=== PATIENT | male | born 1945 | race Caucasian/White ===

== ENCOUNTER 2017-02-02 08:00 | Outpatient (CLI) | payer MEDICARE, OTHER ==
[2017-02-02 16:09] LABS: BASOPHILS % (AUTO) 0.7 %; EOSINOPHILS % (AUTO) 3.9 %; HCT - HEMATOCRIT 45.2 % (42.0-52.0); HGB - HEMOGLOBIN 15.5 g/dL (14.0-18.0); LYMPHOCYTES % (AUTO) 25.7 %; MEAN CORPUSCULAR HEMOGLOBIN 31.9 pg (27.0-31.0); MEAN CORPUSCULAR HGB CONC 34.2 g/dL (32.0-36.0); MEAN CORPUSCULAR VOLUME 93.3 fL (80.0-94.0); MEAN PLATELET VOLUME 8.5 fL (7.4-11.4); MONOCYTES % (AUTO) 9.2 %; NEUTROPHILS % (AUTO) 60.5 %; RED BLOOD COUNT 4.85 10^6/uL (4.70-6.10); RED CELL DISTRIBUTION WIDTH 13.7 % (12.0-15.0)
[2017-02-02 16:37] LABS: BAND NEUTROPHILS % (MANUAL) 0 %
[2017-02-02 16:41] LABS: EOSINOPHILS % (MANUAL) 3 %; LYMPHOCYTES % (MANUAL) 27 %; NEUTROPHILS % (MANUAL) 58 %; TOTAL CELLS COUNTED 100
[2017-02-02 16:42] LABS: NP AUTO DIFFERENTIAL? YES; NP MAN DIFFERENTIAL? NO; PLATELET ESTIMATE, MANUAL NORMAL (130-450,000) (NORMAL); PLATELET MORPHOLOGY NORMAL APPEARANCE (NORMAL)
[2017-02-02 17:04] LABS: ALBUMIN/GLOBULIN RATIO 1.5 (1.0-2.2); BILIRUBIN,TOTAL 0.5 mg/dL (0.2-1.0); BUN - BLOOD UREA NITROGEN 36 mg/dL (6-20); CALCIUM 9.2 mg/dL (8.5-10.3); CARBON DIOXIDE - CO2 20 mmol/L (21-32); CHLORIDE 105 mmol/L (101-111); CHOLESTEROL 126 mg/dL; CREATININE 1.3 mg/dL (0.6-1.2); GFR - MDRD 54 (>89); GLUCOSE 106 mg/dL (70-100); HDL CHOLESTEROL 38 mg/dL; LDL/HDL RATIO 1.7 (<3.6); POTASSIUM 4.5 mmol/L (3.5-5.0); SODIUM 135 mmol/L (135-145); TOTAL PROTEIN 7.3 g/dL (6.7-8.2); TRIGLYCERIDES 116 mg/dL; VLDL CHOLESTEROL 23 mg/dL
[2017-02-02 17:05] LABS: CHOL/HDL RATIO 3.3 (<5.0)
== END 2017-02-02 08:01 | disposition home or self-care (01) ==
LOC: LAB.WCP 08:00
PROVIDERS: ATTEND Family Medicine
DX: I12.9 Hypertensive chronic kidney disease with stage 1 through stage 4 chronic kidney disease, or unspecified chronic kidney disease (principal); N18.2 Chronic kidney disease, stage 2 (mild); E78.5 Hyperlipidemia, unspecified; R73.9 Hyperglycemia, unspecified; I10 Essential (primary) hypertension
CPT/HCPCS: 36415; 80053; 80061; 85025

== ENCOUNTER 2018-02-25 08:05 | Outpatient (CLI) | payer MEDICARE, OTHER ==
[2018-02-25 08:59] LABS: BASOPHILS # (AUTO) 0.1 10^3/uL (0.0-0.1); BASOPHILS % (AUTO) 0.8 %; EOSINOPHILS # (AUTO) 0.3 10^3/uL (0.0-0.7); EOSINOPHILS % (AUTO) 4.5 %; HGB - HEMOGLOBIN 16.3 g/dL (14.0-18.0); LYMPHOCYTES # (AUTO) 1.7 10^3/uL (1.5-3.5); LYMPHOCYTES % (AUTO) 23.3 %; MEAN CORPUSCULAR HEMOGLOBIN 32.2 pg (27.0-31.0); MEAN CORPUSCULAR HGB CONC 34.7 g/dL (32.0-36.0); MEAN CORPUSCULAR VOLUME 92.7 fL (80.0-94.0); MEAN PLATELET VOLUME 7.4 fL (7.4-11.4); MONOCYTES # (AUTO) 0.7 10^3/uL (0.0-1.0); MONOCYTES % (AUTO) 9.9 %; NEUTROPHILS # (AUTO) 4.6 10^3/uL (1.5-6.6); NEUTROPHILS % (AUTO) 61.5 %; PLT - PLATELET COUNT 222 10^3/uL (130-450); RED BLOOD COUNT 5.06 10^6/uL (4.70-6.10); RED CELL DISTRIBUTION WIDTH 13.5 % (12.0-15.0); WHITE BLOOD COUNT 7.5 x10^3/uL (4.8-10.8)
[2018-02-25 09:23] LABS: ALBUMIN 4.5 g/dL (3.2-5.5); ALBUMIN/GLOBULIN RATIO 1.4 (1.0-2.2); BILIRUBIN,TOTAL 0.9 mg/dL (0.2-1.0); CALCIUM 9.4 mg/dL (8.5-10.3); CREATININE 1.2 mg/dL (0.6-1.2); TOTAL PROTEIN 7.8 g/dL (6.7-8.2)
== END 2018-02-25 08:06 | disposition home or self-care (01) ==
LOC: RT 08:05
PROVIDERS: ATTEND Internal Medicine Gastroenterology
DX: G47.30 Sleep apnea, unspecified (principal); I10 Essential (primary) hypertension; E78.5 Hyperlipidemia, unspecified
CPT/HCPCS: 36415; 80053; 85025; 93005

== ENCOUNTER 2018-05-09 10:31 | Day surgery (SDC) | payer MEDICARE, OTHER ==
[2018-05-09] MEDS ORDERED: LACTATED RINGERS 1,000 ML IV ONE ×2 (10:53→12:13)
--- NOTE | 2018-05-09 10:56 | ANESTHESIA ---
Pre-Anesthesia VS, & Labs - Diagnosis History of colon polyps - Procedure Colonscopy Vital Signs: Temp Pulse Resp BP Pulse Ox 36.5 C 57 L 18 134/78 H 99 05/09/18 10:43 05/09/18 10:43 05/09/18 10:43 05/09/18 10:43 05/09/18 10:43 Height 6 ft 4 in Weight (kg) 104 kg - NPO >8 hours - Lab Results Lab results reviewed: No Home Medications and Allergies Home Medications: Ambulatory Orders Cholecalciferol (Vitamin D3) [Vitamin D] 2,000 unit PO DAILY 04/24/18 Metoprolol Tartrate [Lopressor] 25 mg PO DAILY 04/24/18 Psyllium Husk (with Sugar) [Metamucil Powder] 2 tbs PO DAILY 04/24/18 Zolpidem Tartrate [Ambien] 10 mg PO QPM PRN 04/24/18 Aspirin [Aspir 81] 81 mg PO DAILY 04/10/13 Fenofibrate Nanocrystallized [Triglide] 160 mg PO DAILY 04/10/13 Losartan Potassium [Cozaar] 100 mg PO DAILY 04/10/13 Cholecalciferol (Vitamin D3) [Vitamin D] 2,000 unit PO DAILY 04/24/18 Metoprolol Tartrate [Lopressor] 25 mg PO DAILY 04/24/18 Psyllium Husk (with Sugar) [Metamucil Powder] 2 tbs PO DAILY 04/24/18 Zolpidem Tartrate [Ambien] 10 mg PO QPM PRN 04/24/18 Allergies/Adverse Reactions: Allergies Allergy/AdvReac Type Severity Reaction Status Date / Time pseudoephedrine HCl * Allergy Severe Hives Verified 04/10/13 13:22 [From Sudafed] triprolidine HCl * Allergy Severe Hives Verified 04/10/13 13:22 [From Actifed] Anes History & Medical History - Anesthetic History Anesthesia Complications: reports: No previous complications Family history of Anesthesia Complications: Denies Family history of Malignant Hyperthermia: Denies - Medical History Cardiovascular: reports: Hypertension, High cholesterol Pulmonary: reports: Sleep apnea, CPAP use Gastrointestinal: reports: Colon polyps Urinary: reports: None, 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) Neuro: reports: None Musculoskeletal: reports: None Endocrine/Autoimmune: reports: None Blood Disorders: reports: None Skin: reports: None Smoking Status: Never smoker - Surgical History General: Colonoscopy Eyes Ears Nose Throat (EENT): Tonsil/Adenoidectomy Orthopedic: Knee replacement, Rotator cuff repair, Carpal Tunnel surgery Exam General: Alert Dental: Partials Upper, Partials Lower Mouth Opening: Greater than 4 Fingerbreadths Neck Mobility: Normal Mallampati classification: I Thyromental Distance: greater than 6 cm Respiratory: Lungs clear Cardiovascular: Regular rate Mental/Cognitive Status: Alert/Oriented X3 Cognitive Status: Within normal limits Plan Anesthesia Type: Total IV Consent for Procedure(s) Verified and Reviewed: Yes Code Status: Attempt Resuscitation ASA classification: 2-Mild systemic disease Is this case an emergency?: No
[2018-05-09] MEDS ORDERED: PHENYLEPHRINE 50 MG/5 ML VIAL IV ONE (12:00)
[2018-05-09] MEDS ORDERED: PROPOFOL 200 MG/20 ML VIAL IVP ONE (12:00)
[2018-05-09] MEDS ORDERED: LIDOCAINE-MPF 2% 5 ML VIAL IM ONE (12:00)
[2018-05-09] MEDS ORDERED: MIDAZOLAM 2 MG/2 ML VIAL IVP ONE (12:00)
[2018-05-09 12:53] VITALS: BP 103/60
== END 2018-05-09 10:32 | disposition home or self-care (01) ==
LOC: SDS 10:31
PROVIDERS: ATTEND Internal Medicine Gastroenterology
PROC: 0DBK8ZZ Excision of Ascending Colon, Via Natural or Artificial Opening Endoscopic (ICD-10-PCS; 2018-05-09)
PROC: 0DBL8ZZ Excision of Transverse Colon, Via Natural or Artificial Opening Endoscopic (ICD-10-PCS; 2018-05-09)
PROC: 0DBM8ZZ Excision of Descending Colon, Via Natural or Artificial Opening Endoscopic (ICD-10-PCS; principal; 2018-05-09 11:30)
DX: D12.2 Benign neoplasm of ascending colon (principal); D12.4 Benign neoplasm of descending colon; D12.3 Benign neoplasm of transverse colon; K57.30 Diverticulosis of large intestine without perforation or abscess without bleeding; I12.9 Hypertensive chronic kidney disease with stage 1 through stage 4 chronic kidney disease, or unspecified chronic kidney disease; N18.9 Chronic kidney disease, unspecified; G47.30 Sleep apnea, unspecified; G62.9 Polyneuropathy, unspecified; E78.00 Pure hypercholesterolemia, unspecified; Z79.82 Long term (current) use of aspirin; H91.90 Unspecified hearing loss, unspecified ear
CPT/HCPCS: 45380; 45385; J7120

== ENCOUNTER 2020-01-13 13:52 | Outpatient (CLI) | payer MEDICARE, OTHER ==
--- NOTE | 2020-01-13 14:23 | SLEEP CARE CONSULTATION ---
Information from patient questionnaire entered by Bandar Schuster. I have reviewed and concur with the information entered by Bandar Schuster. This document represents the service I personally performed and the decisions made by me, Sarath Bay MD, [facility]. History of Present Illness Service Date and Time: 01/13/2020 1352 Reason for Visit: New patient, sleep apnea on CPAP therapy Chief Complaint: reports: Other ( requested this because need to have current CPAP system replaced) Usual bedtime: Late 1996 Snores at night: Yes (Only if CPAP mask breaks seal or comes twisted) Observed to quit breathing while asleep: Yes (Originally) Reasons for waking at night: reports: Gasping for air (originally) Prior sleep studies: Yes Year and Where: 04/01/1997 [facility], 10/13/08 [facility] Additional HPI information: I had the pleasure of seeing Mr. Menard along with his today regarding obstructive sleep apnea-hypopnea. As you know, he is a 74 year old gentleman who was originally diagnosed with the sleep-disordered breathing at [facility] in 1997. The RDI was 23 and altagracia oxygen saturation of 90%. He was prescribed a CPAP device set at 8 cmH2O. He is on his third machine. He uses it every night and all night. The compliance data show usage in 29 out of the past 30 nights, averaging 9.2 hours a night. The residual AHI is 0.1 and average air leak is 0 L/minute. He wears a nasal mask. He gets his supplies from [facility]. He finds the treatment beneficial. He does not snore through the CPAP according to his . 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 Patient is and lives in [facility]. Have you smoked in the past 12 months: No Alcohol use: No Caffeine use: Yes Caffeine amount and frequency: 1 glass of tea once in a while Family History Family history of sleep disordered breathing: No Allergies and Home Medications Drug allergies reviewed: Yes Home medication list reviewed: Yes Review of Systems Weight gain over past 5 years: 25 since pandemic started Cardiovascular: reports: high blood pressure, leg or foot swelling Respiratory: denies: shortness of breath, wheeze, sputum production, chronic cough, other Gastrointestinal: denies: heartburn, difficulty swallowing, nausea, vomitting, diarrhea, abdominal pain, other Urinary: denies: incontinence, frequency, urgency, impotence, other Neurological: denies: headaches, seizure, head trauma, disorientation, speech dysfunction, gait or balance problems, fainting or unconsciousness, other Psychiatric: denies: Attention Deficit Hyperactivity, anxiety, depression, mood disorder, claustrophobia, other Ear/Nose/Throat: reports: sinus problems, nose bleeds (originally), tonsillectomy, wisdom teeth removed Musculoskeletal: reports: joint pain, joint swelling Immunologic: denies: sneezing, rash, itching, allergies to food or environment, other Physical Exam Height: 6 ft 4 in Weight: 240 lb Body Mass Index: 29.2 BMI Classification: Overweight Impression and Plan IMPRESSION: 1. Obstructive Sleep Apnea-Hypopnea Syndrome, moderate, as previously diagnosed. The patient has had excellent treatment compliance. The current pressure setting appears effective and comfortable. The patient experiences improvement on the treatment. No adjustment is necessary today. Plan: 1. Continue with the CPAP therapy at 8 cmH2O. 2. Return for follow up in a year or earlier if there is any problem. Visit Type: In Office Other Participants: Spouse/Significant Other Time Spent with Patient (minutes): 15 Provider Statement: I spent 100% of the Face to Face Visit with the patient with greater than 50% spent counseling the patient and coordination of care.
== END 2020-01-13 13:53 | disposition home or self-care (01) ==
LOC: SC 13:52
PROVIDERS: ATTEND Internal Medicine Pulmonary Disease
DX: G47.33 Obstructive sleep apnea (adult) (pediatric) (principal); E66.3 Overweight; Z68.29 Body mass index [BMI] 29.0-29.9, adult
CPT/HCPCS: 99203; G0463; 99212

== ENCOUNTER 2020-03-09 17:25 | Outpatient (CLI) | payer MEDICARE, OTHER ==
--- NOTE | 2020-03-10 08:13 | XRAY Report ---
PROCEDURE: Hips 3-4V BILAT INDICATIONS: PAIN IN RIGHT HIP JOINT TECHNIQUE: 3 views of the hip were acquired. COMPARISON: None FINDINGS: Bones: No fractures or dislocations. No suspicious bony lesions. The visualized pelvic ring appear s intact. Soft tissues: No suspicious soft tissue calcifications or masses. IMPRESSION: There is a mild degree of symmetric hip joint osteoarthritis. No trauma found, no subluxation identif ied. The partially visualized lower lumbosacral spine shows a moderate degree of degenerative disc di sease slightly greater on the right than the left. Reviewed by: Flo Kaye MD on 03/10/2020 8:12 AM PST Approved by: Flo Kaye MD on 03/10/2020 8:12 AM PST Station ID: [id number]
--- NOTE | 2020-03-10 09:47 | XRAY Report ---
PROCEDURE: Lumbar Spine Complete INDICATIONS: PIRIFORMIS SYNDROME, RIGHT TECHNIQUE: 5 views of the lumbar spine were acquired. COMPARISON: None. FINDINGS: Bones: 5 [id number] vertebrae are present. There is rightward curvature at thoracolumbar junct ion centered at T12-L1 level and slight compensatory leftward curvature centered at L4-5 level. No ac [place] compression fracture or spondylolisthesis. Degenerative endplate changes and bilateral facet arth rosis throughout lumbar spine is seen more prominent at L4-5 and L5-S1 levels. Oblique views shows no gross pars interarticularis defects. Bilateral bony foraminal stenosis at L4-5 and L5-S1 levels are likely present. No suspicious bony lesions. Soft tissues: Overlying bowel gas pattern is normal. No suspicious soft tissue calcifications. IMPRESSION: Scoliosis of thoracolumbar spine as above. No acute compression fracture or spondylolist hesis. Degenerative disc disease throughout lumbar spine more prominent at L4-5 and L5-S1 levels with suggestion of bilateral bony foraminal stenosis. No gross pars defect. Reviewed by: Collin Smith MD on 03/10/2020 9:46 AM PST Approved by: Collin Smith MD on 03/10/2020 9:46 AM PST Station ID: [id number]
== END 2020-03-09 17:26 | disposition home or self-care (01) ==
LOC: DI 17:25
PROVIDERS: ATTEND Internal Medicine
DX: M16.0 Bilateral primary osteoarthritis of hip (principal); M51.37 Other intervertebral disc degeneration, lumbosacral region; M51.36 Other intervertebral disc degeneration, lumbar region

== ENCOUNTER 2020-08-26 08:00 | Outpatient (CLI) | payer MEDICARE, OTHER ==
[2020-08-26 11:51] LABS: BASOPHILS % (AUTO) 0.3 %; EOSINOPHILS # (AUTO) 0.3 10^3/uL (0.0-0.7); EOSINOPHILS % (AUTO) 3.3 %; HCT - HEMATOCRIT 38.4 % (42.0-52.0); HGB - HEMOGLOBIN 12.9 g/dL (14.0-18.0); LYMPHOCYTES # (AUTO) 2.3 10^3/uL (1.5-3.5); LYMPHOCYTES % (AUTO) 23.1 %; MEAN CORPUSCULAR HEMOGLOBIN 35.7 pg (27.0-31.0); MEAN CORPUSCULAR HGB CONC 33.6 g/dL (32.0-36.0); MEAN CORPUSCULAR VOLUME 106.4 fL (80.0-94.0); NEUTROPHILS # (AUTO) 6.1 10^3/uL (1.5-6.6); NEUTROPHILS % (AUTO) 60.7 %; PLT - PLATELET COUNT 238 10^3/uL (130-450); RED BLOOD COUNT 3.61 10^6/uL (4.70-6.10); RED CELL DISTRIBUTION WIDTH 13.9 % (12.0-15.0)
[2020-08-26 12:24] LABS: ESTIMATED AVERAGE GLUCOSE 128 mg/dL (70-100); HEMOGLOBIN A1c% 6.1 % (4.27-6.07)
[2020-08-26 12:40] LABS: THYROID STIMULATING HORMONE 3.36 uIU/mL (0.34-5.60)
[2020-08-26 12:50] LABS: ALBUMIN 4.6 g/dL (3.2-5.5); ALBUMIN/GLOBULIN RATIO 1.5 (1.0-2.2); ALKALINE PHOSPHATASE 43 IU/L (42-121); ALT ALANINE AMINOTRANSFERASE 24 IU/L (10-60); AST ASPARTATE AMINOTRANSFERASE 25 IU/L (10-42); BILIRUBIN,TOTAL 0.9 mg/dL (0.2-1.0); BUN - BLOOD UREA NITROGEN 50 mg/dL (6-20); CALCIUM 9.8 mg/dL (8.5-10.3); CARBON DIOXIDE - CO2 25 mmol/L (21-32); CHLORIDE 103 mmol/L (101-111); CHOL/HDL RATIO 3.8 (<5.0); CHOLESTEROL 136 mg/dL; CREATININE 1.6 mg/dL (0.6-1.2); GFR - MDRD 42 (>89); GLUCOSE 111 mg/dL (70-100); HDL CHOLESTEROL 36 mg/dL; LDL CHOLESTEROL,CALCULATED 75 mg/dL; LDL/HDL RATIO 2.1 (<3.6); POTASSIUM 4.8 mmol/L (3.5-5.0); SODIUM 136 mmol/L (135-145); TOTAL PROTEIN 7.6 g/dL (6.7-8.2); TRIGLYCERIDES 127 mg/dL; VLDL CHOLESTEROL 25 mg/dL
== END 2020-08-26 23:59 | disposition home or self-care (01) ==
LOC: LAB.WCP 08:00
PROVIDERS: ATTEND Internal Medicine
DX: N28.9 Disorder of kidney and ureter, unspecified (principal); G47.00 Insomnia, unspecified; E78.5 Hyperlipidemia, unspecified; N40.0 Benign prostatic hyperplasia without lower urinary tract symptoms; R73.03 Prediabetes; G62.9 Polyneuropathy, unspecified
CPT/HCPCS: 36415; 80053; 80061; 83036; 83721; 84153; 84443; 85025

== ENCOUNTER 2021-02-28 09:30 | Outpatient (CLI) | payer MEDICARE, OTHER ==
[2021-02-28 12:48] LABS: CREATININE,URINE 117.6 mg/dL; MICROALBUM/CREATININE RATIO,UR 142.9 ug/mg (<30.0); MICROALBUMIN,URINE 16.8 mg/dL (0-300.0)
[2021-02-28 12:50] LABS: ALT ALANINE AMINOTRANSFERASE 34 IU/L (10-60); BUN - BLOOD UREA NITROGEN 32 mg/dL (6-20); CALCIUM 9.6 mg/dL (8.5-10.3); CARBON DIOXIDE - CO2 26 mmol/L (21-32); CHLORIDE 101 mmol/L (101-111); CHOL/HDL RATIO 2.6 (<5.0); CHOLESTEROL 84 mg/dL; CREATININE 1.1 mg/dL (0.6-1.2); GFR - MDRD 65 (>89); GLUCOSE 111 mg/dL (70-100); HDL CHOLESTEROL 32 mg/dL; LDL CHOLESTEROL,CALCULATED 29 mg/dL; LDL/HDL RATIO 0.9 (<3.6); POTASSIUM 4.4 mmol/L (3.5-5.0); SODIUM 136 mmol/L (135-145); TRIGLYCERIDES 115 mg/dL; VLDL CHOLESTEROL 23 mg/dL
[2021-02-28 12:54] LABS: ESTIMATED AVERAGE GLUCOSE 114 mg/dL (70-100); HEMOGLOBIN A1c% 5.6 % (4.27-6.07)
== END 2021-02-28 23:59 | disposition home or self-care (01) ==
LOC: LAB.WCP 09:30
PROVIDERS: ATTEND Internal Medicine
DX: E78.5 Hyperlipidemia, unspecified (principal); R73.03 Prediabetes
CPT/HCPCS: 36415; 80048; 80061; 82043; 82570; 83036; 83721; 84460

== ENCOUNTER 2021-04-04 12:52 | Outpatient (CLI) | payer MEDICARE, OTHER ==
[2021-04-04 14:52] VITALS: BP 136/68
--- NOTE | 2021-04-04 14:52 | SLEEP CARE CONSULTATION ---
Information from patient questionnaire entered by Kay Phan MA. I have reviewed and concur with the information entered by Kay Phan MA. This document represents the service I personally performed and the decisions made by me, Sarath Bay MD, [facility]. History of Present Illness Service Date and Time: 04/04/2021 1252 Reason for follow up: annual (LAST SEEN 02/28) Prior sleep studies: Yes Year and Where: 04/01/1997 [facility], 10/13/08 [facility] HPI additional information: HPI: Mr. Menard along with his today regarding obstructive sleep apnea- hypopnea. He is a 74 year old gentleman who was originally diagnosed with the sleep-disordered breathing at [facility] in 1997. The RDI was 23 and altagracia oxygen saturation of 90%. He was prescribed a CPAP device set at 8 cmH2O. He is on his third machine. He uses it every night and all night. The compliance data show usage in 361 out of the past 365 nights, averaging 8.3 hours a night. The residual AHI is 0.2 and average air leak is 0 L/minute. He wears the ResMed P10 nasal pillows. He gets his supplies from [facility]. He finds the treatment beneficial. He does not snore through the CPAP according to his . Sleep Study - Results Prior sleep studies: Yes Year and Where: 04/01/1997 [facility], 10/13/08 [facility] CPAP Compliance Data - Data Reviewed with Patient Average duration of nightly device use: 8 HOURS 9 MINUTES Compliance rate %: 99 Current pressure setting (cmH2O): 8 Average residual AHI: 0.2 Central apnea: 0 Obstructive apnea: 0 Average large leak: 14.6 Subjective Missed days of use due to: reports: other (POWER OUTAGES) Current pressure setting perceived as: comfortable Current [place] Sleepiness Scale score: 11 (2021) Allergies and Home Medications Known drug allergies: Yes (SUDIFED, ) Drug allergies reviewed: Yes Home medication list reviewed: No Review of Systems Review of systems same as previous: Yes Physical Exam Vital signs obtained and entered by: Ammy PHAN CMA AAROSEMARY Blood Pressure: 136/68 (LEFT, PULSE 59) Heart Rate: 61 O2 Saturation: 97 (WITH PAPER MASK-) Height: 6 ft 4 in Weight: 227 lb Body Mass Index: 27.6 BMI Classification: Overweight Impression and Plan IMPRESSION: 1. Obstructive Sleep Apnea-Hypopnea Syndrome, moderate, as previously diagnosed. The patient continues to have excellent treatment compliance. The current pressure setting appears effective and comfortable. The patient experiences improvement on the treatment. No adjustment is necessary today. Plan: 1. Continue with the CPAP therapy at 8 cmH2O. 2. Consider ResMed N30i mask or P30 nasal pillows. 3. Get a heated hose if he has difficulty with condensation in the hose. Follow up with Sleep Care in: 1 year Visit Type: In Office Time Spent with Patient (minutes): 15 Provider Statement: I spent 100% of the Face to Face Visit with the patient with greater than 50% spent counseling the patient and coordination of care.
== END 2021-04-04 12:53 | disposition home or self-care (01) ==
LOC: SC 12:52
PROVIDERS: ATTEND Internal Medicine Pulmonary Disease
DX: G47.33 Obstructive sleep apnea (adult) (pediatric) (principal)
CPT/HCPCS: 99212; G0463

== ENCOUNTER 2021-08-25 11:58 | Outpatient (CLI) | payer MEDICARE, OTHER ==
[2021-08-25 17:55] LABS: BASOPHILS % (AUTO) 0.3 %; EOSINOPHILS # (AUTO) 0.2 10^3/uL (0.0-0.7); EOSINOPHILS % (AUTO) 1.8 %; HCT - HEMATOCRIT 35.2 % (42.0-52.0); LYMPHOCYTES # (AUTO) 2.6 10^3/uL (1.5-3.5); MEAN CORPUSCULAR HEMOGLOBIN 38.7 pg (27.0-31.0); MEAN CORPUSCULAR HGB CONC 34.1 g/dL (32.0-36.0); MEAN CORPUSCULAR VOLUME 113.5 fL (80.0-94.0); MEAN PLATELET VOLUME 10.8 fL (7.4-11.4); MONOCYTES # (AUTO) 1.1 10^3/uL (0.0-1.0); MONOCYTES % (AUTO) 8.2 %; NEUTROPHILS # (AUTO) 8.9 10^3/uL (1.5-6.6); NEUTROPHILS % (AUTO) 65.9 %; PLT - PLATELET COUNT 331 10^3/uL (130-450); RED CELL DISTRIBUTION WIDTH 15.3 % (12.0-15.0); WHITE BLOOD COUNT 13.4 x10^3/uL (4.8-10.8)
[2021-08-25 18:26] LABS: % IRON SATURATION 27 % (20-50); IRON 80 ug/dL (45-182); THYROID STIMULATING HORMONE 1.6 uIU/mL (0.34-5.60); TOTAL IRON BINDING CAPACITY 298 ug/dL (250-450); TRANSFERRIN 213 mg/dL (180-329)
[2021-08-25 18:31] LABS: FERRITIN 396.9 ng/mL (23.9-336.2)
[2021-08-25 20:33] LABS: RBC MORPHOLOGY (MULTIPLE) 1+ MACROCYTOSIS (NORMAL); SLIDE REVIEW? Indicated
[2021-08-25 20:34] LABS: PLATELET ESTIMATE, MANUAL NORMAL (130-450,000) (NORMAL); PLATELET MORPHOLOGY 1+ LARGE PLATELETS (NORMAL)
[2021-08-26 14:08] LABS: KAPPA FREE LT CHAINS SERUM 25.7 mg/L (3.3-19.4); KAPPA/LAMBDA RATIO SERUM 0.88 (0.26-1.65); LAMBDA FREE LT CHAINS SERUM 29.1 mg/L (5.7-26.3)
[2021-08-27 16:08] LABS: METHYLMALONIC ACID SERUM 132 nmol/L (0-378)
[2021-08-29 15:08] LABS: A/G RATIO 1.5 (0.7-1.7); ALBUMIN 4.3 g/dL (2.9-4.4); ALPHA-1-GLOBULIN 0.2 g/dL (0.0-0.4); ALPHA-2-GLOBULIN 0.7 g/dL (0.4-1.0); BETA GLOBULIN 0.9 g/dL (0.7-1.3); GAMMA GLOBULIN 1.1 g/dL (0.4-1.8); GLOBULIN TOTAL 2.9 g/dL (2.2-3.9); IMMUNOGLOBULIN A 276 mg/dL (61-437); IMMUNOGLOBULIN G 1131 mg/dL (603-1613); IMMUNOGLOBULIN M 71 mg/dL (15-143); M-SPIKE Not Observed g/dL (Not Observed); PROTEIN TOTAL 7.2 g/dL (6.0-8.5)
== END 2021-08-25 11:59 | disposition home or self-care (01) ==
LOC: LAB.N 11:58
PROVIDERS: ATTEND Internal Medicine
DX: D64.9 Anemia, unspecified (principal); D75.89 Other specified diseases of blood and blood-forming organs
CPT/HCPCS: 36415; 82728; 82784; 83540; 83883; 83921; 84155; 84165; 84443; 84466; 85025; 86334

== ENCOUNTER 2021-12-30 12:31 | Outpatient (CLI) | payer MEDICARE, OTHER ==
[2021-12-30 12:47] LABS: BASOPHILS % (AUTO) 0.2 %; EOSINOPHILS # (AUTO) 0.3 10^3/uL (0.0-0.7); EOSINOPHILS % (AUTO) 1.9 %; HCT - HEMATOCRIT 30.7 % (42.0-52.0); HGB - HEMOGLOBIN 10.6 g/dL (14.0-18.0); LYMPHOCYTES # (AUTO) 1.9 10^3/uL (1.5-3.5); LYMPHOCYTES % (AUTO) 14.4 %; MEAN CORPUSCULAR HEMOGLOBIN 37.6 pg (27.0-31.0); MEAN CORPUSCULAR HGB CONC 34.5 g/dL (32.0-36.0); MEAN CORPUSCULAR VOLUME 108.9 fL (80.0-94.0); MEAN PLATELET VOLUME 9.6 fL (7.4-11.4); MONOCYTES # (AUTO) 0.9 10^3/uL (0.0-1.0); MONOCYTES % (AUTO) 6.8 %; NEUTROPHILS % (AUTO) 75.9 %; PLT - PLATELET COUNT 289 10^3/uL (130-450); RED BLOOD COUNT 2.82 10^6/uL (4.70-6.10); RED CELL DISTRIBUTION WIDTH 14.5 % (12.0-15.0); WHITE BLOOD COUNT 13.1 x10^3/uL (4.8-10.8)
[2021-12-30 13:18] LABS: THYROID STIMULATING HORMONE 1.64 uIU/mL (0.34-5.60)
[2021-12-30 13:25] LABS: ALBUMIN 4.4 g/dL (3.2-5.5); ALBUMIN/GLOBULIN RATIO 1.4 (1.0-2.2); BILIRUBIN,TOTAL 0.8 mg/dL (0.2-1.0); CREATININE 1.1 mg/dL (0.6-1.2); CRP - C-REACTIVE PROTEIN 1.7 mg/dL (0-1.0); POTASSIUM 4.3 mmol/L (3.5-5.0); TOTAL PROTEIN 7.5 g/dL (6.7-8.2); URIC ACID 7.5 mg/dL (2.6-7.2)
[2021-12-30 13:55] LABS: RHEUMATOID FACTOR NEGATIVE (Negative)
[2021-12-31 17:08] LABS: ANTI-DNA (DS) AB QN 2 IU/mL (0-9); CENTROMERE B ANTIBODIES <0.2 AI (0.0-0.9); CHROMATIN ANTIBODIES <0.2 AI (0.0-0.9); JO-1 AB <0.2 AI (0.0-0.9); RIBOSOMAL P ANTIBODIES <0.2 AI (0.0-0.9); RNP ANTIBODIES <0.2 AI (0.0-0.9); SCLERODERMA-70 ANTIBODIES <0.2 AI (0.0-0.9); SJOGREN'S ANTI-SS-A <0.2 AI (0.0-0.9); SJOGREN'S ANTI-SS-B <0.2 AI (0.0-0.9); SMITH ANTIBODIES <0.2 AI (0.0-0.9); SMITH/RNP ANTIBODIES <0.2 AI (0.0-0.9)
[2022-01-02 21:07] LABS: CYCLIC CITRULLINATED PEP IGG/A 14 units (0-19)
== END 2021-12-30 12:32 | disposition home or self-care (01) ==
LOC: LAB 12:31
PROVIDERS: ATTEND Internal Medicine
DX: M25.50 Pain in unspecified joint (principal); I10 Essential (primary) hypertension; D75.89 Other specified diseases of blood and blood-forming organs; Z13.29 Encounter for screening for other suspected endocrine disorder
CPT/HCPCS: 36415; 80053; 84443; 84550; 85025; 85651; 86140; 86200; 86225; 86235; 86430

== ENCOUNTER 2022-02-13 11:06 | Outpatient (CLI) | payer MEDICARE, OTHER ==
[2022-02-13 11:20] LABS: BASOPHILS % (AUTO) 0.3 %; EOSINOPHILS # (AUTO) 0.3 10^3/uL (0.0-0.7); EOSINOPHILS % (AUTO) 2.9 %; HCT - HEMATOCRIT 34.3 % (42.0-52.0); HGB - HEMOGLOBIN 11.7 g/dL (14.0-18.0); LYMPHOCYTES # (AUTO) 2.4 10^3/uL (1.5-3.5); LYMPHOCYTES % (AUTO) 27.5 %; MEAN CORPUSCULAR HEMOGLOBIN 36.8 pg (27.0-31.0); MEAN CORPUSCULAR HGB CONC 34.1 g/dL (32.0-36.0); MEAN CORPUSCULAR VOLUME 107.9 fL (80.0-94.0); MEAN PLATELET VOLUME 9.2 fL (7.4-11.4); MONOCYTES # (AUTO) 0.7 10^3/uL (0.0-1.0); MONOCYTES % (AUTO) 8.2 %; NEUTROPHILS # (AUTO) 5.1 10^3/uL (1.5-6.6); NEUTROPHILS % (AUTO) 59.2 %; PLT - PLATELET COUNT 244 10^3/uL (130-450); RED BLOOD COUNT 3.18 10^6/uL (4.70-6.10); RED CELL DISTRIBUTION WIDTH 15.6 % (12.0-15.0); WHITE BLOOD COUNT 8.6 x10^3/uL (4.8-10.8)
[2022-02-13 11:38] LABS: BUN - BLOOD UREA NITROGEN 28 mg/dL (6-20); CALCIUM 9.3 mg/dL (8.5-10.3); CARBON DIOXIDE - CO2 25 mmol/L (21-32); CHLORIDE 100 mmol/L (101-111); GFR - MDRD 73 (>89); GLUCOSE 109 mg/dL (70-100); POTASSIUM 4.4 mmol/L (3.5-5.0); SODIUM 135 mmol/L (135-145)
[2022-02-13 11:57] LABS: PROLACTIN 10.23 ng/mL
[2022-02-13 12:21] LABS: LUTEINIZING HORMONE 25.39 mIU/mL
[2022-02-13 12:25] LABS: CRP - C-REACTIVE PROTEIN < 1.0 mg/dL (0-1.0)
[2022-02-13 13:30] LABS: ESTIMATED AVERAGE GLUCOSE 114 mg/dL (70-100); HEMOGLOBIN A1c% 5.6 % (4.27-6.07)
== END 2022-02-13 11:07 | disposition home or self-care (01) ==
LOC: LAB 11:06
PROVIDERS: ATTEND Internal Medicine
DX: I10 Essential (primary) hypertension (principal); D75.89 Other specified diseases of blood and blood-forming organs; E29.1 Testicular hypofunction; R73.03 Prediabetes; M35.3 Polymyalgia rheumatica
CPT/HCPCS: 36415; 80048; 82607; 83002; 83036; 84146; 84403; 85025; 85651; 86140

== ENCOUNTER 2022-02-16 12:44 | Outpatient (CLI) | payer MEDICARE, OTHER | END 2022-02-16 12:45 | disposition home or self-care (01) | LOC: LAB 12:44 | PROVIDERS: ATTEND Internal Medicine Rheumatology | DX: M35.3 Polymyalgia rheumatica (principal) | CPT/HCPCS: 36415; 85651; 86140 ==

== ENCOUNTER 2022-05-08 12:20 | Outpatient (CLI) | payer MEDICARE, OTHER ==
[2022-05-08 13:22] LABS: BASOPHILS % (AUTO) 0.4 %; EOSINOPHILS # (AUTO) 0.3 10^3/uL (0.0-0.7); EOSINOPHILS % (AUTO) 2.4 %; HCT - HEMATOCRIT 37.8 % (42.0-52.0); HGB - HEMOGLOBIN 12.8 g/dL (14.0-18.0); LYMPHOCYTES # (AUTO) 2.1 10^3/uL (1.5-3.5); LYMPHOCYTES % (AUTO) 19.2 %; MEAN CORPUSCULAR HEMOGLOBIN 36.6 pg (27.0-31.0); MEAN CORPUSCULAR HGB CONC 33.9 g/dL (32.0-36.0); MEAN PLATELET VOLUME 9.3 fL (7.4-11.4); MONOCYTES # (AUTO) 0.9 10^3/uL (0.0-1.0); MONOCYTES % (AUTO) 8.4 %; NEUTROPHILS # (AUTO) 7.4 10^3/uL (1.5-6.6); NEUTROPHILS % (AUTO) 67.9 %; PLT - PLATELET COUNT 245 10^3/uL (130-450); WHITE BLOOD COUNT 10.8 x10^3/uL (4.8-10.8)
[2022-05-08 13:56] LABS: ALBUMIN 4.1 g/dL (3.2-5.5); ALBUMIN/GLOBULIN RATIO 1.4 (1.0-2.2); ALKALINE PHOSPHATASE 50 IU/L (42-121); ALT ALANINE AMINOTRANSFERASE 26 IU/L (10-60); AST ASPARTATE AMINOTRANSFERASE 25 IU/L (10-42); BILIRUBIN,TOTAL 0.8 mg/dL (0.2-1.0); BUN - BLOOD UREA NITROGEN 25 mg/dL (6-20); CALCIUM 9.2 mg/dL (8.5-10.3); CARBON DIOXIDE - CO2 28 mmol/L (21-32); CHLORIDE 98 mmol/L (101-111); CHOLESTEROL 160 mg/dL; CREATININE 1.1 mg/dL (0.6-1.2); GFR - MDRD 65 (>89); GLUCOSE 110 mg/dL (70-100); HDL CHOLESTEROL 32 mg/dL; LDL CHOLESTEROL,CALCULATED 78 mg/dL; LDL/HDL RATIO 2.4 (<3.6); POTASSIUM 4.2 mmol/L (3.5-5.0); SODIUM 133 mmol/L (135-145); TRIGLYCERIDES 250 mg/dL; VLDL CHOLESTEROL 50 mg/dL
[2022-05-08 13:57] LABS: CRP - C-REACTIVE PROTEIN < 1.0 mg/dL (0-1.0)
== END 2022-05-08 12:21 | disposition home or self-care (01) ==
LOC: LAB 12:20
PROVIDERS: ATTEND Internal Medicine
DX: I10 Essential (primary) hypertension (principal); E78.5 Hyperlipidemia, unspecified; M35.3 Polymyalgia rheumatica
CPT/HCPCS: 36415; 80053; 80061; 83721; 85025; 85651; 86140

== ENCOUNTER 2022-05-15 12:49 | Outpatient (CLI) | payer MEDICARE, OTHER ==
--- NOTE | 2022-05-15 13:16 | SLEEP CARE CONSULTATION ---
Information from patient questionnaire entered by Jazlyn Parr LPN. I have reviewed and concur with the information entered by Jazlyn Parr LPN. This document represents the service I personally performed and the decisions made by me, Sarath Bay MD, [facility]. History of Present Illness Service Date and Time: 05/15/2022 1249 Reason for follow up: annual (ANNUAL LAST OFFICE VISIT 03/2021) Prior sleep studies: Yes Year and Where: 04/01/1997 [facility], 10/13/08 [facility] HPI additional information: Mr. Menrad along with his today regarding obstructive sleep apnea- hypopnea. He is a 74-year-old gentleman who was originally diagnosed with the sleep-disordered breathing at [facility] in 1997. The RDI was 23 and altagracia oxygen saturation of 90%. He was prescribed a CPAP device set at 8 cmH2O. He is on his third machine. He continues to use it every night and all night. The compliance data show usage in 180 out of the past 180 nights, averaging 9.3 hours a night. The > 4 hour compliance rate for the past 30 days is 99%. The residual AHI is 0.2 and average air leak is 0.7 L/minute. He wears the ResMed P10 nasal pillows. He gets his supplies from [facility]. He finds the treatment beneficial. He does not snore through the CPAP according to his . His [place] Sleepiness Scale score is 3. [facility] is his durable medical supplier. The ResMed AirSense 10 is 4th CPAP machine. Sleep Study - Results Prior sleep studies: Yes Year and Where: 04/01/1997 [facility], 10/13/08 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 Average residual AHI: 0.2 Subjective Current [place] Sleepiness Scale score: 3 (05/15/22) Allergies and Home Medications Known drug allergies: Yes (SUDIFED, ACTIFED) Drug allergies reviewed: Yes Home medication list reviewed: Yes Allergy and home medication list: Allergies pseudoephedrine HCl * [From Sudafed] Allergy (Severe, Verified 10/22/21 22:29) Hives triprolidine HCl * [From Actifed] Allergy (Severe, Verified 10/22/21 22:29) Hives Review of Systems Review of systems same as previous: Yes Physical Exam Vital signs obtained and entered by: JAZLYN Simpson LPN Blood Pressure: 144/76 Cuff size: wrist Heart Rate: 55 O2 Saturation: 96 Height: 6 ft 1 in Weight: 507 lb 15.12 oz Body Mass Index: 67.0 BMI Classification: Morbidly Obese Impression and Plan IMPRESSION: 1. Obstructive Sleep Apnea-Hypopnea Syndrome, moderate, as previously diagnosed. The patient continues to have excellent treatment compliance. The current pressure setting appears effective and comfortable. The patient experiences improvement on the treatment. No adjustment is necessary today. He does not want the pressure any lower. Plan: 1. Continue with the CPAP therapy at 8 cmH2O. 2. Try to lose weight. 3. Return for follow up in a year or earlier if there is any problem. Follow up with Sleep Care in: 1 year Visit Type: In Office Time Spent with Patient (minutes): 12 Provider Statement: I spent 100% of the Face to Face Visit with the patient with greater than 50% spent counseling the patient and coordination of care.
[2022-05-15 13:17] VITALS: BP 144/76
== END 2022-05-15 12:50 | disposition home or self-care (01) ==
LOC: SC 12:49
PROVIDERS: ATTEND Internal Medicine Pulmonary Disease
DX: G47.33 Obstructive sleep apnea (adult) (pediatric) (principal); E66.01 Morbid (severe) obesity due to excess calories; Z68.44 Body mass index [BMI] 60.0-69.9, adult
CPT/HCPCS: 99212; G0463

== ENCOUNTER 2022-08-08 13:37 | Outpatient (CLI) | payer MEDICARE, OTHER ==
[2022-08-08 14:07] LABS: ALBUMIN 4.5 g/dL (3.2-5.5); ALBUMIN/GLOBULIN RATIO 1.7 (1.0-2.2); ALKALINE PHOSPHATASE 54 IU/L (42-121); ALT ALANINE AMINOTRANSFERASE 26 IU/L (10-60); AST ASPARTATE AMINOTRANSFERASE 26 IU/L (10-42); BILIRUBIN,TOTAL 1.1 mg/dL (0.2-1.0); BUN - BLOOD UREA NITROGEN 36 mg/dL (6-20); CALCIUM 9.3 mg/dL (8.5-10.3); CARBON DIOXIDE - CO2 24 mmol/L (21-32); CHLORIDE 105 mmol/L (101-111); CREATININE 1.3 mg/dL (0.6-1.2); GFR - MDRD 54 (>89); GLUCOSE 125 mg/dL (70-100); POTASSIUM 4.5 mmol/L (3.5-5.0); SODIUM 137 mmol/L (135-145); TOTAL PROTEIN 7.2 g/dL (6.7-8.2)
[2022-08-08 14:18] LABS: CRP - C-REACTIVE PROTEIN < 1.0 mg/dL (0-1.0)
== END 2022-08-08 13:38 | disposition home or self-care (01) ==
LOC: LAB 13:37
PROVIDERS: ATTEND Internal Medicine Rheumatology
DX: M35.3 Polymyalgia rheumatica (principal)
CPT/HCPCS: 36415; 80053; 85651; 86140

== ENCOUNTER 2022-09-04 12:22 | Outpatient (CLI) | payer MEDICARE, OTHER ==
[2022-09-04 12:35] LABS: BASOPHILS % (AUTO) 0.3 %; EOSINOPHILS # (AUTO) 0.3 10^3/uL (0.0-0.7); EOSINOPHILS % (AUTO) 2.1 %; HCT - HEMATOCRIT 32.6 % (42.0-52.0); HGB - HEMOGLOBIN 11.4 g/dL (14.0-18.0); LYMPHOCYTES % (AUTO) 24.8 %; MEAN CORPUSCULAR HEMOGLOBIN 38.1 pg (27.0-31.0); MEAN PLATELET VOLUME 9.5 fL (7.4-11.4); MONOCYTES # (AUTO) 1.3 10^3/uL (0.0-1.0); MONOCYTES % (AUTO) 10.6 %; NEUTROPHILS # (AUTO) 6.9 10^3/uL (1.5-6.6); NEUTROPHILS % (AUTO) 56.6 %; PLT - PLATELET COUNT 304 10^3/uL (130-450); RED BLOOD COUNT 2.99 10^6/uL (4.70-6.10); RED CELL DISTRIBUTION WIDTH 15.9 % (12.0-15.0); WHITE BLOOD COUNT 12.2 x10^3/uL (4.8-10.8)
[2022-09-04 12:36] LABS: SLIDE REVIEW? Indicated
[2022-09-04 12:57] LABS: ALBUMIN 4.2 g/dL (3.2-5.5); ALBUMIN/GLOBULIN RATIO 1.5 (1.0-2.2); ALKALINE PHOSPHATASE 50 IU/L (42-121); ALT ALANINE AMINOTRANSFERASE 25 IU/L (10-60); AST ASPARTATE AMINOTRANSFERASE 25 IU/L (10-42); BILIRUBIN,TOTAL 1.1 mg/dL (0.2-1.0); BUN - BLOOD UREA NITROGEN 29 mg/dL (6-20); CALCIUM 9.1 mg/dL (8.5-10.3); CARBON DIOXIDE - CO2 25 mmol/L (21-32); CHLORIDE 107 mmol/L (101-111); CREATININE 1.2 mg/dL (0.6-1.2); GFR - MDRD 59 (>89); GLUCOSE 109 mg/dL (70-100); POTASSIUM 4.3 mmol/L (3.5-5.0); SODIUM 136 mmol/L (135-145)
[2022-09-04 13:02] LABS: PLATELET ESTIMATE, MANUAL NORMAL (130-450,000) (NORMAL); PLATELET MORPHOLOGY NORMAL APPEARANCE (NORMAL); RBC MORPHOLOGY (MULTIPLE) NORMAL APPEARANCE (NORMAL); WBC MORPHOLOGY (MULTIPLE) NORMAL APPEARANCE (NORMAL)
[2022-09-04 13:11] LABS: CRP - C-REACTIVE PROTEIN < 1.0 mg/dL (0-1.0)
[2022-09-04 13:20] LABS: ESTIMATED AVERAGE GLUCOSE 117 mg/dL (70-100); HEMOGLOBIN A1c% 5.7 % (4.27-6.07)
[2022-09-04 14:00] LABS: THYROID STIMULATING HORMONE 1.91 uIU/mL (0.34-5.60)
== END 2022-09-04 12:23 | disposition home or self-care (01) ==
LOC: LAB 12:22
PROVIDERS: ATTEND Internal Medicine
DX: I10 Essential (primary) hypertension (principal); R73.03 Prediabetes; Z13.29 Encounter for screening for other suspected endocrine disorder; M35.3 Polymyalgia rheumatica
CPT/HCPCS: 36415; 80053; 83036; 84443; 85025; 85651; 86140

== ENCOUNTER 2022-09-19 09:49 | Outpatient (CLI) | payer MEDICARE, OTHER ==
--- NOTE | 2022-09-19 15:30 | DEXA Report ---
PROCEDURE: Dexa Spine and/or Hip INDICATIONS: OSTEOPOROSIS TECHNIQUE: Dual energy x-ray absorptiometry (DXA) was performed on a [employer] System. Regions measur ed are the AP Spine, femoral neck, and if needed forearm. COMPARISON: None. FINDINGS: Lumbar Spine: Bone Mineral Density 1.495 g/cm/cm,T score 2.1. Left Femoral Neck: Bone Mineral Density 1.004 g/cm/cm, T score -0.5. Left Hip: Bone Mineral Density 1.1-5 g/cm/cm,T score 0.2. (T score greater or equal to -1.0: NORMAL) (T score from -1.1 to -2.4: OSTEOPENIA) (T score less than or equal to -2.5 to: OSTEOPOROSIS) Impression: By WHO criteria, this patient has normal bone density. Patients with diagnosis of osteoporosis or osteopenia should have regular bone mineral density assess ment. For those eligible for Medicare, routine testing is allowed once every 2 years. Testing frequ ency can be increased for patients who have rapidly progressing disease or for those who are receivin g medical therapy to restore bone mass. Reviewed by: Brown Noel MD on 09/19/2022 3:29 PM PDT Approved by: Brown Noel MD on 09/19/2022 3:29 PM PDT Station ID: [id number]
== END 2022-09-19 09:50 | disposition home or self-care (01) ==
LOC: DI 09:49
PROVIDERS: ATTEND Internal Medicine Rheumatology
DX: M81.0 Age-related osteoporosis without current pathological fracture (principal)

== ENCOUNTER 2022-10-26 13:57 | Outpatient (CLI) | payer MEDICARE, OTHER ==
[2022-10-26 14:13] LABS: BASOPHILS # (AUTO) 0.1 10^3/uL (0.0-0.1); BASOPHILS % (AUTO) 0.3 %; EOSINOPHILS # (AUTO) 0.2 10^3/uL (0.0-0.7); EOSINOPHILS % (AUTO) 1.3 %; HCT - HEMATOCRIT 33.3 % (42.0-52.0); HGB - HEMOGLOBIN 11.2 g/dL (14.0-18.0); LYMPHOCYTES # (AUTO) 2.4 10^3/uL (1.5-3.5); LYMPHOCYTES % (AUTO) 14.9 %; MEAN CORPUSCULAR HEMOGLOBIN 38.2 pg (27.0-31.0); MEAN CORPUSCULAR HGB CONC 33.6 g/dL (32.0-36.0); MEAN CORPUSCULAR VOLUME 113.7 fL (80.0-94.0); MEAN PLATELET VOLUME 9.7 fL (7.4-11.4); MONOCYTES # (AUTO) 1.5 10^3/uL (0.0-1.0); MONOCYTES % (AUTO) 9.1 %; NEUTROPHILS # (AUTO) 10.8 10^3/uL (1.5-6.6); NEUTROPHILS % (AUTO) 67.3 %; PLT - PLATELET COUNT 372 10^3/uL (130-450); RED BLOOD COUNT 2.93 10^6/uL (4.70-6.10); RED CELL DISTRIBUTION WIDTH 16.8 % (12.0-15.0)
[2022-10-26 14:25] LABS: ALBUMIN 4.5 g/dL (3.2-5.5); ALBUMIN/GLOBULIN RATIO 1.7 (1.0-2.2); BILIRUBIN,TOTAL 0.9 mg/dL (0.2-1.0); CALCIUM 9.6 mg/dL (8.5-10.3); CREATININE 1.4 mg/dL (0.6-1.3); CRP - C-REACTIVE PROTEIN 0.5 mg/dL (<0.5); TOTAL PROTEIN 7.2 g/dL (6.4-8.9)
[2022-10-26 14:28] LABS: PLATELET ESTIMATE, MANUAL NORMAL (130-450,000) (NORMAL); PLATELET MORPHOLOGY NORMAL APPEARANCE (NORMAL); RBC MORPHOLOGY (MULTIPLE) 2+ MACROCYTOSIS (NORMAL); SLIDE REVIEW? Indicated
== END 2022-10-26 13:58 | disposition home or self-care (01) ==
LOC: LAB 13:57
PROVIDERS: ATTEND Internal Medicine Rheumatology
DX: M35.3 Polymyalgia rheumatica (principal)
CPT/HCPCS: 36415; 80053; 82550; 85025; 85651; 86140

== ENCOUNTER 2023-01-17 08:20 | Outpatient (CLI) | payer MEDICARE, OTHER ==
[2023-01-18 20:08] LABS: KAPPA FREE LT CHAINS SERUM 27.3 mg/L (3.3-19.4); KAPPA/LAMBDA RATIO SERUM 1.01 (0.26-1.65)
[2023-01-19 14:09] LABS: IMMUNOGLOBULIN A (IGA) 225 mg/dL (61-437); IMMUNOGLOBULIN G (IGG) 956 mg/dL (603-1613); IMMUNOGLOBULIN M (IGM) 68 mg/dL (15-143)
== END 2023-01-17 08:21 | disposition home or self-care (01) ==
LOC: LAB.N 08:20
PROVIDERS: ATTEND Family Medicine
DX: G62.9 Polyneuropathy, unspecified (principal); N40.0 Benign prostatic hyperplasia without lower urinary tract symptoms
CPT/HCPCS: 36415; 82784; 83521; 84153; 86334

== ENCOUNTER 2023-01-23 10:39 | Day surgery (SDC) | payer MEDICARE, OTHER ==
[2023-01-23] MEDS ORDERED: LACTATED RINGERS 1,000 ML IV ONE ×2 (10:50→13:16)
[2023-01-23] MEDS ORDERED: PROPOFOL 500 MG/50 ML 500 MG/50 ML VIAL ONE (10:55)
--- NOTE | 2023-01-23 11:52 | ANESTHESIA ---
Pre-Anesthesia VS, & Labs - Diagnosis screening - Procedure colonoscopy Vital Signs: Temp Pulse Resp BP Pulse Ox O2 Flow Rate 36 C L 51 L 16 130/61 98 01/23/23 10:57 01/23/23 10:57 01/23/23 10:57 01/23/23 10:57 01/23/23 10:57 Height: 6 ft 1 in Weight (kg): 96 kg Body Mass Index: 27.9 BMI Classification: Overweight - NPO >8 hours Last Fluid Intake: am prep - Lab Results Lab results reviewed: Yes Home Medications and Allergies Home Medications: Ambulatory Orders Acetaminophen [Tylenol Arthritis] 1,300 mg PO TID PRN 01/15/23 Aspirin [Aspir 81] 81 mg PO DAILY 04/10/13 Losartan Potassium [Cozaar] 100 mg PO DAILY 04/10/13 Metoprolol Tartrate [Lopressor] 25 mg PO DAILY 04/24/18 Psyllium Husk (with Sugar) [Metamucil Powder] 2 tbs PO DAILY 04/24/18 Calcium Carb/Mag Ox/Zinc Sulf [Kmi-Pco-Vffg 334-134-5 mg Tab] 1 tab PO DAILY 05/15/22 Prednisone [Manuel] 4 mg PO DAILY 05/15/22 Rosuvastatin Calcium [Crestor] 1 tab PO DAILY 05/15/22 Acetaminophen [Tylenol Arthritis] 1,300 mg PO TID PRN 01/15/23 Allergies/Adverse Reactions: Allergies Allergy/AdvReac Type Severity Reaction Status Date / Time pseudoephedrine HCl * Allergy Severe Hives Verified 01/22/23 14:32 [From Sudafed] triprolidine HCl * Allergy Severe Hives Verified 01/22/23 14:32 [From Actifed] Anes History & Medical History - Anesthetic History Anesthesia Complications: reports: No previous complications Family history of Anesthesia Complications: Denies Family history of Malignant Hyperthermia: Denies - Medical History Cardiovascular: reports: Hypertension, High cholesterol Pulmonary: reports: Sleep apnea, CPAP use Gastrointestinal: reports: Colon polyps Urinary: reports: Benign prostate hypertrophy, Renal insuffiency Neuro: reports: None Musculoskeletal: reports: Osteoarthritis Endocrine/Autoimmune: reports: None Blood Disorders: reports: None Skin: reports: None Smoking Status: Never smoker - Surgical History General: reports: Colonoscopy Eyes Ears Nose Throat (EENT): reports: Cataracts Orthopedic: reports: Knee replacement, Rotator cuff repair, Carpal Tunnel surgery Exam General: Alert, Oriented x3, Cooperative Dental: Partials Upper, Partials Lower Mouth Openin Fingerbreadth Neck Mobility: Normal Mallampati classification: II Thyromental Distance: 4-6 cm Respiratory: Lungs clear, Normal breath sounds, No respiratory distress Cardiovascular: Regular rate Neurological: Normal speech Plan Anesthesia Type: Total IV Consent for Procedure(s) Verified and Reviewed: Yes Code Status: Attempt Resuscitation ASA classification: 2-Mild systemic disease Is this case an emergency?: No
[2023-01-23] MEDS ORDERED: MIDAZOLAM 2 MG/2 ML VIAL ONE (12:33)
[2023-01-23] MEDS ORDERED: LIDOCAINE-MPF 2% 5 ML VIAL ONE (12:43)
[2023-01-23] MEDS ORDERED: SODIUM CHLORIDE FLUSH 0.9% 10 ML SYRINGE ONE (12:49)
[2023-01-23] MEDS ORDERED: ePHEDrine 50 MG/ML VIAL IVP ONE (12:49)
[2023-01-23] MEDS ORDERED: PHENYLEPHRINE HCL 0.5 MG/5 ML AMPULE ONE (12:51)
[2023-01-23] MEDS ORDERED: PROPOFOL 200 MG/20 ML VIAL IVP ONE (13:08)
[2023-01-23 13:40] VITALS: O2SAT 100
--- NOTE | 2023-01-23 13:48 | ANESTHESIA POST OP EVALUATION ---
Anesthesia Post Eval - Post Anesthesia Eval Vitals: Last Vital Signs Temp 36.4 C L 01/23/23 13:18 Pulse 79 01/23/23 13:28 Resp 16 01/23/23 13:28 BP 103/59 L 01/23/23 13:28 Pulse Ox 100 01/23/23 13:28 O2 Flow Rate CV Function Including HR & BP: Stable Pain Control: Satisfactory Nausea & Vomiting: Negative Mental Status: Baseline Respiratory Status: Airway Patent Hydration Status: Satisfactory Anesthesia Complications: None
[2023-01-23 13:59] VITALS: BP 128/65
== END 2023-01-23 10:40 | disposition home or self-care (01) ==
LOC: SDS 10:39
PROVIDERS: ATTEND Surgery
PROC: 0DBL8ZZ Excision of Transverse Colon, Via Natural or Artificial Opening Endoscopic (ICD-10-PCS; 2023-01-23)
PROC: 0DBN8ZZ Excision of Sigmoid Colon, Via Natural or Artificial Opening Endoscopic (ICD-10-PCS; 2023-01-23)
PROC: 0DBK8ZZ Excision of Ascending Colon, Via Natural or Artificial Opening Endoscopic (ICD-10-PCS; principal; 2023-01-23 12:45)
DX: Z12.11 Encounter for screening for malignant neoplasm of colon (principal); D12.3 Benign neoplasm of transverse colon; D12.2 Benign neoplasm of ascending colon; D12.5 Benign neoplasm of sigmoid colon; I10 Essential (primary) hypertension; K57.30 Diverticulosis of large intestine without perforation or abscess without bleeding; G47.30 Sleep apnea, unspecified
CPT/HCPCS: 45380; 45385; J2372; J7120

== ENCOUNTER 2023-03-30 10:11 | Outpatient (CLI) | payer MEDICARE, OTHER ==
[2023-03-30 11:04] LABS: THYROID STIMULATING HORMONE 2.1 uIU/mL (0.34-5.60)
[2023-03-30 12:46] LABS: ESTIMATED AVERAGE GLUCOSE 97 mg/dL (70-100)
== END 2023-03-30 10:12 | disposition home or self-care (01) ==
LOC: LAB 10:11
PROVIDERS: ATTEND Internal Medicine
DX: R73.03 Prediabetes (principal); F32.A Depression, unspecified
CPT/HCPCS: 36415; 83036; 84443

== ENCOUNTER 2023-05-04 14:27 | Observation (INO) | payer MEDICARE, OTHER ==
--- NOTE | 2023-05-04 15:45 | ED Physician Documentation ---
History of Present Illness - Stated complaint Stated Complaint: VANCE,CHILLS - Chief complaint Chief Complaint: General - History obtained from History obtained from: Patient - History of Present Illness Timing: Today Pain level max: 0 Pain level now: 0 - Additonal information Additional information: Patient is a 77-year-old male who has a history of chronic kidney disease, chronic anemia, hypogonadism, polymyalgia rheumatica, CML. The patient was started on Inqovi on April 13, 2023 and was following up in the [facility] clinic today. He complained of a headache, dizziness and fatigue. On laboratory testing hemoglobin was 6. He was sent here for further evaluation including reticulocyte count LDH, direct Rojelio test. Consideration of EGD/colonoscopy. Patient denies any blood in the stool. Patient has blood running from the [facility] clinic when he was sent to the emergency department. He is not on blood th inners. Review of Systems Constitutional: denies: Fever, Chills Ears: denies: Ear pain Nose: denies: Rhinorrhea / runny nose, Congestion GI: denies: Vomiting, Diarrhea Skin: denies: Rash Musculoskeletal: denies: Neck pain, Back pain Neurologic: denies: Headache PD PAST MEDICAL HISTORY - Past Medical History Cardiovascular: Hypertension, High cholesterol Respiratory: Sleep apnea, CPAP use Neuro: None Endocrine/Autoimmune: None GI: Colon polyps : Benign prostate hypertrophy, Renal insuffiency HEENT: None Psych: None Musculoskeletal: Osteoarthritis Derm: None - Past Surgical History Past Surgical History: Yes General: Colonoscopy Ortho: Knee replacement, Rotator cuff repair, Carpal Tunnel surgery HEENT: Cataracts - Present Medications Home Medications: Ambulatory Orders Medication Instructions Recorded Confirmed Aspirin [Aspir 81] 81 mg PO DAILY 04/10/13 05/04/23 Losartan Potassium [Cozaar] 100 mg PO DAILY 04/10/13 05/04/23 Metoprolol Tartrate [Lopressor] 25 mg PO DAILY 04/24/18 05/04/23 Psyllium Husk (with Sugar) 2 tbs PO DAILY 04/24/18 05/04/23 [Metamucil Powder] Prednisone [Manuel] 1 mg PO DAILY 05/15/22 05/04/23 Rosuvastatin Calcium [Crestor] 5 mg PO DAILY 05/15/22 05/04/23 Sertraline [Zoloft] 25 mg PO DAILY 03/30/23 05/04/23 traZODone [Desyrel] 50 mg PO HS 03/30/23 05/04/23 Decitabine/Cedazuridine [Inqovi 35 1 tab PO UD 05/04/23 05/04/23 mg-100 mg Tablet] [place]-3S/Dha/Epa/Fish Oil [Fish 1 each PO DAILY 05/04/23 05/04/23 Oil 1,200 mg Softgel] Oxymetazoline HCl [Afrin] 15 ml NS DAILY PM 05/04/23 05/04/23 - Allergies Allergies/Adverse Reactions: Allergies Allergy/AdvReac Type Severity Reaction Status Date / Time pseudoephedrine HCl * Allergy Severe Hives Verified 05/04/23 14:42 [From Sudafed] triprolidine HCl * Allergy Severe Hives Verified 05/04/23 14:42 [From Actifed] - Social History Does the pt smoke?: No Smoking Status: Never smoker ETOH Use: None - Immunizations Immunizations are current?: Yes PD ED PE NORMAL - Vitals Vital signs reviewed: Yes - General General: Alert and oriented X 3, No acute distress - HEENT HEENT: PERRL, Moist mucous membranes - Neck Neck: Supple, no meningeal sign - Cardiac Cardiac: RRR, Strong equal pulses - Respiratory Respiratory: No respiratory distress, Clear bilaterally - Abdomen Abdomen: Soft, Non tender, Non distended - Rectal Rectal: Other (light brown stool. normal rectal exam) - Derm Derm: Warm and dry - Extremities Extremities: No edema - Neuro Neuro: Alert and oriented X 3 - Psych Psych: Normal mood, Normal affect Results - Vitals Vitals: Vital Signs - 24 hr 05/04/23 05/04/23 14:34 16:11 Temperature 36.9 C 36.7 C Heart Rate 65 63 Respiratory 18 16 Rate Blood Pressure 128/55 L 117/53 L O2 Saturation 100 100 Oxygen O2 Source Room air - Labs Labs: Microbiology 05/04/23 13:55 Occult Blood - Final Stool PD Medical Decision Making - ED course Complexity details: reviewed results, re-evaluated patient, considered differential, d/w patient, d/w pci security consultant ED course: Stool Hemoccult is negative. He has a blood transfusion already started from the [facility] clinic. No evidence of acute GI bleed. Likely if the hemoglobin drop is from his chemotherapy. Patient is well-appearing, nontoxic. States feels better after receiving the blood transfusion. We will place the patient observation for further care. Discussed the case with Dr. Ashford, hospitalist who accepts This document was made in part using voice recognition software. While efforts are made to proofread this document, sound alike and grammatical errors may occur. Departure - Departure Disposition: ED Place in Observation Clinical Impression: Symptomatic anemia, CML (chronic myelocytic leukemia) Condition: Stable Discharge Date/Time: 05/04/23 16:57
[2023-05-04] MEDS ORDERED: ONDANSETRON 4 MG/2 ML VIAL IVP PRN (16:14)
[2023-05-04] MEDS ORDERED: ACETAMINOPHEN 325 MG TABLET PO PRN (16:14)
[2023-05-04] MEDS ORDERED: SODIUM CHLORIDE FLUSH 0.9% 10 ML SYRINGE IVP PRN (16:14)
--- NOTE | 2023-05-04 16:27 | HISTORY & PHYSICAL EXAMINATION ---
Chief Complaint - Chief Complaint Chief Complaint: Dizziness, MACIAS, headache, thumping in his ears History of Present Illness - Admitted From Admitted From:: ED - History Obtained From Records Reviewed: Yes History obtained from: ED provider and the patient - History of Present Illness HPI Comment/Other: This is a 77-year-old male with a history of polymyalgia rheumatica, CKD, HTN and chronic myelogenous leukemia. He was Dx with CML in 03/03 (3 mos ago) and is followed by Dr Keyes in [facility] and was started on Inqovi on April 13, 2023. His hemoglobin was 10. He presented to [facility] today, at 3 weeks on Inkova, complaining of 3 days of MACIAS, a thumping sound in his ears, a headache and dizziness with standing. He denied syncope or falling. There was no chest pain or feeling of rapid palpitations. He was still compliant with taking his blood pressure meds of metoprolol and lisinopril. He did not check his blood pressure at home. In [facility] today, his labs showed a hemoglobin of 6. Patient was sent from [facility] to the ER. He was already receiving a unit of blood as he presented to the ER. Dr. Keyes of [facility] recommended that he be worked up for GI blood loss and for hemolysis. A Rojelio test, an LDH and retic count were sent off from the ER. Rectal exam done by the ED provider showed padilla stool and it was sent off for guaiac test and is still pending. The patient had a colonoscopy done in January 2023 (just 4 months ago) that was normal except polyps were found. The patient denies having had any black stools. He also denies having a rash like petechiae. The ED provider spoke to me about this patient. He will be placed in Observation status to receive blood transfusions, assure that his hemoglobin stabilizes, and that his symptoms resolve. I spoke to him about his wishes for CODE BLUE status and he wants to be a Full Code. History - Past Medical History Cardiovascular: reports: Hypertension, High cholesterol Respiratory: reports: Sleep apnea, CPAP use Neuro: reports: None Endocrine/Autoimmune: reports: Other (Polymyalgia rheumatica on daily Prednisone) GI: reports: Colon polyps : reports: Benign prostate hypertrophy, Renal insuffiency HEENT: reports: None Psych: reports: None Musculoskeletal: reports: Osteoarthritis Derm: reports: None MRSA Hx?: No - Past Surgical History General: reports: Colonoscopy Ortho: reports: Knee replacement, Rotator cuff repair, Carpal Tunnel surgery HEENT: reports: Cataracts - Family & Social History Family History: Mother: Cancer, Father: Cancer Family History Comment/Other: He had 3 children with his first , 1 has kidney cancer and needed a kidney removed. He has 1 child with his current second . He raised one of his grandchildren since the age of 4. Living arrangement: At home Living Situation: With spouse/s.o. Social History Notes: Patient never smoked and drinks no alcohol. 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 - Substance History Use: Uses substance without health or social issues: NONE Meds/Allgy - Home Medications Home Medications: Ambulatory Orders Medication Instructions Recorded Confirmed Aspirin [Aspir 81] 81 mg PO DAILY 04/10/13 05/04/23 Losartan Potassium [Cozaar] 100 mg PO DAILY 04/10/13 05/04/23 Metoprolol Tartrate [Lopressor] 25 mg PO DAILY 04/24/18 05/04/23 Psyllium Husk (with Sugar) 2 tbs PO DAILY 04/24/18 05/04/23 [Metamucil Powder] Prednisone [Manuel] 1 mg PO DAILY 05/15/22 05/04/23 Rosuvastatin Calcium [Crestor] 5 mg PO DAILY 05/15/22 05/04/23 Sertraline [Zoloft] 25 mg PO DAILY 03/30/23 05/04/23 traZODone [Desyrel] 50 mg PO HS 03/30/23 05/04/23 Decitabine/Cedazuridine [Inqovi 35 1 tab PO UD 05/04/23 05/04/23 mg-100 mg Tablet] [place]-3S/Dha/Epa/Fish Oil [Fish 1 each PO DAILY 05/04/23 05/04/23 Oil 1,200 mg Softgel] Oxymetazoline HCl [Afrin] 15 ml NS DAILY PM 05/04/23 05/04/23 - Allergies Allergies/Adverse Reactions: Allergies Allergy/AdvReac Type Severity Reaction Status Date / Time pseudoephedrine HCl * Allergy Severe Hives Verified 05/04/23 14:42 [From Sudafed] triprolidine HCl * Allergy Severe Hives Verified 05/04/23 14:42 [From Actifed] Review of Systems - Constitutional Constitutional: reports: Weakness - Cardiovascular Cariovascular: reports: Lightheadedness - Neurological Neurological: reports: Headache, Dizziness - All Other Systems All Other Systems: reports: Reviewed and negative Exam - Vital Signs Vital Signs: Vital Signs x48h Temp Pulse Resp BP Pulse Ox 05/04/23 14:34 36.9 C 65 18 128/55 L 100 - Physical Exam General Appearance: positive: No acute distress, Alert, Other (Pale) Eyes Bilateral: positive: Normal inspection, EOMI, Other (Has exophthalmos) ENT: positive: ENT inspection nml, No signs of dehydration Neck: positive: Nml inspection, No JVD, Other (No carotid bruits) Respiratory: positive: No respiratory distress, Breath sounds nml Cardiovascular: positive: Regular rate & rhythm, No murmur Abdomen: positive: Non-tender, Nml bowel sounds, No distention Skin: positive: Warm, Dry, Pallor Extremities: positive: Non-tender, Other (Trace pretibial edema) Neurologic/Psychiatric: positive: Oriented x3, CN's nml (2-12), Motor nml Conclusion/Plan - Problem List (1) Symptomatic anemia Conclusion/Plan: Likely this severe anemia caused his dizziness, dyspnea on exertion, and hearing his heart thumping in his ears. Plan: Finish transfusing this unit of blood Will follow his hemoglobin every 6 hours and transfuse again if Hgb below 7. He will not be discharged till his hemoglobin plateaus for ~12 hrs, and is greater than 7 Check orthostatic vital signs. I will put hold parameters for his 2 HTN meds Await stool guaiac test. If positive, I will request general surgery consult for an EGD, as recommended by Dr. Gaytan. Await Rojelio test, reticulocyte count and LDH, if these are abnormal then I will contact Dr. Gaytan for further recommendations Check B12, folate levels and iron stores and start replacement if these are low Inqovi will be on hold until hemoglobin is over 8, as per Dr. Gaytan documentation in today's [facility] note. (2) CML (chronic myelocytic leukemia) Conclusion/Plan: As per history. This patient probably has marrow suppression from being on Inqovi, as per Dr Gaytan Plan: Inqovi will be on hold until hemoglobin is over 8, as per Dr. Lucila hale ocumentation in today's [facility] note. (3) PMR (polymyalgia rheumatica) Conclusion/Plan: As per history. 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 Prednisone started at 10 mg daily and a taper was begun, it needed increases when he had recurrent symptoms (of joint pain and pain across his shoulders), and the dose has dropped down very slowly to this 1 mg daily dose over the past 14-months Plan: Continue his usual meds (4) Hx of essential hypertension Conclusion/Plan: The patient takes atenolol and losartan for HTN Plan: Will check daily orthostatic vital signs and put hold parameters on his 2 BP meds (5) MARICARMEN on CPAP Conclusion/Plan: Plan: I will order his CPAP device to be used while he is here - Lab Results Fish Bones: 05/04/23 17:34 05/04/23 17:34
[2023-05-04] MEDS ORDERED: [UNRECOGNIZED DRUG - OTHER] NS SCH (16:30)
[2023-05-04 17:45] LABS: ABSOLUTE RETICS # AUTO 0.035 10^6/uL (0.020-0.110); EOSINOPHILS % (AUTO) 0.8 %; HCT - HEMATOCRIT 20.8 % (42.0-52.0); LYMPHOCYTES # (AUTO) 0.9 10^3/uL (1.5-3.5); MEAN CORPUSCULAR HEMOGLOBIN 36.5 pg (27.0-31.0); MEAN CORPUSCULAR HGB CONC 33.2 g/dL (32.0-36.0); MEAN CORPUSCULAR VOLUME 110.1 fL (80.0-94.0); MEAN PLATELET VOLUME 10.1 fL (7.4-11.4); MONOCYTES # (AUTO) 0.2 10^3/uL (0.0-1.0); MONOCYTES % (AUTO) 5.4 %; NEUTROPHILS # (AUTO) 2.4 10^3/uL (1.5-6.6); NEUTROPHILS % (AUTO) 68.7 %; NRBC ABSOLUTE COUNT (AUTO) 0.02 x10^3/uL; NUCLEATED RED BLOOD CELLS AUTO 0.6 /100WBC; PLT - PLATELET COUNT 168 10^3/uL (130-450); RED BLOOD COUNT 1.89 10^6/uL (4.70-6.10); RED CELL DISTRIBUTION WIDTH 23.3 % (12.0-15.0); RETICULOCYTE COUNT % (AUTO) 1.84 % (0.5-2.3); WHITE BLOOD COUNT 3.5 x10^3/uL (4.8-10.8)
[2023-05-04 17:48] LABS: HGB - HEMOGLOBIN 6.9 g/dL (14.0-18.0)
[2023-05-04 17:58] LABS: ALBUMIN 4.1 g/dL (3.2-5.5); ALBUMIN/GLOBULIN RATIO 1.6 (1.0-2.2); BILIRUBIN,TOTAL 1.4 mg/dL (0.2-1.0); CALCIUM 9.2 mg/dL (8.5-10.3); CREATININE 1.2 mg/dL (0.6-1.3); POTASSIUM 4.8 mmol/L (3.5-4.5); TOTAL PROTEIN 6.6 g/dL (6.4-8.9)
[2023-05-04 18:33] LABS: PLATELET ESTIMATE, MANUAL NORMAL (130-450,000) (NORMAL); PLATELET MORPHOLOGY NORMAL APPEARANCE (NORMAL); SLIDE REVIEW? Indicated
[2023-05-04] MEDS ORDERED: SODIUM CHLORIDE 0.9% 1,000 ML ONE (21:48)
[2023-05-04] MEDS: SODIUM CHLORIDE FLUSH 0.9% 10 ML SYRINGE IVP SCH (22:13)
[2023-05-04] MEDS: OXYMETAZOLINE HCL 100 SPRAYS BOTTLE NAS SCH (22:26)
[2023-05-05] MEDS: traZODone 50 MG TABLET PO SCH (00:46)
[2023-05-05 08:11] VITALS: BP 128/56; O2SAT 94
[2023-05-05 08:11] LABS: MAGNESIUM 1.9 mg/dL (1.7-2.3)
[2023-05-05 08:13] LABS: CALCIUM 9.4 mg/dL (8.5-10.3); CREATININE 1.3 mg/dL (0.6-1.3)
[2023-05-05 08:28] LABS: THYROID STIMULATING HORMONE 1.94 uIU/mL (0.34-5.60)
[2023-05-05] MEDS ORDERED: PREDNISONE 5 MG PO SCH (09:00)
[2023-05-05] MEDS ORDERED: PSYLLIUM HUSK 575 GM PO SCH (09:00)
[2023-05-05] MEDS ORDERED: [UNRECOGNIZED DRUG - OTHER] PO SCH (09:00)
[2023-05-05] MEDS: METOPROLOL TARTRATE 25 MG TABLET PO SCH (09:06)
[2023-05-05] MEDS: SERTRALINE 25 MG TABLET PO SCH (09:06)
[2023-05-05] MEDS: PSYLLIUM PACKET PO SCH (09:06)
--- NOTE | 2023-05-05 12:56 | Discharge Plan ---
Discharge Plan Problem Reviewed?: Yes Disposition: Home, Self Care Condition: Stable Prescriptions: Ferrous Sulfate [Feosol] 325 mg PO DAILY #30 tablet Diet: Regular Activity Restrictions: Activity as Tolerated Shower Restrictions: No Driving Restrictions: No Health Concerns: You were hospitalized to get blood transfusions. The anemia was not from having hemolysis ("bursting of red blood cells"), or from blood in the stool. Your hemoglobin is now stable after receiving 2 units of blood. You are very deficient in iron and got a transfusion of IV iron as well. You are being discharged home today. I am ordering a new prescription for you to take a daily iron tablet. The prescription was electronically sent to your [facility] pharmacy. Iron tablets can constipate you, so stay well-hydrated and eat a high-fiber diet. Please resume all your other usual medications and management. It would be a good idea for you to measure your blood pressure daily. If the top number is below 130, do not take your blood pressure medicines that day, this will prevent dizziness. Plan of Treatment: As above. Care Goals: Improvement in symptoms and stabilization of the goals. Assessment: The patient understands and is agreeable with the plan. Additional Instructions or Follow Up instructions: If you have new or worsening symptoms, call your PCP or your Oncologist for advice, or come to the ER. [place] Care[place] [facility] [place] Medical No Smoking: If you smoke, Please STOP! Call for help. Follow-up with: Delano Ma MD [Provider Admit Priv/Credential] -
--- NOTE | 2023-05-05 13:01 | DISCHARGE SUMMARY ---
Discharge Summary Admit Date: 05/04/23 Discharge Date: 05/05/23 Discharging Provider: Dr Holly Ashford Primary Care Provider: Dr Deacon Juárez Code Status: Attempt Resuscitation Condition at Discharge: Stable Discharge Disposition: 01 Home, Self Care - HPI History of Present Illness: This is a 77-year-old male with a history of polymyalgia rheumatica, CKD, HTN and chronic myelogenous leukemia. He was Dx with CML in 03/03 (3 mos ago) and is followed by Dr Keyes in [facility] clinic and was started on Inqovi on April 13, 2023. His hemoglobin was 10. He presented to [facility] clinic today, at 3 weeks on Inkova, complaining of 3 days of MACIAS, a thumping sound in his ears, a headache and dizziness with standing. He denied syncope or falling. There was no chest pain or feeling of rapid palpitations. He was still compliant with taking his blood pressure meds of metoprolol and lisinopril. He did not check his blood pressure at home. In [facility] clinic today, his labs showed a hemoglobin of 6. Patient was sent from [facility] to the ER. He was already receiving a unit of blood as he presented to the ER. Dr. Keyes of [facility] clinic recommended that he be worked up for GI blood loss and for hemolysis. A Rojelio test, an LDH and retic count were sent off from the ER. Rectal exam done by the ED provider showed padilla stool and it was sent off for guaiac test and is still pending. The patient had a colonoscopy done in 2022 (just 4 months ago) that was normal except polyps were found. The patient denies having had any black stools. He also denies having a rash like petechiae. The ED provider spoke to me about this patient. He will be placed in Observation status to receive blood transfusions, assure that his hemoglobin stabilizes, and that his symptoms resolve. I spoke to him about his wishes for CODE BLUE status and he wants to be a Full Code. - HOSPITAL COURSE Hospital Course: (1) Symptomatic anemia His severe anemia caused dizziness, dyspnea on exertion, and hearing his heart thumping in his ears. The patient received 2 units PRBCs while here and his symptoms resolved. There was no orthostasis. The hemoglobin plateaued at 7.9. Evaluation for hemolysis was negative (normal Rojelio test, LDH and reticulocyte count) and negative for GI blood loss anemia (guaiac of stool was negative) (2) Iron deficiency anemia Patient blood work showed very low TIB and iron stores. He received a dose of IV iron dextran before discharge and was put on oral iron tablets to take daily after discharge (3) CML (chronic myelocytic leukemia) This patient probably has marrow suppression from being on Inqovi, as per Dr Keyes. Inqovi will be on hold until hemoglobin is over 8, as per Dr. Lia mosher documentation in the [facility] note. (4) PMR (polymyalgia rheumatica) As per history. 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 His exam showed exophthalmos which prompted ordering TSH and free T4 and these came back normal. (5) Hx of essential hypertension The patient takes atenolol and losartan for HTN. He had a blood pressure while here of 114 without either med. At discharge, he was told to measure his blood pressure daily and if it is under 130 to not take either BP med. (6) MARICARMEN on CPAP Compliance with CPAP device stressed - ALLERGIES Allergies/Adverse Reactions: Allergies Allergy/AdvReac Type Severity Reaction Status Date / Time pseudoephedrine HCl * Allergy Severe Hives Verified 05/04/23 14:42 [From Sudafed] triprolidine HCl * Allergy Severe Hives Verified 05/04/23 14:42 [From Actifed] - MEDICATIONS Home Medications: Ambulatory Orders Medication Instructions Recorded Confirmed Aspirin [Aspir 81] 81 mg PO DAILY 04/10/13 05/04/23 Losartan Potassium [Cozaar] 100 mg PO DAILY 04/10/13 05/04/23 Metoprolol Tartrate [Lopressor] 25 mg PO DAILY 04/24/18 05/04/23 Psyllium Husk (with Sugar) 2 tbs PO DAILY 04/24/18 05/04/23 [Metamucil Powder] Prednisone [Manuel] 1 mg PO DAILY 05/15/22 05/04/23 Rosuvastatin Calcium [Crestor] 5 mg PO DAILY 05/15/22 05/04/23 Sertraline [Zoloft] 25 mg PO DAILY 03/30/23 05/04/23 traZODone [Desyrel] 50 mg PO HS 03/30/23 05/04/23 Decitabine/Cedazuridine [Inqovi 35 1 tab PO UD 05/04/23 05/04/23 mg-100 mg Tablet] [place]-3S/Dha/Epa/Fish Oil [Fish 1 each PO DAILY 05/04/23 05/04/23 Oil 1,200 mg Softgel] Oxymetazoline HCl [Afrin] 15 ml NS DAILY PM 05/04/23 05/04/23 Ferrous Sulfate [Feosol] 325 mg PO DAILY #30 tablet 05/05/23 - PHYSICAL EXAM AT DISCHARGE General Appearance: positive: No acute distress, Alert Eyes Bilateral: positive: EOMI, Other (Exophthalmos noted) ENT: positive: ENT inspection nml, No signs of dehydration Neck: positive: Nml inspection, No JVD Respiratory: positive: No respiratory distress, Breath sounds nml Cardiovascular: positive: Regular rate & rhythm, No murmur Abdomen: positive: Non-tender, No organomegaly, Nml bowel sounds, No distention Skin: positive: Warm, Dry, Pallor Extremities: positive: Non-tender, No pedal edema Neurologic/Psychiatric: positive: Oriented x3, CN's nml (2-12), Motor nml - LABS Result Diagrams: 05/05/23 11:53 05/05/23 07:41 - FOLLOW UP Follow Up: See PCP and see Dr. Keyes for already scheduled follow-up. - TIME SPENT Time Spent in Discharge (Minutes): 30
[2023-05-05] MEDS: IRON DEXTRAN 1,000 MG in SODIUM CHLORIDE 0.9% 250 ML IV ONE (13:09)
== END 2023-05-05 15:30 | disposition home or self-care (01) ==
LOC: ED 14:27 → MS2 16:14
PROVIDERS: ADMIT Internal Medicine; ATTEND Internal Medicine
DX: D50.9 Iron deficiency anemia, unspecified (principal); C92.10 Chronic myeloid leukemia, BCR/ABL-positive, not having achieved remission; M35.3 Polymyalgia rheumatica; I10 Essential (primary) hypertension; G47.33 Obstructive sleep apnea (adult) (pediatric); I12.9 Hypertensive chronic kidney disease with stage 1 through stage 4 chronic kidney disease, or unspecified chronic kidney disease; N18.9 Chronic kidney disease, unspecified; E78.00 Pure hypercholesterolemia, unspecified
CPT/HCPCS: 36415; 80048; 80053; 82272; 82607; 82746; 83540; 83615; 83690; 83735; 84439; 84443; 84466; 85018; 85025; 85045; 86850; 86880; 86900; 86901; 86920; 96374; 99284; 99285; A9270; G0378; J1750; J7510; P9040; 36430

== ENCOUNTER 2023-05-28 12:53 | Inpatient (IN) | payer MEDICARE, OTHER ==
--- NOTE | 2023-05-28 13:22 | ED Physician Documentation ---
PD HPI CHEST PAIN - Stated complaint Stated Complaint: REFERRED FOR BLOOD DRAW - Chief complaint Chief Complaint: Resp - Additional information Additional information: 77-year-old male with recent diagnosis of leukemia presents emergency dep artment for increased work of breathing. Patient says That he started feeling increased shortness of breath and increased work of breathing yesterday he attempted to call his oncology office but they were unable to provide much support and help for the patient. He last received chemo home beginning of May that was his second round of chemo. He has required a blood transfusion in the past. He also endorses that he has history of DVT in his left lower extremity. He denies any chest pain but feels like he is having a hard time taking a deep breath and having hard time catching his breath. He is quite pale and appears ill. PD PAST MEDICAL HISTORY - Past Medical History Cardiovascular: Hypertension, High cholesterol Respiratory: Sleep apnea, CPAP use Neuro: None Endocrine/Autoimmune: Other GI: Colon polyps : Benign prostate hypertrophy, Renal insuffiency HEENT: None Psych: None Musculoskeletal: Osteoarthritis Derm: None - Past Surgical History Past Surgical History: Yes General: Colonoscopy Ortho: Knee replacement, Rotator cuff repair, Carpal Tunnel surgery HEENT: Cataracts - Present Medications Home Medications: Ambulatory Orders Medication Instructions Recorded Confirmed Aspirin [Aspir 81] 81 mg PO DAILY 04/10/13 05/28/23 Losartan Potassium [Cozaar] 100 mg PO DAILY 04/10/13 05/28/23 Metoprolol Tartrate [Lopressor] 25 mg PO DAILY 04/24/18 05/28/23 Psyllium Husk (with Sugar) 2 tbs PO DAILY 04/24/18 05/28/23 [Metamucil Powder] Rosuvastatin Calcium [Crestor] 5 mg PO DAILY 05/15/22 05/28/23 Sertraline [Zoloft] 25 mg PO DAILY 03/30/23 05/28/23 traZODone [Desyrel] 50 mg PO HS 03/30/23 05/28/23 [place]-3S/Dha/Epa/Fish Oil [Fish 1 each PO DAILY 05/04/23 05/28/23 Oil 1,200 mg Softgel] Oxymetazoline HCl [Afrin] 15 ml NS DAILY PM 05/04/23 05/28/23 Ferrous Sulfate [Feosol] 325 mg PO DAILY #30 tablet 05/05/23 05/28/23 Decitabine/Cedazuridine [Inqovi 35 1 tab PO DAILY 05/28/23 05/28/23 mg-100 mg Tablet] Prednisone [Manuel] 1 tab PO DAILY 05/28/23 05/28/23 - Allergies Allergies/Adverse Reactions: Allergies Allergy/AdvReac Type Severity Reaction Status Date / Time pseudoephedrine HCl * Allergy Severe Hives Verified 05/28/23 13:12 [From Sudafed] triprolidine HCl * Allergy Severe Hives Verified 05/28/23 13:12 [From Actifed] - Social History Does the pt smoke?: No Smoking Status: Never smoker - Immunizations Immunizations are current?: Yes PD ED PE NORMAL - Vitals Vital signs reviewed: Yes - General General: Alert and oriented X 3, Well developed/nourished, Other (ill appearing) - HEENT HEENT: Atraumatic, PERRL - Neck Neck: Supple, no meningeal sign, No JVD - Cardiac Cardiac: RRR, No murmur, Strong equal pulses - Respiratory Respiratory: No respiratory distress, Clear bilaterally, Other (Tachypneic) - Abdomen Abdomen: Normal bowel sounds, Soft, Non tender, No organomegaly - Back Back: No CVA TTP - Derm Derm: Other (pale) - Extremities Extremities: No deformity, No edema, No calf tenderness / cord - Neuro Neuro: Alert and oriented X 3, 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, No motor deficit, No sensory deficit, Normal speech Eye Opening: Spontaneous Motor: Obeys Commands Verbal: Oriented GCS Score: 15 - Psych Psych: Normal mood Results - Vitals Vitals: Vital Signs - 24 hr 05/28/23 05/28/23 05/28/23 13:10 13:13 15:13 Temperature 36.3 C L Heart Rate 65 68 Heart Rate [ Monitoring electrodes] Respiratory 30 H 16 14 Rate Blood Pressure 126/43 L 120/67 160/93 H Blood Pressure [Left Brachial artery] O2 Saturation 95 98 97 05/28/23 05/28/23 05/28/23 17:00 17:15 17:30 Temperature 37.1 C 37.1 C Heart Rate 69 Heart Rate [ 66 71 Monitoring electrodes] Respiratory 24 28 H 28 H Rate Blood Pressure 125/74 Blood Pressure 125/54 L 123/57 L [Left Brachial artery] O2 Saturation 100 100 100 Oxygen O2 Source Room air - EKG (time done) 1436 EKG releavant findings:: EKG personally interpreted by author of this note. Relevant findings are: Rate: Rate (enter#) (62) Rhythm: NSR [place]: LAD Intervals: Normal RI, Other (low voltage) QRS: Normal Ischemia: Normal ST segments - Labs Labs: Laboratory Tests 05/28/23 05/28/23 05/28/23 13:31 13:31 14:21 WBC 0.8 L* RBC 1.83 L Hgb 6.6 L* Hct 19.6 L* MCV 107.1 H MCH 36.1 H MCHC 33.7 RDW 22.6 H Plt Count 130 MPV 10.6 Neut # (Auto) Not Reportable Lymph # (Auto) Not Reportable [place] # (Auto) Not Reportable Eos # (Auto) Not Reportable Baso # (Auto) Not Reportable Absolute Nucleated RBC Not Reportable Total Counted 50 Band Neuts % (Manual) 0 Reactive Lymphs % (Man) 4 Abnorm Lymph % (Manual) 0 Nucleated RBC % Not Reportable Neutrophils # (Manual) 0.1 L* Lymphocytes # (Manual) 0.5 L Monocytes # (Manual) 0.1 Eosinophils # (Manual) 0.1 Basophils # (Manual) 0.0 Differential Comment MANUAL DIFFERENTIAL RBC Morph Micro Appear 4+ ANISOCYTOSIS Sodium 133 L Potassium 4.6 H Chloride 104 Carbon Dioxide 23 Anion Gap 6.0 BUN 37 H Creatinine 1.5 H Estimated GFR (MDRD) 45 L Glucose 117 H Calcium 8.9 Magnesium 1.8 Total Bilirubin 1.1 H AST 11 ALT 11 Alkaline Phosphatase 60 Total Protein 6.8 Albumin 4.0 Globulin 2.8 Albumin/Globulin Ratio 1.4 Lipase 20 Blood Type O NEGATIVE Antibody Screen NEGATIVE Crossmatch IS Only See Detail - Rads (name of study) Angio chest CT Relevant Findings:: Final report received, EMP independent interpretation of test, Other PD Medical Decision Making - ED course ED course: 77-year-old male presents emergency department with increased shortness of breath. Patient scored moderate for Wells score so I decided to pursue a CTA angio chest to rule out possibility of pulmonary embolism and chest CT did reveal a small nonocclusive left lower lobe pulmonary emboli. Labs were also collected and he was found to be quite anemic, hemoglobin 6.6, he was consented and is agreeable to receive blood. 1 unit of red blood cells have been initiated in the emergency department. He is quite leukopenic, white count is 0.8. Neutrophils 0.1, platelets 130. He also appears to have a slight SAMSON, BUN 37, creatinine 1.5, GFR 45. Patient was a high risk for Pesi score because of his medical complexity I reach out to hospitalist and discussed the patient findings with Dr. Marquez who is kindly agreed to admit patient for anticoagulation therapy and ongoing blood transfusion. Patient is updated of the results he is agreeable to stay. Departure - Departure Disposition: 66 [facility] DC/Xfer Clinical Impression: Pulmonary emboli, Anemia, Leukopenia Forms: PCP List
[2023-05-28 13:37] LABS: EOSINOPHILS % (AUTO) 4.8 %; LYMPHOCYTES % (AUTO) 70.2 %; MEAN CORPUSCULAR HEMOGLOBIN 36.1 pg (27.0-31.0); MEAN CORPUSCULAR HGB CONC 33.7 g/dL (32.0-36.0); MEAN CORPUSCULAR VOLUME 107.1 fL (80.0-94.0); MEAN PLATELET VOLUME 10.6 fL (7.4-11.4); MONOCYTES % (AUTO) 1.2 %; NEUTROPHILS % (AUTO) 23.8 %; PLT - PLATELET COUNT 130 10^3/uL (130-450); RED BLOOD COUNT 1.83 10^6/uL (4.70-6.10); RED CELL DISTRIBUTION WIDTH 22.6 % (12.0-15.0)
[2023-05-28 13:41] LABS: HGB - HEMOGLOBIN 6.6 g/dL (14.0-18.0); WHITE BLOOD COUNT 0.8 x10^3/uL (4.8-10.8)
[2023-05-28 13:42] LABS: HCT - HEMATOCRIT 19.6 % (42.0-52.0)
[2023-05-28 13:43] LABS: ABNORMAL LYMPHS % (MANUAL) 0 %; BAND NEUTROPHILS % (MANUAL) 0 %; MAGNESIUM 1.8 mg/dL (1.7-2.3)
[2023-05-28 13:49] LABS: ALBUMIN/GLOBULIN RATIO 1.4 (1.0-2.2); BILIRUBIN,TOTAL 1.1 mg/dL (0.2-1.0); CALCIUM 8.9 mg/dL (8.5-10.3); CREATININE 1.5 mg/dL (0.6-1.3); POTASSIUM 4.6 mmol/L (3.5-4.5); TOTAL PROTEIN 6.8 g/dL (6.4-8.9)
[2023-05-28 14:17] LABS: BASOPHILS % (MANUAL) 4 %; DIFFERENTIAL COMMENT MANUAL DIFFERENTIAL; EOSINOPHILS # (MANUAL) 0.1 10^3/uL (0-0.7); LYMPHOCYTES # (MANUAL) 0.5 10^3/uL (1.5-3.5); LYMPHOCYTES % (MANUAL) 64 %; MONOCYTES # (MANUAL) 0.1 10^3/uL (0.0-1.0); NEUTROPHILS # (MANUAL) 0.1 10^3/uL (1.5-6.6); REACTIVE LYMPHS % (MANUAL) 4 %
[2023-05-28] MEDS ORDERED: iohexoL-300 100 ML VIAL ONE (14:19)
--- NOTE | 2023-05-28 16:35 | CT Report ---
PROCEDURE: Angio Chest INDICATIONS: SOA,hx of DVT, has leukemia, undergoing treatment CONTRAST: Omni 300 80ml TECHNIQUE: After the administration of intravenous contrast, 2 mm axial images were acquired from the pulmonary apices to the posterior costophrenic angles during the arterial phase. In addition, 1 mm lung kernel and 5 mm soft tissue kernel reconstructions were performed. 3-dimensional coronal oblique maximum int ensity projection (MIP) reformats, 8 mm axial MIP, and 5 mm coronal and sagittal MPR reformats were t hen performed through the thorax. For radiation dose reduction, the following was used: automated exp osure control, adjustment of mA and/or kV according to patient size. COMPARISON: None. FINDINGS: Image quality: Somewhat suboptimal filling of the pulmonary arterial structures. Pulmonary arterial tree: Normal caliber vessels. Small nonocclusive clot in the posterior basal segme nt and lateral basal segment pulmonary arteries on the left. No central clots. No right-sided pulmona ry emboli identified. Lungs and pleura: No consolidation. No pleural effusions. No pneumothorax. No suspicious pulmonary n odules which require follow up. Mediastinum: Heart size is normal. No pericardial effusion. No large vessel abnormality. No mediastin al adenopathy by size criteria. Chest wall and lower neck: Thyroid is unremarkable. No axillary or supraclavicular adenopathy by size . Bones: No aggressive osseous abnormality. Upper Abdomen: Unremarkable. IMPRESSION: Small nonocclusive left lower lobe pulmonary emboli. No acute pulmonary infiltrates. Reviewed by: Juan Jose Cruz MD on 05/28/2023 4:33 PM PDT Approved by: Juan Jose Cruz MD on 05/28/2023 4:33 PM PDT Station ID: [id number]
[2023-05-28] MEDS ORDERED: ONDANSETRON ODT 4 MG TABLET TL PRN (17:25)
[2023-05-28] MEDS ORDERED: ONDANSETRON 4 MG/2 ML VIAL IVP PRN (17:25)
--- NOTE | 2023-05-28 17:52 | HISTORY & PHYSICAL EXAMINATION ---
Chief Complaint - Chief Complaint Chief Complaint: Shortness of breath with exertion History of Present Illness - Admitted From Admitted From:: Home via the ER - History Obtained From Records Reviewed: [facility] History obtained from: The patient and the ER provider Exam Limitations: None - History of Present Illness HPI Comment/Other: This is a 77-year-old white male who has a history of polymyalgia rheumatica, chronic myelogenous leukemia, chronic kidney disease and hypertension. He was last admitted May 04 of this year for a dizziness, and headache. He was seen in the medical ambulatory clinic with his oncologist on that day and found to have a hemoglobin of 6. With that visit the oncologist recommended that he be worked up for GI blood loss and for hemolysis. He had a colonoscopy in January 2023 that was normal except for polyps. As such there was no EGD or repeat colonoscopy done. Evaluation for hemolysis was negative. He received 2 units of packed cells and symptoms resolved. For his chronic myelocytic anemia he is on Inqovi. He takes 1 mg a day of prednisone for polymyalgia rheumatica and is on a 14-month taper. He has been seen for oncology follow-up May 10. The oncologist is now making the assumption that his anemia is treatment related. He will continue with the Inqovi and also give transfusion as needed. He was also seen by the sleep center on May 23 for his obstructive sleep apnea follow-up. He was diagnosed in March 1997, had a follow-up sleep study in October 2008. He presented to the emergency room with complaints of dyspnea with exertion. It started yesterday. He called the oncology office but there was not much help provided so he decided to come to the emergency room. His temperature was 36.3. Blood pressure 126/43. Heart rate 65. After walking into the ER his respiration was 30 but it went down to 16. 95% on room air. He is getting intermittently tachypneic in the ER but has been maintained on room air with good O2 sats of 100%.. He has a history of DVT in his left lower leg. For that reason CT pulmonary angiogram was done. Patient was found to have a hemoglobin of 6.6. White cell count was 0.8. Hematocrit 19.6. Platelets 130. A chest thorax CT angiogram has a small nonocclusive clot in the posterior basal segment and lateral basal segment pulmonary arteries on the left. The rest of his lungs are clear. Heart size was normal. At home he is on an aspirin a day. The case was discussed with the ER provider. They have asked if I could please bring this patient in for transfusion and treatment of the PE. I explained that this is a simple transfusion related matter followed by the Sam. I anticipate that this is just an observation stay. History - Past Medical History Cardiovascular: reports: Hypertension, High cholesterol, Deep vein thrombosis (not in PMH but has hx of phlebitis of legs) Respiratory: reports: Sleep apnea, CPAP use Neuro: reports: Peripheral neuropathy Endocrine/Autoimmune: reports: Other (hypogonadism) GI: reports: Colon polyps (tubular adenoma), Other (diverticulosis) : reports: Benign prostate hypertrophy, Renal insuffiency, Other HEENT: reports: Chronic vision loss, Chronic hearing loss Psych: reports: Other (claustrophobia) Musculoskeletal: reports: Osteoarthritis, Chronic back pain (Lumbar stenosis), Other (Polymyalgia rheumatica) Derm: reports: None MRSA Hx?: No Other Past Medical History: Presented to oncology June 2022 for workup of anemia. 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 Treatable only with allo- SCT. And ineligible. Initiated on oral med Inqovi April 2021. Has had symptomatic anemia since then. - Past Surgical History General: reports: Colonoscopy, Other (ex lap) Ortho: reports: Knee replacement, Rotator cuff repair, Carpal Tunnel surgery HEENT: reports: Cataracts, Rhinoplasty, Tonsil/Adenoidectomy, Other (UVPP) - Family & Social History Family History: Mother: Cancer, Father: Cancer Family History Comment/Other: Mom with history of lung cancer at age 76. Dad with history of prostate cancer at age 86. He had 3 children with his first , 1 has kidney cancer and needed a kidney removed. He has 1 child with his current second . He raised one of his grandchildren since the age of 4. Living arrangement: At home Living Situation: With spouse/s.o. Social History Notes: Patient never smoked and drinks no alcohol. 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 - Substance History Use: Uses substance without health or social issues: NONE - POLST Patient has POLST: No POLST Status: Full Code Meds/Allgy - Home Medications Home Medications: Ambulatory Orders Medication Instructions Recorded Confirmed Aspirin [Aspir 81] 81 mg PO DAILY 04/10/13 05/28/23 Losartan Potassium [Cozaar] 100 mg PO DAILY 04/10/13 05/28/23 Metoprolol Tartrate [Lopressor] 25 mg PO DAILY 04/24/18 05/28/23 Psyllium Husk (with Sugar) 2 tbs PO DAILY 04/24/18 05/28/23 [Metamucil Powder] Rosuvastatin Calcium [Crestor] 5 mg PO DAILY 05/15/22 05/28/23 Sertraline [Zoloft] 25 mg PO DAILY 03/30/23 05/28/23 traZODone [Desyrel] 50 mg PO HS 03/30/23 05/28/23 [place]-3S/Dha/Epa/Fish Oil [Fish 1 each PO DAILY 05/04/23 05/28/23 Oil 1,200 mg Softgel] Oxymetazoline HCl [Afrin] 15 ml NS DAILY PM 05/04/23 05/28/23 Ferrous Sulfate [Feosol] 325 mg PO DAILY #30 tablet 05/05/23 05/28/23 Decitabine/Cedazuridine [Inqovi 35 1 tab PO DAILY 05/28/23 05/28/23 mg-100 mg Tablet] Prednisone [Manuel] 1 tab PO DAILY 05/28/23 05/28/23 - Allergies Allergies/Adverse Reactions: Allergies Allergy/AdvReac Type Severity Reaction Status Date / Time pseudoephedrine HCl * Allergy Severe Hives Verified 05/28/23 13:12 [From Sudafed] triprolidine HCl * Allergy Severe Hives Verified 05/28/23 13:12 [From Actifed] Review of Systems - Constitutional Constitutional: reports: Fatigue, Weakness, Poor appetite - Eyes Eyes: reports: Vision loss. denies: Pain - Ears, Nose & Throat Ears, Nose & Throat: reports: Hearing loss. denies: Ear pain, Hearing aids, Tinnitus, Sore throat, Hoarseness - Cardiovascular Cariovascular: reports: Exertional dyspnea, Decr. exercise tolerance. denies: Irregular heart rate, Palpitations, Chest pain, Edema - Respiratory Respiratory: reports: Orthopnea, SOB at rest, SOB with exertion. denies: Cough, Sputum production, Wheezing - Gastrointestinal Gastrointestinal: denies: Abdominal pain, Abdominal distention, Constipation, Diarrhea, Vomiting - Genitourinary Genitourinary: reports: Frequency, Urgency, Nocturia. denies: Dysuria - Musculoskeletal Musculoskeletal: reports: Back pain, Muscle aches, Stiffness Prior Level of Functionality: Pendant with activities of daily living. Exam - Vital Signs Reviewed Vital Signs: Yes Vital Signs: Vital Signs x48h Temp Pulse Pulse Resp BP BP Pulse Ox 05/28/23 17:45 37 C 63 26 H 121/50 L 100 05/28/23 17:30 71 28 H 123/57 L 100 05/28/23 17:15 37.1 C 66 28 H 125/54 L 100 05/28/23 17:00 37.1 C 69 24 125/74 100 05/28/23 15:13 14 160/93 H 97 05/28/23 13:13 68 16 120/67 98 05/28/23 13:10 36.3 C L 65 30 H 126/43 L 95 - Physical Exam General Appearance: positive: No acute distress (elderly jovial white male), Alert, Other (son and in room. Many questions and I answered them. Anxious.) Eyes Bilateral: positive: PERRL, EOMI ENT: positive: Pharynx nml Neck: positive: No JVD. negative: Stiff neck Respiratory: positive: No respiratory distress. negative: Wheezes, Rales, Rhonchi Cardiovascular: positive: Regular rate & rhythm, Systolic murmur Abdomen: positive: Non-tender, No organomegaly, Nml bowel sounds, No distention Skin: positive: Warm, Dry Extremities: positive: Full ROM, Pedal edema, Other (L foot arch is full and tender. Firm soft tissue changes.) Neurologic/Psychiatric: positive: Oriented x3, CN's nml (2-12), Motor nml. negative: Sensation nml (neuropathy of feet) Conclusion/Plan - Problem List (1) Dyspnea on exertion Conclusion/Plan: Patient does not have infiltrate on chest x-ray. No previous history of heart disease, no previous history of emphysema and on examination there is no evidence of CHF. He has anemia that is quite severe. Suspect this, As well as the small pulmonary embolus, is the cause of his dyspnea. However O2 sats are satisfactory. Plan: Observation status Transfusion of 1 to 2 units of packed cells eliquis (2) Anemia due to antineoplastic chemotherapy Conclusion/Plan: He is to stop his Inqovi when hemoglobin is less than 8. As such that will not be resumed while he is here. He will be transfused greater than 8. 1 unit is already transfusing from the ER and I will check his hemoglobin as that is finishing. If he is still below 8, will transfuse 1 more unit. (3) Pulmonary emboli Conclusion/Plan: Formulary here is Eliquis 5 mg p.o. twice daily. When he is discharged tomorrow I will change it to what ever his insurance company pays for Qualifiers: Pulmonary embolism type: unspecified Chronicity: acute Acute cor pulmonale presence: without acute cor pulmonale Qualified Code(s): I26.99 - Other pulmonary embolism without acute cor pulmonale (4) Hx of essential hypertension Conclusion/Plan: In the ER his blood pressure has been in the 120s over 50s. Home medications are Cozaar, metoprolol. At this time I will just resume the metoprolol and hold off on the Cozaar until his systolic is at least 130. I am using Lopressor first to avoid rebound tachycardia (5) MARICARMEN on CPAP Conclusion/Plan: Patient may use his own CPAP mask at night (6) Left foot pain Conclusion/Plan: no hx of fall or twisting. has hx of phelbiis but not warm or red or hot. just hard. check us - Lab Results Lab results reviewed: Yes Fish Bones: 05/29/23 05:13 05/29/23 05:13 - Diagnostic Imaging Results Diagnostic Imaging Results: positive: Final report reviewed - EKG Results EKG Interpreted Independently: No Core Measures - Anticipated LOS I expect patient to be DC'd or transferred within 96 hours.: Yes - DVT/VTE - Prophylaxis VTE/DVT Prophylaxis med ordered at admit?: Yes
[2023-05-28] MEDS: iohexoL-300 100 ML VIAL IVP ONE (18:33)
[2023-05-28] MEDS: oxyCODONE 5 MG TABLET PO PRN (18:44)
[2023-05-28 19:24] LABS: B. PARAPERTUSSIS- RESP PCR PAN NOT DETECTED; B. PERTUSSIS- RESP PCR PANEL NOT DETECTED; C. PNEUMONIAE- RESP PCR PANEL NOT DETECTED; CORONAVIRUS 229E-RESP PCR NOT DETECTED; CORONAVIRUS HKU1-RESP PCR NOT DETECTED; CORONAVIRUS NL63-RESP PCR NOT DETECTED; CORONAVIRUS OC43-RESP PCR NOT DETECTED; HUMAN METAPNEUMOVIRUS NOT DETECTED; INFLUENZA A- RESP PCR PANEL NOT DETECTED; INFLUENZA B - RESP PCR PANEL NOT DETECTED; M. PNEUMONIAE- RESP PCR PANEL NOT DETECTED; PARAINFLUENZA VIRUS 1 NOT DETECTED; PARAINFLUENZA VIRUS 2 NOT DETECTED; PARAINFLUENZA VIRUS 3 NOT DETECTED; PARAINFLUENZA VIRUS 4 NOT DETECTED; RHINOVIRUS/ENTEROVIRUS NOT DETECTED; RSV- RESP PCR PANEL NOT DETECTED; SARS-CoV-2 -RESP PCR PANEL NOT DETECTED
[2023-05-28] MEDS: OXYMETAZOLINE HCL 100 SPRAYS BOTTLE NAS SCH (22:11)
[2023-05-28] MEDS: traZODone 50 MG TABLET PO SCH (22:11)
[2023-05-28] MEDS: APIXABAN 5 MG TABLET PO SCH (22:11)
[2023-05-28 22:13] LABS: EOSINOPHILS # (AUTO) 0.1 10^3/uL (0.0-0.7); EOSINOPHILS % (AUTO) 5.7 %; HCT - HEMATOCRIT 21.5 % (42.0-52.0); HGB - HEMOGLOBIN 7.1 g/dL (14.0-18.0); LYMPHOCYTES # (AUTO) 0.6 10^3/uL (1.5-3.5); LYMPHOCYTES % (AUTO) 72.7 %; MEAN CORPUSCULAR HEMOGLOBIN 34.3 pg (27.0-31.0); MEAN CORPUSCULAR VOLUME 103.9 fL (80.0-94.0); MEAN PLATELET VOLUME 9.6 fL (7.4-11.4); MONOCYTES % (AUTO) 1.1 %; NEUTROPHILS % (AUTO) 19.4 %; PLT - PLATELET COUNT 110 10^3/uL (130-450); RED BLOOD COUNT 2.07 10^6/uL (4.70-6.10); RED CELL DISTRIBUTION WIDTH 23.4 % (12.0-15.0)
[2023-05-28 22:36] LABS: NEUTROPHILS # (AUTO) 0.2 10^3/uL (1.5-6.6); WHITE BLOOD COUNT 0.9 x10^3/uL (4.8-10.8)
[2023-05-28 22:49] LABS: DIFFERENTIAL COMMENT MANUAL=AUTO DIFF; PLATELET ESTIMATE, MANUAL DECREASED (<130,000) (NORMAL); PLATELET MORPHOLOGY 1+ LARGE PLATELETS (NORMAL); WBC MORPHOLOGY (MULTIPLE) 1+ SMUDGE CELLS (NORMAL)
[2023-05-29] MEDS: SODIUM CHLORIDE FLUSH 0.9% 10 ML SYRINGE IVP SCH (01:03)
[2023-05-29] MEDS ORDERED: SODIUM CHLORIDE 0.9% 500 ML IV ONE (01:24)
[2023-05-29] MEDS: MORPHINE 10 MG/ML VIAL IVP PRN (01:28)
[2023-05-29] MEDS: ACETAMINOPHEN 325 MG TABLET PO PRN (01:28)
[2023-05-29 05:31] LABS: EOSINOPHILS % (AUTO) 4.3 %; HCT - HEMATOCRIT 21.8 % (42.0-52.0); HGB - HEMOGLOBIN 7.5 g/dL (14.0-18.0); LYMPHOCYTES % (AUTO) 72.5 %; MEAN CORPUSCULAR HEMOGLOBIN 34.1 pg (27.0-31.0); MEAN CORPUSCULAR HGB CONC 34.4 g/dL (32.0-36.0); MEAN CORPUSCULAR VOLUME 99.1 fL (80.0-94.0); MEAN PLATELET VOLUME 10.7 fL (7.4-11.4); MONOCYTES % (AUTO) 1.4 %; NEUTROPHILS % (AUTO) 21.8 %; PLT - PLATELET COUNT 101 10^3/uL (130-450); RED CELL DISTRIBUTION WIDTH 23.3 % (12.0-15.0)
[2023-05-29 05:46] LABS: CALCIUM 8.3 mg/dL (8.5-10.3); CREATININE 1.3 mg/dL (0.6-1.3); POTASSIUM 4.4 mmol/L (3.5-4.5); WHITE BLOOD COUNT 0.7 x10^3/uL (4.8-10.8)
[2023-05-29 05:47] LABS: ABNORMAL LYMPHS % (MANUAL) 0 %; BAND NEUTROPHILS % (MANUAL) 0 %
[2023-05-29 06:22] LABS: LYMPHOCYTES # (MANUAL) 0.6 10^3/uL (1.5-3.5); LYMPHOCYTES % (MANUAL) 86 %; NEUTROPHILS # (MANUAL) 0.1 10^3/uL (1.5-6.6)
[2023-05-29 06:24] LABS: DIFFERENTIAL COMMENT MANUAL DIFFERENTIAL; PLATELET ESTIMATE, MANUAL DECREASED (<130,000) (NORMAL)
[2023-05-29] MEDS: predniSONE 5 MG TABLET PO SCH (08:17)
[2023-05-29] MEDS: OMEGA-3 ACID ETHYL ESTERS 1 GM CAPSULE PO SCH (08:17)
[2023-05-29] MEDS: SERTRALINE 25 MG TABLET PO SCH (08:18)
[2023-05-29] MEDS: FERROUS SULFATE 325 MG TABLET PO SCH (08:18)
[2023-05-29] MEDS: Decitabine/Cedazuridine [Inqovi 35 Mg-100 Mg Tablet] PO SCH (08:20)
[2023-05-29] MEDS: PSYLLIUM PACKET PO SCH (08:32)
--- NOTE | 2023-05-29 08:53 | Discharge Plan ---
Discharge Plan Problem Reviewed?: Yes Disposition: Home, Self Care Condition: Good Prescriptions: Apixaban [Eliquis] 5 mg PO BID #60 tab Diet: Regular Activity Restrictions: Activity as Tolerated Shower Restrictions: No Driving Restrictions: Yes (no driving when ankle is hard) Assistance Devices: [facility] Concerns: You have CML and are currently undergoing treatment with Inqovi. Unfortunately it is giving you some anemia. You were admitted to the hospital in April with anemia transfuse. You now come back being very fatigued, short of breath and again anemic needing transfusion. Hemoglobin was 6.6. Normal is 14. You required 3 units of blood to get your hemoglobin over 8.0. Plan of Treatment: Please see your oncologist in follow-up. You shared with me that you are getting a new oncologist. Make sure you see them in the next 1 to 2 weeks. I did not change any of your medication. If there are any new issues that come up, you might want to try calling your primary care provider for any issues or questions. Care Goals: You are hoping that your CML response to the Inqovi. You have been quoted a statistic a 5-year survival. Your goal is to achieve 5-year survival. Not longer. Assessment: Patient is alert, oriented to person, place, time, and situation. During the stay the patient was a full code. I have discussed resuscitative attempts. I have discussed the survivability statistics with resuscitation attempt in a patient who is terminally ill. While they have not agreed to change his CODE STATUS, they are going to go home and discuss it amongst themselves to see what is best for the future No Smoking: If you smoke, Please STOP! Call for help.
--- NOTE | 2023-05-29 09:32 | XRAY Report ---
PROCEDURE: Foot 1-2V LT INDICATIONS: arch of foot full, tender, firm TECHNIQUE: 3 views of the foot were acquired. COMPARISON: None. FINDINGS: Bones: No fractures or dislocations. No suspicious bony lesions. Soft tissues: No tibiotalar joint effusion. Achilles tendon appears normal. IMPRESSION: No visualized acute fracture or dislocation. However, occult injury cannot be excluded. Recommend cali rt interval imaging follow-up in 7-10 days as clinically indicated for additional evaluation. Reviewed by: Dinah Stokes MD on 05/29/2023 9:31 AM PDT Approved by: Dinah Stokes MD on 05/29/2023 9:31 AM PDT Station ID: [id number]
--- NOTE | 2023-05-29 09:42 | PHARMACY PROGRESS NOTE ---
- Best Possible Medication History Admit Date and Time: 05/28/23 5178 Processed by: Nursing Medications reviewed in ED?: Yes Medication History completed: Yes As the person ultimately responsible for medication therapy, providers are able to order a medication from an existing home medication list in [facility] via the "Reconcile Routine" prior to Confirmation of that medication by desktop support manager. Such practice is discouraged except when the physician, in their clinical judgment, deems that a medical need exists for a medication without regard to previous use.
[2023-05-29] MEDS: METOPROLOL TARTRATE 25 MG TABLET PO SCH (09:58)
[2023-05-29 15:17] LABS: BILIRUBIN,URINE NEGATIVE (NEGATIVE); GLUCOSE, URINE (UA) NEGATIVE (NEGATIVE); KETONES,URINE (UA) NEGATIVE (NEGATIVE); LEUKOCYTE ESTERASE, URINE NEGATIVE (NEGATIVE); NITRITE,URINE NEGATIVE (NEGATIVE); OCCULT BLOOD,URINE TRACE-INTA (NEGATIVE); PH,URINE 5.5 PH (5.0-7.5); PROTEIN,URINE 30 mg/dL (NEGATIVE); UROBILINOGEN,URINE 0.2 (NORMAL) E.U./dL (NORMAL)
[2023-05-29 15:26] LABS: CLARITY,URINE HAZY (CLEAR)
[2023-05-29 15:35] LABS: AMORPHOUS SEDIMENT,UR Rare /LPF; BACTERIA,URINE Rare /HPF (None Seen); RBC,URINE 0-5 /HPF (0-5); SQUAMOUS EPITHELIAL CELL,UR RARE Squamous (<= Few); WBC,URINE 0-3 /HPF (0-3)
[2023-05-29] MEDS: CEFEPIME 2 GM in SODIUM CHLORIDE 0.9% MINIBAG 100 ML IV SCH (15:55)
--- NOTE | 2023-05-29 15:57 | PROVIDER PROGRESS NOTE ---
Subjective - Prog Note Date Prog Note Date: 05/29/23 Prog Note Time: 15:55 - Subjective Subjective: This morning he was complaining of increasing left foot pain. Had tolerated 2 units of blood. But he was 7.7 so I held in the afternoon to transfuse 1/3 unit of blood. The blood counts in the [facility] so it was good to be transfused till about noon or 1 and that he was getting go home. However, he began having rigors, attempted 38.3. He is miserable. He has been having increasing cough and congestion since last night. The left foot is hot, red, tender. Preliminary x-ray is negative.Denies urgency, frequency. No abdominal pain. No diarrhea. I ordered a urinalysis and it is not the source of infection. A CT angiogram done yesterday showed clear lungs for pneumonia and just a small PE. Current Medications - Current Medications Current Medications: Active Medications Acetaminophen (Acetaminophen 325 Mg Tablet) 650 mg PO Q4HR PRN PRN Reason: Pain 1 to 4, or Fever Last Admin: 05/29/23 14:22 Dose: 650 mg Apixaban (Apixaban 5 Mg Tablet) 5 mg PO BID [facility] Last Admin: 05/29/23 08:18 Dose: 5 mg Ferrous Sulfate (Ferrous Sulfate 325 Mg Tablet) 325 mg PO DAILY [facility] Last Admin: 05/29/23 08:18 Dose: 325 mg Vancomycin HCl 1.5 gm/ Sodium (Chloride) 500 mls @ 250 mls/hr IV Q24H [facility] Cefepime HCl 2 gm/ Sodium (Chloride) 100 mls @ 200 mls/hr IV Q12H [facility] Metoprolol Tartrate (Metoprolol Tartrate 25 Mg Tablet) 25 mg PO DAILY [facility] Last Admin: 05/29/23 09:58 Dose: Not Given Morphine Sulfate (Morphine 10 Mg/Ml Vial) 4 mg IVP Q6H PRN PRN Reason: PAIN >8 Last Admin: 05/29/23 01:28 Dose: 4 mg Ondansetron HCl (Ondansetron Odt 4 Mg Tablet) 4 mg TL Q6HR PRN PRN Reason: Nausea / Vomiting Ondansetron HCl (Ondansetron 4 Mg/2 Ml Vial) 4 mg IVP Q6HR PRN PRN Reason: Nausea / Vomiting Oxycodone HCl (Oxycodone 5 Mg Tablet) 5 mg PO Q4HR PRN PRN Reason: Pain 5 to 7 Last Admin: 05/29/23 06:21 Dose: 5 mg Oxymetazoline HCl (Oxymetazoline Hcl 100 Sprays Bottle) 1 sprays PAUL QPM [facility] Last Admin: 05/28/23 22:11 Dose: 1 spr Decitabine/Cedazuridine [Inqovi 35 Mg-100 Mg Tablet ] 1 each PO DAILY [facility] Last Admin: 05/29/23 08:20 Dose: Not Given Prednisone (Prednisone 5 Mg Tablet) 1.25 mg PO DAILYWM [facility] Last Admin: 05/29/23 08:33 Dose: Not Given Psyllium Hydrophilic Mucilloid (Psyllium Packet) 1 packet PO DAILY [facility] Last Admin: 05/29/23 08:32 Dose: Not Given Sertraline HCl (Sertraline 25 Mg Tablet) 25 mg PO DAILY [facility] Last Admin: 05/29/23 08:18 Dose: 25 mg Sodium Chloride (Sodium Chloride Flush 0.9% 10 Ml Syringe) 10 ml IVP PRN PRN PRN Reason: NEEDED PER PROVIDER ORDERS Sodium Chloride (Sodium Chloride Flush 0.9% 10 Ml Syringe) 10 ml IVP 0100,0900,1700 [facility] Last Admin: 05/29/23 08:18 Dose: 10 ml Trazodone HCl (Trazodone 50 Mg Tablet) 50 mg PO [facility] Last Admin: 05/28/23 22:11 Dose: 50 mg Aspirin [Aspir 81] 81 mg PO DAILY 04/10/13 Losartan Potassium [Cozaar] 100 mg PO DAILY 04/10/13 Metoprolol Tartrate [Lopressor] 25 mg PO DAILY 04/24/18 Psyllium Husk (with Sugar) [Metamucil Powder] 2 tbs PO DAILY 04/24/18 Rosuvastatin Calcium [Crestor] 5 mg PO DAILY 05/15/22 Sertraline [Zoloft] 25 mg PO DAILY 03/30/23 traZODone [Desyrel] 50 mg PO HS 03/30/23 [place]-3S/Dha/Epa/Fish Oil [Fish Oil 1,200 mg Softgel] 1 each PO DAILY 05/04/23 Oxymetazoline HCl [Afrin] 15 ml NS DAILY PM 05/04/23 Decitabine/Cedazuridine [Inqovi 35 mg-100 mg Tablet] 1 tab PO DAILY 05/28/23 Prednisone [Manuel] 1 tab PO DAILY 05/28/23 Objective - Vital Signs/Intake & Output Reviewed Vital Signs: Yes Vital Signs: Vital Signs x48h Temp Pulse Resp BP BP Pulse Ox 05/29/23 15:33 38.3 C H 72 20 112/44 L 96 05/29/23 14:26 38.1 C H 05/29/23 13:57 37.9 C 05/29/23 13:00 37.3 C 88 20 142/60 H 96 05/29/23 09:58 108/44 L Intake & Output: Intake & Output 05/26/23 05/27/23 05/28/23 05/29/23 23:59 23:59 23:59 23:59 Intake Total 1200 1690 Balance 1200 1690 - Objective General Appearance: positive: Alert, Other (This morning he was sitting up in bed, eating breakfast, pink cheeks. This afternoon he is pale, with rigors, coughing.) Eyes Bilateral: positive: PERRL, EOMI ENT: positive: No signs of dehydration Neck: positive: No JVD. negative: Stiff neck Respiratory: positive: No respiratory distress, Rhonchi. negative: Wheezes, Rales Cardiovascular: positive: Regular rate & rhythm, Tachycardia Abdomen: positive: Non-tender, No organomegaly, Nml bowel sounds, No distention Skin: positive: Warm, Dry, Pallor Extremities: positive: Full ROM, No pedal edema, Other (Left foot is diffusely edematous, red at the arch of the foot in the instep. Hot to touch. Tender where the redness is. I do not feel discrete fluctuance. There is no skin breakdown.) - Lab Results Fish Bones: 05/29/23 05:13 05/29/23 05:13 Other Labs: Lab Results x24hrs 05/29/23 05/29/23 05/29/23 Range/Units 15:08 14:13 05:13 WBC (4.8-10.8) x10^3/uL RBC (4.70-6.10) 10^6/uL Hgb (14.0-18.0) g/dL Hct (42.0-52.0) % MCV (80.0-94.0) fL MCH (27.0-31.0) pg MCHC (32.0-36.0) g/dL RDW (12.0-15.0) % Plt Count (130-450) 10^3/uL MPV (7.4-11.4) fL Neut # (Auto) (1.5-6.6) 10^3/uL Lymph # (Auto) (1.5-3.5) 10^3/uL [place] # (Auto) (0.0-1.0) 10^3/uL Eos # (Auto) (0.0-0.7) 10^3/uL Baso # (Auto) (0.0-0.1) 10^3/uL Absolute Nucleated RBC x10^3/uL Total Counted Band Neuts % (Manual) Abnorm Lymph % (Manual) Nucleated RBC % /100WBC Neutrophils # (Manual) Lymphocytes # (Manual) Monocytes # (Manual) Eosinophils # (Manual) Basophils # (Manual) Differential Comment WBC Morphology (NORMAL) Platelet Estimate (NORMAL) Platelet Morphology (NORMAL) RBC Morph Micro Appear (NORMAL) Sodium 130 L (135-145) mmol/L Potassium 4.4 (3.5-4.5) mmol/L Chloride 103 (101-111) mmol/L Carbon Dioxide 20 L (21-32) mmol/L Anion Gap 7.0 (6-13) BUN 33 H (6-20) mg/dL Creatinine 1.3 (0.6-1.3) mg/dL Estimated GFR (MDRD) 54 L (>89) Glucose 147 H (74-104) mg/dL Lactic Acid 2.2 (0.5-2.2) mmol/L Calcium 8.3 L (8.5-10.3) mg/dL Urine Color DARK YELLOW Urine Clarity HAZY (CLEAR) Urine pH 5.5 (5.0-7.5) PH Ur Specific [place] >=1.030 H (1.002-1.030) Urine Protein 30 H (NEGATIVE) mg/dL Urine Glucose (UA) NEGATIVE (NEGATIVE) mg/dL Urine Ketones NEGATIVE (NEGATIVE) mg/dL Urine Occult Blood TRACE-INTA (NEGATIVE) Urine Nitrite NEGATIVE (NEGATIVE) Urine Bilirubin NEGATIVE (NEGATIVE) Urine Urobilinogen 0.2 (NORMAL) (NORMAL) E.U./dL Ur Leukocyte Esterase NEGATIVE (NEGATIVE) Urine RBC 0-5 (0-5) /HPF Urine WBC 0-3 (0-3) /HPF Ur Squamous Epith Cells RARE Squamous (<= Few) Amorphous Sediment Rare /LPF Urine Bacteria Rare (None Seen) /HPF Ur Microscopic Review INDICATED Urine Culture Comments NOT INDICATED Nasal Adenovirus (PCR) Nasal B. parapertussis DNA (PCR) Nasal Coronavir 229E PCR Nasal Coronavir HKU1 PCR Nasal Coronavir NL63 PCR Nasal Coronavir OC43 PCR Nasal Enterovir/Rhinovir PCR Nasal Influenza B PCR Nasal Influenza A PCR Nasal Parainfluen 1 PCR Nasal Parainfluen 2 PCR Nasal Parainfluen 3 PCR Nasal Parainfluen 4 PCR Nasal RSV (PCR) Nasal B.pertussis DNA PCR Nasal C.pneumoniae (PCR) Paul Human Metapneumo PCR Nasal M.pneumoniae (PCR) Nasal SARS-CoV-2 (PCR) Blood Type Antibody Screen Crossmatch IS Only 05/29/23 05/28/23 05/28/23 Range/Units 05:13 22:06 17:33 WBC 0.7 L* 0.9 L* (4.8-10.8) x10^3/uL RBC 2.20 L 2.07 L (4.70-6.10) 10^6/uL Hgb 7.5 L 7.1 L (14.0-18.0) g/dL Hct 21.8 L 21.5 L (42.0-52.0) % MCV 99.1 H 103.9 H (80.0-94.0) fL MCH 34.1 H 34.3 H (27.0-31.0) pg MCHC 34.4 33.0 (32.0-36.0) g/dL RDW 23.3 H 23.4 H (12.0-15.0) % Plt Count 101 L 110 L (130-450) 10^3/uL MPV 10.7 9.6 (7.4-11.4) fL Neut # (Auto) Not Reportable 0.2 L* (1.5-6.6) 10^3/uL Lymph # (Auto) Not Reportable 0.6 L (1.5-3.5) 10^3/uL [place] # (Auto) Not Reportable 0.0 (0.0-1.0) 10^3/uL Eos # (Auto) Not Reportable 0.1 (0.0-0.7) 10^3/uL Baso # (Auto) Not Reportable 0.0 (0.0-0.1) 10^3/uL Absolute Nucleated RBC Not Reportable 0.00 x10^3/uL Total Counted 50 Band Neuts % (Manual) 0 Not Reportable Abnorm Lymph % (Manual) 0 Not Reportable Nucleated RBC % Not Reportable 0.0 /100WBC Neutrophils # (Manual) 0.1 L* Not Reportable Lymphocytes # (Manual) 0.6 L Not Reportable Monocytes # (Manual) 0.0 Not Reportable Eosinophils # (Manual) 0.0 Not Reportable Basophils # (Manual) 0.0 Not Reportable Differential Comment MANUAL DIFFERENTIAL MANUAL=AUTO DIFF WBC Morphology 1+ SMUDGE CELLS (NORMAL) Platelet Estimate DECREASED (<130,000) DECREASED (<130,000) (NORMAL) Platelet Morphology 1+ LARGE PLATELETS (NORMAL) RBC Morph Micro Appear 1+ OVALOCYTES 2+ MICROCYTOSIS (NORMAL) Sodium (135-145) mmol/L Potassium (3.5-4.5) mmol/L Chloride (101-111) mmol/L Carbon Dioxide (21-32) mmol/L Anion Gap (6-13) BUN (6-20) mg/dL Creatinine (0.6-1.3) mg/dL Estimated GFR (MDRD) (>89) Glucose (74-104) mg/dL Lactic Acid (0.5-2.2) mmol/L Calcium (8.5-10.3) mg/dL Urine Color Urine Clarity (CLEAR) Urine pH (5.0-7.5) PH Ur Specific [place] (1.002-1.030) Urine Protein (NEGATIVE) mg/dL Urine Glucose (UA) (NEGATIVE) mg/dL Urine Ketones (NEGATIVE) mg/dL Urine Occult Blood (NEGATIVE) Urine Nitrite (NEGATIVE) Urine Bilirubin (NEGATIVE) Urine Urobilinogen (NORMAL) E.U./dL Ur Leukocyte Esterase (NEGATIVE) Urine RBC (0-5) /HPF Urine WBC (0-3) /HPF Ur Squamous Epith Cells (<= Few) Amorphous Sediment /LPF Urine Bacteria (None Seen) /HPF Ur Microscopic Review Urine Culture Comments Nasal Adenovirus (PCR) NOT DETECTED Nasal B. parapertussis DNA (PCR) NOT DETECTED Nasal Coronavir 229E PCR NOT DETECTED Nasal Coronavir HKU1 PCR NOT DETECTED Nasal Coronavir NL63 PCR NOT DETECTED Nasal Coronavir OC43 PCR NOT DETECTED Nasal Enterovir/Rhinovir PCR NOT DETECTED Nasal Influenza B PCR NOT DETECTED Nasal Influenza A PCR NOT DETECTED Nasal Parainfluen 1 PCR NOT DETECTED Nasal Parainfluen 2 PCR NOT DETECTED Nasal Parainfluen 3 PCR NOT DETECTED Nasal Parainfluen 4 PCR NOT DETECTED Nasal RSV (PCR) NOT DETECTED Nasal B.pertussis DNA PCR NOT DETECTED Nasal C.pneumoniae (PCR) NOT DETECTED Paul Human Metapneumo PCR NOT DETECTED Nasal M.pneumoniae (PCR) NOT DETECTED Nasal SARS-CoV-2 (PCR) NOT DETECTED Blood Type Antibody Screen Crossmatch IS Only 05/28/23 Range/Units 14:21 WBC (4.8-10.8) x10^3/uL RBC (4.70-6.10) 10^6/uL Hgb (14.0-18.0) g/dL Hct (42.0-52.0) % MCV (80.0-94.0) fL MCH (27.0-31.0) pg MCHC (32.0-36.0) g/dL RDW (12.0-15.0) % Plt Count (130-450) 10^3/uL MPV (7.4-11.4) fL Neut # (Auto) (1.5-6.6) 10^3/uL Lymph # (Auto) (1.5-3.5) 10^3/uL [place] # (Auto) (0.0-1.0) 10^3/uL Eos # (Auto) (0.0-0.7) 10^3/uL Baso # (Auto) (0.0-0.1) 10^3/uL Absolute Nucleated RBC x10^3/uL Total Counted Band Neuts % (Manual) Abnorm Lymph % (Manual) Nucleated RBC % /100WBC Neutrophils # (Manual) Lymphocytes # (Manual) Monocytes # (Manual) Eosinophils # (Manual) Basophils # (Manual) Differential Comment WBC Morphology (NORMAL) Platelet Estimate (NORMAL) Platelet Morphology (NORMAL) RBC Morph Micro Appear (NORMAL) Sodium (135-145) mmol/L Potassium (3.5-4.5) mmol/L Chloride (101-111) mmol/L Carbon Dioxide (21-32) mmol/L Anion Gap (6-13) BUN (6-20) mg/dL Creatinine (0.6-1.3) mg/dL Estimated GFR (MDRD) (>89) Glucose (74-104) mg/dL Lactic Acid (0.5-2.2) mmol/L Calcium (8.5-10.3) mg/dL Urine Color Urine Clarity (CLEAR) Urine pH (5.0-7.5) PH Ur Specific [place] (1.002-1.030) Urine Protein (NEGATIVE) mg/dL Urine Glucose (UA) (NEGATIVE) mg/dL Urine Ketones (NEGATIVE) mg/dL Urine Occult Blood (NEGATIVE) Urine Nitrite (NEGATIVE) Urine Bilirubin (NEGATIVE) Urine Urobilinogen (NORMAL) E.U./dL Ur Leukocyte Esterase (NEGATIVE) Urine RBC (0-5) /HPF Urine WBC (0-3) /HPF Ur Squamous Epith Cells (<= Few) Amorphous Sediment /LPF Urine Bacteria (None Seen) /HPF Ur Microscopic Review Urine Culture Comments Nasal Adenovirus (PCR) Nasal B. parapertussis DNA (PCR) Nasal Coronavir 229E PCR Nasal Coronavir HKU1 PCR Nasal Coronavir NL63 PCR Nasal Coronavir OC43 PCR Nasal Enterovir/Rhinovir PCR Nasal Influenza B PCR Nasal Influenza A PCR Nasal Parainfluen 1 PCR Nasal Parainfluen 2 PCR Nasal Parainfluen 3 PCR Nasal Parainfluen 4 PCR Nasal RSV (PCR) Nasal B.pertussis DNA PCR Nasal C.pneumoniae (PCR) Paul Human Metapneumo PCR Nasal M.pneumoniae (PCR) Nasal SARS-CoV-2 (PCR) Blood Type O NEGATIVE Antibody Screen NEGATIVE Crossmatch IS Only See Detail ABX Reporting Has patient been on IV antibiotics over the past 48 hours?: No Assessment/Plan - Problem List (1) Neutropenic fever Impression: He sounds like he could have an early lung infection. But CT of the chest was negative yesterday. The foot is also a possible source of infection and that it is red, hot, tender to touch. But no open wound. No history of trauma and no fracture. He is also neutropenic. Plan: Cancel discharge Change from observation status to inpatient status Blood cultures, lactic acid, repeat cxr Reviewed the results of the ultrasound of the left foot once are available. Radiology says are really backed up and it may be till 6:00 tonight. Start empiric cefepime and vancomycin (2) Left foot pain Impression: No history of trauma. No foot fracture. No history of gout. Await ultrasound results (3) Dyspnea on exertion Impression: Patient does not have infiltrate on chest x-ray. No previous history of heart disease, no previous history of emphysema and on examination there is no evidence of CHF. He has anemia that is quite severe. Suspect this, As well as the small pulmonary embolus, is the cause of his dyspnea. However O2 sats are satisfactory. Plan: Third unit of blood for today. 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 As such that will not be resumed while he is here. He will be transfused greater than 8. (5) Pulmonary emboli Conclusion/Plan: Formulary here is Eliquis 5 mg p.o. twice daily. I had already prepared a d ischarge plan before he had a fever spike. His insurance formulary excepted Eliquis as a prescription Qualifiers: Pulmonary embolism type: unspecified Chronicity: acute Acute cor pulmonale presence: without acute cor pulmonale Qualified Code(s): I26.99 - Other pulmonary embolism without acute cor pulmonale (6) Hx of essential hypertension Conclusion/Plan: In the ER his blood pressure has been in the 120s over 50s. Home medications are Cozaar, metoprolol. At this time I will just resume the metoprolol and hold off on the Cozaar until his systolic is at least 130. I am using Lopressor first to avoid rebound tachycardia. Before the temperature spike he was 142/60. He is now 112/44. As such I am just can keep him on metoprolol for now (7) MARICARMEN on CPAP Conclusion/Plan: Patient may use his own CPAP mask at night
[2023-05-29] MEDS ORDERED: CEFEPIME 2 GM in SODIUM CHLORIDE 0.9% MINIBAG 100 ML IV SCH (16:00)
--- NOTE | 2023-05-29 16:14 | XRAY Report ---
PROCEDURE: Chest 1V INDICATIONS: new cough, rigors in neutropenic chemo pt TECHNIQUE: One view of the chest was acquired. COMPARISON: CTA chest with and without contrast dated 05/28/2023. FINDINGS: Surgical changes and devices: None. Lungs and pleura: No pleural effusions or pneumothorax. Lungs are clear. Mediastinum: Mediastinal contours appear normal. Heart size is normal. Bones and chest wall: No suspicious bony lesions. Overlying soft tissues appear unremarkable. IMPRESSION: No acute cardiopulmonary process. Reviewed by: Juan Jose Cruz MD on 05/29/2023 4:13 PM PDT Approved by: Juan Jose Cruz MD on 05/29/2023 4:13 PM PDT Station ID: [id number]
--- NOTE | 2023-05-29 16:35 | PHARMACY PROGRESS NOTE ---
- Therapy Status Vancomycin regimen day #: 1 Therapy status: Awaiting steady state Basis for treatment: Empirical Treatment indication: PNA Trough goal: 400-600 Concurrent antibiotics: CEFEPIME - SAMSON Risk Risk level for Acute Kidney Injury: High Acute Kidney Injury risk factors: Other nephrotoxic agents, Goal trough >15 - Monitoring and Recommendation Clinical response to treatment: I&O Previous 24 hours 05/27/23 05/28/23 05/29/23 23:59 23:59 23:59 Intake Total 1200 1690 Balance 1200 1690 Lab Results 05/29/23 05/28/23 05:13 13:31 BUN 33 H 37 H Creatinine 1.3 1.5 H Estimated GFR (MDRD) 54 L 45 L Monitoring plan: Daily serum creatinine Areas for additional monitoring: IV to PO when appropriate, Therapy de- escalation based on culture results, Acute Kidney Injury Pharmacy recommendation: Continue current regime (BEGIN VANCOMYCIN 1500 MG Q24H. MONITOR DAILY SERUM CR. WILL OBTAIN RANDOM LEVEL IF SCR RISES TOMORROW AM.)
[2023-05-29] MEDS: VANCOMYCIN INJ 1.5 GM in SODIUM CHLORIDE 0.9% 500 ML IV SCH (20:34)
--- NOTE | 2023-05-30 00:27 | Ultrasound Report ---
PROCEDURE: Extremity Soft Tissue Limited INDICATIONS: left foot arch tender, firm TECHNIQUE: Real-time scanning was performed of the left foot plantar surface, with image documentati on. COMPARISON: None. FINDINGS: No soft tissue mass or fluid collection. IMPRESSION: No sonographic abnormalities. Reviewed by: Veena So MD on 05/30/2023 12:25 AM PDT Approved by: Veena So MD on 05/30/2023 12:25 AM PDT Station ID: [id number]
[2023-05-30 05:14] LABS: EOSINOPHILS % (AUTO) 8.3 %; HCT - HEMATOCRIT 23.5 % (42.0-52.0); HGB - HEMOGLOBIN 7.9 g/dL (14.0-18.0); LYMPHOCYTES % (AUTO) 68.3 %; MEAN CORPUSCULAR HEMOGLOBIN 33.6 pg (27.0-31.0); MEAN CORPUSCULAR HGB CONC 33.6 g/dL (32.0-36.0); MEAN PLATELET VOLUME 10.6 fL (7.4-11.4); MONOCYTES % (AUTO) 1.7 %; NEUTROPHILS % (AUTO) 21.7 %; PLT - PLATELET COUNT 111 10^3/uL (130-450); RED BLOOD COUNT 2.35 10^6/uL (4.70-6.10); RED CELL DISTRIBUTION WIDTH 23.1 % (12.0-15.0)
[2023-05-30 05:17] LABS: WHITE BLOOD COUNT 0.6 x10^3/uL (4.8-10.8)
[2023-05-30 05:18] LABS: ABNORMAL LYMPHS % (MANUAL) 0 %; BAND NEUTROPHILS % (MANUAL) 0 %
[2023-05-30 05:27] LABS: CALCIUM 8.2 mg/dL (8.5-10.3); CREATININE 1.4 mg/dL (0.6-1.3); POTASSIUM 4.2 mmol/L (3.5-4.5)
[2023-05-30 06:12] LABS: LYMPHOCYTES # (MANUAL) 0.4 10^3/uL (1.5-3.5); LYMPHOCYTES % (MANUAL) 66 %; NEUTROPHILS # (MANUAL) 0.2 10^3/uL (1.5-6.6); PLATELET ESTIMATE, MANUAL DECREASED (<130,000) (NORMAL)
[2023-05-30 06:13] LABS: DIFFERENTIAL COMMENT MANUAL DIFFERENTIAL
--- NOTE | 2023-05-30 14:08 | PROVIDER PROGRESS NOTE ---
Subjective - Prog Note Date Prog Note Date: 05/30/23 Prog Note Time: 14:05 - Subjective Pt reports feeling: Improved Subjective: He is improved from yesterday where he was having rigors, fever, and just felt horrible all over. Today he is just wiped out and exhausted. He says that he been watching the TV is without pleasure because he cannot concentrate. But has had no fever since the start of the antibiotics yesterday. His left foot is still painful and hurts to walk on. He has not had a bowel movement in a few days so his belly is starting to feel tight and distended and uncomfortable. Not painful. But he is passing gas. He is eating. He has no appetite. He says the solid food has no interest in him. He just likes the food and the Ensure. Current Medications - Current Medications Current Medications: Active Medications Acetaminophen (Acetaminophen 325 Mg Tablet) 650 mg PO Q4HR PRN PRN Reason: Pain 1 to 4, or Fever Last Admin: 05/29/23 18:17 Dose: 650 mg Apixaban (Apixaban 5 Mg Tablet) 5 mg PO BID [facility] Last Admin: 05/30/23 08:37 Dose: 5 mg Ferrous Sulfate (Ferrous Sulfate 325 Mg Tablet) 325 mg PO DAILY [facility] Last Admin: 05/30/23 08:37 Dose: 325 mg Cefepime HCl 2 gm/ Sodium (Chloride) 100 mls @ 200 mls/hr IV Q12H [facility] Last Infusion: 05/30/23 04:53 Dose: Infused Vancomycin HCl 1.25 gm/ Sodium (Chloride) 250 mls @ 166.667 mls/hr IV [facility] Metoprolol Tartrate (Metoprolol Tartrate 25 Mg Tablet) 25 mg PO DAILY [facility] Last Admin: 05/30/23 08:37 Dose: 25 mg Morphine Sulfate (Morphine 2 Mg/Ml Carpuject) 4 mg IVP Q6H PRN PRN Reason: PAIN >8 Ondansetron HCl (Ondansetron Odt 4 Mg Tablet) 4 mg TL Q6HR PRN PRN Reason: Nausea / Vomiting Ondansetron HCl (Ondansetron 4 Mg/2 Ml Vial) 4 mg IVP Q6HR PRN PRN Reason: Nausea / Vomiting Oxycodone HCl (Oxycodone 5 Mg Tablet) 5 mg PO Q4HR PRN PRN Reason: Pain 5 to 7 Last Admin: 05/30/23 08:38 Dose: 5 mg Oxymetazoline HCl (Oxymetazoline Hcl 100 Sprays Bottle) 1 sprays PAUL QPM [facility] Last Admin: 05/29/23 20:34 Dose: 1 spr Decitabine/Cedazuridine [Inqovi 35 Mg-100 Mg Tablet ] 1 each PO DAILY [facility] Last Admin: 05/30/23 13:49 Dose: Not Given Prednisone (Prednisone 5 Mg Tablet) 1.25 mg PO DAILYWM [facility] Last Admin: 05/30/23 08:36 Dose: Not Given Psyllium Hydrophilic Mucilloid (Psyllium Packet) 1 packet PO DAILY [facility] Last Admin: 05/30/23 08:37 Dose: 1 packet Sertraline HCl (Sertraline 25 Mg Tablet) 25 mg PO DAILY [facility] Last Admin: 05/30/23 08:37 Dose: 25 mg Sodium Chloride (Sodium Chloride Flush 0.9% 10 Ml Syringe) 10 ml IVP PRN PRN PRN Reason: NEEDED PER PROVIDER ORDERS Sodium Chloride (Sodium Chloride Flush 0.9% 10 Ml Syringe) 10 ml IVP 0100,0900,1700 [facility] Last Admin: 05/30/23 13:49 Dose: 10 ml Trazodone HCl (Trazodone 50 Mg Tablet) 50 mg PO HS [facility] Last Admin: 05/29/23 20:34 Dose: 50 mg Aspirin [Aspir 81] 81 mg PO DAILY 04/10/13 Losartan Potassium [Cozaar] 100 mg PO DAILY 04/10/13 Metoprolol Tartrate [Lopressor] 25 mg PO DAILY 04/24/18 Psyllium Husk (with Sugar) [Metamucil Powder] 2 tbs PO DAILY 04/24/18 Rosuvastatin Calcium [Crestor] 5 mg PO DAILY 05/15/22 Sertraline [Zoloft] 25 mg PO DAILY 03/30/23 traZODone [Desyrel] 50 mg PO HS 03/30/23 [place]-3S/Dha/Epa/Fish Oil [Fish Oil 1,200 mg Softgel] 1 each PO DAILY 05/04/23 Oxymetazoline HCl [Afrin] 15 ml NS DAILY PM 05/04/23 Decitabine/Cedazuridine [Inqovi 35 mg-100 mg Tablet] 1 tab PO DAILY 05/28/23 Prednisone [Manuel] 1 tab PO DAILY 05/28/23 Objective - Vital Signs/Intake & Output Reviewed Vital Signs: Yes Vital Signs: Vital Signs x48h Temp Pulse Resp BP BP Pulse Ox O2 Flow Rate 05/30/23 12:01 36.8 C 59 L 18 115/57 L 94 05/30/23 08:37 135/55 H 05/30/23 08:14 36.7 C 69 18 135/55 H 96 1 05/30/23 07:24 4 Intake & Output: Intake & Output 05/27/23 05/28/23 05/29/23 05/30/23 23:59 23:59 23:59 23:59 Intake Total 1200 2690 940 Balance 1200 2690 940 - Objective General Appearance: positive: No acute distress, Alert, Other (Fatigued appearing elderly gentleman who looks older than stated age. Yesterday very pale with his fever, today less so but still appears wiped out. He is able to get out of bed into a chair with minimum assist.) Eyes Bilateral: positive: PERRL, EOMI, Conjunctivae nml, No scleral icterus ENT: positive: Pharynx nml, No signs of dehydration Neck: positive: No JVD. negative: Stiff neck Respiratory: positive: No respiratory distress. negative: Wheezes, Rales, Rhonchi (Yesterday he started developing a congested cough around the time of his fever. I heard 1 rhonchi. Today lungs are clear. Cough is present but dry. Minimal cough. He only coughed once during my exam) Cardiovascular: positive: Regular rate & rhythm, Systolic murmur Abdomen: positive: No organomegaly, Nml bowel sounds, Other (Slightly distended, almost tight. But not quite. No fluid wave. Generalized mild discomfort. But no specific quadrant pain and hypoactive bowel sounds.) Skin: positive: Warm, Dry, Pallor Extremities: positive: Full ROM, No pedal edema, Other (The arch of the left fo ot, going into the instep is red, hot. Not nearly as it was yesterday. But it still warm, hot, slightly edematous.) Neurologic/Psychiatric: positive: Oriented x3, CN's nml (2-12), Motor nml - Lab Results Fish Bones: 05/30/23 04:54 05/30/23 04:54 Other Labs: Lab Results x24hrs 05/30/23 05/30/23 05/30/23 Range/Units 04:54 04:54 04:54 WBC 0.6 L* (4.8-10.8) x10^3/uL RBC 2.35 L (4.70-6.10) 10^6/uL Hgb 7.9 L (14.0-18.0) g/dL Hct 23.5 L (42.0-52.0) % MCV 100.0 H (80.0-94.0) fL MCH 33.6 H (27.0-31.0) pg MCHC 33.6 (32.0-36.0) g/dL RDW 23.1 H (12.0-15.0) % Plt Count 111 L (130-450) 10^3/uL MPV 10.6 (7.4-11.4) fL Neut # (Auto) Not Reportable Lymph # (Auto) Not Reportable [place] # (Auto) Not Reportable Eos # (Auto) Not Reportable Baso # (Auto) Not Reportable Absolute Nucleated RBC Not Reportable Total Counted 50 Band Neuts % (Manual) 0 (0 - 10) % Abnorm Lymph % (Manual) 0 % Nucleated RBC % Not Reportable Neutrophils # (Manual) 0.2 L* (1.5-6.6) 10^3/uL Lymphocytes # (Manual) 0.4 L (1.5-3.5) 10^3/uL Monocytes # (Manual) 0.0 (0.0-1.0) 10^3/uL Eosinophils # (Manual) 0.0 (0-0.7) 10^3/uL Basophils # (Manual) 0.0 (0-0.1) 10^3/uL Differential Comment MANUAL DIFFERENTIAL Platelet Estimate DECREASED (<130,000) (NORMAL) RBC Morph Micro Appear 1+ HYPOCHROMASIA (NORMAL) Sodium 128 L (135-145) mmol/L Potassium 4.2 (3.5-4.5) mmol/L Chloride 101 (101-111) mmol/L Carbon Dioxide 20 L (21-32) mmol/L Anion Gap 7.0 (6-13) BUN 34 H (6-20) mg/dL Creatinine 1.4 H (0.6-1.3) mg/dL Estimated GFR (MDRD) 49 L (>89) Glucose 132 H (74-104) mg/dL Lactic Acid (0.5-2.2) mmol/L Uric Acid 6.5 (4.4-7.6) mg/dL Calcium 8.2 L (8.5-10.3) mg/dL Urine Color Urine Clarity (CLEAR) Urine pH (5.0-7.5) PH Ur Specific [place] (1.002-1.030) Urine Protein (NEGATIVE) mg/dL Urine Glucose (UA) (NEGATIVE) mg/dL Urine Ketones (NEGATIVE) mg/dL Urine Occult Blood (NEGATIVE) Urine Nitrite (NEGATIVE) Urine Bilirubin (NEGATIVE) Urine Urobilinogen (NORMAL) E.U./dL Ur Leukocyte Esterase (NEGATIVE) Urine RBC (0-5) /HPF Urine WBC (0-3) /HPF Ur Squamous Epith Cells (<= Few) Amorphous Sediment /LPF Urine Bacteria (None Seen) /HPF Ur Microscopic Review Urine Culture Comments Blood Type Antibody Screen Crossmatch IS Only 05/29/23 05/29/23 05/28/23 Range/Units 15:08 14:13 14:21 WBC (4.8-10.8) x10^3/uL RBC (4.70-6.10) 10^6/uL Hgb (14.0-18.0) g/dL Hct (42.0-52.0) % MCV (80.0-94.0) fL MCH (27.0-31.0) pg MCHC (32.0-36.0) g/dL RDW (12.0-15.0) % Plt Count (130-450) 10^3/uL MPV (7.4-11.4) fL Neut # (Auto) Lymph # (Auto) [place] # (Auto) Eos # (Auto) Baso # (Auto) Absolute Nucleated RBC Total Counted Band Neuts % (Manual) (0 - 10) % Abnorm Lymph % (Manual) % Nucleated RBC % Neutrophils # (Manual) (1.5-6.6) 10^3/uL Lymphocytes # (Manual) (1.5-3.5) 10^3/uL Monocytes # (Manual) (0.0-1.0) 10^3/uL Eosinophils # (Manual) (0-0.7) 10^3/uL Basophils # (Manual) (0-0.1) 10^3/uL Differential Comment Platelet Estimate (NORMAL) RBC Morph Micro Appear (NORMAL) Sodium (135-145) mmol/L Potassium (3.5-4.5) mmol/L Chloride (101-111) mmol/L Carbon Dioxide (21-32) mmol/L Anion Gap (6-13) BUN (6-20) mg/dL Creatinine (0.6-1.3) mg/dL Estimated GFR (MDRD) (>89) Glucose (74-104) mg/dL Lactic Acid 2.2 (0.5-2.2) mmol/L Uric Acid (4.4-7.6) mg/dL Calcium (8.5-10.3) mg/dL Urine Color DARK YELLOW Urine Clarity HAZY (CLEAR) Urine pH 5.5 (5.0-7.5) PH Ur Specific [place] >=1.030 H (1.002-1.030) Urine Protein 30 H (NEGATIVE) mg/dL Urine Glucose (UA) NEGATIVE (NEGATIVE) mg/dL Urine Ketones NEGATIVE (NEGATIVE) mg/dL Urine Occult Blood TRACE-INTA (NEGATIVE) Urine Nitrite NEGATIVE (NEGATIVE) Urine Bilirubin NEGATIVE (NEGATIVE) Urine Urobilinogen 0.2 (NORMAL) (NORMAL) E.U./dL Ur Leukocyte Esterase NEGATIVE (NEGATIVE) Urine RBC 0-5 (0-5) /HPF Urine WBC 0-3 (0-3) /HPF Ur Squamous Epith Cells RARE Squamous (<= Few) Amorphous Sediment Rare /LPF Urine Bacteria Rare (None Seen) /HPF Ur Microscopic Review INDICATED Urine Culture Comments NOT INDICATED Blood Type O NEGATIVE Antibody Screen NEGATIVE Crossmatch IS Only See Detail - Diagnostic Imaging Diagnostic Imaging Results: positive: Final report reviewed Diagnostic Imaging Comments: Ultrasound of the left foot does not show soft tissue mass or fluctuance X-ray of the left foot has no fracture Chest x-ray done yesterday is read as clear Repeat urinalysis done yesterday was not sent for culture since is essentially clear ABX Reporting Has patient been on IV antibiotics over the past 48 hours?: Yes Assessment/Plan - Problem List (1) Neutropenic fever Impression: On the he had developed a new cough with some chest congestion so is worried about pneumonia. CT of the chest had been negative on the . The hot, warm, tender left foot could have been a source of infection but objective data of x-ray and ultrasound showed no collection of abscess, fracture. No open wound. Repeat chest x-ray was done and there is no pneumonia. I started him on cefepime and vancomycin. Lactic acid was negative. Blood cultures were drawn and are pending. ANC today is 600. So far I am not finding a source other than that left foot. Plan: Continue cefepime and vancomycin. Day #2 of 7. Recommendations are if patient is low risk and clinically stable they require 7 days of antibiotics. Then stop. If patient is high risk then continue antibiotic therapy for 2 weeks until resolution of neutropenia. Monitor vancomycin toxicity with the Vanco trough level Review blood cultures when they get back. (2) Left foot pain Impression: No history of trauma. No foot fracture on Plain film.. No history of gout. [employer] report is negative for fluid collection. Plan: Check uric acid Orthopedic consult for tomorrow morning (3) Dyspnea on exertion Impression: Patient does not have infiltrate on chest x-ray. No previous history of heart disease, no previous history of emphysema and on examination there is no evidence of CHF. He has anemia that is quite severe. Suspect this, As well as the small pulmonary embolus, is the cause of his dyspnea. However O2 sats are satisfactory. Status post 3 units of blood. Dyspnea has improved. 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 As such that will not be resumed while he is here. He will be transfused greater than 8. He has received 3 units of blood. Admission hemoglobin 6.6. Today he is 7.9. I am not seeing any evidence of GI bleeding. No bloody stool. Abdomen is uncomfortable. Slightly distended with normal bowel sounds. Nontender. Plan: Check LDH, haptoglobin, reticulocyte count with tomorrow's blood draw to make sure he is not hemolyzing. (5) Pulmonary emboli Conclusion/Plan: Formulary here is Eliquis 5 mg p.o. twice daily. I had already prepared a discharge plan on 05/28 before he had a fever spike. His insurance formulary ac cepted Eliquis as a prescription. Today he tells me that his grandson has picked up the prescription. He only had to pay $40 a month. He is now asking me to make sure that Dr. Juárez gets a 3-month prescription in to his mail order pharmacy. Plan: I will call Dr. Juárez's office. I have let him know that he most likely has take this indefinitely. Usually PE in the face of neoplasm results and lifelong anticoagulation Qualifiers: Pulmonary embolism type: unspecified Chronicity: acute Acute cor pulmonale presence: without acute cor pulmonale Qualified Code(s): I26.99 - Other pulmonary embolism without acute cor pulmonale (6) Hx of essential hypertension Conclusion/Plan: In the ER his blood pressure has been in the 120s over 50s. Home medications are Cozaar, metoprolol. At this time I will just resume the metoprolol and hold off on the Cozaar until his systolic is at least 130. I am using Lopressor first to avoid rebound tachycardia. Before the temperature spike he was 142/60. After the spike he was 112/44. Today Heart rate has been in the 50s and 60s. Blood pressure today 135/55, 115/57. As such I am just can keep him on metoprolol for now (7) MARICARMEN on CPAP Conclusion/Plan: Patient may use his own CPAP mask at night (8) Constipation Have asked his nurse to do a rectal suppository. I did offer an enema to the patient and he said he preferred the suppository first.
[2023-05-30] MEDS: BISACODYL 10 MG SUPP PR ONE (14:43)
[2023-05-30] MEDS: KETOROLAC 15 MG/ML VIAL IVP SCH (18:11)
[2023-05-30] MEDS: COLCHICINE 0.6 MG TABLET PO SCH (18:11)
[2023-05-30] MEDS: VANCOMYCIN INJ 1.25 GM in SODIUM CHLORIDE 0.9% 250 ML IV SCH (21:33)
[2023-05-31 05:52] LABS: EOSINOPHILS % (AUTO) 9.6 %; HCT - HEMATOCRIT 23.1 % (42.0-52.0); HGB - HEMOGLOBIN 8.1 g/dL (14.0-18.0); LYMPHOCYTES % (AUTO) 63.5 %; MEAN CORPUSCULAR HGB CONC 35.1 g/dL (32.0-36.0); MEAN CORPUSCULAR VOLUME 97.1 fL (80.0-94.0); MEAN PLATELET VOLUME 10.8 fL (7.4-11.4); MONOCYTES % (AUTO) 1.9 %; NEUTROPHILS % (AUTO) 19.2 %; PLT - PLATELET COUNT 114 10^3/uL (130-450); RED BLOOD COUNT 2.38 10^6/uL (4.70-6.10); RED CELL DISTRIBUTION WIDTH 22.5 % (12.0-15.0)
[2023-05-31 05:59] LABS: WHITE BLOOD COUNT 0.5 x10^3/uL (4.8-10.8)
[2023-05-31 06:00] LABS: ABNORMAL LYMPHS % (MANUAL) 0 %; BAND NEUTROPHILS % (MANUAL) 0 %
[2023-05-31 06:09] LABS: CALCIUM 8.6 mg/dL (8.5-10.3); CREATININE 1.4 mg/dL (0.6-1.3); POTASSIUM 4.9 mmol/L (3.5-4.5)
[2023-05-31 06:24] LABS: LYMPHOCYTES # (MANUAL) 0.4 10^3/uL (1.5-3.5); LYMPHOCYTES % (MANUAL) 76 %; NEUTROPHILS # (MANUAL) 0.1 10^3/uL (1.5-6.6)
[2023-05-31 06:25] LABS: DIFFERENTIAL COMMENT MANUAL DIFFERENTIAL; PLATELET ESTIMATE, MANUAL DECREASED (<130,000) (NORMAL)
--- NOTE | 2023-05-31 12:34 | PROVIDER PROGRESS NOTE ---
Assessment/Plan - Problem List (1) Pulmonary emboli Assessment/Plan: --Started on Eliquis 5 mg. Will keep him on this dose and avoid the loading 10 mg BID dose given his anemia and requirement for 2 pRBC transfusions while inpatient. --Will need to remain on anticoagulation for 3-6 months minimum. Per UpTo[employer] "In most patients with active cancer and proximal deep venous thrombosis (DVT) or pulmonary embolism (PE), we administer indefinite anticoagulant therapy, unless the bleeding risk is high or VTE was precipitated by a major provoking event such as surgery." (2) Neutropenic fever Assessment/Plan: --Developed lower respiratory sx on 05/28. Cultures thus far have remained negative. He is currently on Vanc and cefepime. --WBC has been steadily declining. I have reached out to his primary Oncologist for his CML Dr. Keyes via text for recommendations. --Keep him on antibiotics for now and follow cultures. Repeat CBC in AM. (3) Anemia due to antineoplastic chemotherapy Assessment/Plan: --He is to stop his Inqovi when his hemoglobin is under 8. --Has been given 3 units of pRBC for his anemia. No source of bleeding identified. Likely secondary to his Inqovi. --Will check LDH, haptoglobin, folate, B12, Fe studies in AM. (4) Dyspnea on exertion Assessment/Plan: --Resolved. Continue anticoagulation and transfuse blood is hemoglobin under 8. (5) CML (chronic myelocytic leukemia) Assessment/Plan: --Follows with Oncology. I have reached out to his Oncologist for recommendations given we have held his Inqovi and he is currently leukopenic. (6) Hx of essential hypertension Assessment/Plan: --Stable. (7) MARICARMEN on CPAP Assessment/Plan: --CPAP QHS. (8) PMR (polymyalgia rheumatica) Assessment/Plan: --On a prolonged prednisone taper. - Current Meds Current Meds: Current Medications Generic Name Dose Route Start Last Admin Trade Name Freq PRN Reason Stop Dose Admin Acetaminophen 650 mg 05/28/23 17:25 05/31/23 08:00 Acetaminophen 325 Mg Tablet PO 650 mg Q4HR PRN Administration Pain 1 to 4, or Fever Apixaban 5 mg 05/28/23 21:00 05/31/23 08:01 Apixaban 5 Mg Tablet PO 5 mg BID MIGUEL ÁNGEL Administration Colchicine 0.6 mg 05/30/23 17:55 05/31/23 08:00 Colchicine 0.6 Mg Tablet PO 0.6 mg DAILY MIGUEL ÁNGEL Administration Ferrous Sulfate 325 mg 05/29/23 09:00 05/31/23 08:00 Ferrous Sulfate 325 Mg Tablet PO 325 mg DAILY MIGUEL ÁNGEL Administration Cefepime HCl 2 gm/ Sodium 100 mls @ 200 mls/hr 05/29/23 16:00 05/31/23 04:43 Chloride IV Infused Q12H MIGUEL ÁNGEL Infusion Vancomycin HCl 1.25 gm/ Sodium 250 mls @ 166.667 mls/hr 05/30/23 21:00 05/30/23 23:42 Chloride IV Infused HS MIGUEL ÁNGEL Infusion Metoprolol Tartrate 25 mg 05/29/23 09:00 05/31/23 08:02 Metoprolol Tartrate 25 Mg Tablet PO 25 mg DAILY MIGUEL ÁNGEL Administration Oxycodone HCl 5 mg 05/28/23 17:25 05/30/23 21:33 Oxycodone 5 Mg Tablet PO 5 mg Q4HR PRN Administration Pain 5 to 7 Oxymetazoline HCl 1 sprays 05/28/23 21:00 05/30/23 21:33 Oxymetazoline Hcl 100 Sprays Bottle PAUL 1 spr QPM MIGUEL ÁNGEL Administration Decitabine/ 1 each 05/29/23 09:00 05/31/23 08:03 Cedazuridine [Inqovi PO Not Given 35 Mg-100 Mg Tablet DAILY MIGUEL ÁNGEL ] Prednisone 1.25 mg 05/29/23 08:00 05/31/23 08:01 Prednisone 5 Mg Tablet PO 1.25 mg DAILYWM MIGUEL ÁNGEL Administration Psyllium Hydrophilic Mucilloid 1 packet 05/29/23 09:00 05/31/23 08:04 Psyllium Packet PO Not Given DAILY MIGUEL ÁNGEL Sertraline HCl 25 mg 05/29/23 09:00 05/31/23 08:00 Sertraline 25 Mg Tablet PO 25 mg DAILY MIGUEL ÁNGEL Administration Sodium Chloride 10 ml 05/29/23 01:00 05/31/23 08:03 Sodium Chloride Flush 0.9% 10 Ml Syringe IVP 10 ml 0100,0900,1700 MIGUEL ÁNGEL Administration Trazodone HCl 50 mg 05/28/23 21:00 05/30/23 21:32 Trazodone 50 Mg Tablet PO 50 mg HS MIGUEL ÁNGEL Administration - Lab Result Fish Bone Diagrams: 05/31/23 05:43 05/31/23 05:43 - Additional Planning My Orders: My Active Orders 05/31/23 12:00 BIPAP [BIPAP/CPAP - RT] [RC] .w sleep Subjective - Subjective Patient Reports: Feeling Better, Resting Comfortably, No Complaints (Foot pain has resolved.) Objective Vital Signs: Vital Signs - 24 hr 05/30/23 05/30/23 05/30/23 15:28 17:04 20:53 Temperature 37.0 C 37.1 C 36.6 C Heart Rate [ 64 63 58 L Brachial] Respiratory 19 18 18 Rate Blood Pressure Blood Pressure 112/42 L [Left Brachial artery] Blood Pressure 140/57 H 127/54 L [Right Brachial artery] O2 Saturation 95 95 95 05/30/23 05/31/23 05/31/23 23:29 04:34 07:51 Temperature 36.2 C L 36.6 C 36.8 C Heart Rate [ 60 75 68 Brachial] Respiratory 18 18 16 Rate Blood Pressure Blood Pressure 108/49 L 131/55 H 111/50 L [Left Brachial artery] Blood Pressure [Right Brachial artery] O2 Saturation 95 94 94 05/31/23 05/31/23 08:02 11:59 Temperature 36.5 C Heart Rate [ 56 L Brachial] Respiratory 16 Rate Blood Pressure 111/50 L Blood Pressure [Left Brachial artery] Blood Pressure 116/53 L [Right Brachial artery] O2 Saturation 96 Oxygen O2 Source Room air I&O (Last 24 Hrs): Intake and Output Totals x24h 05/29/23 05/30/23 05/31/23 23:59 23:59 23:59 Intake Total 2690 1390 520 Balance 2690 1390 520 General: Alert, Oriented x3 Neuro: Alert Cardiovascular: Regular rate, Normal S1, Normal S2 Respiratory: Chest non-tender Abdomen: Normal bowel sounds - Results Results: Laboratory Results WBC 0.5 x10^3/uL (4.8-10.8) L* 05/31/23 05:43 RBC 2.38 10^6/uL (4.70-6.10) L 05/31/23 05:43 Hgb 8.1 g/dL (14.0-18.0) L 05/31/23 05:43 Hct 23.1 % (42.0-52.0) L 05/31/23 05:43 MCV 97.1 fL (80.0-94.0) H 05/31/23 05:43 MCH 34.0 pg (27.0-31.0) H 05/31/23 05:43 MCHC 35.1 g/dL (32.0-36.0) 05/31/23 05:43 RDW 22.5 % (12.0-15.0) H 05/31/23 05:43 Plt Count 114 10^3/uL (130-450) L 05/31/23 05:43 MPV 10.8 fL (7.4-11.4) 05/31/23 05:43 Neut # (Auto) Not Reportable 05/31/23 05:43 Lymph # (Auto) Not Reportable 05/31/23 05:43 [place] # (Auto) Not Reportable 05/31/23 05:43 Eos # (Auto) Not Reportable 05/31/23 05:43 Baso # (Auto) Not Reportable 05/31/23 05:43 Absolute Nucleated RBC Not Reportable 05/31/23 05:43 Total Counted 50 05/31/23 05:43 Band Neuts % (Manual) 0 % (0-10) 05/31/23 05:43 Reactive Lymphs % (Man) 4 % 05/28/23 13:31 Abnorm Lymph % (Manual) 0 % 05/31/23 05:43 Nucleated RBC % Not Reportable 05/31/23 05:43 Neutrophils # (Manual) 0.1 10^3/uL (1.5-6.6) L* 05/31/23 05:43 Lymphocytes # (Manual) 0.4 10^3/uL (1.5-3.5) L 05/31/23 05:43 Monocytes # (Manual) 0.0 10^3/uL (0.0-1.0) 05/31/23 05:43 Eosinophils # (Manual) 0.0 10^3/uL (0-0.7) 05/31/23 05:43 Basophils # (Manual) 0.0 10^3/uL (0-0.1) 05/31/23 05:43 Differential Comment MANUAL DIFFERENTIAL 05/31/23 05:43 WBC Morphology 1+ SMUDGE CELLS (NORMAL) 05/28/23 22:06 Platelet Estimate DECREASED (<130,000) (NORMAL) 05/31/23 05:43 Platelet Morphology 1+ LARGE PLATELETS (NORMAL) 05/28/23 22:06 RBC Morph Micro Appear 2+ ANISOCYTOSIS (NORMAL) 1+ HYPOCHROMASIA (NORMAL) 05/31/23 05:43 RBC Morph Micro Appear 2+ ANISOCYTOSIS (NORMAL) 1+ HYPOCHROMASIA (NORMAL) 05/31/23 05:43 Sodium 128 mmol/L (135-145) L 05/31/23 05:43 Potassium 4.9 mmol/L (3.5-4.5) H 05/31/23 05:43 Chloride 101 mmol/L (101-111) 05/31/23 05:43 Carbon Dioxide 22 mmol/L (21-32) 05/31/23 05:43 Anion Gap 5.0 (6-13) L 05/31/23 05:43 BUN 38 mg/dL (6-20) H 05/31/23 05:43 Creatinine 1.4 mg/dL (0.6-1.3) H 05/31/23 05:43 Estimated GFR (MDRD) 49 (>89) L 05/31/23 05:43 Glucose 149 mg/dL (74-104) H 05/31/23 05:43 Lactic Acid 2.2 mmol/L (0.5-2.2) 05/29/23 14:13 Uric Acid 6.5 mg/dL (4.4-7.6) 05/30/23 04:54 Calcium 8.6 mg/dL (8.5-10.3) 05/31/23 05:43 Magnesium 1.8 mg/dL (1.7-2.3) 05/28/23 13:31 Total Bilirubin 1.1 mg/dL (0.2-1.0) H 05/28/23 13:31 AST 11 IU/L (10-42) 05/28/23 13:31 ALT 11 IU/L (10-60) 05/28/23 13:31 Alkaline Phosphatase 60 IU/L (42-121) 05/28/23 13:31 Troponin I High Sens 9.8 ng/L (2.3-19.7) 05/30/23 18:09 Total Protein 6.8 g/dL (6.4-8.9) 05/28/23 13:31 Albumin 4.0 g/dL (3.2-5.5) 05/28/23 13:31 Globulin 2.8 g/dL (2.1-4.2) 05/28/23 13:31 Albumin/Globulin Ratio 1.4 (1.0-2.2) 05/28/23 13:31 Lipase 20 U/L (11-82) 05/28/23 13:31 Procalcitonin Immunoas 0.49 ng/mL (<0.5) 05/31/23 09:02 Urine Color DARK YELLOW 05/29/23 15:08 Urine Clarity HAZY (CLEAR) 05/29/23 15:08 Urine pH 5.5 PH (5.0-7.5) 05/29/23 15:08 Ur Specific [place] >=1.030 (1.002-1.030) H 05/29/23 15:08 Urine Protein 30 mg/dL (NEGATIVE) H 05/29/23 15:08 Urine Glucose (UA) NEGATIVE mg/dL (NEGATIVE) 05/29/23 15:08 Urine Ketones NEGATIVE mg/dL (NEGATIVE) 05/29/23 15:08 Urine Occult Blood TRACE-INTA (NEGATIVE) 05/29/23 15:08 Urine Nitrite NEGATIVE (NEGATIVE) 05/29/23 15:08 Urine Bilirubin NEGATIVE (NEGATIVE) 05/29/23 15:08 Urine Urobilinogen 0.2 (NORMAL) E.U./dL (NORMAL) 05/29/23 15:08 Ur Leukocyte Esterase NEGATIVE (NEGATIVE) 05/29/23 15:08 Urine RBC 0-5 /HPF (0-5) 05/29/23 15:08 Urine WBC 0-3 /HPF (0-3) 05/29/23 15:08 Ur Squamous Epith Cells RARE Squamous (<= Few) 05/29/23 15:08 Amorphous Sediment Rare /LPF 05/29/23 15:08 Urine Bacteria Rare /HPF (None Seen) 05/29/23 15:08 Ur Microscopic Review INDICATED 05/29/23 15:08 Urine Culture Comments NOT INDICATED 05/29/23 15:08 Nasal Adenovirus (PCR) NOT DETECTED 05/28/23 17:33 Nasal B. parapertussis DNA (PCR) NOT DETECTED 05/28/23 17:33 Nasal Coronavir 229E PCR NOT DETECTED 05/28/23 17:33 Nasal Coronavir HKU1 PCR NOT DETECTED 05/28/23 17:33 Nasal Coronavir NL63 PCR NOT DETECTED 05/28/23 17:33 Nasal Coronavir OC43 PCR NOT DETECTED 05/28/23 17:33 Nasal Enterovir/Rhinovir PCR NOT DETECTED 05/28/23 17:33 Nasal Influenza B PCR NOT DETECTED 05/28/23 17:33 Nasal Influenza A PCR NOT DETECTED 05/28/23 17:33 Nasal Parainfluen 1 PCR NOT DETECTED 05/28/23 17:33 Nasal Parainfluen 2 PCR NOT DETECTED 05/28/23 17:33 Nasal Parainfluen 3 PCR NOT DETECTED 05/28/23 17:33 Nasal Parainfluen 4 PCR NOT DETECTED 05/28/23 17:33 Nasal RSV (PCR) NOT DETECTED 05/28/23 17:33 Nasal B.pertussis DNA PCR NOT DETECTED 05/28/23 17:33 Nasal C.pneumoniae (PCR) NOT DETECTED 05/28/23 17:33 Paul Human Metapneumo PCR NOT DETECTED 05/28/23 17:33 Nasal M.pneumoniae (PCR) NOT DETECTED 05/28/23 17:33 Nasal SARS-CoV-2 (PCR) NOT DETECTED 05/28/23 17:33 Blood Type O NEGATIVE 05/28/23 14:21 Antibody Screen NEGATIVE 05/28/23 14:21 Crossmatch IS Only See Detail 05/28/23 14:21 - Procedures Procedures: Procedures ENDOSC POLYPECTOMY OF LG INTEST (06/19/14) EXCISION OF ASCENDING COLON, ENDO (01/23/23) EXCISION OF DESCENDING COLON, ENDO (05/09/18) EXCISION OF SIGMOID COLON, ENDO (01/23/23) EXCISION OF TRANSVERSE COLON, ENDO (01/23/23)
[2023-05-31] MEDS: MORPHINE 2 MG/ML CARPUJECT IVP PRN (16:24)
[2023-05-31] MEDS ORDERED: iohexoL-300 100 ML VIAL ONE (18:54)
[2023-05-31] MEDS: ACETAMINOPHEN 500 MG TABLET PO SCH (19:10)
[2023-05-31] MEDS: SODIUM CHLORIDE 0.9% 1,000 ML IV SCH (19:10)
--- NOTE | 2023-05-31 19:20 | XRAY Report ---
PROCEDURE: Chest 1V INDICATIONS: Rigors, tachypnea. TECHNIQUE: One view of the chest was acquired. COMPARISON: 05/29/2023. FINDINGS: Surgical changes and devices: None. Lungs and pleura: No pleural effusions or pneumothorax. Increase in interstitial lung markings are n oted bilaterally. Increased bronchovascular markings in bilateral hilar region are also seen with bro nchial wall thickening. Mediastinum: Mediastinal contours appear normal. Heart size is normal. Bones and chest wall: No suspicious bony lesions. Overlying soft tissues appear unremarkable. IMPRESSION: Finding is suggestive of pulmonary edema versus pneumonitis. Underlying small interstitial infiltrate s cannot be excluded. No pleural effusion or pneumothorax. Reviewed by: Collin Newton MD on 05/31/2023 7:19 PM PDT Approved by: Collin Newton MD on 05/31/2023 7:19 PM PDT Station ID: [id number]
[2023-05-31 20:23] LABS: B. PARAPERTUSSIS- RESP PCR PAN NOT DETECTED; B. PERTUSSIS- RESP PCR PANEL NOT DETECTED; C. PNEUMONIAE- RESP PCR PANEL NOT DETECTED; CORONAVIRUS 229E-RESP PCR NOT DETECTED; CORONAVIRUS HKU1-RESP PCR NOT DETECTED; CORONAVIRUS NL63-RESP PCR NOT DETECTED; CORONAVIRUS OC43-RESP PCR NOT DETECTED; HUMAN METAPNEUMOVIRUS NOT DETECTED; INFLUENZA A- RESP PCR PANEL NOT DETECTED; INFLUENZA B - RESP PCR PANEL NOT DETECTED; M. PNEUMONIAE- RESP PCR PANEL NOT DETECTED; PARAINFLUENZA VIRUS 1 NOT DETECTED; PARAINFLUENZA VIRUS 2 NOT DETECTED; PARAINFLUENZA VIRUS 3 NOT DETECTED; PARAINFLUENZA VIRUS 4 NOT DETECTED; RHINOVIRUS/ENTEROVIRUS NOT DETECTED; RSV- RESP PCR PANEL NOT DETECTED; SARS-CoV-2 -RESP PCR PANEL NOT DETECTED
[2023-05-31] MEDS: PREGABALIN 25 MG CAPSULE PO SCH (22:07)
[2023-05-31] MEDS: iohexoL-300 100 ML VIAL IVP ONE (22:11)
[2023-06-01 05:26] LABS: EOSINOPHILS % (AUTO) 9.4 %; HCT - HEMATOCRIT 22.2 % (42.0-52.0); HGB - HEMOGLOBIN 7.4 g/dL (14.0-18.0); LYMPHOCYTES % (AUTO) 73.4 %; MEAN CORPUSCULAR HEMOGLOBIN 33.3 pg (27.0-31.0); MEAN CORPUSCULAR HGB CONC 33.3 g/dL (32.0-36.0); MEAN PLATELET VOLUME 10.5 fL (7.4-11.4); MONOCYTES % (AUTO) 1.6 %; NEUTROPHILS % (AUTO) 15.6 %; PLT - PLATELET COUNT 116 10^3/uL (130-450); RED BLOOD COUNT 2.22 10^6/uL (4.70-6.10)
[2023-06-01 05:38] LABS: WHITE BLOOD COUNT 0.6 x10^3/uL (4.8-10.8)
[2023-06-01 05:39] LABS: ABNORMAL LYMPHS % (MANUAL) 0 %; BAND NEUTROPHILS % (MANUAL) 0 %
[2023-06-01 05:49] LABS: ALBUMIN 3.1 g/dL (3.2-5.5); BILIRUBIN,DIRECT 0.2 mg/dL (0.03-0.18); BILIRUBIN,TOTAL 0.8 mg/dL (0.2-1.0); CALCIUM 8.4 mg/dL (8.5-10.3); CREATININE 1.3 mg/dL (0.6-1.3); CRP - C-REACTIVE PROTEIN 17.7 mg/dL (<0.5); POTASSIUM 4.4 mmol/L (3.5-4.5); TOTAL PROTEIN 5.9 g/dL (6.4-8.9)
[2023-06-01 06:38] LABS: DIFFERENTIAL COMMENT MANUAL DIFFERENTIAL; EOSINOPHILS # (MANUAL) 0.1 10^3/uL (0-0.7); LYMPHOCYTES # (MANUAL) 0.5 10^3/uL (1.5-3.5); LYMPHOCYTES % (MANUAL) 80 %; PLATELET ESTIMATE, MANUAL DECREASED (<130,000) (NORMAL)
[2023-06-01 09:43] LABS: FERRITIN 1912.8 ng/mL (23.9-336.2)
--- NOTE | 2023-06-01 10:30 | CT Report ---
PROCEDURE: Lower Extremity LT W INDICATIONS: Swelling, erythema, fever. R/O fracture,infection TECHNIQUE: After administration of contrast 0.6 mm axial sections acquired of the left ankle, with coronal and s agittal reformats. For radiation dose reduction, the following was used: automated exposure control , adjustment of mA and/or kV according to patient size. CONTRAST: Omni 300 100ml COMPARISON: Left foot radiographs 05/29/2023 FINDINGS: Image quality: Excellent. Bones: No acute osseous fracture or dislocation. Small ossifications are seen adjacent to the medial malleolar tip that are likely the sequela of a remote prior injury. Small posterior calcaneal enthes ophytes. Hallux valgus alignment with moderate degenerative changes at the 1st metatarsophalangeal an d metatarsal sesamoid articulations. Scattered degenerative changes are seen at the interphalangeal j oints of the toes. No focal cortical erosion is seen to suggest osteomyelitis. Soft tissues: Mild nonspecific subcutaneous edema surrounding the ankle and in the dorsum of the scott t. 5 mm linear radiodensity is seen in the subcutaneous tissues plantar to the 1st metatarsal base (i mage 19 of series 5 and images 120-121 of series 3), which may represent a radiopaque foreign body. N o definite focal skin ulceration is seen. The articular cartilages, ligaments, and tendons are not we ll evaluated with CT. The foot musculature demonstrates generalized grade 2 fatty infiltration with m ore prominent grade 3 fatty infiltration in the abductor digiti minimi that may indicate chronic dene rvation changes/Cho neuropathy. No soft tissue gas. No deep intramuscular edema. IMPRESSION: 1.Nonspecific subcutaneous soft tissue edema. No focal fluid collection. No signs of osteomyelitis. N o acute osseous fracture. 2.Small linear radiodensity at the plantar medial aspect of the forefoot could represent a small fore ign body. 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 Mild hallux valgus. 4.Fatty infiltration of the abductor digiti minimi muscle may indicate chronic denervation changes/Ba xter neuropathy. Reviewed by: Brown Noel MD on 06/01/2023 10:29 AM PDT Approved by: Brown Noel MD on 06/01/2023 10:29 AM PDT Station ID: [id number]
--- NOTE | 2023-06-01 12:37 | CT Report ---
PROCEDURE: Abdomen/Pelvis W INDICATIONS: Neutropenic fever. B/L LQ pain CONTRAST: Omni 300 100ml TECHNIQUE: After the administration of intravenous contrast, a CT scan of the abdomen and pelvis was performed. Images were recorded and evaluated at appropriate window settings. Reformats: coronal and sagittal. F or radiation dose reduction, the following was used: automated exposure control, adjustment of mA and /or kV according to patient size. COMPARISON: None. FINDINGS: Image quality: Diagnostic. Lower chest: Small bilateral pleural effusions with associated compressive atelectasis. Liver: No solid mass. Gallbladder and biliary tree: Contracted gallbladder with gallstone. No CT evidence for acute cholecy stitis. No biliary ductal dictation. Spleen: Splenomegaly. Spleen measures up to 15 cm in maximum dimension. Pancreas: No pancreatic ductal dilation. Adrenals: No adrenal nodule. Kidneys and ureters: No hydronephrosis. No renal cystic lesion which requires follow up. No solid mas s. Bilateral renal hypodensities likely representing cysts. Stomach, bowel and peritoneum: No bowel distension. No pathologic free fluid. There are scattered col onic diverticula with segment of thickened mid sigmoid colon and acute inflammatory changes consisten t with diverticulitis. No evidence for perforation or abscess formation. Normal appendix. Lymph nodes: No central or retroperitoneal adenopathy. Vessels: No infrarenal aortic aneurysm. Atherosclerotic vascular calcifications. PELVIS Reproductive organs: Unremarkable. Bladder: No abnormal wall thickening, accounting for underdistention. Pelvic lymph nodes: No pelvic adenopathy by size criteria. Bones: No aggressive osseous abnormality. No acute compression fracture. Multilevel spondylosis. Other: No significant ventral or inguinal hernia. IMPRESSION: Colonic diverticulosis with acute diverticulitis involving a segment of the mid sigmoid colon. There is associated moderate circumferential wall thickening. No evidence for perforation or abscess format ion. Recommend outpatient colonoscopy to exclude possible underlying neoplastic process after resolut ion of acute findings. Splenomegaly. Cholelithiasis without CT evidence for acute cholecystitis. Normal appendix. Findings were discussed telephonically with Dr. Ureña. Reviewed by: Allan Caro MD on 06/01/2023 12:36 PM PDT Approved by: Allan Caro MD on 06/01/2023 12:36 PM PDT Station ID: [id number]
[2023-06-01] MEDS: PIPERACILLIN/TAZOBACTAM 4.5 GM in SODIUM CHLORIDE 0.9% MINIBAG 100 ML IV SCH (13:18)
[2023-06-01] MEDS: TBO-FILGRASTIM 480 MCG/0.8 ML SYRINGE SUBQ ONE (13:18)
--- NOTE | 2023-06-01 13:53 | PROVIDER PROGRESS NOTE ---
Assessment/Plan - Problem List (1) Pulmonary emboli Assessment/Plan: (1) Pulmonary emboli Assessment/Plan: --Started on Eliquis 5 mg. Will keep him on this dose and avoid the loading 10 mg BID dose given his anemia and requirement for 2 pRBC transfusions while inpatient. --Will need to remain on anticoagulation for 3-6 months minimum. Per UpToDate "In most patients with active cancer and proximal deep venous thrombosis (DVT) or pulmonary embolism (PE), we administer indefinite anticoagulant therapy, unless the bleeding risk is high or VTE was precipitated by a major provoking event such as surgery." (2) Neutropenic fever Assessment/Plan: --Developed lower respiratory sx on 05/28. Cultures thus far have remained negative. --CT abd/pelvis showing evidence of diverticulitis. Will continue Vancomycin and start him on Zosyn. --WBC has been steadily declining. I have reached out to his primary Oncologist for his CML Dr. Keyes via text for recommendations. He recommended Filgrastim for 3-5 days. We will start this today. --Keep him on antibiotics for now and follow cultures. Repeat CBC in AM. (3) Anemia due to antineoplastic chemotherapy Assessment/Plan: --He is to stop his Inqovi when his hemoglobin is under 8. --Has been given 3 units of pRBC for his anemia. No source of bleeding identified. Likely secondary to his Inqovi. (4) Dyspnea on exertion Assessment/Plan: --Resolved. Continue anticoagulation and transfuse blood is hemoglobin under 8. (5) CML (chronic myelocytic leukemia) Assessment/Plan: --Follows with Oncology. I have reached out to his Oncologist for recommendatio ns given we have held his Inqovi and he is currently leukopenic. Recommendations as above. (6) Hx of essential hypertension Assessment/Plan: --Stable. (7) MARICARMEN on CPAP Assessment/Plan: --CPAP QHS. (8) PMR (polymyalgia rheumatica) Assessment/Plan: --Completed Prednisone taper on May 10. - Current Meds Current Meds: Current Medications Generic Name Dose Route Start Last Admin Trade Name Freq PRN Reason Stop Dose Admin Acetaminophen 650 mg 05/28/23 17:25 05/31/23 16:24 Acetaminophen 325 Mg Tablet PO 650 mg Q4HR PRN Administration Pain 1 to 4, or Fever Acetaminophen 1,000 mg 05/31/23 19:00 06/01/23 08:40 Acetaminophen 500 Mg Tablet PO 1,000 mg Q6H MIGUEL ÁNGEL Administration Apixaban 5 mg 05/28/23 21:00 06/01/23 08:41 Apixaban 5 Mg Tablet PO 5 mg BID MIGUEL ÁNGEL Administration Colchicine 0.6 mg 05/30/23 17:55 06/01/23 08:40 Colchicine 0.6 Mg Tablet PO 0.6 mg DAILY MIGUEL ÁNGEL Administration Ferrous Sulfate 325 mg 05/29/23 09:00 06/01/23 08:41 Ferrous Sulfate 325 Mg Tablet PO 325 mg DAILY MIGUEL ÁNGEL Administration Vancomycin HCl 1.25 gm/ Sodium 250 mls @ 166.667 mls/hr 05/30/23 21:00 05/31/23 23:36 Chloride IV Infused HS MIGUEL ÁNGEL Infusion Piperacillin Sod/Tazobactam 100 mls @ 200 mls/hr 06/01/23 13:00 06/01/23 13:18 Sod 4.5 gm/ Sodium Chloride IV 200 mls/hr Q6H MIGUEL ÁNGEL Administration Metoprolol Tartrate 25 mg 05/29/23 09:00 06/01/23 08:40 Metoprolol Tartrate 25 Mg Tablet PO 25 mg DAILY MIGUEL ÁNGEL Administration Morphine Sulfate 4 mg 05/30/23 09:44 05/31/23 16:24 Morphine 2 Mg/Ml Carpuject IVP 4 mg Q6H PRN Administration PAIN >8 Oxycodone HCl 5 mg 05/28/23 17:25 06/01/23 08:51 Oxycodone 5 Mg Tablet PO 5 mg Q4HR PRN Administration Pain 5 to 7 Oxymetazoline HCl 1 sprays 05/28/23 21:00 05/31/23 22:07 Oxymetazoline Hcl 100 Sprays Bottle PAUL 1 spr QPM MIGUEL ÁNGEL Administration Decitabine/ 1 each 05/29/23 09:00 06/01/23 08:39 Cedazuridine [Inqovi PO Not Given 35 Mg-100 Mg Tablet DAILY [facility] ] Prednisone 1.25 mg 05/29/23 08:00 06/01/23 09:04 Prednisone 5 Mg Tablet PO Not Given DAILYWM MIGUEL ÁNGEL Pregabalin 25 mg 05/31/23 21:00 06/01/23 08:39 Pregabalin 25 Mg Capsule PO 25 mg BID MIGUEL ÁNGEL Administration Psyllium Hydrophilic Mucilloid 1 packet 05/29/23 09:00 06/01/23 08:39 Psyllium Packet PO 1 packet DAILY MIGUEL ÁNGEL Administration Sertraline HCl 25 mg 05/29/23 09:00 06/01/23 08:41 Sertraline 25 Mg Tablet PO 25 mg DAILY MIGUEL ÁNGEL Administration Sodium Chloride 10 ml 05/29/23 01:00 06/01/23 08:41 Sodium Chloride Flush 0.9% 10 Ml Syringe IVP Not Given 0100,0900,1700 MIGUEL ÁNGEL Trazodone HCl 50 mg 05/28/23 21:00 05/31/23 22:07 Trazodone 50 Mg Tablet PO 50 mg HS MIGUEL ÁNGEL Administration - Lab Result Fish Bone Diagrams: 06/01/23 05:02 06/01/23 05:02 - Additional Planning My Orders: My Active Orders 05/31/23 16:02 Home CPAP/BiPAP/NPPV [RC] .ONCE 05/31/23 19:00 Acetaminophen [Tylenol] 1,000 mg PO Q6H 05/31/23 21:00 Pregabalin [Lyrica] 25 mg PO BID 06/01/23 09:00 FUNGUS (MYCOLOGY) CULTURE [REFLAB] DAILY 06/01/23 09:20 CULTURE, BLOOD #2 [RM] DAILY HAPTOGLOBIN [REFLAB] DAILY 06/01/23 13:00 Piperacillin/Tazobactam [Zosyn] 4.5 gm Sodium Chloride 0.9% Minibag [Normal Saline 0.9% Minibag] 100 ml IV Q6H Subjective - Subjective Patient Reports: Resting Comfortably, No Complaints Objective Vital Signs: Vital Signs - 24 hr 05/31/23 05/31/23 05/31/23 15:42 16:07 18:15 Temperature 36.6 C 37.6 C 39.2 C H Heart Rate [ 66 64 66 Brachial] Respiratory 18 24 18 Rate Blood Pressure Blood Pressure [Left Brachial artery] Blood Pressure 132/62 H 136/64 H 116/50 L [Right Brachial artery] O2 Saturation 97 98 96 05/31/23 06/01/23 06/01/23 21:00 00:20 05:00 Temperature 37.6 C 36.8 C 36.4 C L Heart Rate [ 63 61 65 Brachial] Respiratory 18 18 18 Rate Blood Pressure Blood Pressure 105/43 L 110/47 L 133/57 H [Left Brachial artery] Blood Pressure [Right Brachial artery] O2 Saturation 93 94 95 06/01/23 06/01/23 06/01/23 08:33 08:40 13:00 Temperature 36.7 C 36.2 C L Heart Rate [ 66 55 L Brachial] Respiratory 18 16 Rate Blood Pressure 135/57 H Blood Pressure 135/57 H 119/55 L [Left Brachial artery] Blood Pressure [Right Brachial artery] O2 Saturation 97 96 Oxygen O2 Source Room air I&O (Last 24 Hrs): Intake and Output Totals x24h 05/30/23 05/31/23 06/01/23 23:59 23:59 23:59 Intake Total 1390 2162.083 1037.917 Output Total 2000 Balance 1390 2162.083 -962.083 General: Alert, Cooperative Cardiovascular: Regular rate, Normal S1, Normal S2 Abdomen: Soft, No tenderness - Results Results: Laboratory Results WBC 0.6 x10^3/uL (4.8-10.8) L* 06/01/23 05:02 RBC 2.22 10^6/uL (4.70-6.10) L 06/01/23 05:02 Hgb 7.4 g/dL (14.0-18.0) L 06/01/23 05:02 Hct 22.2 % (42.0-52.0) L 06/01/23 05:02 MCV 100.0 fL (80.0-94.0) H 06/01/23 05:02 MCH 33.3 pg (27.0-31.0) H 06/01/23 05:02 MCHC 33.3 g/dL (32.0-36.0) 06/01/23 05:02 RDW 22.0 % (12.0-15.0) H 06/01/23 05:02 Plt Count 116 10^3/uL (130-450) L 06/01/23 05:02 MPV 10.5 fL (7.4-11.4) 06/01/23 05:02 Neut # (Auto) Not Reportable 06/01/23 05:02 Lymph # (Auto) Not Reportable 06/01/23 05:02 [place] # (Auto) Not Reportable 06/01/23 05:02 Eos # (Auto) Not Reportable 06/01/23 05:02 Baso # (Auto) Not Reportable 06/01/23 05:02 Absolute Nucleated RBC Not Reportable 06/01/23 05:02 Total Counted 50 06/01/23 05:02 Band Neuts % (Manual) 0 % (0-10) 06/01/23 05:02 Reactive Lymphs % (Man) 4 % 05/28/23 13:31 Abnorm Lymph % (Manual) 0 % 06/01/23 05:02 Nucleated RBC % Not Reportable 06/01/23 05:02 Neutrophils # (Manual) 0.0 10^3/uL (1.5-6.6) L* 06/01/23 05:02 Lymphocytes # (Manual) 0.5 10^3/uL (1.5-3.5) L 06/01/23 05:02 Monocytes # (Manual) 0.0 10^3/uL (0.0-1.0) 06/01/23 05:02 Eosinophils # (Manual) 0.1 10^3/uL (0-0.7) 06/01/23 05:02 Basophils # (Manual) 0.0 10^3/uL (0-0.1) 06/01/23 05:02 Differential Comment MANUAL DIFFERENTIAL 06/01/23 05:02 WBC Morphology 1+ SMUDGE CELLS (NORMAL) 05/28/23 22:06 Platelet Estimate DECREASED (<130,000) (NORMAL) 06/01/23 05:02 Platelet Morphology 1+ LARGE PLATELETS (NORMAL) 05/28/23 22:06 RBC Morph Micro Appear 2+ ANISOCYTOSIS (NORMAL) 1+ HYPOCHROMASIA (NORMAL) 06/01/23 05:02 RBC Morph Micro Appear 2+ ANISOCYTOSIS (NORMAL) 1+ HYPOCHROMASIA (NORMAL) 06/01/23 05:02 Sodium 130 mmol/L (135-145) L 06/01/23 05:02 Potassium 4.4 mmol/L (3.5-4.5) 06/01/23 05:02 Chloride 104 mmol/L (101-111) 06/01/23 05:02 Carbon Dioxide 20 mmol/L (21-32) L 06/01/23 05:02 Anion Gap 6.0 (6-13) 06/01/23 05:02 BUN 39 mg/dL (6-20) H 06/01/23 05:02 Creatinine 1.3 mg/dL (0.6-1.3) 06/01/23 05:02 Estimated GFR (MDRD) 54 (>89) L 06/01/23 05:02 Glucose 119 mg/dL (74-104) H 06/01/23 05:02 Lactic Acid 2.2 mmol/L (0.5-2.2) 05/29/23 14:13 Uric Acid 6.5 mg/dL (4.4-7.6) 05/30/23 04:54 Calcium 8.4 mg/dL (8.5-10.3) L 06/01/23 05:02 Magnesium 1.8 mg/dL (1.7-2.3) 05/28/23 13:31 Iron 23 ug/dL (50-212) L 06/01/23 05:02 TIBC 150 ug/dL (250-450) L 06/01/23 05:02 % Saturation 15 % (20-50) L 06/01/23 05:02 Transferrin 107 mg/dL (203-362) L 06/01/23 05:02 Ferritin 1912.8 ng/mL (23.9-336.2) H 06/01/23 05:02 Total Bilirubin 0.8 mg/dL (0.2-1.0) 06/01/23 05:02 Direct Bilirubin 0.20 mg/dL (0.03-0.18) H 06/01/23 05:02 AST 14 IU/L (10-42) 06/01/23 05:02 ALT 16 IU/L (10-60) 06/01/23 05:02 Alkaline Phosphatase 85 IU/L (42-121) 06/01/23 05:02 Lactate Dehydrogenase 200 IU/L (140-271) 06/01/23 05:02 Troponin I High Sens 9.8 ng/L (2.3-19.7) 05/30/23 18:09 C-Reactive Protein 17.7 mg/dL (<0.5) H 06/01/23 05:02 Total Protein 5.9 g/dL (6.4-8.9) L 06/01/23 05:02 Albumin 3.1 g/dL (3.2-5.5) L 06/01/23 05:02 Globulin 2.8 g/dL (2.1-4.2) 06/01/23 05:02 Albumin/Globulin Ratio 1.4 (1.0-2.2) 05/28/23 13:31 Lipase 20 U/L (11-82) 05/28/23 13:31 Vitamin B12 765 pg/mL (180-914) 06/01/23 05:02 Folate 14.5 ng/mL (5.90 - >24.8) 06/01/23 05:02 Procalcitonin Immunoas 0.49 ng/mL (<0.5) 05/31/23 09:02 Urine Color DARK YELLOW 05/29/23 15:08 Urine Clarity HAZY (CLEAR) 05/29/23 15:08 Urine pH 5.5 PH (5.0-7.5) 05/29/23 15:08 Ur Specific [place] >=1.030 (1.002-1.030) H 05/29/23 15:08 Urine Protein 30 mg/dL (NEGATIVE) H 05/29/23 15:08 Urine Glucose (UA) NEGATIVE mg/dL (NEGATIVE) 05/29/23 15:08 Urine Ketones NEGATIVE mg/dL (NEGATIVE) 05/29/23 15:08 Urine Occult Blood TRACE-INTA (NEGATIVE) 05/29/23 15:08 Urine Nitrite NEGATIVE (NEGATIVE) 05/29/23 15:08 Urine Bilirubin NEGATIVE (NEGATIVE) 05/29/23 15:08 Urine Urobilinogen 0.2 (NORMAL) E.U./dL (NORMAL) 05/29/23 15:08 Ur Leukocyte Esterase NEGATIVE (NEGATIVE) 05/29/23 15:08 Urine RBC 0-5 /HPF (0-5) 05/29/23 15:08 Urine WBC 0-3 /HPF (0-3) 05/29/23 15:08 Ur Squamous Epith Cells RARE Squamous (<= Few) 05/29/23 15:08 Amorphous Sediment Rare /LPF 05/29/23 15:08 Urine Bacteria Rare /HPF (None Seen) 05/29/23 15:08 Ur Microscopic Review INDICATED 05/29/23 15:08 Urine Culture Comments NOT INDICATED 05/29/23 15:08 Nasal Adenovirus (PCR) NOT DETECTED 05/31/23 19:11 Nasal B. parapertussis DNA (PCR) NOT DETECTED 05/31/23 19:11 Nasal Coronavir 229E PCR NOT DETECTED 05/31/23 19:11 Nasal Coronavir HKU1 PCR NOT DETECTED 05/31/23 19:11 Nasal Coronavir NL63 PCR NOT DETECTED 05/31/23 19:11 Nasal Coronavir OC43 PCR NOT DETECTED 05/31/23 19:11 Nasal Enterovir/Rhinovir PCR NOT DETECTED 05/31/23 19:11 Nasal Influenza B PCR NOT DETECTED 05/31/23 19:11 Nasal Influenza A PCR NOT DETECTED 05/31/23 19:11 Nasal Parainfluen 1 PCR NOT DETECTED 05/31/23 19:11 Nasal Parainfluen 2 PCR NOT DETECTED 05/31/23 19:11 Nasal Parainfluen 3 PCR NOT DETECTED 05/31/23 19:11 Nasal Parainfluen 4 PCR NOT DETECTED 05/31/23 19:11 Nasal RSV (PCR) NOT DETECTED 05/31/23 19:11 Nasal B.pertussis DNA PCR NOT DETECTED 05/31/23 19:11 Nasal C.pneumoniae (PCR) NOT DETECTED 05/31/23 19:11 Paul Human Metapneumo PCR NOT DETECTED 05/31/23 19:11 Nasal M.pneumoniae (PCR) NOT DETECTED 05/31/23 19:11 Nasal SARS-CoV-2 (PCR) NOT DETECTED 05/31/23 19:11 Blood Type O NEGATIVE 05/28/23 14:21 Antibody Screen NEGATIVE 05/28/23 14:21 Crossmatch IS Only See Detail 05/28/23 14:21 - Procedures Procedures: Procedures ENDOSC POLYPECTOMY OF LG INTEST (06/19/14) EXCISION OF ASCENDING COLON, ENDO (01/23/23) EXCISION OF DESCENDING COLON, ENDO (05/09/18) EXCISION OF SIGMOID COLON, ENDO (01/23/23) EXCISION OF TRANSVERSE COLON, ENDO (01/23/23)
[2023-06-02] MEDS: ACETAMINOPHEN 500 MG TABLET PO SCH (00:46)
[2023-06-02 05:32] LABS: HCT - HEMATOCRIT 21.8 % (42.0-52.0); HGB - HEMOGLOBIN 7.1 g/dL (14.0-18.0); LYMPHOCYTES % (AUTO) 69.6 %; MEAN CORPUSCULAR HEMOGLOBIN 32.7 pg (27.0-31.0); MEAN CORPUSCULAR HGB CONC 32.6 g/dL (32.0-36.0); MEAN CORPUSCULAR VOLUME 100.5 fL (80.0-94.0); MEAN PLATELET VOLUME 11.2 fL (7.4-11.4); MONOCYTES % (AUTO) 1.4 %; PLT - PLATELET COUNT 145 10^3/uL (130-450); RED BLOOD COUNT 2.17 10^6/uL (4.70-6.10); RED CELL DISTRIBUTION WIDTH 22.1 % (12.0-15.0)
[2023-06-02 05:42] LABS: WHITE BLOOD COUNT 0.7 x10^3/uL (4.8-10.8)
[2023-06-02 05:44] LABS: ABNORMAL LYMPHS % (MANUAL) 0 %; BAND NEUTROPHILS % (MANUAL) 0 %
[2023-06-02 05:47] LABS: CALCIUM 8.5 mg/dL (8.5-10.3); CREATININE 1.2 mg/dL (0.6-1.3); CRP - C-REACTIVE PROTEIN 15.9 mg/dL (<0.5); POTASSIUM 4.5 mmol/L (3.5-4.5)
[2023-06-02 06:45] LABS: DIFFERENTIAL COMMENT MANUAL DIFFERENTIAL; EOSINOPHILS # (MANUAL) 0.1 10^3/uL (0-0.7); LYMPHOCYTES # (MANUAL) 0.4 10^3/uL (1.5-3.5); LYMPHOCYTES % (MANUAL) 64 %; MONOCYTES # (MANUAL) 0.1 10^3/uL (0.0-1.0); NEUTROPHILS # (MANUAL) 0.1 10^3/uL (1.5-6.6); PLATELET ESTIMATE, MANUAL NORMAL (130-450,000) (NORMAL); PLATELET MORPHOLOGY RARE GIANT PLATELETS (NORMAL); RBC MORPHOLOGY (MULTIPLE) NORMAL APPEARANCE (NORMAL)
[2023-06-02] MEDS: polyethylene glycoL 3350 17 GM PACKET PO SCH (08:21)
[2023-06-02] MEDS: PREGABALIN 25 MG CAPSULE PO SCH (08:24)
[2023-06-02] MEDS ORDERED: polyethylene glycoL 3350 17 GM PACKET PO SCH (09:00)
[2023-06-02] MEDS: TBO-FILGRASTIM 480 MCG/0.8 ML SYRINGE SUBQ ONE (09:31)
[2023-06-02 09:35] LABS: VANCOMYCIN,TROUGH 15.9 ug/mL
[2023-06-02] MEDS: SODIUM CHLORIDE FLUSH 0.9% 10 ML SYRINGE IVP PRN (12:55)
--- NOTE | 2023-06-02 13:14 | Discharge Plan ---
Discharge Plan Problem Reviewed?: Yes Disposition: 02 Transfer Acute Care Hosp Condition: Good Prescriptions: Apixaban [Eliquis] 5 mg PO BID #60 tab Diet: Regular Activity Restrictions: Activity as Tolerated Shower Restrictions: No Driving Restrictions: Yes (no driving when ankle is hard) Health Concerns: You have CML and are currently undergoing treatment with Inqovi. Unfortunately it is giving you some anemia. You were admitted to the hospital in April with anemia transfuse. You now come back being very fatigued, short of breath and again anemic needing transfusion. Hemoglobin was 6.6. Normal is 14. You required 3 units of blood to get your hemoglobin over 8.0. Plan of Treatment: Please see your oncologist in follow-up. You shared with me that you are getting a new oncologist. Make sure you see them in the next 1 to 2 weeks. I did not change any of your medication. If there are any new issues that come up, you might want to try calling your primary care provider for any issues or questions. Care Goals: You are hoping that your CML response to the Inqovi. You have been quoted a statistic a 5-year survival. Your goal is to achieve 5-year survival. Not longer. Assessment: Patient is alert, oriented to person, place, time, and situation. During the stay the patient was a full code. I have discussed resuscitative attempts. I have discussed the survivability statistics with resuscitation attempt in a patient who is terminally ill. While they have not agreed to change his CODE STATUS, they are going to go home and discuss it amongst themselves to see what is best for the future No Smoking: If you smoke, Please STOP! Call for help. Follow-up with: Delano Ma MD [Primary Care Provider] -
--- NOTE | 2023-06-02 13:21 | DISCHARGE SUMMARY ---
Discharge Summary Admit Date: 05/28/23 Discharge Date: 06/02/23 Discharging Provider: Sherif Ureña Primary Care Provider: Chris Almazan Code Status: Attempt Resuscitation Condition at Discharge: Good Discharge Disposition: 02 Transfer Acute Care Hosp Discharge Facility Name: [facility] - DIAGNOSES Discharge Diagnoses with Status of Each Condition: (1) Pulmonary emboli Assessment/Plan: --Started on Eliquis 5 mg BID on admission. As he was started on this dose,will keep him on this dose and avoid the loading 10 mg BID dose given his anemia and requirement for 2 pRBC transfusions while inpatient. --Will need to remain on anticoagulation for 3-6 months minimum. Per UpToDate "In most patients with active cancer and proximal deep venous thrombosis (DVT) or pulmonary embolism (PE), we administer indefinite anticoagulant therapy, unless the bleeding risk is high or VTE was precipitated by a major provoking event such as surgery." (2) Neutropenic fever Assessment/Plan: --Cultures thus far have remained negative. --Last measured fever was 102F on 05/30. --Initially on Vancomycin and cefepime. Started on Vancomycin and Zosyn on 05/31. --CT abd/pelvis showing evidence of diverticulitis. --CT left LE showing soft tissue swelling. No abscess or osteomyelitis detected. --WBC has been steadily declining. I have reached out to his primary Oncologist for his CML Dr. Keyes via text for recommendations. He recommended Filgrastim for 3-5 days. He was given a dose of 480 mcg on 05/31 and 06/01 --Keep him on antibiotics for now and follow cultures. (3) Anemia due to antineoplastic chemotherapy Assessment/Plan: --He is to stop his Inqovi when his hemoglobin is under 8. --Has been given 3 units of pRBC for his anemia. No source of bleeding identified. Likely secondary to his Inqovi. --Last took Inqovi on May 15. (4) Dyspnea on exertion Assessment/Plan: --Resolved. Continue anticoagulation and transfuse blood is hemoglobin under 8. --Most recent CXR showing pneumonitis vs pulmonary edema. Infiltrates cannot be excluded. He does not appear to have any respiratory symptoms. (5) CML (chronic myelocytic leukemia) Assessment/Plan: --Follows with Oncology. I have reached out to his Oncologist for recommendations given we have held his Inqovi and he is currently leukopenic. Recommendations as above. - HPI History of Present Illness: This is a 77-year-old white male who has a history of polymyalgia rheumatica, chronic myelogenous leukemia, chronic kidney disease and hypertension. He was last admitted May 04 of this year for a dizziness, and headache. He was seen in the medical ambulatory clinic with his oncologist on that day and found to have a hemoglobin of 6. With that visit the oncologist recommended that he be worked up for GI blood loss and for hemolysis. He had a colonoscopy in January 2023 that was normal except for polyps. As such there was no EGD or repeat colonoscopy done. Evaluation for hemolysis was negative. He received 2 units of packed cells and symptoms resolved. For his chronic myelocytic anemia he is on Inqovi. He takes 1 mg a day of prednisone for polymyalgia rheumatica and is on a 14-month taper. He has been seen for oncology follow-up May 10. The oncologist is now making the assumption that his anemia is treatment related. He will continue with the Inqovi and also give transfusion as needed. He was also seen by the sleep center on May 23 for his obstructive sleep apnea follow-up. He was diagnosed in March 1997, had a follow-up sleep study in October 2008. He presented to the emergency room with complaints of dyspnea with exertion. It started yesterday. He called the oncology office but there was not much help provided so he decided to come to the emergency room. His temperature was 36.3. Blood pressure 126/43. Heart rate 65. After walking into the ER his respiration was 30 but it went down to 16. 95% on room air. He is getting intermittently tachypneic in the ER but has been maintained on room air with good O2 sats of 100%.. He has a history of DVT in his left lower leg. For that reason CT pulmonary angiogram was done. Patient was found to have a hemoglobin of 6.6. White cell count was 0.8. Hematocrit 19.6. Platelets 130. A chest thorax CT angiogram has a small nonocclusive clot in the posterior basal segment and lateral basal segment pulmonary arteries on the left. The rest of his lungs are clear. Heart size was normal. At home he is on an aspirin a day. The case was discussed with the ER provider. They have asked if I could please bring this patient in for transfusion and treatment of the PE. I explained that this is a simple transfusion related matter followed by the starting of Eliquis. I anticipate that this is just an observation stay. - HOSPITAL COURSE Hospital Course: Patient is a very pleasant 77-year-old male who presented to the ED due to complaints of chest pain and shortness of breath. A CT chest was performed on 05/27 upon admission showing a nonocclusive left lower lobe pulmonary embolus without any evidence of infiltrates. Patient was nonhypoxic however had a hemoglobin of 6.6 and a white blood cell count of 0.8. Therefore the decision was made to start him on Eliquis 5 mg twice daily and admit. Patient was transfused 3 total units during his hospitalization. Unfortunately he developed fever while admitted and given his leukopenia and neutropenia he was started on IV vancomycin and cefepime. Blood cultures were obtained which have remained negative to date. Chest x-ray was performed which was unremarkable. Patient began exhibiting left lower extremity pain and swelling in his foot. An x-ray was obtained which was unremarkable. This was followed by a CT scan showing nonspecific soft tissue edema without any evidence of osteomyelitis. In review of the records, it appears an ultrasound was not performed to rule out a DVT. There is an old ultrasound from 11/22/2021 which shows evidence of a thrombophlebitis. Uric acid was normal, he was however started on colchicine which brought his pain from a 12 to a 4/10. A CT abdomen/pelvis was also performed on 05/31 which revealed colonic diverticulosis with acute diverticulitis involving the mid sigmoid colon without perforation or abscess. There is also evidence of cholelithiasis without acute cholecystitis. Patient reported that he had a colonoscopy with polyp removal within the last year. I reviewed blood culture from 05/31 showing no growth to date. Viral PCR was negative on 05/31. Fungal cultures have been sent out however he was not started on any antifungal medication. Case was discussed with his primary oncologist Dr. Serna who recommended starting him on filgrastim for 3 days. Patient received a dose on 05/31 and 06/01. Unfortunately as he continued to have leukopenia and neutropenia, arran gements were made to transfer patient to [place] for higher level of care. - ALLERGIES Allergies/Adverse Reactions: Allergies Allergy/AdvReac Type Severity Reaction Status Date / Time pseudoephedrine HCl * Allergy Severe Hives Verified 05/28/23 13:12 [From Sudafed] triprolidine HCl * Allergy Severe Hives Verified 05/28/23 13:12 [From Actifed] - MEDICATIONS Home Medications: Ambulatory Orders Medication Instructions Recorded Confirmed Aspirin [Aspir 81] 81 mg PO DAILY 04/10/13 05/28/23 Losartan Potassium [Cozaar] 100 mg PO DAILY 04/10/13 05/28/23 Metoprolol Tartrate [Lopressor] 25 mg PO DAILY 04/24/18 05/28/23 Psyllium Husk (with Sugar) 2 tbs PO DAILY 04/24/18 05/28/23 [Metamucil Powder] Rosuvastatin Calcium [Crestor] 5 mg PO DAILY 05/15/22 05/28/23 Sertraline [Zoloft] 25 mg PO DAILY 03/30/23 05/28/23 traZODone [Desyrel] 50 mg PO HS 03/30/23 05/28/23 Zanoni-3S/Dha/Epa/Fish Oil [Fish 1 each PO DAILY 05/04/23 05/28/23 Oil 1,200 mg Softgel] Oxymetazoline HCl [Afrin] 15 ml NS DAILY PM 05/04/23 05/28/23 Ferrous Sulfate [Feosol] 325 mg PO DAILY #30 tablet 05/05/23 05/28/23 Decitabine/Cedazuridine [Inqovi 35 1 tab PO DAILY 05/28/23 05/28/23 mg-100 mg Tablet] Prednisone [Manuel] 1 tab PO DAILY 05/28/23 05/28/23 Apixaban [Eliquis] 5 mg PO BID #60 tab 05/29/23 - PHYSICAL EXAM AT DISCHARGE General Appearance: positive: No acute distress, Alert Respiratory: positive: No respiratory distress, Breath sounds nml. negative: Wheezes Cardiovascular: positive: Regular rate & rhythm Abdomen: positive: No distention, Tenderness (Mild bilateral LQ tenderness) Extremities: negative: Non-tender (Left medial ankle erythema and tenderness.) - LABS Result Diagrams: 06/02/23 05:08 06/02/23 05:08 - DIAGNOSTIC IMAGING Diagnostic Imaging Results: Final report reviewed - TIME SPENT Time Spent in Discharge (Minutes): 35
[2023-06-02 15:39] VITALS: BP 139/57; O2SAT 95
== END 2023-06-02 16:05 | disposition short-term general hospital (02) | DRG 811 ==
LOC: ED 12:53 → MS2 17:25 → OBSVTOIN 05-29 15:44
PROVIDERS: ADMIT Specialist; ATTEND Family Medicine
PROC: 30233N1 Transfusion of Nonautologous Red Blood Cells into Peripheral Vein, Percutaneous Approach (ICD-10-PCS; principal; 2023-05-29)
DX: D64.81 Anemia due to antineoplastic chemotherapy (principal); I26.99 Other pulmonary embolism without acute cor pulmonale; D64.9 Anemia, unspecified; C95.90 Leukemia, unspecified not having achieved remission; C92.10 Chronic myeloid leukemia, BCR/ABL-positive, not having achieved remission; K57.32 Diverticulitis of large intestine without perforation or abscess without bleeding; R05.9 Cough, unspecified; T45.1X5A Adverse effect of antineoplastic and immunosuppressive drugs, initial encounter; I12.9 Hypertensive chronic kidney disease with stage 1 through stage 4 chronic kidney disease, or unspecified chronic kidney disease; N18.9 Chronic kidney disease, unspecified; D70.9 Neutropenia, unspecified; R50.81 Fever presenting with conditions classified elsewhere; K59.00 Constipation, unspecified; M35.3 Polymyalgia rheumatica; G47.33 Obstructive sleep apnea (adult) (pediatric); K80.20 Calculus of gallbladder without cholecystitis without obstruction; M79.672 Pain in left foot; E78.00 Pure hypercholesterolemia, unspecified; Z79.52 Long term (current) use of systemic steroids; Z79.60 Long term (current) use of unspecified immunomodulators and immunosuppressants; Z79.82 Long term (current) use of aspirin; Z86.010 Personal history of colon polyps; Z86.79 Personal history of other diseases of the circulatory system
CPT/HCPCS: 36415; 36430; 71045; 71275; 73620; 73701; 74177; 76882; 80048; 80053; 80076; 80202; 81001; 82607; 82728; 82746; 83010; 83540; 83605; 83615; 83690; 83735; 84145; 84466; 84484; 84550; 85025; 86140; 86850; 86900; 86901; 86920; 87040; 87101; 87633; 93005; 96374; 99285; A9270; J1447; J3370; J7512; P9040; Q9967; 81003; 87086

== ENCOUNTER 2023-11-01 14:53 | Outpatient (CLI) | payer MEDICARE, OTHER ==
--- NOTE | 2023-11-01 18:32 | XRAY Report ---
Chest 2V HISTORY: UPPER RESPIRATORY INFECTTION COMPARISON: 05/31/2023. TECHNIQUE: 2 views of the chest are submitted for interpretation. FINDINGS/IMPRESSION: No pleural effusion or pneumothorax. No pulmonary edema or focal consolidation. Normal cardiomediastinal silhouette. Reviewed by: Rosana Michelle MD on 11/01/2023 6:31 PM PDT Approved by: Rosana Michelle MD on 11/01/2023 6:31 PM PDT Station ID: [id number]
== END 2023-11-01 14:54 | disposition home or self-care (01) ==
LOC: DI 14:53
PROVIDERS: ATTEND Internal Medicine
DX: J06.9 Acute upper respiratory infection, unspecified (principal)

== ENCOUNTER 2023-11-13 10:06 | Outpatient (CLI) | payer MEDICARE, OTHER ==
[2023-11-13 10:51] LABS: CHOL/HDL RATIO 2.5 (<5.0); CHOLESTEROL 83 mg/dL; HDL CHOLESTEROL 33 mg/dL; LDL CHOLESTEROL,CALCULATED 7 mg/dL; LDL/HDL RATIO 0.2 (<3.6); TRIGLYCERIDES 216 mg/dL; VLDL CHOLESTEROL 43 mg/dL
[2023-11-13 11:35] LABS: ESTIMATED AVERAGE GLUCOSE 114 mg/dL (70-100); HEMOGLOBIN A1c% 5.6 % (4.27-6.07)
== END 2023-11-13 10:07 | disposition home or self-care (01) ==
LOC: LAB 10:06
PROVIDERS: ATTEND Internal Medicine
DX: E78.5 Hyperlipidemia, unspecified (principal); R73.03 Prediabetes
CPT/HCPCS: 36415; 80061; 83036; 83721

== ENCOUNTER 2023-11-15 11:34 | Outpatient (CLI) | payer MEDICARE, OTHER ==
[2023-11-15 12:08] LABS: ABSOLUTE RETICS # AUTO 0.177 10^6/uL (0.020-0.110); RED BLOOD COUNT 2.1 10^6/uL (4.70-6.10); RETICULOCYTE COUNT % (AUTO) 8.4 % (0.5-2.3)
[2023-11-15 12:23] LABS: FECAL OCCULT BLOOD (FIT) NEGATIVE (NEGATIVE)
== END 2023-11-15 11:35 | disposition home or self-care (01) ==
LOC: LAB 11:34
PROVIDERS: ATTEND Internal Medicine
DX: D64.9 Anemia, unspecified (principal); C93.10 Chronic myelomonocytic leukemia not having achieved remission
CPT/HCPCS: 36415; 82274; 82607; 82728; 83540; 84466; 85045

== ENCOUNTER 2024-01-09 03:01 | Inpatient (IN) ==
[2024-01-09] MEDS: HYDROcod/ACETAM 5/325 MG TABLET PO STA (03:24)
[2024-01-09] MEDS: predniSONE 20 MG TABLET PO STA (03:28)
--- NOTE | 2024-01-09 03:32 | ED Physician Documentation ---
History of Present Illness Stated complaint Stated Complaint: L WRIST PX Chief complaint Chief Complaint: Trauma Ext History obtained from History obtained from: Patient Additonal information Additional information: The patient returns to the emergency department for the fourth time this month, now with chief complaint of worsened left wrist pain. He was seen here December 13 for what was felt to probably be gout in his foot. He states that the treatment for that helped and the symptoms completely resolved. The patient was then seen for an unrelated complaint but on the of this month, he returned and complained of left wrist pain which was atraumatic. The patient at that time was evaluated with laboratory studies, which showed a significant elevation in his white blood cell count of 25,000, and also showed an elevated uric acid level at 8.5. His uric acid had been 9.1 on December 13. While the patient was in the emergency department, record indicates that a tap of the wrist was attempted but no fluid was able to be obtained. Records states the procedure was done with sterile precautions. The patient states that after beginning to take the medications, which included Keflex and prednisone, his pain was feeling quite a bit better. However, over the last couple of days it started to be vaguely sore again and then over the last less than 24 hours, it has been painful to the point where the patient barely moves his wrist secondary to the pain. He states it hurts so that he can even sleep. The patient denies any fevers. He has not noticed any redness in the area. The swelling is slightly worse but similar. No other complaints at this time. Meds/Allgy Home Medications Ambulatory Orders Medication Instructions Recorded Confirmed decitabine 35 mg-cedazuridine 100 1 tab PO DAILY 05/28/23 01/04/24 mg tablet (Inqovi) albuterol sulfate 90 mcg/actuation 1 inh inhalation QID PRN shortness 12/21/23 01/04/24 aerosol inhaler (Proventil HFA) of breath or wheezing #6.7 grams cephalexin 500 mg capsule 500 mg PO Q6H #28 caps 12/30/23 01/04/24 prednisone 10 mg tablets in a dose 10 mg PO DIRECTED #21 ea 12/30/23 01/04/24 pack CPAP/BiPAP 01/04/24 01/04/24 acetaminophen 650 mg 650 mg PO TID 01/04/24 01/04/24 tablet,extended release (Tylenol Arthritis Pain) allopurinol 100 mg tablet 50 mg (1/2 x 100 mg) PO QDAY #45 01/04/24 01/04/24 tabs apixaban 5 mg tablet (Eliquis) 5 mg PO BID 01/04/24 01/04/24 aspirin 81 mg tablet,delayed 81 mg PO DAILY 01/04/24 01/04/24 release (Aspir-) calcium 300 mg-D3 20 mcg-magnesium 1 tab PO QDAY 01/04/24 01/04/24 25 mg-coppr 0.5 ik-ljfc-xfvy tablet hydrocodone 5 mg-acetaminophen 325 1 tab PO Q8H PRN pain #10 tabs 01/04/24 01/04/24 mg tablet losartan 100 mg tablet (Cozaar) 100 mg PO DAILY 01/04/24 01/04/24 metoprolol tartrate 25 mg tablet 25 mg PO DAILY 01/04/24 01/04/24 omega-3s 350 tg-pvl-lum-other 1 cap PO DAILY 01/04/24 01/04/24 kqwzu0o-vury oil 600 mg capsule (Fish Oil) oxymetazoline 0.05 % nasal mist 1 spray intranasal Q12H PRN 01/04/24 01/04/24 (Afrin (oxymetazoline)) psyllium husk (with sugar) 3.4 2 tbsp PO DAILY 01/04/24 01/04/24 gram/12 gram oral powder (Metamucil (with sugar)) rosuvastatin 5 mg tablet (Crestor) 5 mg PO DAILY 01/04/24 01/04/24 sertraline 25 mg tablet 25 mg PO DAILY 01/04/24 01/04/24 trazodone 50 mg tablet 50 mg PO HS #90 tabs 01/04/24 01/04/24 Allergies Allergies Allergy/AdvReac Type Severity Reaction Status Date / Time pseudoephedrine HCl * (From Allergy Severe Hives Verified 01/04/24 14:41 Sudafed) triprolidine HCl * (From Allergy Severe Hives Verified 01/04/24 14:41 Actifed) [facility] Medical History Medical History (Updated 01/04/24 @ 08:31 by Nancy Naidu) H/O testicular biopsy LEFT TESTICLE Chronic knee pain after total replacement of both knee joints Surgical History Surgical History (Updated 01/04/24 @ 08:31 by Nancy Naidu) S/P colonoscopy 03/2013, 06/2014, -- HX OF ADENOMATOUS POLYPS -- COLONOSCOPY 01/2023 HAD MULTIPLE ADENOMATOUS POLYPS WITH RECALL IN 2024 S/P left heart catheterization by cutdown 01/2011, MINIMAL CAD History of arthroplasty of right knee 11/2010 S/P carpal tunnel release S/P exploratory laparotomy EX LAP FOR METALLIC FB -- METALIC FRAGMENT FROM AXE HEAD S/P rotator cuff repair S/P nasal septoplasty S/P UVPP (uvulopalatopharyngoplasty) S/P tonsillectomy Family History Family History (Updated 01/04/24 @ 08:32 by Nancy Naidu) Father Prostate cancer Diabetes Mother Lung cancer High blood pressure Social History Social History (Updated 01/04/24 @ 14:47 by Nancy Naidu) Smoking Status: Never smoker Second hand tobacco smoke exposure: No Do you dip or chew tobacco?: No Do you vape?: No Living arrangement: At home Living Condition: With spouse/s.o. Relationship: Physical Activity: None and Walking How many days per week?: 5 Level: Independent Do you feel safe in your home environment?: Yes Suffered physical, verbal, emotional, or financial abuse?: No History of Abuse: No ETOH Use: None Substance Use: denies use Retired: Yes Service: Yes Dates of Service: [id number] Are you following a diet prescribed by a doctor: Yes Special Diet Details: no iron, red meat, green veggies POLST Patient has POLST: No POLST Status: Full Code Exam Constitutional normal general appearance and no apparent distress Patient's visibly uncomfortable, grimacing and groaning intermittently and clutching his left wrist. HENMT normocephalic, head/scalp atraumatic, external nose normal and oral mucous membranes normal Eyes EOMs intact bilaterally Neck/C-Spine visual inspection normal and supple Respiratory breath sounds equal bilaterally, normal respiratory effort and clear to auscultation bilaterally Cardiovascular normal heart rate noted, regular rhythm noted and no edema Gastrointestinal abdomen normal to inspection, abdomen soft to palpation, nontender to palpation and nondistended Genitourinary no CVA tenderness Extremities Mild edema of left wrist dorsum, especially the medial radial aspect. No erythema. No induration. No fluctuance. Severely limited range of motion secondary to pain of left wrist. Neurology no focal motor deficit noted and no sensory deficits noted Alert, grossly intact Psychiatry mental status grossly normal Skin skin color normal No erythema of left wrist, hand or forearm. Results Vitals Vitals: Vital Signs - 24 hr 01/09/24 03:05 01/09/24 03:18 01/09/24 03:37 Temperature 35.9 C L Temperature Source Temporal Artery Scan Pulse Rate 61 Respiratory Rate 22 Blood Pressure 104/49 L O2 Saturation 91 L O2 Source Room air Pain Intensity 8 9 10 01/09/24 03:39 01/09/24 03:40 01/09/24 04:39 Temperature Temperature Source Pulse Rate Respiratory Rate Blood Pressure O2 Saturation O2 Source Pain Intensity 10 10 8 01/09/24 04:39 01/09/24 04:39 01/09/24 05:00 Temperature Temperature Source Pulse Rate 64 Respiratory Rate 18 Blood Pressure 110/55 L O2 Saturation 96 O2 Source Room air Pain Intensity 8 8 7 01/09/24 05:12 Temperature Temperature Source Pulse Rate Respiratory Rate Blood Pressure O2 Saturation O2 Source Pain Intensity 5 Oxygen O2 Source Room air Labs Labs: Laboratory Tests 01/09/24 01/09/24 01/09/24 03:32 03:32 03:32 WBC 42.8 H* RBC 2.21 L Hgb 8.3 L Hct 25.4 L MCV 114.9 H MCH 37.6 H MCHC 32.7 RDW 22.3 H Plt Count 290 MPV 9.8 Neut # (Auto) Not Reportable Lymph # (Auto) Not Reportable [place] # (Auto) Not Reportable Eos # (Auto) Not Reportable Baso # (Auto) Not Reportable Absolute Nucleated RBC Not Reportable Total Counted 100 Band Neuts % (Manual) 5 Abnorm Lymph % (Manual) 0 Metamyelocytes % 3 H Myelocytes % 1 H Promyelocytes % 3 H Nucleated RBC % Not Reportable Neutrophils # (Manual) 31.7 H Lymphocytes # (Manual) 3.4 Monocytes # (Manual) 4.3 H Eosinophils # (Manual) 0.4 Basophils # (Manual) 0.0 Nucleated RBCs 4 Differential Comment MANUAL DIFFERENTIAL Manual Slide Review Indicated WBC Morphology NORMAL APPEARANCE Platelet Estimate NORMAL (130-450,000) Platelet Morphology NORMAL APPEARANCE RBC Morph Micro Appear 3+ ANISOCYTOSIS 1+ MACROCYTOSIS 1+ SCHISTOCYTES ESR Sodium Potassium Chloride Carbon Dioxide Anion Gap BUN Creatinine Estimated GFR (MDRD) Glucose Uric Acid Calcium Total Bilirubin AST ALT Alkaline Phosphatase C-Reactive Protein Total Protein Albumin Globulin Albumin/Globulin Ratio Lipase 01/09/24 03:32 WBC RBC Hgb Hct MCV MCH MCHC RDW Plt Count MPV Neut # (Auto) Lymph # (Auto) [place] # (Auto) Eos # (Auto) Baso # (Auto) Absolute Nucleated RBC Total Counted Band Neuts % (Manual) Abnorm Lymph % (Manual) Metamyelocytes % Myelocytes % Promyelocytes % Nucleated RBC % Neutrophils # (Manual) Lymphocytes # (Manual) Monocytes # (Manual) Eosinophils # (Manual) Basophils # (Manual) Nucleated RBCs Differential Comment Manual Slide Review WBC Morphology Platelet Estimate Platelet Morphology RBC Morph Micro Appear 1+ TEARDROP CELLS ESR 39 H Sodium 132 L Potassium 4.3 Chloride 101 Carbon Dioxide 23 Anion Gap 8.0 BUN 41 H Creatinine 1.4 H Estimated GFR (MDRD) 49 L Glucose 172 H Uric Acid 9.5 H Calcium 8.9 Total Bilirubin 0.9 AST 15 ALT 18 Alkaline Phosphatase 64 C-Reactive Protein 1.3 H Total Protein 6.5 Albumin 4.0 Globulin 2.5 Albumin/Globulin Ratio 1.6 Lipase 32 PD Medical Decision Making ED course Complexity details: reviewed old records, reviewed results, re-evaluated patient, considered differential and d/w patient ED course: The patient had recurrent symptoms but seem to be worse this time. He had had an attempt at arthrocentesis performed sterilely about 10 days ago and had subsequently felt somewhat better after starting antibiotics and steroids. However, the symptoms had recurred and the patient felt that they were worse than before. He had not had a fever and there was no erythema and it is not convinced that this was a septic joint, although this certainly is always in the differential. The patient was worked up again with labs, including CBC, CRP, ESR, and uric acid level. An x-ray of his wrist was also obtained. The patient's white blood cell count was 42,000 and ESR and CRP were elevated. X- ray showed osteoarthritis. I discussed the case with Dr. Butler who is on-call for orthopedics. She requested MRI and stated that she would come and see the patient. I reevaluated the patient who is much more comfortable than he had been previously. At this point in time, the patient is awaiting MRI and orthopedic evaluation. He will be kept n.p.o. as per orthopedics request. He is signed out to Dr. Escalante at change of shift, pending orthopedic evaluation and final disposition. Discharge Plan Discharge Prescriptions: No Action aspirin [Aspir-81] 81 mg tablet,delayed release (DR/EC) 81 mg PO DAILY Rx Instructions: take one tablet by mouth once a day losartan [Cozaar] 100 mg tablet 100 mg PO DAILY Rx Instructions: TAKE ONE TABLET DAILY Metamucil (with sugar) 3.4 gram/12 gram powder 2 tbsp PO DAILY Rx Instructions: TAKE TWO TABLESPOON ONCE DAILY metoprolol tartrate 25 mg tablet 25 mg PO DAILY Rx Instructions: TAKE ONE TABLET DAILY rosuvastatin [Crestor] 5 mg tablet 5 mg PO DAILY Rx Instructions: TAKE ONE TABLET EVERY EVENING (DOSE REDUCTION ON 04/18/21) Fish Oil 350-600 mg capsule 1 cap PO DAILY Rx Instructions: TAKE ONE CAPSULE BY MOUTH ONCE A DAY sertraline 25 mg tablet 25 mg PO DAILY Rx Instructions: TAKE ONE TABLET BY MOUTH EVERY MORNING Inqovi 1 EACH tablet 1 tab PO DAILY albuterol sulfate [Proventil HFA] 90 mcg/actuation HFA aerosol inhaler 1 inh inhalation QID PRN (Reason: shortness of breath or wheezing) Qty: 6.7 0RF prednisone 10 mg tablets,dose pack 10 mg PO DIRECTED Qty: 21 0RF Rx Instructions: see taper instructions cephalexin 500 mg capsule 500 mg PO Q6H Qty: 28 0RF Rx Instructions: X 7 DAYS Afrin (oxymetazoline) 0.05 % mist 1 spray intranasal Q12H PRN Rx Instructions: spray one spray as directed every night Ca carb-D3-mag en-zwy-onne-Zn 300 mg-20 mcg- 25 mg-0.5 mg tablet 1 tab PO QDAY Rx Instructions: take one tablet once a day (DME) CPAP/BiPAP Kit See Rx Instructions .ROUTE Rx Instructions: USE EVERY NIGHT Eliquis 5 mg tablet 5 mg PO BID Rx Instructions: TAKE ONE TABLET BY MOUTH TWICE A DAY acetaminophen [Tylenol Arthritis Pain] 650 mg tablet extended release 650 mg PO TID Rx Instructions: TAKE 2 TABLETS BY MOUTHE THREE TIMES A DAY NEEDED FOR PAIN allopurinol 100 mg tablet 50 mg PO QDAY Qty: 45 3RF hydrocodone-acetaminophen 5-325 mg tablet 1 tab PO Q8H PRN (Reason: pain) Qty: 10 0RF trazodone 50 mg tablet 50 mg PO HS Qty: 90 3RF Rx Instructions: TAKE ONE TABLET BY MOUTH EVERY NIGHT Print Language: Welsh Stand Alone Forms: PCP List
[2024-01-09] MEDS: INDOMETHACIN 25 MG CAPSULE PO STA (03:36)
[2024-01-09 03:39] LABS: BASOPHILS % (AUTO) 0.3 %; EOSINOPHILS % (AUTO) 0.7 %; HCT - HEMATOCRIT 25.4 % (42.0-52.0); HGB - HEMOGLOBIN 8.3 g/dL (14.0-18.0); LYMPHOCYTES % (AUTO) 6.6 %; MEAN CORPUSCULAR HEMOGLOBIN 37.6 pg (27.0-31.0); MEAN CORPUSCULAR HGB CONC 32.7 g/dL (32.0-36.0); MEAN CORPUSCULAR VOLUME 114.9 fL (80.0-94.0); MEAN PLATELET VOLUME 9.8 fL (7.4-11.4); MONOCYTES % (AUTO) 16.9 %; NEUTROPHILS % (AUTO) 63.5 %; PLT - PLATELET COUNT 290 10^3/uL (130-450); RED BLOOD COUNT 2.21 10^6/uL (4.70-6.10); RED CELL DISTRIBUTION WIDTH 22.3 % (12.0-15.0)
[2024-01-09] MEDS: KETOROLAC 30 MG/ML VIAL IVP STA (03:39)
[2024-01-09] MEDS: HYDROmorphone 1 MG/ML CARPUJECT IVP STA ×4 (03:40→15:58)
[2024-01-09] MEDS ORDERED: DEXAMETHASONE 10 MG/ML VIAL ONE (03:41)
[2024-01-09] MEDS: DEXAMETHASONE 20 MG/5 ML VIAL IVP ONE (03:43)
[2024-01-09] MEDS: DEXAMETHASONE 10 MG/ML VIAL IVP STA (03:43)
[2024-01-09 03:45] LABS: SLIDE REVIEW? Indicated; WHITE BLOOD COUNT 42.8 x10^3/uL (4.8-10.8)
[2024-01-09 03:47] LABS: ABNORMAL LYMPHS % (MANUAL) 0 %
[2024-01-09 04:02] LABS: ALBUMIN/GLOBULIN RATIO 1.6 (1.0-2.2); BILIRUBIN,TOTAL 0.9 mg/dL (0.2-1.0); CALCIUM 8.9 mg/dL (8.5-10.3); CREATININE 1.4 mg/dL (0.6-1.3); CRP - C-REACTIVE PROTEIN 1.3 mg/dL (<0.5); POTASSIUM 4.3 mmol/L (3.5-4.5); TOTAL PROTEIN 6.5 g/dL (6.4-8.9); URIC ACID 9.5 mg/dL (4.4-7.6)
[2024-01-09 04:19] LABS: BAND NEUTROPHILS % (MANUAL) 5 %; EOSINOPHILS # (MANUAL) 0.4 10^3/uL (0-0.7); LYMPHOCYTES # (MANUAL) 3.4 10^3/uL (1.5-3.5); LYMPHOCYTES % (MANUAL) 8 %; METAMYELOCYTES % (MANUAL) 3 %; MONOCYTES # (MANUAL) 4.3 10^3/uL (0.0-1.0); MYELOCYTES % (MANUAL) 1 %; NEUTROPHILS # (MANUAL) 31.7 10^3/uL (1.5-6.6); NUCLEATED RBC (MANUAL) 4 %; PROMYELOCYTES % (MANUAL) 3 %
[2024-01-09 04:23] LABS: PLATELET ESTIMATE, MANUAL NORMAL (130-450,000) (NORMAL); PLATELET MORPHOLOGY NORMAL APPEARANCE (NORMAL)
[2024-01-09 04:24] LABS: DIFFERENTIAL COMMENT MANUAL DIFFERENTIAL; WBC MORPHOLOGY (MULTIPLE) NORMAL APPEARANCE (NORMAL)
--- NOTE | 2024-01-09 08:16 | XRAY Report ---
PROCEDURE: XR Wrist 3+V LT INDICATIONS: pain, swelling TECHNIQUE: 3 views of the wrist were acquired. COMPARISON: 12/30/2023. FINDINGS: Bones: No fractures or dislocations. Osteoarthritic changes are noted throughout wrist joints most notably involving first CMC joint. No radiographic evidence of avascular necrosis. No suspicious bony lesions. Soft tissues: Soft tissue swelling over dorsum of left wrist is seen. No suspicious soft tissue calci fications or masses. IMPRESSION: No acute wrist fracture or dislocation. No significant changes from previous study. Osteoarthritic changes throughout wrist joints and mild dorsal wrist soft tissue swelling. No discrepancies from preliminary reading. Reviewed by: Collin Smith MD on 01/09/2024 8:15 AM PDT Approved by: Collin Smith MD on 01/09/2024 8:15 AM PDT Station ID: [id number]
--- NOTE | 2024-01-09 12:11 | POST OP PROGRESS NOTE ---
Subjective Other Other Information/Narrative: 78 you M rhd with history of gout with left wrist pain intermittently since 30 Dec 2023. The wrist pain was sudden onset and he was seen in the ED and given keflex and prednisone after a dry aspirate. The pain improved until yesterday when he developed sharp pain again. He denies injury. HE is not on suppressive gout medication. He denies f/c/ns. Currently he is able to move his wrist but with pain. Ortho Surgical Progress Note Problem List Problem List: Left wrist pain - inconsistent with septic joint. I agree with obtaining the MRI to ensure there is no fluid collection. He has an elevated white count, CRP, and ESR but little joint irritability and he is afebrile. I will review the MRI and am happy to reevaluate if the MRI shows any fluid collections. Otherwise he can f/u with me on an outpatient basis. Recommend splinting, antiinflammatories and suppressive gout medicaton. Exam Exam LEft wrist; Skin intact. Ecchymosis over the dorsal radial wrist where he had a prior aspiration. He is able to demonstate a 60 deg arc of motion without joint irritability. SILT R/U/M. Fires epl/fpl/io. Rad pulse 2+ and brisk cap refill. 3 v of the left wrist: chondrocalcinosis and arthirtic changes of the wrist.
--- NOTE | 2024-01-09 15:46 | ED Physician Documentation ---
ED Addendum Addendum Addendum: The patient at this point is still waiting for MRI of the wrist. Was seen by on-call orthopedics this morning with thought of being perhaps gout. Less thought of septic joint. However was still wanting a MRI and reevaluation based on that. Otherwise the patient will need follow-up for the elevated white count with concern for a new neoplastic process such as leukemia. There is a new anemia as well which would correspond with that. Discharge Plan Discharge Prescriptions: No Action aspirin [Aspir-81] 81 mg tablet,delayed release (DR/EC) 81 mg PO DAILY Rx Instructions: take one tablet by mouth once a day losartan [Cozaar] 100 mg tablet 100 mg PO DAILY Rx Instructions: TAKE ONE TABLET DAILY Metamucil (with sugar) 3.4 gram/12 gram powder 2 tbsp PO DAILY Rx Instructions: TAKE TWO TABLESPOON ONCE DAILY metoprolol tartrate 25 mg tablet 25 mg PO DAILY Rx Instructions: TAKE ONE TABLET DAILY rosuvastatin [Crestor] 5 mg tablet 5 mg PO DAILY Rx Instructions: TAKE ONE TABLET EVERY EVENING (DOSE REDUCTION ON 04/18/21) Fish Oil 350-600 mg capsule 1 cap PO DAILY Rx Instructions: TAKE ONE CAPSULE BY MOUTH ONCE A DAY sertraline 25 mg tablet 25 mg PO DAILY Rx Instructions: TAKE ONE TABLET BY MOUTH EVERY MORNING Inqovi 1 EACH tablet 1 tab PO DAILY albuterol sulfate [Proventil HFA] 90 mcg/actuation HFA aerosol inhaler 1 inh inhalation QID PRN (Reason: shortness of breath or wheezing) Qty: 6.7 0RF prednisone 10 mg tablets,dose pack 10 mg PO DIRECTED Qty: 21 0RF Rx Instructions: see taper instructions Afrin (oxymetazoline) 0.05 % mist 1 spray intranasal Q12H PRN (Reason: nasal congestion) Rx Instructions: spray one spray as directed every night Ca carb-D3-mag hp-doe-yzxa-Zn 300 mg-20 mcg- 25 mg-0.5 mg tablet 1 tab PO QDAY Rx Instructions: take one tablet once a day (DME) CPAP/BiPAP Kit See Rx Instructions .ROUTE Rx Instructions: USE EVERY NIGHT Eliquis 5 mg tablet 5 mg PO BID Rx Instructions: TAKE ONE TABLET BY MOUTH TWICE A DAY acetaminophen [Tylenol Arthritis Pain] 650 mg tablet extended release 650 mg PO TID Rx Instructions: TAKE 2 TABLETS BY MOUTHE THREE TIMES A DAY NEEDED FOR PAIN allopurinol 100 mg tablet 50 mg PO QDAY Qty: 45 3RF hydrocodone-acetaminophen 5-325 mg tablet 1 tab PO Q8H PRN (Reason: pain) Qty: 10 0RF trazodone 50 mg tablet 50 mg PO HS Qty: 90 3RF Rx Instructions: TAKE ONE TABLET BY MOUTH EVERY NIGHT Print Language: Lithuanian Stand Alone Forms: PCP List
--- NOTE | 2024-01-09 17:16 | MRI Report ---
MRI Wrist LT WO CLINICAL HISTORY: 78 years of age, Male, L wrist pain/swelling, recurrent/worse, lymphoma. COMPARISON: None Technique: Multisequence, multiplanar MRI of the left wrist was performed Without contrast. IV CONTRAST: Not given FINDINGS: Marrow, osseous and cartilaginous structures: Moderate effusion within the intercarpal joint, most pr onounced about the scaphoid. Severe degenerative changes of first carpometacarpal joint with mild sub chondral cystic changes and marrow edema. There is diffuse marrow edema of the lunate, with associate d T1 hypointensity, this may represent avascular necrosis secondary to ulnar impingement syndrome, or underlying osteomyelitis. Additional multifocal marrow edema and erosion within the carpal bones and at the base of the carpal metacarpals, raising concern for septic arthritis as well. No acute fractu re. Triangular fibrocartilage: No tear of the central disc. Mild ulnar negative variance. The foveal cari chment is unremarkable. The ulnar styloid attachment is not definitively visualized. Ligaments: Full-thickness tear of the scapholunate ligament at the scaphoid insertion. The lunotrique tral ligament is unremarkable. Carpal tunnel: Moderate tenosynovitis of the flexor tendons at the level of the metacarpal. No tear o f the flexor tendon. Extensor tendons: Mild tenosynovitis of the second extensor compartment at the level of the distal ca rpal row. Ulnar subluxation of the extensor carpi ulnaris. Nerves: The median and ulnar nerves are normal in course, signal and thickness. The contents of Guyon 's canal are normal. Masses: 1.7 cm ganglion cyst volar to the distal radius, between the flexor carpi radialis and the fl exor pollicis longus tendon (11:28). Diffuse subcutaneous edema of the wrist. IMPRESSION: 1.Finding concerning for septic arthritis of the intercarpal and the carpal metacarpal joint. 2.Diffuse marrow edema of the lunate, which may be secondary to avascular necrosis secondary to ulnar impingement syndrome given associated ulnar negative variance, or secondary to osteomyelitis/septic arthritis as well. 3.Full-thickness tear of the scapholunate ligament. 4.Moderate tenosynovitis of the flexor tendons. 5.1.7 cm ganglion cyst volar to the distal radius. 6.Diffuse subcutaneous edema of the wrist. Reviewed by: Rosana Michelle MD on 01/09/2024 5:15 PM PDT Approved by: Rosana Michelle MD on 01/09/2024 5:15 PM PDT Station ID: [id number]
--- NOTE | 2024-01-09 17:32 | ED Physician Documentation ---
ED Addendum Addendum Addendum: Signout from Dr. Escalante pending MRI. The MRI is complete and now concerning for osteomyelitis of the lunate potentially with septic arthritis of the wrist joint. I did touch base with Dr. Manzo and she plans to take him OR first thing in the morning and I spoke with the hospitalist for admission at 5:31 PM Disposition: Admitted to the hospital Condition: Serious Diagnosis: 1. Septic left wrist joint. I did ask Dr. Manzo if she wanted antibiotics empirically prior to the OR and she would like to obtain OR cultures. Discharge Plan Discharge Patient Disposition: 66 [facility] DC/Xfer Condition: Serious Clinical Impression: Acute wrist pain, Leukocytosis Prescriptions: No Action aspirin [Aspir-81] 81 mg tablet,delayed release (DR/EC) 81 mg PO DAILY Rx Instructions: take one tablet by mouth once a day losartan [Cozaar] 100 mg tablet 100 mg PO DAILY Rx Instructions: TAKE ONE TABLET DAILY Metamucil (with sugar) 3.4 gram/12 gram powder 2 tbsp PO DAILY Rx Instructions: TAKE TWO TABLESPOON ONCE DAILY metoprolol tartrate 25 mg tablet 25 mg PO DAILY Rx Instructions: TAKE ONE TABLET DAILY rosuvastatin [Crestor] 5 mg tablet 5 mg PO DAILY Rx Instructions: TAKE ONE TABLET EVERY EVENING (DOSE REDUCTION ON 04/18/21) Fish Oil 350-600 mg capsule 1 cap PO DAILY Rx Instructions: TAKE ONE CAPSULE BY MOUTH ONCE A DAY sertraline 25 mg tablet 25 mg PO DAILY Rx Instructions: TAKE ONE TABLET BY MOUTH EVERY MORNING Inqovi 1 EACH tablet 1 tab PO DAILY albuterol sulfate [Proventil HFA] 90 mcg/actuation HFA aerosol inhaler 1 inh inhalation QID PRN (Reason: shortness of breath or wheezing) Qty: 6.7 0RF prednisone 10 mg tablets,dose pack 10 mg PO DIRECTED Qty: 21 0RF Rx Instructions: see taper instructions Afrin (oxymetazoline) 0.05 % mist 1 spray intranasal Q12H PRN (Reason: nasal congestion) Rx Instructions: spray one spray as directed every night Ca carb-D3-mag lw-zlu-oqcn-Zn 300 mg-20 mcg- 25 mg-0.5 mg tablet 1 tab PO QDAY Rx Instructions: take one tablet once a day (DME) CPAP/BiPAP Kit See Rx Instructions .ROUTE Rx Instructions: USE EVERY NIGHT Eliquis 5 mg tablet 5 mg PO BID Rx Instructions: TAKE ONE TABLET BY MOUTH TWICE A DAY acetaminophen [Tylenol Arthritis Pain] 650 mg tablet extended release 650 mg PO TID Rx Instructions: TAKE 2 TABLETS BY MOUTHE THREE TIMES A DAY NEEDED FOR PAIN allopurinol 100 mg tablet 50 mg PO QDAY Qty: 45 3RF hydrocodone-acetaminophen 5-325 mg tablet 1 tab PO Q8H PRN (Reason: pain) Qty: 10 0RF trazodone 50 mg tablet 50 mg PO HS Qty: 90 3RF Rx Instructions: TAKE ONE TABLET BY MOUTH EVERY NIGHT Print Language: Chadian
[2024-01-09] MEDS ORDERED: ONDANSETRON 4 MG/2 ML VIAL IVP PRN (18:16)
--- NOTE | 2024-01-09 18:51 | PHARMACY PROGRESS NOTE ---
Best Possible Medication History Admit Date and Time: 01/09/241741 Processed by: Pharmacy (Interview completed by senior pharmacy technician, Linda. Pt has not picked up allopurinol yet, and has not been on Inqovi since May, but states he might start it again. ) Medications reviewed in ED?: Yes Medication History completed: Yes Patient Interview: Completed Secondary Source(s): Insurance records [facility] Statement: As the person ultimately responsible for medication therapy, providers are able to order a medication from an existing home medication list in [facility] via the "Reconcile Routine" prior to Confirmation of that medication by residential support specialist. Such practice is discouraged except when the physician, in their clinical judgment, deems that a medical need exists for a medication without regard to previous use.
--- NOTE | 2024-01-09 19:05 | HISTORY & PHYSICAL EXAMINATION ---
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 This is atraumatic pain. He was seen in our ED on the of this month. At that time aspiration of the left wrist was attempted and failed. He was discharged to home on oral Keflex. He states that his pain has not gotten better it is gotten worse and he therefore represented to the emergency department with 10 out of 10 pain in his left wrist this afternoon. He has not been running any fevers at home. As mentioned above he has a history of DVT and PE diagnosed in May 2023. He is on Eliquis. He last took his Eliquis about 24 hours ago. history of gout, not on chronic treatment. Denies DM, denies a fib. on Eliquis for PE in May 2023. PCP Arlyn. is surrogate decision maker. But has mild cognitive impairment, and no longer drives. does not have POLST. has living will at home. Wants to be resusitated, but does not want extreme measures. Does not wish to complete POLST at this time. has been in the ED all day, is tired and in pain. Meds/Allgy Home Medications Ambulatory Orders Medication Instructions Recorded Confirmed albuterol sulfate 90 mcg/actuation 1 inh inhalation QID PRN shortness 12/21/23 01/09/24 aerosol inhaler (Proventil HFA) of breath or wheezing #6.7 grams CPAP/BiPAP 01/04/24 01/09/24 acetaminophen 650 mg 650 mg PO TID 01/04/24 01/09/24 tablet,extended release (Tylenol Arthritis Pain) allopurinol 100 mg tablet 50 mg (1/2 x 100 mg) PO QDAY #45 01/04/24 01/09/24 tabs apixaban 5 mg tablet (Eliquis) 5 mg PO BID 01/04/24 01/09/24 aspirin 81 mg tablet,delayed 81 mg PO DAILY 01/04/24 01/09/24 release (Aspir-) calcium 300 mg-D3 20 mcg-magnesium 1 tab PO QDAY 01/04/24 01/09/24 25 mg-coppr 0.5 sq-[id number]-rghc tablet hydrocodone 5 mg-acetaminophen 325 1 tab PO Q8H PRN pain #10 tabs 01/04/24 01/09/24 mg tablet losartan 100 mg tablet (Cozaar) 100 mg PO DAILY 01/04/24 01/09/24 metoprolol tartrate 25 mg tablet 25 mg PO DAILY 01/04/24 01/09/24 omega-3s 350 km-ocb-zkn-other 1 cap PO DAILY 01/04/24 01/09/24 [id number] oil 600 mg capsule (Fish Oil) oxymetazoline 0.05 % nasal mist 1 spray intranasal Q12H PRN nasal 01/04/24 01/09/24 (Afrin (oxymetazoline)) congestion psyllium husk (with sugar) 3.4 2 tbsp PO DAILY 01/04/24 01/09/24 gram/12 gram oral powder (Metamucil (with sugar)) rosuvastatin 5 mg tablet (Crestor) 5 mg PO DAILY 01/04/24 01/09/24 sertraline 25 mg tablet 25 mg PO DAILY 01/04/24 01/09/24 trazodone 50 mg tablet 50 mg PO HS #90 tabs 01/04/24 01/09/24 Allergies Allergies Allergy/AdvReac Type Severity Reaction Status Date / Time pseudoephedrine HCl * (From Allergy Severe Hives Verified 01/09/24 17:53 Sudafed) triprolidine HCl * (From Allergy Severe Hives Verified 01/09/24 17:53 Actifed) [facility] Medical History Medical History (Updated 01/09/24 @ 15:47 by Trent Escalante MD) Symptomatic anemia PMR (polymyalgia rheumatica) Hx of essential hypertension MARICARMEN on CPAP Pulmonary emboli Anemia Leukopenia Dyspnea on exertion Anemia due to antineoplastic chemotherapy Left foot pain Neutropenic fever Gout attack Shortness of breath Chronic myelomonocytic leukemia Splenomegaly Iron overload due to repeated red blood cell transfusions Pulmonary embolus, left 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 Pain and swelling of left wrist History of gout H/O testicular biopsy LEFT TESTICLE Chronic knee pain after total replacement of both knee joints Surgical History Surgical History (Updated 01/04/24 @ 08:31 by Nancy Naidu) S/P colonoscopy 03/2013, 06/2014, -- HX OF ADENOMATOUS POLYPS -- COLONOSCOPY 01/2023 HAD MULTIPLE ADENOMATOUS POLYPS WITH RECALL IN 2024 S/P left heart catheterization by cutdown 01/2011, MINIMAL CAD History of arthroplasty of right knee 11/2010 S/P carpal tunnel release S/P exploratory laparotomy EX LAP FOR METALLIC FB -- METALIC FRAGMENT FROM AXE HEAD S/P rotator cuff repair S/P nasal septoplasty S/P UVPP (uvulopalatopharyngoplasty) S/P tonsillectomy Family History Family History (Updated 01/04/24 @ 08:32 by Nancy Naidu) Father Prostate cancer Diabetes Mother Lung cancer High blood pressure Social History Social History Smoking Status: Never smoker Second hand tobacco smoke exposure: No Do you dip or chew tobacco?: No Do you vape?: No Living arrangement: At home Living Condition: With spouse/s.o. Relationship: Physical Activity: None and Walking How many days per week?: 5 Level: Independent Do you feel safe in your home environment?: Yes Suffered physical, verbal, emotional, or financial abuse?: No History of Abuse: No ETOH Use: None Substance Use: denies use Retired: Yes Service: Yes Dates of Service: [id number] Are you following a diet prescribed by a doctor: Yes Special Diet Details: no iron, red meat, green veggies POLST Patient has POLST: No POLST Status: Full Code Review of Systems Status of ROS: 10 or more systems reviewed and unremarkable except as noted in history and below Constitutional Reports: Malaise; Denies: Fever or Chills Eyes Denies: Blurry vision Ears, nose, mouth, and throat Denies: Hearing loss or Hearing aids Cardiovascular Denies: Irregular heart rate, chest pain, palpitations, edema, swelling of feet/ankles or shortness of breath with exertion Respiratory Denies: Shortness of breath, Cough or Pleuritic pain Gastrointestinal Denies: Abdominal pain Musculoskeletal Reports: Joint swelling (left wrist); Denies: Back pain Neurological Denies: General weakness Psychiatric Denies: Depression Endocrine Denies: Excessive urination or Excessive thirst Hematologic/Lymphatic Reports: Anemia Prior Level of Functionality: independent. normally drives. not driving because of right shoulder pain and left wrist pain. [place] Exam Constitutional normal general appearance and no apparent distress [facility] normocephalic Eyes conjunctivae normal Neck/C-Spine visual inspection normal Lymph no lymphadenopathy noted Chest inspection of chest normal Respiratory normal respiratory effort and clear to auscultation bilaterally Cardiovascular normal heart rate noted Gastrointestinal abdomen soft to palpation midline surgical scar Back/Pelvis spine normal to inspection Extremities left wrist with mild warmth and edema, pain on ROM but able to do so. hand does not have generalized edema. Neurology harness mender II-XII intact Psychiatry mental status grossly normal, oriented x3 and thought process normal Skin skin color normal Sepsis Event Note (H) Evaluation Current Stage of Sepsis: Ruled out Possible source of Sepsis: positive Bone/Joint Sepsis Associated Organ Dysfunction: none. has elevated WBC, but has CML. normally WBC 15-20K Conclusion/Plan Problem List (1) Acute wrist pain: Plan: MRI is Concerning for septic arthritis. Orthopedics has been consulted and are planning on taking the patient to the operating room for joint washout in the morning. Patient has not been febrile. He has some warmth of the left wrist and some pain on range of motion but he is able to range the joint. Orthopedics would like to hold on antibiotics at this time which I believe is appropriate. If the patient were to become symptomatic overnight with sepsis: Fevers hypotension mental status changes would consider starting antibiotics. (2) Leukocytosis: Plan: Concerning change in his white blood cell count since he began to have this wrist pain. His baseline looks to be around 14 but he had a jump on 12/30/2019 4-1 was 26 and then today at almost 43. Likely source is this wrist. The patient is afebrile. The wrist is warm but not hot and is mildly erythematous. Will hold on antibiotics unless he become septic Laboratory Tests 11/27/23 12/14/23 12/21/23 13:05 11:39 12:15 WBC 14.7 H 14.4 H 14.7 H 12/30/23 01/09/24 15:40 03:32 WBC 25.8 H 42.8 H* (3) Hx of essential hypertension: Plan: He is treated for hypertension at home with metoprolol, losartan. He denies any history of atrial fibrillation. He has blood pressures that are within normal limits since presentation to the emergency department. I will hold his home antihypertensives at this time. (4) Pulmonary emboli: Plan: Diagnosed with pulmonary emboli in May 2023. He is on Eliquis. His last dose of Eliquis was 24 hours ago. We will hold his Eliquis for operating room in the morning. We will order DVT prophylaxis including SCDs and prophylactic heparin. Plan I have spent 78 minutes in the care of this patient today. This includes time [id number], review and ordering of diagnostic imaging and laboratory studies and review of records.. Lab Results 01/09/24 03:32 01/09/24 03:32 Diagnostic Imaging Results Diagnostic Imaging Results: positive Final report reviewed Diagnostic Imaging Results Comments: MRI left wrist septic arthritis. Core Measures Anticipated LOS I expect patient to be DC'd or transferred within 96 hours.: Yes DVT/VTE - Prophylaxis VTE/DVT Device ordered at admit?: Yes VTE/DVT Prophylaxis med ordered at admit?: Yes
[2024-01-09] MEDS: HYDROmorphone 0.5 MG/0.5 ML SYRINGE IVP PRN (19:38)
[2024-01-09] MEDS: HEPARIN 5,000 UNIT/ML VIAL SUBQ SCH (21:08)
[2024-01-09] MEDS: SODIUM CHLORIDE FLUSH 0.9% 10 ML SYRINGE IVP PRN (22:21)
[2024-01-09] MEDS: SODIUM CHLORIDE FLUSH 0.9% 10 ML SYRINGE IVP SCH (23:59)
[2024-01-10 06:06] LABS: BASOPHILS % (AUTO) 0.1 %; EOSINOPHILS % (AUTO) 0.4 %; HCT - HEMATOCRIT 22.8 % (42.0-52.0); HGB - HEMOGLOBIN 7.5 g/dL (14.0-18.0); MEAN CORPUSCULAR HEMOGLOBIN 38.3 pg (27.0-31.0); MEAN CORPUSCULAR HGB CONC 32.9 g/dL (32.0-36.0); MEAN CORPUSCULAR VOLUME 116.3 fL (80.0-94.0); MEAN PLATELET VOLUME 10.4 fL (7.4-11.4); NEUTROPHILS % (AUTO) 69.1 %; PLT - PLATELET COUNT 239 10^3/uL (130-450); RED BLOOD COUNT 1.96 10^6/uL (4.70-6.10); RED CELL DISTRIBUTION WIDTH 22.6 % (12.0-15.0)
[2024-01-10 06:14] LABS: SLIDE REVIEW? Indicated; WHITE BLOOD COUNT 40.3 x10^3/uL (4.8-10.8)
[2024-01-10 06:43] LABS: CALCIUM 8.9 mg/dL (8.5-10.3); CREATININE 1.1 mg/dL (0.6-1.3); POTASSIUM 4.8 mmol/L (3.5-4.5)
[2024-01-10 06:46] LABS: ABNORMAL LYMPHS % (MANUAL) 1 %; BAND NEUTROPHILS % (MANUAL) 1 %; LYMPHOCYTES # (MANUAL) 1.6 10^3/uL (1.5-3.5); LYMPHOCYTES % (MANUAL) 3 %; MONOCYTES # (MANUAL) 4.8 10^3/uL (0.0-1.0); NEUTROPHILS # (MANUAL) 33.9 10^3/uL (1.5-6.6)
[2024-01-10 06:47] LABS: DIFFERENTIAL COMMENT MANUAL DIFFERENTIAL; PLATELET ESTIMATE, MANUAL NORMAL (130-450,000) (NORMAL); WBC MORPHOLOGY (MULTIPLE) NORMAL APPEARANCE (NORMAL)
[2024-01-10 06:48] LABS: PLATELET MORPHOLOGY NORMAL APP (NORMAL)
--- NOTE | 2024-01-10 07:14 | POST OP PROGRESS NOTE ---
Subjective General Admit Date: 01/09/24 Other Other Information/Narrative: 78 you M rhd with history of gout with left wrist pain intermittently since 30 Dec 2023. The wrist pain was sudden onset and he was seen in the ED and given keflex and prednisone after a dry aspirate. The pain improved until 2 days ago when he developed sharp pain again. He denies injury. HE is not on suppressive gout medication. He denies f/c/ns. He had an MRI on 01/09/2024 which revealed fluid in his wrist and carpal tunnel as well as marrow edema in the lunate, full thickness tear of the SL ligamenet, tenosynovitis of the flexor tendons and a volar ganglion cyst. with edema diffusely in the wrist. WBC count is elevated, CRP and ESR are elevated. Exam LEft wrist; Skin intact. Ecchymosis over the dorsal radial wrist where he had a prior aspiration. Today - positive joint irritability. SILT R/U/M. Fires epl/fpl/io. Rad pulse 2+ and brisk cap refill. TTP over the carpal tunnel and dorsal wrist. 3 v of the left wrist: chondrocalcinosis and arthirtic changes of the wrist. MRI as above Ortho Surgical Progress Note Problem List Problem List: Septic arthritis left wrist with fluid in the carpal tunnel - I consented the patient for a left wrist I & D with carpal tunnel release and bone biopsy of the lunate. I discussed risks, benefits and alternatives to include damage to arteries, veins, nerves, need for additional surgery, need for IV antibiotics and discussed the risks of expanding infection if we do not do the surgery. HE understands and all of his questions were answered. Discharge Instructions: * Always ambulate with front wheeled walker until instructed otherwise by your surgeon. Please refer to the booklet provided at [facility] for instructions for ambulation. You can weight-bear as tolerated on the affected extremity. * Avoid crossing your legs when sitting in low chairs to reduce chance of hip dislocation * Follow the pre-operatively agreed upon pain regimen described in the joint camp booklet. As a reminder, the discussed medications include using acetaminophen, ibuprofen, oxycodone and tramadol. * Ice area to decrease pain and swelling * Take Aspirin 81 mg twice daily for 6 weeks for blood clot prevention * Leave dressing in place until follow up in office. You can shower with the dressing in place if it is kept dry and neat * Please call the office if you experience fever, chills, chest pain, shortness of breath, nausea, vomiting, drainage or bleeding * You are scheduled for follow-up with the orthopedic clinic in 5 days * Appreciate input from hospitalist team for management of chronic medical conditions Exam Exam LEft wrist; Skin intact. Ecchymosis over the dorsal radial wrist where he had a prior aspiration. He is able to demonstate a 60 deg arc of motion without joint irritability. SILT R/U/M. Fires epl/fpl/io. Rad pulse 2+ and brisk cap refill. 3 v of the left wrist: chondrocalcinosis and arthirtic changes of the wrist.
[2024-01-10] MEDS ORDERED: BUPIVACAINE 0.25% PF 30 ML VIAL ONE (07:32)
[2024-01-10] MEDS ORDERED: ONDANSETRON 4 MG/2 ML VIAL IVP PRN (07:41)
[2024-01-10] MEDS ORDERED: NALOXONE 0.4 MG/ML VIAL IVP PRN (07:41)
[2024-01-10] MEDS ORDERED: fentaNYL 100 MCG/2 ML VIAL IVP PRN (07:41)
[2024-01-10] MEDS ORDERED: HYDROmorphone 0.5 MG/0.5 ML SYRINGE IVP PRN (07:41)
[2024-01-10] MEDS ORDERED: METOCLOPRAMIDE 10 MG/2 ML VIAL IVP PRN (07:41)
[2024-01-10] MEDS ORDERED: ePHEDrine 50 MG/ML VIAL IVP PRN (07:41)
[2024-01-10] MEDS ORDERED: ATROPINE ABBOJECT 1 MG/10 ML SYRINGE IVP PRN (07:41)
[2024-01-10] MEDS ORDERED: MORPHINE 2 MG/ML CARPUJECT IVP PRN (07:41)
--- NOTE | 2024-01-10 07:41 | ANESTHESIA PROCEDURE NOTE ---
Pre-Anesthesia VS, & Labs Diagnosis Surgical Diagnosis:: septic left wrist Procedure Procedure: I/D left wrist Vitals Vital Signs: Temp Pulse Resp BP Pulse Ox 36.5 C 66 18 126/73 97 01/10/24 05:48 01/10/24 05:48 01/10/24 05:48 01/10/24 05:48 01/10/24 05:48 Height (in): 5 ft 11 in Weight (kg): 98 kg Body Mass Index: 30.1 BMI Classification: Obese NPO NPO: >8 hours Lab Results Current Lab Results: Laboratory Tests 01/10/24 05:32: RBC Morph Micro Appear 2+ MACROCYTOSIS, Sodium 133 L, Potassium 4.8 H, Chloride 102, Carbon Dioxide 24, Anion Gap 7.0, BUN 38 H, Creatinine 1.1, Estimated GFR (MDRD) 65 L, Glucose 126 H, Calcium 8.9 01/10/24 05:32: RBC Morph Micro Appear 2+ ANISOCYTOSIS 01/10/24 05:32: RBC Morph Micro Appear 1+ OVALOCYTES 01/10/24 05:32: RBC Morph Micro Appear 1+ TEARDROP CELLS 01/10/24 05:32: WBC 40.3 H*, RBC 1.96 L, Hgb 7.5 L, Hct 22.8 L, MCV 116.3 H, MCH 38.3 H, MCHC 32.9, RDW 22.6 H, Plt Count 239, MPV 10.4, Neut # (Auto) Not Reportable, Lymph # (Auto) Not Reportable, [place] # (Auto) Not Reportable, Eos # (Auto) Not Reportable, Baso # (Auto) Not Reportable, Absolute Nucleated RBC Not Reportable, Total Counted 100, Band Neuts % (Manual) 1, Abnorm Lymph % (Manual) 1, Nucleated RBC % Not Reportable, Neutrophils # (Manual) 33.9 H, Lymphocytes # (Manual) 1.6, Monocytes # (Manual) 4.8 H, Eosinophils # (Manual) 0.0, Basophils # (Manual) 0.0, Differential Comment MANUAL DIFFERENTIAL, Manual Slide Review Indicated, WBC Morphology NORMAL APPEARANCE, Platelet Estimate NORMAL (130- 450,000), Platelet Morphology NORMAL KACIE, RBC Morph Micro Appear 2+ STOMATOCYTES 01/09/24 03:32: RBC Morph Micro Appear 1+ TEARDROP CELLS, ESR 39 H, Sodium 132 L , Potassium 4.3, Chloride 101, Carbon Dioxide 23, Anion Gap 8.0, BUN 41 H, C reatinine 1.4 H, Estimated GFR (MDRD) 49 L, Glucose 172 H, Uric Acid 9.5 H, Calcium 8.9, Total Bilirubin 0.9, AST 15, ALT 18, Alkaline Phosphatase 64, C- Reactive Protein 1.3 H, Total Protein 6.5, Albumin 4.0, Globulin 2.5, Albumin/Globulin Ratio 1.6, Lipase 32 01/09/24 03:32: RBC Morph Micro Appear 1+ SCHISTOCYTES 01/09/24 03:32: RBC Morph Micro Appear 1+ MACROCYTOSIS 01/09/24 03:32: WBC 42.8 H*, RBC 2.21 L, Hgb 8.3 L, Hct 25.4 L, MCV 114.9 H, MCH 37.6 H, MCHC 32.7, RDW 22.3 H, Plt Count 290, MPV 9.8, Neut # (Auto) Not Reportable, Lymph # (Auto) Not Reportable, [place] # (Auto) Not Reportable, Eos # (Auto) Not Reportable, Baso # (Auto) Not Reportable, Absolute Nucleated RBC Not Reportable, Total Counted 100, Band Neuts % (Manual) 5, Abnorm Lymph % (Manual) 0, Metamyelocytes % 3 H, Myelocytes % 1 H, Promyelocytes % 3 H, Nucleated RBC % Not Reportable, Neutrophils # (Manual) 31.7 H, Lymphocytes # (Manual) 3.4, M onocytes # (Manual) 4.3 H, Eosinophils # (Manual) 0.4, Basophils # (Manual) 0.0, Nucleated RBCs 4, Differential Comment MANUAL DIFFERENTIAL, Manual Slide Review Indicated, WBC Morphology NORMAL APPEARANCE, Platelet Estimate NORMAL (130- 450,000), Platelet Morphology NORMAL APPEARANCE, RBC Morph Micro Appear 3+ ANISOCYTOSIS Lab results reviewed: Yes 01/10/24 05:32 01/10/24 05:32 Meds/Allgy Home Medications Ambulatory Orders Medication Instructions Recorded Confirmed albuterol sulfate 90 mcg/actuation 1 inh inhalation QID PRN shortness 12/21/23 01/09/24 aerosol inhaler (Proventil HFA) of breath or wheezing #6.7 grams CPAP/BiPAP 01/04/24 01/09/24 acetaminophen 650 mg 650 mg PO TID 01/04/24 01/09/24 tablet,extended release (Tylenol Arthritis Pain) allopurinol 100 mg tablet 50 mg (1/2 x 100 mg) PO QDAY #45 01/04/24 01/09/24 tabs apixaban 5 mg tablet (Eliquis) 5 mg PO BID 01/04/24 01/09/24 aspirin 81 mg tablet,delayed 81 mg PO HS 01/04/24 01/09/24 release (Aspir-) calcium 300 mg-D3 20 mcg-magnesium 1 tab PO QDAY 01/04/24 01/09/24 25 mg-coppr 0.5 [id number] tablet hydrocodone 5 mg-acetaminophen 325 1 tab PO Q8H PRN pain #10 tabs 01/04/24 01/09/24 mg tablet losartan 100 mg tablet (Cozaar) 100 mg PO DAILY 01/04/24 01/09/24 metoprolol tartrate 25 mg tablet 25 mg PO HS 01/04/24 01/09/24 omega-3s 350 bi-[id number]-gqf-other 1 cap PO DAILY 01/04/24 01/09/24 [id number] oil 600 mg capsule (Fish Oil) oxymetazoline 0.05 % nasal mist 1 spray intranasal Q12H PRN nasal 01/04/24 01/09/24 (Afrin (oxymetazoline)) congestion psyllium husk (with sugar) 3.4 2 tbsp PO DAILY 01/04/24 01/09/24 gram/12 gram oral powder (Metamucil (with sugar)) rosuvastatin 5 mg tablet (Crestor) 5 mg PO HS 01/04/24 01/09/24 sertraline 25 mg tablet 25 mg PO DAILY 01/04/24 01/09/24 trazodone 50 mg tablet 50 mg PO HS #90 tabs 01/04/24 01/09/24 Allergies Allergies Allergy/AdvReac Type Severity Reaction Status Date / Time pseudoephedrine HCl * (From Allergy Severe Hives Verified 01/09/24 17:53 Sudafed) triprolidine HCl * (From Allergy Severe Hives Verified 01/09/24 17:53 Actifed) [facility] Medical History Medical History Symptomatic anemia PMR (polymyalgia rheumatica) Hx of essential hypertension MARICARMEN on CPAP Pulmonary emboli Anemia Leukopenia Dyspnea on exertion Anemia due to antineoplastic chemotherapy Left foot pain Neutropenic fever Gout attack Shortness of breath Chronic myelomonocytic leukemia Splenomegaly Iron overload due to repeated red blood cell transfusions Pulmonary embolus, left 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 Pain and swelling of left wrist History of gout H/O testicular biopsy LEFT TESTICLE Chronic knee pain after total replacement of both knee joints Surgical History Surgical History S/P colonoscopy 03/2013, 06/2014, -- HX OF ADENOMATOUS POLYPS -- COLONOSCOPY 01/2023 HAD MULTIPLE ADENOMATOUS POLYPS WITH RECALL IN 2024 S/P left heart catheterization by cutdown 01/2011, MINIMAL CAD History of arthroplasty of right knee 11/2010 S/P carpal tunnel release S/P exploratory laparotomy EX LAP FOR METALLIC FB -- METALIC FRAGMENT FROM AXE HEAD S/P rotator cuff repair S/P nasal septoplasty S/P UVPP (uvulopalatopharyngoplasty) S/P tonsillectomy Family History Family History Father Prostate cancer Diabetes Mother Lung cancer High blood pressure Social History Social History Smoking Status: Never smoker Second hand tobacco smoke exposure: No Do you dip or chew tobacco?: No Do you vape?: No Living arrangement: At home Living Condition: With spouse/s.o. Relationship: Physical Activity: None and Walking How many days per week?: 5 Level: Independent Do you feel safe in your home environment?: Yes Suffered physical, verbal, emotional, or financial abuse?: No History of Abuse: No ETOH Use: None Substance Use: denies use Retired: Yes Service: Yes Dates of Service: 6021-2102 Are you following a diet prescribed by a doctor: Yes Special Diet Details: no iron, red meat, green veggies POLST Patient has POLST: No POLST Status: Full Code Results EKG Results EKG Comparison: Reviewed EKG Anesthesia Exam (Expanded) Exam General: Alert Dental: Partials Upper and Partials Lower Mouth and Teeth Image:  2 1. loose Mouth Openin Fingerbreadth Neck Mobility: Normal Mallampati classification: II Thyromental Distance: 4-6 cm Respiratory: Lungs clear Cardiovascular: Regular rate (hax of negative cardiac cath; was in er a few weeks ago, c/o chest heaviness; PR ruled out, thought be ER doc to be anxiety...per patient) Plan Problem List (1) Acute wrist pain: Plan: MRI is Concerning for septic arthritis. Orthopedics has been consulted and are planning on taking the patient to the operating room for joint washout in the morning. Patient has not been febrile. He has some warmth of the left wrist and some pain on range of motion but he is able to range the joint. Orthopedics would like to hold on antibiotics at this time which I believe is appropriate. If the patient were to become symptomatic overnight with sepsis: Fevers hypotension mental status changes would consider starting antibiotics. (2) Leukocytosis: Plan: Concerning change in his white blood cell count since he began to have this wrist pain. His baseline looks to be around 14 but he had a jump on 12/30/2019 4-1 was 26 and then today at almost 43. Likely source is this wrist. The patient is afebrile. The wrist is warm but not hot and is mildly erythematous. Will hold on antibiotics unless he become septic Laboratory Tests 11/27/23 12/14/23 12/21/23 13:05 11:39 12:15 WBC 14.7 H 14.4 H 14.7 H 12/30/23 01/09/24 15:40 03:32 WBC 25.8 H 42.8 H* (3) Hx of essential hypertension: Plan: He is treated for hypertension at home with metoprolol, losartan. He denies any history of atrial fibrillation. He has blood pressures that are within normal limits since presentation to the emergency department. I will hold his home antihypertensives at this time. (4) Pulmonary emboli: Plan: Diagnosed with pulmonary emboli in May 2023. He is on Eliquis. His last dose of Eliquis was 24 hours ago. We will hold his Eliquis for operating room in the morning. We will order DVT prophylaxis including SCDs and prophylactic heparin. Plan I have spent 78 minutes in the care of this patient today. This includes time [id number], review and ordering of diagnostic imaging and laboratory studies and review of records.. Plan Anesthesia Type: General Consent for Procedure(s) Verified and Reviewed: Yes Code Status: Attempt Resuscitation ASA Classification ASA classification: 3-Severe systemic disease Is this case an emergency?: No
[2024-01-10] MEDS ORDERED: PROPOFOL 200 MG/20 ML VIAL IVP ONE (07:47)
[2024-01-10] MEDS ORDERED: LIDOCAINE-PF 2% 10 ML AMP SUBQ ONE (07:47)
[2024-01-10] MEDS ORDERED: fentaNYL 100 MCG/2 ML VIAL ONE (07:49)
[2024-01-10] MEDS ORDERED: MIDAZOLAM 2 MG/2 ML VIAL ONE (08:03)
[2024-01-10] MEDS ORDERED: ONDANSETRON 4 MG/2 ML VIAL ONE (09:02)
[2024-01-10] MEDS ORDERED: HYDROmorphone 1 MG/ML CARPUJECT ONE (09:13)
[2024-01-10] MEDS: LACTATED RINGERS 1,000 ML IV SCH (09:34)
[2024-01-10] MEDS: VANCOMYCIN INJ 1 GM in SODIUM CHLORIDE 0.9% 250 ML IV STA (09:53)
--- NOTE | 2024-01-10 09:54 | OPERATIVE REPORT ---
Operative Report General Admit Date: 01/09/24 Procedure Data: Operation Date: 01/10/24 07:30 Proposed Procedures p I&D left wrist with bone biopsy(Left) - Joyce Manzo DO s Carpal Tunnel Release(Left) - Joyce Manzo DO Actual Procedures p I&D left wrist with bone biopsy(Left) - Joyce Manzo DO s Carpal Tunnel Release(Left) - Joyce Manzo DO Pre-Op Diagnosis: SEPTIC ARTHRITIS Anesthesia Type General Case Staff Anesthesia Provider: Jose Zuniga Times Into Recovery: 01/10/24 09:34 Procedure Start: 01/10/24 08:24 Procedure End: 01/10/24 09:23 Time out: 01/10/24 08:23 Tourniquet Tourniquet #: Tourniquet Site Padding: Pressure: Applied by: Time up #1: Time Down #1: Time Up #2: Time Down #2: Pre-Op Diagnosis: left wrist septic arthritis Post Op Diagnosis: left wrist septic arthritis Procedure Note Estimated Blood Loss (ml): 20 Drain/Tube Type: Roney Pathology: Multiple cultures obtained: 3 from volar wrist. 1 from dorsal wrist and 2 from wrist joint. Lunate bone biopsy was also performed. Indications: septic left wrist Findings: copious pus in the wrist joint. Other Other Information/Narrative: The patient was met in the pre-operative hold area. Consent was verified. Operative extremity was signed. All questions were answered. They were brought to the operating room and surrendered to anesthesia. Once general anesthesia was obtained they were prepped and draped. A time out was performed. The tourniquet was elevated to 200 mm HG. A 3 cm incision was made over the dorsal aspect of the wrist centered over listers tubercle. Dissection was taken down to the extensor tendons and they were retracted to reveal the joint capsule. The capsule was incised and there was copious amounts of pus that were expressed from the joint. A bone biopsy was obtained from the lunate using mini fluoroscopy to ensure biopsy was taken from the lunate. The wrist was copiously irrigated and irrigation was performed proximally and distally. Next a carpal tunnel incision was made utilizing his prior incision it was extended proximally and distally. Dissection was taken down to the carpal tunnel. The carpal tunnel was copiously irrigated. Cultures were obtained. Debridement was performed until healthy tissue was obtained. The wounds were irrigated copiously. The incision sites were close loosely with 3-0 nylon. The tourniquet was deflated for a total tourniquet time of 55 minutes. 1 g of Vancomycin was administered. 20cc of 0.25% marcaine without epinephrine was placed. A sterile dressing and splint was applied.
[2024-01-10] MEDS ORDERED: CA CARB D3 MAG OX COP MANG ZN PO SCH (10:00)
[2024-01-10] MEDS ORDERED: ALBUTEROL NEB 2.5 MG/3 ML INH PRN (10:15)
[2024-01-10] MEDS ORDERED: OXYMETAZOLINE HCL 100 SPRAYS BOTTLE NAS PRN (10:16)
[2024-01-10] MEDS ORDERED: ALBUTEROL NEB 2.5 MG/3 ML INH ONE ×4 (10:21→10:30)
[2024-01-10] MEDS: ALBUTEROL NEB 2.5 MG/3 ML INH ONE (10:34)
[2024-01-10] MEDS: allopurinoL 100 MG TABLET PO SCH (10:53)
[2024-01-10] MEDS: HYDROmorphone 0.5 MG/0.5 ML SYRINGE IVP PRN (11:51)
[2024-01-10] MEDS: ACETAMINOPHEN 500 MG TABLET PO PRN (12:14)
[2024-01-10] MEDS ORDERED: oxyCODONE 5 MG TABLET PO PRN (13:04)
--- NOTE | 2024-01-10 15:04 | ANESTHESIA POST OP EVALUATION ---
Anesthesia Post Eval Post Anesthesia Eval Vitals: Last Vital Signs Temp 36.5 C 01/10/24 13:34 Pulse 61 01/10/24 13:34 Resp 16 01/10/24 13:34 BP 108/51 L 01/10/24 13:34 Pulse Ox 95 01/10/24 13:34 CV Function Including HR & BP: Stable Pain Control: Satisfactory Nausea & Vomiting: Negative Mental Status: Baseline Respiratory Status: Airway Patent Hydration Status: Satisfactory Anesthesia Complications: None
--- NOTE | 2024-01-10 15:12 | PROVIDER PROGRESS NOTE ---
Subjective Prog Note Date Prog Note Date: 01/10/24 Prog Note Time: 07:30 Subjective Pt reports feeling: Improved Subjective: Briefly saw patient on the way to the operating room this morning. And then I was able to see him later this afternoon. His pain is well-controlled. He has been able to tolerate a diet. He has little memory of what the orthopedic surgeon told him after surgery this morning. I was able to review her findings with him. He is aware of the plan that he will stay for an additional several days and we will take another look at his wrist on Sunday morning with the possibility of returning to the operating room for additional washout. wrist pain is much better with splint in place. Post anesthesia in the recovery room Augustine did have some tightness in his chest. He relates this to the fact that he feels like he has multiple medical problems and gets anxious about his medical problems sometimes. He was seen by the PERSONAL DEVELOPMENT MENTOR who administered a albuterol treatment. He felt like his chest pain got better and was quite fleeting. He denies any additional chest pain he is not having any difficulty breathing he is not having any pain in his arm. Or his jaw. Current Medications Current Medications Current Medications: Current Medications Generic Name Dose Route Start Last Admin Trade Name Freq PRN Reason Stop Dose Admin Acetaminophen 650 mg 01/09/24 18:16 Acetaminophen 325 Mg Tablet PO Q4HR PRN Pain 1 to 4, or Fever Acetaminophen 1,000 mg 01/10/24 10:03 01/10/24 12:14 Acetaminophen 500 Mg Tablet PO 1,000 mg Q6HR PRN Administration Mild-Moderate Pain (Level 1-7) Albuterol 2.5 mg 01/10/24 10:15 Albuterol Neb 2.5 Mg/3 Ml INH QID PRN shortness of breath or wheezing Allopurinol 50 mg 01/10/24 10:00 01/10/24 10:53 Allopurinol 100 Mg Tablet PO Not Given QD MIGUEL ÁNGEL Apixaban 5 mg 01/10/24 21:00 Apixaban 5 Mg Tablet PO BID MIGUEL ÁNGEL Aspirin 81 mg 01/10/24 21:00 Aspirin Ec 81 Mg Tablet PO HS MIGUEL ÁNGEL Atorvastatin Calcium 10 mg 01/10/24 21:00 Atorvastatin 10 Mg Tablet PO QPM MIGUEL ÁNGEL Enoxaparin Sodium 100 mg 01/10/24 21:00 Enoxaparin 100 Mg/Ml Syringe 1 mg/kg (100 mg) 01/11/24 23:59 SUBQ BID MIGUEL ÁNGEL Hydromorphone HCl 0.5 mg 01/10/24 11:46 01/10/24 11:51 Hydromorphone 0.5 Mg/0.5 Ml Syringe IVP 0.5 mg Q2H PRN Administration Severe Pain (Level 7-10) Cefepime HCl 1 gm/ Sodium 100 mls @ 200 mls/hr 01/10/24 16:00 Chloride IV TID MIGUEL ÁNGEL Losartan Potassium 100 mg 01/11/24 09:00 Losartan 50 Mg Tablet PO DAILY [facility] Metoprolol Tartrate 25 mg 01/10/24 21:00 Metoprolol Tartrate 25 Mg Tablet PO HS [facility] [id number] Ethyl Esters 1 gm 01/11/24 09:00 [facility]-3 Acid Ethyl Esters 1 Gm Capsule PO DAILY MIGUEL ÁNGEL Ondansetron HCl 4 mg 01/09/24 18:16 Ondansetron 4 Mg/2 Ml Vial IVP Q6HR PRN Nausea / Vomiting Oxycodone HCl 5 mg 01/09/24 19:00 Oxycodone 5 Mg Tablet PO Q4HR PRN Moderate Pain (Level 4-6) Psyllium Hydrophilic Mucilloid 1 packet 01/11/24 09:00 Psyllium Packet PO DAILY [facility] Sertraline HCl 25 mg 01/11/24 09:00 Sertraline 25 Mg Tablet PO DAILY [facility] Sodium Chloride 10 ml 01/09/24 18:16 01/09/24 22:21 Sodium Chloride Flush 0.9% 10 Ml Syringe IVP 10 ml PRN PRN Administration NEEDED PER PROVIDER ORDERS Sodium Chloride 10 ml 01/10/24 01:00 01/10/24 10:06 Sodium Chloride Flush 0.9% 10 Ml Syringe IVP 10 ml 0100,0900,1700 MIGUEL ÁNGEL Administration Trazodone HCl 50 mg 01/10/24 21:00 Trazodone 50 Mg Tablet PO HS [facility] Vancomycin HCl 1 each 01/10/24 15:01 Vancomycin: Pharmacy To Dose [facility] .ONCE PRN PER PHARMACY Objective Vital Signs/Intake & Output Reviewed Vital Signs: Yes Vital Signs: Vital Signs x48h Temp Pulse Pulse Resp BP BP Pulse Ox 01/10/24 13:34 36.5 C 61 16 108/51 L 95 01/10/24 12:25 36.5 C 77 16 126/49 L 96 01/10/24 11:34 36.5 C 65 16 132/58 H 95 01/10/24 11:04 36.5 C 16 148/59 H 94 01/10/24 10:30 64 16 01/10/24 10:30 61 18 128/61 93 01/10/24 10:15 69 18 130/57 L 93 01/10/24 10:00 37 C 68 20 134/59 H 94 01/10/24 09:55 68 13 128/59 L 93 01/10/24 09:50 36.2 C L 73 19 131/63 H 99 01/10/24 09:45 77 19 136/62 H 99 01/10/24 09:40 70 22 131/67 H 98 01/10/24 09:35 75 20 135/55 H 97 01/10/24 09:34 37 C 79 20 136/61 H 97 Intake & Output: Intake & Output 01/08/24 01/09/24 01/10/24 01/11/24 05:59 05:59 05:59 05:59 Intake Total 237 / 237 1320 / 1320 Balance 237 / 237 1320 / 1320 Weight (kg) 98.883 kg 98.8 kg 98 kg Objective General Appearance: positive No acute distress Eyes Bilateral: positive Normal inspection, PERRL and Conjunctivae nml ENT: positive ENT inspection nml Respiratory: positive Chest non-tender, No respiratory distress and Breath sounds nml Cardiovascular: positive Regular rate & rhythm Abdomen: positive No distention Back: positive Nml inspection Skin: positive Color nml Extremities: positive Other (left wrist is splinted. he is able to wiggle his fingers. ) Neurologic/Psychiatric: positive Oriented x3 Lab Results 01/10/24 05:32 01/10/24 05:32 Other Labs: Lab Results x24hrs 01/10/24 01/10/24 01/10/24 Range/Units 12:00 05:32 05:32 WBC (4.8-10.8) x10^3/uL RBC (4.70-6.10) 10^6/uL Hgb (14.0-18.0) g/dL Hct (42.0-52.0) % MCV (80.0-94.0) fL MCH (27.0-31.0) pg MCHC (32.0-36.0) g/dL RDW (12.0-15.0) % Plt Count (130-450) 10^3/uL MPV (7.4-11.4) fL Neut # (Auto) Lymph # (Auto) [place] # (Auto) Eos # (Auto) Baso # (Auto) Absolute Nucleated RBC Total Counted Band Neuts % (Manual) (0 - 10) % Abnorm Lymph % (Manual) % Nucleated RBC % Neutrophils # (Manual) (1.5-6.6) 10^3/uL Lymphocytes # (Manual) (1.5-3.5) 10^3/uL Monocytes # (Manual) (0.0-1.0) 10^3/uL Eosinophils # (Manual) (0-0.7) 10^3/uL Basophils # (Manual) (0-0.1) 10^3/uL Differential Comment Manual Slide Review WBC Morphology (NORMAL) Platelet Estimate (NORMAL) Platelet Morphology (NORMAL) RBC Morph Micro Appear 2+ MACROCYTOSIS 2+ ANISOCYTOSIS (NORMAL) Sodium 133 L (135-145) mmol/L Potassium 4.8 H (3.5-4.5) mmol/L Chloride 102 (101-111) mmol/L Carbon Dioxide 24 (21-32) mmol/L Anion Gap 7.0 (6-13) BUN 38 H (6-20) mg/dL Creatinine 1.1 (0.6-1.3) mg/dL Estimated GFR (MDRD) 65 L (>89) Glucose 126 H (74-104) mg/dL Calcium 8.9 (8.5-10.3) mg/dL Troponin I High Sens 5.3 (2.3-19.7) ng/L 01/10/24 01/10/24 01/10/24 Range/Units 05:32 05:32 05:32 WBC 40.3 H* (4.8-10.8) x10^3/uL RBC 1.96 L (4.70-6.10) 10^6/uL Hgb 7.5 L (14.0-18.0) g/dL Hct 22.8 L (42.0-52.0) % MCV 116.3 H (80.0-94.0) fL MCH 38.3 H (27.0-31.0) pg MCHC 32.9 (32.0-36.0) g/dL RDW 22.6 H (12.0-15.0) % Plt Count 239 (130-450) 10^3/uL MPV 10.4 (7.4-11.4) fL Neut # (Auto) Not Reportable Lymph # (Auto) Not Reportable [place] # (Auto) Not Reportable Eos # (Auto) Not Reportable Baso # (Auto) Not Reportable Absolute Nucleated RBC Not Reportable Total Counted 100 Band Neuts % (Manual) 1 (0 - 10) % Abnorm Lymph % (Manual) 1 % Nucleated RBC % Not Reportable Neutrophils # (Manual) 33.9 H (1.5-6.6) 10^3/uL Lymphocytes # (Manual) 1.6 (1.5-3.5) 10^3/uL Monocytes # (Manual) 4.8 H (0.0-1.0) 10^3/uL Eosinophils # (Manual) 0.0 (0-0.7) 10^3/uL Basophils # (Manual) 0.0 (0-0.1) 10^3/uL Differential Comment MANUAL DIFFERENTIAL Manual Slide Review Indicated WBC Morphology NORMAL APPEARANCE (NORMAL) Platelet Estimate NORMAL (130-450,000) (NORMAL) Platelet Morphology NORMAL KACIE (NORMAL) RBC Morph Micro Appear 1+ OVALOCYTES 1+ TEARDROP CELLS 2+ STOMATOCYTES (NORMAL) Sodium (135-145) mmol/L Potassium (3.5-4.5) mmol/L Chloride (101-111) mmol/L Carbon Dioxide (21-32) mmol/L Anion Gap (6-13) BUN (6-20) mg/dL Creatinine (0.6-1.3) mg/dL Estimated GFR (MDRD) (>89) Glucose (74-104) mg/dL Calcium (8.5-10.3) mg/dL Troponin I High Sens (2.3-19.7) ng/L Other Results/Comments Other Results/Comments: EKG reviewed. NSR with rate of 58 Sepsis Event Note (H) Evaluation Current Stage of Sepsis: Ruled out Possible source of Sepsis: positive Bone/Joint Assessment/Plan Problem List (1) Septic joint of left wrist: Impression: Taken to the OR by orthopedics this morning. There was indeed purulent material within the joint. Cultures were sent as well as bone biopsy of the lunate bone. There is a drain in place presumably underneath the splint as I am unable to see it at this time. Discussed with Dr. Manzo of orthopedics this morning. Her plan will be to take the dressing down in 3 days. That will be on Sunday. She will then decide if she needs to take the patient back to the operating room he will therefore be n.p.o. at midnight the night before. I have discussed this with the patient. Patient does not recall his conversation with the orthopedic surgeon after surgery. I was able to review the details of what she told me. All of his questions were answered to his satisfaction. We are keeping the patient on vancomycin and cefepime until cultures are returned. (2) Leukocytosis: Impression: secondary to #1, but also w history of CML. under care of oncology here at [facility]. Laboratory Tests 12/21/23 12/30/23 01/09/24 12:15 15:40 03:32 WBC 14.7 H 25.8 H 42.8 H* 01/10/24 05:32 WBC 40.3 H* (3) Chest pain: Impression: Brief episode of chest pain in the immediate postoperative period which resolved spontaneously. He was given albuterol nebulizer treatment in the postanesthesia care unit. When he arrived back here to the floor I ordered a troponin immediately, which was 5. EKG also completed which shows sinus rhythm at a rate of 58. I do not see any signs of ST elevation or inverted T waves on his EKG. I do not believe he is having an acute CA. (4) Pulmonary emboli: Impression: Diagnosed in May of this year with pulmonary emboli. He takes Eliquis at home. Discussed with pharmacy this afternoon. I will be giving him therapeutic anticoagulation with Lovenox at 1 mg/kg twice daily. This will be given until 9 PM on Sunday night at which point it will be held for possible OR on Sunday. (5) Hx of essential hypertension: Impression: I have not resumed his home antihypertensives. His blood pressure systolically is less than 160 consistently here. I will therefore continue to hold his home medications for hypertension. I have spent 60 minutes in the care of this patient today. This includes time [id number], review and ordering of diagnostic imaging and laboratory studies and consultation with other providers.. Monitoring the patient's signs symptoms, evaluation of medication effectiveness and patient's response to treatment.
--- NOTE | 2024-01-10 15:25 | PHARMACY PROGRESS NOTE ---
Vancomycin Therapy Monitoring Vancomycin Therapy Goals Treatment Indication: osteomyelits Vancomycin Target Range: Vancomycin AUC Target Range 400-600 mcg*h/ml Plan: Vancomycin Loading Dose (GM, if applicable): 1g recevied in OR this morning, will time maintenance to start now New Regimen (Enter new dose and interval): 1q Q12H with anticipated AUC of 524. Vancomycin Level Recommendation: Obtain Trough Only (after 4 or 5 doses if scr remains stable)
[2024-01-10] MEDS: CEFEPIME 2 GM in SODIUM CHLORIDE 0.9% MINIBAG 100 ML IV SCH (17:25)
[2024-01-10] MEDS: VANCOMYCIN INJ 1 GM in SODIUM CHLORIDE 0.9% 250 ML IV SCH (18:05)
[2024-01-10] MEDS: oxyCODONE 5 MG TABLET PO PRN (18:40)
[2024-01-10] MEDS: ACETAMINOPHEN 325 MG TABLET PO PRN (19:37)
[2024-01-10] MEDS: ENOXAPARIN 100 MG/ML SYRINGE SUBQ SCH (20:43)
[2024-01-10] MEDS: ATORVASTATIN 10 MG TABLET PO SCH (20:43)
[2024-01-10] MEDS: METOPROLOL TARTRATE 25 MG TABLET PO SCH (20:43)
[2024-01-10] MEDS: traZODone 50 MG TABLET PO SCH (20:43)
[2024-01-10] MEDS: APIXABAN 5 MG TABLET PO SCH (20:43)
[2024-01-10] MEDS: ASPIRIN EC 81 MG TABLET PO SCH (20:46)
[2024-01-11 06:23] LABS: BASOPHILS % (AUTO) 0.2 %; HCT - HEMATOCRIT 21.5 % (42.0-52.0); LYMPHOCYTES % (AUTO) 16.5 %; MEAN CORPUSCULAR HEMOGLOBIN 37.7 pg (27.0-31.0); MEAN CORPUSCULAR HGB CONC 32.1 g/dL (32.0-36.0); MEAN CORPUSCULAR VOLUME 117.5 fL (80.0-94.0); MEAN PLATELET VOLUME 10.1 fL (7.4-11.4); MONOCYTES % (AUTO) 21.9 %; PLT - PLATELET COUNT 188 10^3/uL (130-450); RED BLOOD COUNT 1.83 10^6/uL (4.70-6.10); RED CELL DISTRIBUTION WIDTH 22.6 % (12.0-15.0); WHITE BLOOD COUNT 18.3 x10^3/uL (4.8-10.8)
[2024-01-11 06:33] LABS: CALCIUM 8.3 mg/dL (8.5-10.3); CREATININE 1.2 mg/dL (0.6-1.3); POTASSIUM 4.6 mmol/L (3.5-4.5)
[2024-01-11 06:57] LABS: HGB - HEMOGLOBIN 6.9 g/dL (14.0-18.0); SLIDE REVIEW? Indicated
[2024-01-11 06:58] LABS: ABNORMAL LYMPHS % (MANUAL) 0 %
[2024-01-11 07:08] LABS: BAND NEUTROPHILS % (MANUAL) 11 %; LYMPHOCYTES % (MANUAL) 22 %; METAMYELOCYTES % (MANUAL) 2 %; MONOCYTES # (MANUAL) 2.2 10^3/uL (0.0-1.0); MYELOCYTES % (MANUAL) 2 %; NEUTROPHILS # (MANUAL) 11.3 10^3/uL (1.5-6.6); NUCLEATED RBC (MANUAL) 2 %
[2024-01-11 07:11] LABS: DIFFERENTIAL COMMENT MANUAL DIFFERENTIAL
--- NOTE | 2024-01-11 07:51 | PROVIDER PROGRESS NOTE ---
Subjective Prog Note Date Prog Note Date: 01/11/24 Prog Note Time: 08:15 Subjective Pt reports feeling: Improved Subjective: did well overnight. his pain is reasonably well controlled. no fevers. not feeling short of breath. he is on therapeutic lovenox right now for h/o PE. 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 Current Medications Current Medications Current Medications: Current Medications Generic Name Dose Route Start Last Admin Trade Name Freq PRN Reason Stop Dose Admin Acetaminophen 650 mg 01/09/24 18:16 01/11/24 01:16 Acetaminophen 325 Mg Tablet PO 650 mg Q4HR PRN Administration Pain 1 to 4, or Fever Acetaminophen 1,000 mg 01/10/24 10:03 01/10/24 12:14 Acetaminophen 500 Mg Tablet PO 1,000 mg Q6HR PRN Administration Mild-Moderate Pain (Level 1-7) Albuterol 2.5 mg 01/10/24 10:15 Albuterol Neb 2.5 Mg/3 Ml INH QID PRN shortness of breath or wheezing Allopurinol 50 mg 01/10/24 10:00 01/10/24 10:53 Allopurinol 100 Mg Tablet PO Not Given QD MIGUEL ÁNGEL Apixaban 5 mg 01/10/24 21:00 01/10/24 20:43 Apixaban 5 Mg Tablet PO 5 mg BID MIGUEL ÁNGEL Administration Aspirin 81 mg 01/10/24 21:00 01/10/24 20:46 Aspirin Ec 81 Mg Tablet PO 81 mg HS MIGUEL ÁNGEL Administration Atorvastatin Calcium 10 mg 01/10/24 21:00 01/10/24 20:43 Atorvastatin 10 Mg Tablet PO 10 mg QPM MIGUEL ÁNGEL Administration Enoxaparin Sodium 100 mg 01/10/24 21:00 01/10/24 20:43 Enoxaparin 100 Mg/Ml Syringe 1 mg/kg (100 mg) 01/11/24 23:59 100 mg SUBQ Administration BID MIGUEL ÁNGEL Hydromorphone HCl 0.5 mg 01/10/24 11:46 01/11/24 00:37 Hydromorphone 0.5 Mg/0.5 Ml Syringe IVP 0.5 mg Q2H PRN Administration Severe Pain (Level 7-10) Cefepime HCl 2 gm/ Sodium 100 mls @ 200 mls/hr 01/10/24 15:15 01/11/24 06:40 Chloride IV Infused TID MIGUEL ÁNGEL Infusion Vancomycin HCl 1 gm/ Sodium 250 mls @ 166.667 mls/hr 01/10/24 16:00 01/11/24 06:05 Chloride IV Infused Q12H MIGUEL ÁNGEL Infusion Losartan Potassium 100 mg 01/11/24 09:00 Losartan 50 Mg Tablet PO DAILY MIGUEL ÁNGEL Metoprolol Tartrate 25 mg 01/10/24 21:00 01/10/24 20:43 Metoprolol Tartrate 25 Mg Tablet PO 25 mg HS MIGUEL ÁNGEL Administration [id number] Ethyl Esters 1 gm 01/11/24 09:00 Hillister-3 Acid Ethyl Esters 1 Gm Capsule PO DAILY MIGUEL ÁNGEL Ondansetron HCl 4 mg 01/09/24 18:16 Ondansetron 4 Mg/2 Ml Vial IVP Q6HR PRN Nausea / Vomiting Oxycodone HCl 5 mg 01/09/24 19:00 01/11/24 01:16 Oxycodone 5 Mg Tablet PO 5 mg Q4HR PRN Administration Moderate Pain (Level 4-6) Psyllium Hydrophilic Mucilloid 1 packet 01/11/24 09:00 Psyllium Packet PO DAILY MIGUEL ÁNGEL Sertraline HCl 25 mg 01/11/24 09:00 Sertraline 25 Mg Tablet PO DAILY MIGUEL ÁNGEL Sodium Chloride 10 ml 01/09/24 18:16 01/09/24 22:21 Sodium Chloride Flush 0.9% 10 Ml Syringe IVP 10 ml PRN PRN Administration NEEDED PER PROVIDER ORDERS Sodium Chloride 10 ml 01/10/24 01:00 01/10/24 23:44 Sodium Chloride Flush 0.9% 10 Ml Syringe IVP 10 ml 0100,[id number],1700 MIGUEL ÁNGEL Administration Trazodone HCl 50 mg 01/10/24 21:00 01/10/24 20:43 Trazodone 50 Mg Tablet PO 50 mg HS MIGUEL ÁNGEL Administration Objective Vital Signs/Intake & Output Vital Signs: Vital Signs x48h Temp Pulse Resp BP Pulse Ox 01/11/24 04:25 36.2 C L 63 16 108/56 L 95 01/10/24 23:55 36.4 C L 68 20 120/57 L 95 Intake & Output: Intake & Output 01/09/24 01/10/24 01/11/24 01/12/24 05:59 05:59 05:59 05:59 Intake Total 237 / 237 2290 / 2290 350 / 350 Balance 237 / 237 2290 / 2290 350 / 350 Weight (kg) 98.883 kg 98.8 kg 98 kg Objective General Appearance: positive No acute distress Eyes Bilateral: positive Normal inspection, PERRL and Conjunctivae nml ENT: positive ENT inspection nml Respiratory: positive Chest non-tender, No respiratory distress and Breath sounds nml Cardiovascular: positive Regular rate & rhythm Abdomen: positive No distention Back: positive Nml inspection Skin: positive Color nml Extremities: positive Other (left wrist is splinted. he is able to wiggle his fingers. intact sensation at all digits. ) Neurologic/Psychiatric: positive Oriented x3 Lab Results 01/11/24 05:30 01/11/24 05:30 Other Labs: Lab Results x24hrs 01/11/24 01/11/24 01/11/24 Range/Units 05:30 05:30 05:30 WBC 18.3 H (4.8-10.8) x10^3/uL RBC 1.83 L (4.70-6.10) 10^6/uL Hgb 6.9 L* (14.0-18.0) g/dL Hct 21.5 L (42.0-52.0) % MCV 117.5 H (80.0-94.0) fL MCH 37.7 H (27.0-31.0) pg MCHC 32.1 (32.0-36.0) g/dL RDW 22.6 H (12.0-15.0) % Plt Count 188 (130-450) 10^3/uL MPV 10.1 (7.4-11.4) fL Neut # (Auto) Not Reportable Lymph # (Auto) Not Reportable [place] # (Auto) Not Reportable Eos # (Auto) Not Reportable Baso # (Auto) Not Reportable Absolute Nucleated RBC Not Reportable Total Counted 100 Band Neuts % (Manual) 11 H (0 - 10) % Abnorm Lymph % (Manual) 0 % Metamyelocytes % 2 H ( - 0) % Myelocytes % 2 H ( - 0) % Nucleated RBC % Not Reportable Neutrophils # (Manual) 11.3 H (1.5-6.6) 10^3/uL Lymphocytes # (Manual) 4.0 H (1.5-3.5) 10^3/uL Monocytes # (Manual) 2.2 H (0.0-1.0) 10^3/uL Eosinophils # (Manual) 0.0 (0-0.7) 10^3/uL Basophils # (Manual) 0.0 (0-0.1) 10^3/uL Nucleated RBCs 2 % Differential Comment MANUAL DIFFERENTIAL Manual Slide Review Indicated RBC Morph Micro Appear 2+ MACROCYTOSIS 2+ HYPOCHROMASIA 2+ ANISOCYTOSIS (NORMAL) Sodium 132 L (135-145) mmol/L Potassium 4.6 H (3.5-4.5) mmol/L Chloride 103 (101-111) mmol/L Carbon Dioxide 24 (21-32) mmol/L Anion Gap 5.0 L (6-13) BUN 35 H (6-20) mg/dL Creatinine 1.2 (0.6-1.3) mg/dL Estimated GFR (MDRD) 59 L (>89) Glucose 102 (74-104) mg/dL Calcium 8.3 L (8.5-10.3) mg/dL Troponin I High Sens (2.3-19.7) ng/L 01/10/24 Range/Units 12:00 WBC (4.8-10.8) x10^3/uL RBC (4.70-6.10) 10^6/uL Hgb (14.0-18.0) g/dL Hct (42.0-52.0) % MCV (80.0-94.0) fL MCH (27.0-31.0) pg MCHC (32.0-36.0) g/dL RDW (12.0-15.0) % Plt Count (130-450) 10^3/uL MPV (7.4-11.4) fL Neut # (Auto) Lymph # (Auto) [place] # (Auto) Eos # (Auto) Baso # (Auto) Absolute Nucleated RBC Total Counted Band Neuts % (Manual) (0 - 10) % Abnorm Lymph % (Manual) % Metamyelocytes % ( - 0) % Myelocytes % ( - 0) % Nucleated RBC % Neutrophils # (Manual) (1.5-6.6) 10^3/uL Lymphocytes # (Manual) (1.5-3.5) 10^3/uL Monocytes # (Manual) (0.0-1.0) 10^3/uL Eosinophils # (Manual) (0-0.7) 10^3/uL Basophils # (Manual) (0-0.1) 10^3/uL Nucleated RBCs % Differential Comment Manual Slide Review RBC Morph Micro Appear (NORMAL) Sodium (135-145) mmol/L Potassium (3.5-4.5) mmol/L Chloride (101-111) mmol/L Carbon Dioxide (21-32) mmol/L Anion Gap (6-13) BUN (6-20) mg/dL Creatinine (0.6-1.3) mg/dL Estimated GFR (MDRD) (>89) Glucose (74-104) mg/dL Calcium (8.5-10.3) mg/dL Troponin I High Sens 5.3 (2.3-19.7) ng/L Sepsis Event Note (H) Evaluation Current Stage of Sepsis: Ruled out Possible source of Sepsis: positive Bone/Joint Assessment/Plan Problem List (1) Septic joint of left wrist: Impression: POD #1 incision and drainage of wrist with cultures and bone biopsy. There was indeed purulent material within the joint. There is a drain in place presumably underneath the splint as I am unable to see it at this time. Cultures checked. no growth, many WBCs, no organisms on gram stain Ortho will take down dressing in the AM She will then decide if she needs to take the patient back to the operating room he will therefore be n.p.o. at midnight tonight. I have discussed this with the patient. Patient does not recall his conversation with the orthopedic surgeon after surgery. I was able to review the details of what she told me. All of his questions were answered to his satisfaction. We are keeping the patient on vancomycin and cefepime until cultures are returned. (2) Anemia: Impression: history of blood transfusion. Discussed with oncology LOGISTICS OFFICER Cady today, who recommends leukoreduced irradiated RBCs. Patient will be given one unit. Check CBC in aM. Laboratory Tests 01/09/24 01/10/24 01/11/24 03:32 05:32 05:30 Hgb 8.3 L 7.5 L 6.9 L* Qualifiers: Anemia type: unspecified type Qualified Code(s): D64.9 - Anemia, unspecified (3) Leukocytosis: Impression: secondary to #1, but also w history of CML. under care of oncology here at [facility]. His leukocytosis is improved today, close to his baseline. Laboratory Tests 12/30/23 01/09/24 01/10/24 15:40 03:32 05:32 WBC 25.8 H 42.8 H* 40.3 H* 01/11/24 05:30 WBC 18.3 H (4) Chest pain: Impression: Brief episode of chest pain in the immediate postoperative period which resolved spontaneously. He was given albuterol nebulizer treatment in the postanesthesia care unit. When he arrived back here to the floor I ordered a troponin immediately, which was 5. EKG also completed which shows sinus rhythm at a rate of 58. I do not see any signs of ST elevation or inverted T waves on his EKG. I do not believe he is having an acute [place]. As time has progressed, he has not had additional reoccurances of his pain. (5) Pulmonary emboli: Impression: Diagnosed in May of this year with pulmonary emboli. He takes Eliquis at home. I will be giving him therapeutic anticoagulation with Lovenox at 1 mg/kg twice daily. This will be given until 9 PM on Sunday night at which point it will be held for possible OR on Sunday morning. Anticipate resumption of Eliquis on discharge, or sooner if he remains here after the time he could potentially need OR. (6) Hx of essential hypertension: Impression: I have not resumed his home antihypertensives. His blood pressure systolically is less than 160 consistently here. I will therefore continue to hold his home medications for hypertension. Selected Entries 01/11/24 08:06 01/11/24 13:25 01/11/24 16:16 Blood Pressure [Right Brachial artery] 129/58 L 100/46 L Blood Pressure [] 128/67 I have spent 40 minutes in the care of this patient today. This includes time [id number], review and ordering of diagnostic imaging and laboratory studies and consultation with other providers.. Monitoring the patient's signs symptoms, evaluation of medication effectiveness and patient's response to treatment.
[2024-01-11] MEDS: SERTRALINE 25 MG TABLET PO SCH (08:08)
[2024-01-11] MEDS: LOSARTAN 50 MG TABLET PO SCH (08:08)
[2024-01-11] MEDS: OMEGA-3 ACID ETHYL ESTERS 1 GM CAPSULE PO SCH (08:08)
[2024-01-11] MEDS: PSYLLIUM PACKET PO SCH (10:10)
[2024-01-12] MEDS: CEFEPIME 2 GM in SODIUM CHLORIDE 0.9% MINIBAG 100 ML IV SCH (02:56)
[2024-01-12 06:01] LABS: BASOPHILS % (AUTO) 0.2 %; EOSINOPHILS # (AUTO) 0.2 10^3/uL (0.0-0.7); EOSINOPHILS % (AUTO) 1.2 %; HCT - HEMATOCRIT 26.2 % (42.0-52.0); HGB - HEMOGLOBIN 8.7 g/dL (14.0-18.0); LYMPHOCYTES # (AUTO) 2.6 10^3/uL (1.5-3.5); LYMPHOCYTES % (AUTO) 16.2 %; MEAN CORPUSCULAR HEMOGLOBIN 37.2 pg (27.0-31.0); MEAN CORPUSCULAR HGB CONC 33.2 g/dL (32.0-36.0); MONOCYTES # (AUTO) 3.3 10^3/uL (0.0-1.0); MONOCYTES % (AUTO) 20.6 %; NEUTROPHILS # (AUTO) 8.7 10^3/uL (1.5-6.6); NEUTROPHILS % (AUTO) 54.2 %; NRBC ABSOLUTE COUNT (AUTO) 0.07 x10^3/uL; NUCLEATED RED BLOOD CELLS AUTO 0.4 /100WBC; PLT - PLATELET COUNT 212 10^3/uL (130-450); RED BLOOD COUNT 2.34 10^6/uL (4.70-6.10); RED CELL DISTRIBUTION WIDTH 24.4 % (12.0-15.0)
[2024-01-12 06:06] LABS: SLIDE REVIEW? Indicated
[2024-01-12 06:19] LABS: CALCIUM 8.8 mg/dL (8.5-10.3); CREATININE 1.2 mg/dL (0.6-1.3); POTASSIUM 4.6 mmol/L (3.5-4.5)
[2024-01-12 06:33] LABS: DIFFERENTIAL COMMENT MANUAL=AUTO DIFF; PLATELET ESTIMATE, MANUAL NORMAL (130-450,000) (NORMAL); PLATELET MORPHOLOGY NORMAL APPEARANCE (NORMAL); WBC MORPHOLOGY (MULTIPLE) NORMAL APPEARANCE (NORMAL)
[2024-01-12] MEDS ORDERED: methylPREDNISolone SUCCINATE 125 MG/2 ML VIAL ONE (07:09)
[2024-01-12] MEDS: methylPREDNISolone SUCCINATE 125 MG/2 ML VIAL IVP STA (07:15)
[2024-01-12] MEDS ORDERED: iohexoL-300 100 ML VIAL ONE (07:25)
--- NOTE | 2024-01-12 07:35 | PROVIDER PROGRESS NOTE ---
Subjective Prog Note Date Prog Note Date: 01/12/24 Prog Note Time: 07:00 Subjective Subjective: Over the last several hours has developed progressive and worsening upper back pain. feels like his PMR, rates the pain as >10/10. has also developed hypotension, SBP 88. Feels better sitting up leaning over the bedside table with this pain. denies any SOB, pain is not pleuritic. He does not have hypoxia. Pain became better with time. He was seen by ortho this AM, about an hour after pain began. Dressing was taken down and replaced with a loose jhoan wrap and gauze. he bled through this dressing. Current Medications Current Medications Current Medications: Current Medications Generic Name Dose Route Start Last Admin Trade Name Freq PRN Reason Stop Dose Admin Acetaminophen 650 mg 01/09/24 18:16 01/11/24 01:16 Acetaminophen 325 Mg Tablet PO 650 mg Q4HR PRN Administration Pain 1 to 4, or Fever Acetaminophen 1,000 mg 01/10/24 10:03 01/11/24 21:29 Acetaminophen 500 Mg Tablet PO 1,000 mg Q6HR PRN Administration Mild-Moderate Pain (Level 1-7) Albuterol 2.5 mg 01/10/24 10:15 Albuterol Neb 2.5 Mg/3 Ml INH QID PRN shortness of breath or wheezing Allopurinol 50 mg 01/10/24 10:00 01/11/24 10:10 Allopurinol 100 Mg Tablet PO 50 mg QD MIGUEL ÁNGEL Administration Aspirin 81 mg 01/10/24 21:00 01/11/24 21:24 Aspirin Ec 81 Mg Tablet PO 81 mg HS MIGUEL ÁNGEL Administration Atorvastatin Calcium 10 mg 01/10/24 21:00 01/11/24 21:24 Atorvastatin 10 Mg Tablet PO 10 mg QPM MIGUEL ÁNGEL Administration Hydromorphone HCl 0.5 mg 01/10/24 11:46 01/12/24 06:50 Hydromorphone 0.5 Mg/0.5 Ml Syringe IVP 0.5 mg Q2H PRN Administration Severe Pain (Level 7-10) Vancomycin HCl 1 gm/ Sodium 250 mls @ 166.667 mls/hr 01/10/24 16:00 01/12/24 03:41 Chloride IV 166.67 mls/hr Q12H MIGUEL ÁNGEL Administration Cefepime HCl 2 gm/ Sodium 100 mls @ 200 mls/hr 01/12/24 02:00 01/12/24 03:26 Chloride IV Infused Q8H MIGUEL ÁNGEL Infusion Losartan Potassium 100 mg 01/11/24 09:00 01/11/24 08:08 Losartan 50 Mg Tablet PO 100 mg DAILY MIGUEL ÁNGEL Administration Metoprolol Tartrate 25 mg 01/10/24 21:00 01/11/24 21:24 Metoprolol Tartrate 25 Mg Tablet PO 25 mg HS MIGUEL ÁNGEL Administration [id number] Ethyl Esters 1 gm 01/11/24 09:00 01/11/24 08:08 Cosby-3 Acid Ethyl Esters 1 Gm Capsule PO 1 gm DAILY MIGUEL ÁNGEL Administration Ondansetron HCl 4 mg 01/09/24 18:16 Ondansetron 4 Mg/2 Ml Vial IVP Q6HR PRN Nausea / Vomiting Oxycodone HCl 5 mg 01/09/24 19:00 01/11/24 21:23 Oxycodone 5 Mg Tablet PO 5 mg Q4HR PRN Administration Moderate Pain (Level 4-6) Psyllium Hydrophilic Mucilloid 1 packet 01/11/24 09:00 01/11/24 10:11 Psyllium Packet PO 1 packet DAILY MIGUEL ÁNGEL Administration Sertraline HCl 25 mg 01/11/24 09:00 01/11/24 08:08 Sertraline 25 Mg Tablet PO 25 mg DAILY MIGUEL ÁNGEL Administration Sodium Chloride 10 ml 01/09/24 18:16 01/12/24 06:50 Sodium Chloride Flush 0.9% 10 Ml Syringe IVP 10 ml PRN PRN Administration NEEDED PER PROVIDER ORDERS Sodium Chloride 10 ml 01/10/24 01:00 01/12/24 02:57 Sodium Chloride Flush 0.9% 10 Ml Syringe IVP 10 ml 0100,0900,1700 MIGUEL ÁNGEL Administration Trazodone HCl 50 mg 01/10/24 21:00 01/11/24 21:24 Trazodone 50 Mg Tablet PO 50 mg HS MIGUEL ÁNGEL Administration Objective Vital Signs/Intake & Output Reviewed Vital Signs: Yes Vital Signs: Vital Signs x48h Temp Pulse Resp BP Pulse Ox O2 Flow Rate 01/12/24 07:22 58 L 124/56 L 97 2 01/12/24 07:06 56 L 99/43 L 98 2 01/12/24 07:03 88/38 L 01/12/24 04:40 36.5 C 62 18 114/56 L 96 Intake & Output: Intake & Output 01/10/24 01/11/24 01/12/24 01/13/24 05:59 05:59 05:59 04:59 Intake Total 237 / 237 2290 / 2290 1580 / 1580 Balance 237 / 237 2290 / 2290 1580 / 1580 Weight (kg) 98.8 kg 98 kg Objective General Appearance: positive No acute distress and Alert Eyes Bilateral: positive Normal inspection ENT: positive ENT inspection nml Neck: positive Nml inspection Respiratory: positive Chest non-tender, No respiratory distress and Breath sounds nml; negative Wheezes, Rales or Rhonchi Cardiovascular: positive Regular rate & rhythm and No murmur Abdomen: positive No distention Back: positive Nml inspection Skin: positive Color nml Extremities: positive Other (left wrist with drain site on dorsal aspect. There is steady ooze from this site. the dressing is soaked. I removed dressing and applied compression dressing. ) Neurologic/Psychiatric: positive Oriented x3 Lab Results 01/12/24 05:46 01/12/24 05:46 Other Labs: Lab Results x24hrs 01/12/24 01/12/24 01/12/24 Range/Units 05:46 05:46 05:46 WBC 16.0 H (4.8-10.8) x10^3/uL RBC 2.34 L (4.70-6.10) 10^6/uL Hgb 8.7 L (14.0-18.0) g/dL Hct 26.2 L (42.0-52.0) % MCV 112.0 H (80.0-94.0) fL MCH 37.2 H (27.0-31.0) pg MCHC 33.2 (32.0-36.0) g/dL RDW 24.4 H (12.0-15.0) % Plt Count 212 (130-450) 10^3/uL MPV 10.0 (7.4-11.4) fL Neut # (Auto) 8.7 H (1.5-6.6) 10^3/uL Lymph # (Auto) 2.6 (1.5-3.5) 10^3/uL [place] # (Auto) 3.3 H (0.0-1.0) 10^3/uL Eos # (Auto) 0.2 (0.0-0.7) 10^3/uL Baso # (Auto) 0.0 (0.0-0.1) 10^3/uL Absolute Nucleated RBC 0.07 x10^3/uL Band Neuts % (Manual) Not Reportable Abnorm Lymph % (Manual) Not Reportable Nucleated RBC % 0.4 /100WBC Neutrophils # (Manual) Not Reportable Lymphocytes # (Manual) Not Reportable Monocytes # (Manual) Not Reportable Eosinophils # (Manual) Not Reportable Basophils # (Manual) Not Reportable Differential Comment MANUAL=AUTO DIFF Manual Slide Review Indicated WBC Morphology NORMAL APPEARANCE (NORMAL) Platelet Estimate NORMAL (130-450,000) (NORMAL) Platelet Morphology NORMAL APPEARANCE (NORMAL) RBC Morph Micro Appear 1+ TEARDROP CELLS 2+ ANISOCYTOSIS 2+ MACROCYTOSIS (NORMAL) Sodium 132 L (135-145) mmol/L Potassium 4.6 H (3.5-4.5) mmol/L Chloride 103 (101-111) mmol/L Carbon Dioxide 23 (21-32) mmol/L Anion Gap 6.0 (6-13) BUN 29 H (6-20) mg/dL Creatinine 1.2 (0.6-1.3) mg/dL Estimated GFR (MDRD) 59 L (>89) Glucose 104 (74-104) mg/dL Calcium 8.8 (8.5-10.3) mg/dL Blood Type Antibody Screen Crossmatch IS Only 01/11/24 Range/Units 11:45 WBC (4.8-10.8) x10^3/uL RBC (4.70-6.10) 10^6/uL Hgb (14.0-18.0) g/dL Hct (42.0-52.0) % MCV (80.0-94.0) fL MCH (27.0-31.0) pg MCHC (32.0-36.0) g/dL RDW (12.0-15.0) % Plt Count (130-450) 10^3/uL MPV (7.4-11.4) fL Neut # (Auto) (1.5-6.6) 10^3/uL Lymph # (Auto) (1.5-3.5) 10^3/uL [place] # (Auto) (0.0-1.0) 10^3/uL Eos # (Auto) (0.0-0.7) 10^3/uL Baso # (Auto) (0.0-0.1) 10^3/uL Absolute Nucleated RBC x10^3/uL Band Neuts % (Manual) Abnorm Lymph % (Manual) Nucleated RBC % /100WBC Neutrophils # (Manual) Lymphocytes # (Manual) Monocytes # (Manual) Eosinophils # (Manual) Basophils # (Manual) Differential Comment Manual Slide Review WBC Morphology (NORMAL) Platelet Estimate (NORMAL) Platelet Morphology (NORMAL) RBC Morph Micro Appear (NORMAL) Sodium (135-145) mmol/L Potassium (3.5-4.5) mmol/L Chloride (101-111) mmol/L Carbon Dioxide (21-32) mmol/L Anion Gap (6-13) BUN (6-20) mg/dL Creatinine (0.6-1.3) mg/dL Estimated GFR (MDRD) (>89) Glucose (74-104) mg/dL Calcium (8.5-10.3) mg/dL Blood Type O NEGATIVE Antibody Screen NEGATIVE Crossmatch IS Only See Detail Sepsis Event Note (H) Evaluation Current Stage of Sepsis: Ruled out Possible source of Sepsis: positive Bone/Joint Assessment/Plan Problem List (1) Septic joint of left wrist: Impression: Discussed with Dr. Manzo of orthopedics this morning. Gram stain shows no white blood cells no organisms. Culture is in progress. Dressing was taken down this morning and the decision was made not to take him back to the operating room. There was some bleeding of the wound on the dorsal aspect of the wrist. I applied pressure dressing for period of hours and bleeding was controlled. Pressure dressing was loosened and we are able to continue with loose Jhoan wrap. He has been elevating his left upper extremity above his heart for the majority of the day today. We are seeing a decrease in the amount of swelling. Qualifiers: Septic arthritis organism: due to unspecified organism Qualified Code(s): M00.9 - Pyogenic arthritis, unspecified (2) Chest pain: Impression: Acute and severe this AM, progressive over the course of several hours. not helped with IV dilaudid. with associated hypotension. no associated hypoxia or tachycardia. history of PE. Pain is supicious for aortic dissection or PE. he has been off his anticoagulation for brief time periods perioperatively. Pain feels like his previous PMR pain. I ordered STAT CTA of the chest. it is negative for PE or dissection. I ordered STAT EKG. there is not evidence of R heart strain or ischemia I ordered STAT troponin. negative at 4.4 I immediately gave the patient 125mg of solumedrol IV. his pain was much improved within the hour. 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 I will add ESR and CRP to his AM labs. I am starting him on Prednisone 20mg daily. Qualifiers: Chest pain type: other chest pain Qualified Code(s): R07.89 - Other chest pain (3) Anemia: Impression: improved after blood transfusion yesterday. he is anticoagulated due to PE. He has open wound on his wrist, will watch for bleeding. Laboratory Tests 01/10/24 01/11/24 01/12/24 05:32 05:30 05:46 Hgb 7.5 L 6.9 L* 8.7 L Qualifiers: Anemia type: unspecified type Qualified Code(s): D64.9 - Anemia, unspecified (4) Leukocytosis: Impression: With CML. I think that he is back to his baseline WBC. I would consider that his leukocytosis is resolved. Laboratory Tests 01/09/24 01/10/24 01/11/24 03:32 05:32 05:30 WBC 42.8 H* 40.3 H* 18.3 H 01/12/24 05:46 WBC 16.0 H Qualifiers: Leukocytosis type: bandemia Qualified Code(s): D72.825 - Bandemia (5) Pulmonary emboli: Impression: I have resumed his Eliquis today. He is not having any pleuritic chest pain he is not having any hypoxia. He had a CT angio of the chest this morning which was negative for acute PE. Qualifiers: Acute cor pulmonale presence: without acute cor pulmonale Chronicity: c hronic Pulmonary embolism type: unspecified Qualified Code(s): I27.82 - Chronic pulmonary embolism (6) Hx of essential hypertension: Impression: He is on his home medications of losartan and metoprolol. He had an episode of hypotension this morning associated with his chest pain. This has resolved. His heart rate is mildly bradycardic will dip down into the mid to high 50s at times At the time of his hypotension this morning he did had not received his medications. Selected Entries 01/12/24 04:40 01/12/24 07:03 01/12/24 07:06 Pulse Rate [Brachial] 62 56 L Blood Pressure [Right Brachial artery] 114/56 L 88/38 L 99/43 L 01/12/24 07:22 01/12/24 09:52 Pulse Rate [Brachial] 58 L 67 Blood Pressure [Right Brachial artery] 124/56 L 144/57 H I have spent 55 minutes in the care of this patient today. This includes time [id number], review and ordering of diagnostic imaging and laboratory studies and consultation with other providers.. Monitoring the patient's signs symptoms, evaluation of medication effectiveness and patient's response to treatment.
--- NOTE | 2024-01-12 08:08 | POST OP PROGRESS NOTE ---
Subjective General Admit Date: 01/09/24 Procedure Date: 01/10/24 Post Op Days: 2 Procedure Performed: I & D of left wrist, carpal tunnel release with bone biopsy of lunate Other Other Information/Narrative: POD 2 Patient denies f/c/ns. states he still has pain at his left wrist but feels different and improved from prior to I & D. He states he has been trying to elevate it. He does say he is having difficulty moving his shoulder since the surgery - he does have problems with his shoulder and states that his left upper extremity feels heavy. Past 24 h: Pain across back with drop in blood pressure - he is awaiting a CT to rule out PE. His WBC is back to his baseline. 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 - Gram stain so far shows no organisms. - Anticoagulation per primary team, diet regular and continue IV anbiotics. I discussed with the team keeping the patient until Sunday for a PICC for 2 weeks of IV antibiotics at a minimum. - Elevation of left upper extremity above heart level. Exam Exam LEft wrist; Incisions well approximated and quique drain in place. No surrounding erythema or warmth. TTP around incision. No pain in forearm or fingers. No palpable fluctance and no purulence expressed. He is able to demonstate a 60 deg arc of motion without joint irritability. SILT R/U/M. Fires epl/fpl/io. Rad pulse 2+ and brisk cap refill.
--- NOTE | 2024-01-12 08:33 | CT Report ---
PROCEDURE: CT Angio Chest INDICATIONS: dissection vs PE CONTRAST: omni 300, 80 TECHNIQUE: After the administration of intravenous contrast, 2 mm axial images were acquired from the pulmonary apices to the posterior costophrenic angles during the arterial phase. In addition, 1 mm lung kernel and 5 mm soft tissue kernel reconstructions were performed. 3-dimensional coronal oblique maximum int ensity projection (MIP) reformats, 8 mm axial MIP, and 5 mm coronal and sagittal MPR reformats were t hen performed through the thorax. For radiation dose reduction, the following was used: automated exp osure control, adjustment of mA and/or kV according to patient size. COMPARISON: 12/21/2023, 05/28/2023 FINDINGS: Image quality: Excellent. Large vessels: No filling defects within the opacified pulmonary arteries, accounting for motion and contrast timing. No evidence of acute aortic syndrome or aortic aneurysm. Lungs and pleura: Dependent atelectasis can be seen. No suspicious pulmonary consolidation can be see n. No pleural effusions. No pneumothorax. No suspicious pulmonary nodules which require follow up. Mediastinum: Heart size is normal. No pericardial effusion. There is moderate coronary artery calcifi cation No large vessel abnormality. Specifically, no dissection flap can be seen. No thoracic aortic aneurysm No mediastinal adenopathy by size criteria. Chest wall and lower neck: Thyroid is unremarkable. No axillary or supraclavicular adenopathy by size . Bones: No aggressive osseous abnormality. Age-appropriate degenerative changes are seen. Upper Abdomen: Gallstones can be seen within the gallbladder. No additional CT findings of cholecysti tis are seen. The spleen is enlarged, measuring 16.6 cm in greatest AP dimension. The visualized port ions of the upper abdominal structures are otherwise within normal limits. IMPRESSION: No pulmonary embolus. Negative for thoracic aortic dissection. Additional findings: Moderate coronary artery calcification Dependent atelectasis Gallstones Splenomegaly Reviewed by: Jovon Waddell MD on 01/12/2024 7:32 AM MARY KAY Approved by: Jovon Waddell MD on 01/12/2024 7:32 AM MARY KAY Station ID: [id number]
[2024-01-12] MEDS: iohexoL-300 100 ML VIAL IVP ONE (18:22)
[2024-01-13 05:13] LABS: BUN - BLOOD UREA NITROGEN 32 mg/dL (6-20); CALCIUM 8.7 mg/dL (8.5-10.3); CARBON DIOXIDE - CO2 22 mmol/L (21-32); CHLORIDE 103 mmol/L (101-111); CRP - C-REACTIVE PROTEIN 4.5 mg/dL (<0.5); GFR - MDRD 72 (>89); GLUCOSE 210 mg/dL (74-104); POTASSIUM 4.3 mmol/L (3.5-4.5); SODIUM 132 mmol/L (135-145); VANCOMYCIN,TROUGH 16.2 ug/mL
[2024-01-13 06:36] LABS: BASOPHILS % (AUTO) 0.2 %; EOSINOPHILS % (AUTO) 0.6 %; HCT - HEMATOCRIT 25.3 % (42.0-52.0); HGB - HEMOGLOBIN 8.2 g/dL (14.0-18.0); LYMPHOCYTES % (AUTO) 7.6 %; MEAN CORPUSCULAR HEMOGLOBIN 36.4 pg (27.0-31.0); MEAN CORPUSCULAR HGB CONC 32.4 g/dL (32.0-36.0); MEAN CORPUSCULAR VOLUME 112.4 fL (80.0-94.0); MEAN PLATELET VOLUME 9.7 fL (7.4-11.4); MONOCYTES % (AUTO) 17.9 %; NEUTROPHILS % (AUTO) 65.5 %; PLT - PLATELET COUNT 231 10^3/uL (130-450); RED BLOOD COUNT 2.25 10^6/uL (4.70-6.10); RED CELL DISTRIBUTION WIDTH 23.1 % (12.0-15.0); WHITE BLOOD COUNT 27.1 x10^3/uL (4.8-10.8)
[2024-01-13 06:39] LABS: SLIDE REVIEW? Indicated
[2024-01-13 06:41] LABS: ABNORMAL LYMPHS % (MANUAL) 0 %
[2024-01-13 06:53] LABS: BAND NEUTROPHILS % (MANUAL) 1 %; EOSINOPHILS # (MANUAL) 0.3 10^3/uL (0-0.7); LYMPHOCYTES # (MANUAL) 1.9 10^3/uL (1.5-3.5); LYMPHOCYTES % (MANUAL) 7 %; MYELOCYTES % (MANUAL) 5 %; NEUTROPHILS # (MANUAL) 20.6 10^3/uL (1.5-6.6)
[2024-01-13 06:57] LABS: PLATELET ESTIMATE, MANUAL NORMAL (130-450,000) (NORMAL); WBC MORPHOLOGY (MULTIPLE) NORMAL APP (NORMAL)
[2024-01-13 06:58] LABS: DIFFERENTIAL COMMENT MANUAL DIFFERENTIAL; PLATELET MORPHOLOGY NORMAL APP (NORMAL)
[2024-01-13] MEDS: predniSONE 20 MG TABLET PO SCH (07:50)
--- NOTE | 2024-01-13 07:58 | PHARMACY PROGRESS NOTE ---
Vancomycin Therapy Monitoring Patient Information Vancomycin Pt Height (inches): 71 Vancomycin Patient Weight (kg): 98 Vanco Rx Serum Creatinine (mg/dL): 1.0 Vancomycin Therapy BUN (mg/dL): 32 Vancomycin Therapy Calculated Creatinine Cl (ml/min): 65 Concurrent Antibiotics: CEFEPIME 2 G Q8H Vancomycin Therapy Goals Treatment Indication: SEPTIC ARTHRITIS/OSTEO Vancomycin Target Range: Vancomycin AUC Target Range 400-600 mcg*h/ml Assessment of Current Therapy Current Vancomycin Maintenance Regimen (if applicable): 1000 mg IV q12h Level 01/12 @ 0330 = 16.2 mcg/mL Vancomycin Current Regimen: Within Target Range Estimated Cmax (Peak, mcg/ml): 32 Estimated Cmin (Trough, mcg/ml): 17 Estimated AUC (mcg*hr/ml): 574 Plan: Current Vancomycin Maintenance Regimen (if applicable): 1000 mg IV q12h Pharmacy recommendation: Continue current regimen
--- NOTE | 2024-01-13 11:12 | PROVIDER PROGRESS NOTE ---
Subjective Prog Note Date Prog Note Date: 01/13/24 Prog Note Time: 10:00 Subjective Subjective: He is struggling with some anxiety this morning. He was given Ativan and that has helped. His wrist pain is controlled. He has not had any increased bleeding. The swelling in his hand is improving. He has not run any fevers. Current Medications Current Medications Current Medications: Current Medications Generic Name Dose Route Start Last Admin Trade Name Freq PRN Reason Stop Dose Admin Acetaminophen 650 mg 01/09/24 18:16 01/11/24 01:16 Acetaminophen 325 Mg Tablet PO 650 mg Q4HR PRN Administration Pain 1 to 4, or Fever Acetaminophen 1,000 mg 01/10/24 10:03 01/11/24 21:29 Acetaminophen 500 Mg Tablet PO 1,000 mg Q6HR PRN Administration Mild-Moderate Pain (Level 1-7) Albuterol 2.5 mg 01/10/24 10:15 Albuterol Neb 2.5 Mg/3 Ml INH QID PRN shortness of breath or wheezing Allopurinol 50 mg 01/10/24 10:00 01/13/24 09:47 Allopurinol 100 Mg Tablet PO 50 mg QD MIGUEL ÁNGEL Administration Apixaban 5 mg 01/10/24 21:00 01/13/24 07:51 Apixaban 5 Mg Tablet PO 5 mg BID MIGUEL ÁNGEL Administration Aspirin 81 mg 01/10/24 21:00 01/12/24 20:14 Aspirin Ec 81 Mg Tablet PO 81 mg HS MIGUEL ÁNGEL Administration Atorvastatin Calcium 10 mg 01/10/24 21:00 01/12/24 20:14 Atorvastatin 10 Mg Tablet PO 10 mg QPM MIGUEL ÁNGEL Administration Hydromorphone HCl 0.5 mg 01/10/24 11:46 01/12/24 22:23 Hydromorphone 0.5 Mg/0.5 Ml Syringe IVP 0.5 mg Q2H PRN Administration Severe Pain (Level 7-10) Vancomycin HCl 1 gm/ Sodium 250 mls @ 166.667 mls/hr 01/10/24 16:00 01/13/24 11:00 Chloride IV Infused Q12H MIGUEL ÁNGEL Infusion Cefepime HCl 2 gm/ Sodium 100 mls @ 200 mls/hr 01/12/24 02:00 01/13/24 10:25 Chloride IV Infused Q8H MIGUEL ÁNGEL Infusion Lorazepam 1 mg 01/13/24 11:05 Lorazepam 1 Mg Tablet PO Q6H PRN Anxiety Losartan Potassium 100 mg 01/11/24 09:00 01/13/24 07:51 Losartan 50 Mg Tablet PO 100 mg DAILY MIGUEL ÁNGEL Administration Metoprolol Tartrate 25 mg 01/10/24 21:00 01/12/24 20:14 Metoprolol Tartrate 25 Mg Tablet PO 25 mg HS MIGUEL ÁNGEL Administration [id number] Ethyl Esters 1 gm 01/11/24 09:00 01/13/24 07:50 [place]-3 Acid Ethyl Esters 1 Gm Capsule PO 1 gm DAILY MIGUEL ÁNGEL Administration Ondansetron HCl 4 mg 01/09/24 18:16 Ondansetron 4 Mg/2 Ml Vial IVP Q6HR PRN Nausea / Vomiting Oxycodone HCl 5 mg 01/09/24 19:00 01/13/24 01:08 PST Oxycodone 5 Mg Tablet PO 5 mg Q4HR PRN Administration Moderate Pain (Level 4-6) Prednisone 20 mg 01/13/24 08:00 01/13/24 07:50 Prednisone 20 Mg Tablet PO 20 mg DAILYWM MIGUEL ÁNGEL Administration Psyllium Hydrophilic Mucilloid 1 packet 01/11/24 09:00 01/13/24 07:49 Psyllium Packet PO 1 packet DAILY MIGUEL ÁNGEL Administration Sertraline HCl 25 mg 01/11/24 09:00 01/13/24 07:51 Sertraline 25 Mg Tablet PO 25 mg DAILY MIGUEL ÁNGEL Administration Sodium Chloride 10 ml 01/09/24 18:16 01/12/24 06:50 Sodium Chloride Flush 0.9% 10 Ml Syringe IVP 10 ml PRN PRN Administration NEEDED PER PROVIDER ORDERS Sodium Chloride 10 ml 01/10/24 01:00 01/13/24 09:48 Sodium Chloride Flush 0.9% 10 Ml Syringe IVP 10 ml 0100,0900,1700 MIGUEL ÁNGEL Administration Trazodone HCl 50 mg 01/10/24 21:00 01/12/24 20:14 Trazodone 50 Mg Tablet PO 50 mg HS MIGUEL ÁNGEL Administration Objective Vital Signs/Intake & Output Reviewed Vital Signs: Yes Vital Signs: Vital Signs x48h Temp Pulse Resp BP Pulse Ox 01/13/24 08:00 36.7 C 59 L 18 135/62 H 94 Intake & Output: Intake & Output 01/11/24 01/12/24 01/13/24 01/14/24 05:59 05:59 04:59 05:59 Intake Total 2290 / 2290 1580 / 1580 [birth year] 530 / 530 Balance 2290 / 2290 1580 / 1580 1939 / 1939 530 / 530 Weight (kg) 98 kg Objective General Appearance: positive No acute distress and Alert Eyes Bilateral: positive Normal inspection ENT: positive ENT inspection nml Neck: positive Nml inspection Respiratory: positive Chest non-tender, No respiratory distress and Breath sounds nml Cardiovascular: positive Regular rate & rhythm Abdomen: positive No distention Back: positive Nml inspection Skin: positive Color nml Extremities: positive Other (Dressing was removed from the wrist. Minimal bleeding from the dorsal drain site. Xeroform was placed over this area wound was dressed with gauze, Kerlix and Jhoan wrap with light compression. He is able to wiggle his fingers sensation is intact) Neurologic/Psychiatric: positive Oriented x3 Lab Results 01/13/24 06:30 01/13/24 03:30 Other Labs: Lab Results x24hrs 01/13/24 01/13/24 01/13/24 Range/Units 06:30 06:30 06:30 WBC 27.1 H (4.8-10.8) x10^3/uL RBC 2.25 L (4.70-6.10) 10^6/uL Hgb 8.2 L (14.0-18.0) g/dL Hct 25.3 L (42.0-52.0) % MCV 112.4 H (80.0-94.0) fL MCH 36.4 H (27.0-31.0) pg MCHC 32.4 (32.0-36.0) g/dL RDW 23.1 H (12.0-15.0) % Plt Count 231 (130-450) 10^3/uL MPV 9.7 (7.4-11.4) fL Neut # (Auto) Not Reportable Lymph # (Auto) Not Reportable Story # (Auto) Not Reportable Eos # (Auto) Not Reportable Baso # (Auto) Not Reportable Absolute Nucleated RBC Not Reportable Total Counted 100 Band Neuts % (Manual) 1 (0 - 10) % Abnorm Lymph % (Manual) 0 % Myelocytes % 5 H ( - 0) % Nucleated RBC % Not Reportable Neutrophils # (Manual) 20.6 H (1.5-6.6) 10^3/uL Lymphocytes # (Manual) 1.9 (1.5-3.5) 10^3/uL Monocytes # (Manual) 3.0 H (0.0-1.0) 10^3/uL Eosinophils # (Manual) 0.3 (0-0.7) 10^3/uL Basophils # (Manual) 0.0 (0-0.1) 10^3/uL Differential Comment MANUAL DIFFERENTIAL Manual Slide Review Indicated WBC Morphology NORMAL KACIE (NORMAL) Platelet Estimate NORMAL (130-450,000) (NORMAL) Platelet Morphology NORMAL KACIE (NORMAL) RBC Morph Micro Appear 1+ SPHEROCYTES 2+ MACROCYTOSIS 2+ ANISOCYTOSIS (NORMAL) ESR 95 H (0-20) mm/Hr Sodium (135-145) mmol/L Potassium (3.5-4.5) mmol/L Chloride (101-111) mmol/L Carbon Dioxide (21-32) mmol/L Anion Gap (6-13) BUN (6-20) mg/dL Creatinine (0.6-1.3) mg/dL Estimated GFR (MDRD) (>89) Glucose (74-104) mg/dL Calcium (8.5-10.3) mg/dL C-Reactive Protein (<0.5) mg/dL Last Dose Date Last Dose Time Vancomycin Trough ug/mL Blood Type Antibody Screen Crossmatch IS Only 01/13/24 01/11/24 Range/Units 03:30 11:45 WBC (4.8-10.8) x10^3/uL RBC (4.70-6.10) 10^6/uL Hgb (14.0-18.0) g/dL Hct (42.0-52.0) % MCV (80.0-94.0) fL MCH (27.0-31.0) pg MCHC (32.0-36.0) g/dL RDW (12.0-15.0) % Plt Count (130-450) 10^3/uL MPV (7.4-11.4) fL Neut # (Auto) Lymph # (Auto) Story # (Auto) Eos # (Auto) Baso # (Auto) Absolute Nucleated RBC Total Counted Band Neuts % (Manual) (0 - 10) % Abnorm Lymph % (Manual) % Myelocytes % ( - 0) % Nucleated RBC % Neutrophils # (Manual) (1.5-6.6) 10^3/uL Lymphocytes # (Manual) (1.5-3.5) 10^3/uL Monocytes # (Manual) (0.0-1.0) 10^3/uL Eosinophils # (Manual) (0-0.7) 10^3/uL Basophils # (Manual) (0-0.1) 10^3/uL Differential Comment Manual Slide Review WBC Morphology (NORMAL) Platelet Estimate (NORMAL) Platelet Morphology (NORMAL) RBC Morph Micro Appear (NORMAL) ESR (0-20) mm/Hr Sodium 132 L (135-145) mmol/L Potassium 4.3 (3.5-4.5) mmol/L Chloride 103 (101-111) mmol/L Carbon Dioxide 22 (21-32) mmol/L Anion Gap 7.0 (6-13) BUN 32 H (6-20) mg/dL Creatinine 1.0 (0.6-1.3) mg/dL Estimated GFR (MDRD) 72 L (>89) Glucose 210 H (74-104) mg/dL Calcium 8.7 (8.5-10.3) mg/dL C-Reactive Protein 4.5 H (<0.5) mg/dL Last Dose Date Not Reportable Last Dose Time Not Reportable Vancomycin Trough 16.2 ug/mL Blood Type O NEGATIVE Antibody Screen NEGATIVE Crossmatch IS Only See Detail Sepsis Event Note (H) Evaluation Current Stage of Sepsis: Ruled out Possible source of Sepsis: positive Bone/Joint Assessment/Plan Problem List (1) Septic joint of left wrist: Impression: His leukocytosis is increased from yesterday. Gram stain shows no organisms moderate white blood cells on the volar specimen Dorsal specimen shows no white blood cells no organisms. Fungal culture remains pending. 2 Laboratory Tests 01/10/24 01/11/24 01/12/24 05:32 05:30 05:46 WBC 40.3 H* 18.3 H 16.0 H 01/13/24 06:30 WBC 27.1 H Qualifiers: Septic arthritis organism: due to unspecified organism Qualified Code(s): M00.9 - Pyogenic arthritis, unspecified (2) Chest pain: Impression: Acute and severe on POD #1, progressive over the course of several hours. not helped with IV dilaudid. with associated hypotension. no associated hypoxia or tachycardia. history of PE. Pain was supicious for aortic dissection or PE. he had been off his anticoagulation for brief time periods perioperatively. Pain feels like his previous PMR pain. I ordered STAT CTA of the chest. it is negative for PE or dissection. I ordered STAT EKG. there is not evidence of R heart strain or ischemia I ordered STAT troponin. negative at 4.4 I immediately gave the patient 125mg of solumedrol IV. his pain was much improved within the hour. 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 He is on prednisone 20 mg daily. His ESR and CRP show an ESR of 95 which could be consistent with his ongoing infection his CRP is 4.5 which could also be consistent with his ongoing infection. Qualifiers: Chest pain type: other chest pain Qualified Code(s): R07.89 - Other chest pain (3) Anemia: Impression: improved after blood transfusion. he is anticoagulated due to PE. hgb 8.2 today. recheck CBC in AM. Laboratory Tests 01/10/24 01/11/24 01/12/24 05:32 05:30 05:46 Hgb 7.5 L 6.9 L* 8.7 L Qualifiers: Anemia type: unspecified type Qualified Code(s): D64.9 - Anemia, unspecified (4) Leukocytosis: Impression: White blood cell count is high again today. 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 Laboratory Tests 01/09/24 01/10/24 01/11/24 03:32 05:32 05:30 WBC 42.8 H* 40.3 H* 18.3 H 01/12/24 05:46 WBC 16.0 H Qualifiers: Leukocytosis type: bandemia Qualified Code(s): D72.825 - Bandemia (5) Pulmonary emboli: Impression: I have resumed his Eliquis. He is not having any pleuritic chest pain he is not having any hypoxia. He had a CT angio of the chest which was negative for acute PE.. Qualifiers: Acute cor pulmonale presence: without acute cor pulmonale Chronicity: c hronic Pulmonary embolism type: unspecified Qualified Code(s): I27.82 - Chronic pulmonary embolism (6) Hx of essential hypertension: Impression: He is on his home medications of losartan and metoprolol. Selected Entries 01/13/24 08:00 01/13/24 15:47 Pulse Rate [Brachial] 59 L 56 L Blood Pressure [Right Brachial artery] 135/62 H Blood Pressure [Right Radial artery] 146/60 H disposition: Patient's disposition is dependent upon his culture results. These remain pending. It is unclear when we will have results back. I discussed with the patient staying in the hospital for IV antibiotics and he absolutely does not want to do this. He would like to go home. He feels that his will be able to get training and give him antibiotics at home. I will ask that a PICC line be placed and we will work on home training and home health set up for infusion services. He and his stay home most of the time and he feels confident that his can assist with administration of IV antibiotics. In the past she is given him Lovenox injections at home. I will order the PICC line this afternoon and I have discussed the patient with social work today and let them know that the patient would like to disposition to home GABINO I have spent 40 minutes in the care of this patient today. This includes time [id number], review and ordering of diagnostic imaging and laboratory studies and consultation with other providers.. Monitoring the patient's signs symptoms, evaluation of medication effectiveness and patient's response to treatment.
[2024-01-13] MEDS: LORazepam 1 MG TABLET PO PRN (14:17)
[2024-01-14 05:53] LABS: CALCIUM 8.5 mg/dL (8.5-10.3); POTASSIUM 3.9 mmol/L (3.5-4.5)
[2024-01-14 06:38] LABS: BASOPHILS % (AUTO) 0.2 %; EOSINOPHILS # (AUTO) 0.2 10^3/uL (0.0-0.7); EOSINOPHILS % (AUTO) 0.8 %; HCT - HEMATOCRIT 23.3 % (42.0-52.0); HGB - HEMOGLOBIN 7.5 g/dL (14.0-18.0); LYMPHOCYTES # (AUTO) 2.7 10^3/uL (1.5-3.5); LYMPHOCYTES % (AUTO) 14.8 %; MEAN CORPUSCULAR HEMOGLOBIN 36.4 pg (27.0-31.0); MEAN CORPUSCULAR HGB CONC 32.2 g/dL (32.0-36.0); MEAN CORPUSCULAR VOLUME 113.1 fL (80.0-94.0); MONOCYTES # (AUTO) 3.4 10^3/uL (0.0-1.0); MONOCYTES % (AUTO) 18.6 %; NEUTROPHILS # (AUTO) 9.8 10^3/uL (1.5-6.6); NEUTROPHILS % (AUTO) 54.3 %; NRBC ABSOLUTE COUNT (AUTO) 0.06 x10^3/uL; NUCLEATED RED BLOOD CELLS AUTO 0.3 /100WBC; PLT - PLATELET COUNT 206 10^3/uL (130-450); RED BLOOD COUNT 2.06 10^6/uL (4.70-6.10); RED CELL DISTRIBUTION WIDTH 23.2 % (12.0-15.0)
[2024-01-14 06:43] LABS: SLIDE REVIEW? Indicated
[2024-01-14 06:52] LABS: DIFFERENTIAL COMMENT MANUAL=AUTO DIFF; PLATELET ESTIMATE, MANUAL NORMAL (130-450,000) (NORMAL); PLATELET MORPHOLOGY NORMAL APPEARANCE (NORMAL); WBC MORPHOLOGY (MULTIPLE) NORMAL APPEARANCE (NORMAL)
[2024-01-14] MEDS ORDERED: SODIUM CHLORIDE FLUSH 0.9% 10 ML SYRINGE IVP PRN ×2 (08:57)
--- NOTE | 2024-01-14 12:39 | XRAY Report ---
PROCEDURE: XR Chest for Line Placement INDICATIONS: PICC line placement verification TECHNIQUE: One view of the chest was acquired. COMPARISON: 12/21/2023. FINDINGS: Surgical changes and devices: Right arm PICC line tip projects to the superior vena cava. Lungs and pleura: No pleural effusions or pneumothorax. Submaximal inspiration with vascular crowdin g. Cannot exclude mild interstitial pulmonary edema. Mediastinum: Mediastinal contours appear normal. Heart size is normal. Bones and chest wall: No suspicious bony lesions. Severe bilateral glenohumeral joint degenerative arthritis, right greater than left. Overlying soft tissues appear unremarkable. IMPRESSION: 1. PICC line tip projects to the superior vena cava. 2. Submaximal inspiration. Question mild interstitial pulmonary edema. Recommend clinical correlation Reviewed by: Juan Jose Cruz MD on 01/14/2024 12:38 PM PST Approved by: Juan Jose Cruz MD on 01/14/2024 12:38 PM PST Station ID: [id number]
--- NOTE | 2024-01-14 13:32 | ANESTHESIA PROCEDURE NOTE ---
Anesth Central Line Template Central Line Central Line Preparation: Consent Obtained, Time out completed, Ultrasound used and Sterile prep and drape Central line location: Right Brachial Central line type: PICC Double Lumen Central line catheter tip site resides: Superior vena cava (SVC) Central line aftercare: Secured, Placement confirmed, No pneumothorax, No complications, Bundle checklist complete and Pt tolerated well Other Info/Details: RUE PICC line placed under U/S guidance. Stertile technique maintained. Tip trimmed to 45cm. Placement verified in SVC with portable CXR. Pt tolerated procedure well. NAC
--- NOTE | 2024-01-14 20:01 | PROVIDER PROGRESS NOTE ---
Subjective Prog Note Date Prog Note Date: 01/14/24 Prog Note Time: 12:00 Subjective Pt reports feeling: Improved Current Medications Current Medications Current Medications: Current Medications Generic Name Dose Route Start Last Admin Trade Name Freq PRN Reason Stop Dose Admin Acetaminophen 650 mg 01/09/24 18:16 01/14/24 16:34 Acetaminophen 325 Mg Tablet PO 650 mg Q4HR PRN Administration Pain 1 to 4, or Fever Acetaminophen 1,000 mg 01/10/24 10:03 01/11/24 21:29 Acetaminophen 500 Mg Tablet PO 1,000 mg Q6HR PRN Administration Mild-Moderate Pain (Level 1-7) Albuterol 2.5 mg 01/10/24 10:15 Albuterol Neb 2.5 Mg/3 Ml INH QID PRN shortness of breath or wheezing Allopurinol 50 mg 01/10/24 10:00 01/14/24 10:44 Allopurinol 100 Mg Tablet PO 50 mg QD MIGUEL ÁNGEL Administration Apixaban 5 mg 01/10/24 21:00 01/14/24 08:49 Apixaban 5 Mg Tablet PO 5 mg BID MIGUEL ÁNGEL Administration Aspirin 81 mg 01/10/24 21:00 01/13/24 21:01 Aspirin Ec 81 Mg Tablet PO 81 mg HS MIGUEL ÁNGEL Administration Atorvastatin Calcium 10 mg 01/10/24 21:00 01/13/24 21:01 Atorvastatin 10 Mg Tablet PO 10 mg QPM MIGUEL ÁNGEL Administration Hydromorphone HCl 0.5 mg 01/10/24 11:46 01/14/24 08:45 Hydromorphone 0.5 Mg/0.5 Ml Syringe IVP 0.5 mg Q2H PRN Administration Severe Pain (Level 7-10) Vancomycin HCl 1 gm/ Sodium 250 mls @ 166.667 mls/hr 01/10/24 16:00 01/14/24 16:29 Chloride IV 167 mls/hr Q12H MIGUEL ÁNGEL Administration Cefepime HCl 2 gm/ Sodium 100 mls @ 200 mls/hr 01/12/24 02:00 01/14/24 18:26 Chloride IV 200 mls/hr Q8H MIGUEL ÁNGEL Administration Lorazepam 1 mg 01/13/24 11:05 01/13/24 14:17 Lorazepam 1 Mg Tablet PO 1 mg Q6H PRN Administration Anxiety Losartan Potassium 100 mg 01/11/24 09:00 01/14/24 08:49 Losartan 50 Mg Tablet PO 100 mg DAILY MIGUEL ÁNGEL Administration Metoprolol Tartrate 25 mg 01/10/24 21:00 01/13/24 21:01 Metoprolol Tartrate 25 Mg Tablet PO 25 mg HS MIGUEL ÁNGEL Administration [id number] Ethyl Esters 1 gm 01/11/24 09:00 01/14/24 08:48 [place]-3 Acid Ethyl Esters 1 Gm Capsule PO 1 gm DAILY MIGUEL ÁNGEL Administration Ondansetron HCl 4 mg 01/09/24 18:16 Ondansetron 4 Mg/2 Ml Vial IVP Q6HR PRN Nausea / Vomiting Oxycodone HCl 5 mg 01/09/24 19:00 01/14/24 16:35 Oxycodone 5 Mg Tablet PO 5 mg Q4HR PRN Administration Moderate Pain (Level 4-6) Prednisone 20 mg 01/13/24 08:00 01/14/24 08:48 Prednisone 20 Mg Tablet PO 20 mg DAILYWM MIGUEL ÁNGEL Administration Psyllium Hydrophilic Mucilloid 1 packet 01/11/24 09:00 01/14/24 08:53 Psyllium Packet PO Not Given DAILY IMGUEL ÁNGEL Sertraline HCl 25 mg 01/11/24 09:00 01/14/24 08:49 Sertraline 25 Mg Tablet PO 25 mg DAILY MIGUEL ÁNGEL Administration Sodium Chloride 10 ml 01/09/24 18:16 01/13/24 11:21 Sodium Chloride Flush 0.9% 10 Ml Syringe IVP 10 ml PRN PRN Administration NEEDED PER PROVIDER ORDERS Sodium Chloride 10 ml 01/10/24 01:00 01/14/24 16:30 Sodium Chloride Flush 0.9% 10 Ml Syringe IVP 10 ml 0100,0900,1700 MIGUEL ÁNGEL Administration Sodium Chloride 10 ml 01/14/24 08:57 Sodium Chloride Flush 0.9% 10 Ml Syringe IVP PRN PRN NEEDED PER PROVIDER ORDERS Sodium Chloride 20 ml 01/14/24 08:57 Sodium Chloride Flush 0.9% 10 Ml Syringe IVP PRN PRN After TPN or Blood Draw Trazodone HCl 50 mg 01/10/24 21:00 01/13/24 21:00 Trazodone 50 Mg Tablet PO 50 mg HS MIGUEL ÁNGEL Administration Objective Vital Signs/Intake & Output Reviewed Vital Signs: Yes Vital Signs: Vital Signs x48h Temp Pulse Resp BP Pulse Ox 01/14/24 16:00 36.4 C L 66 20 151/67 H 93 Intake & Output: Intake & Output 01/12/24 01/13/24 01/14/24 01/15/24 05:59 04:59 05:59 05:59 Intake Total 1580 / 1580 1939 / 0 2960 / 2960 1047 / 1047 Balance 1580 / 1580 1939 / 0 2960 / 2960 1047 / 1047 Objective General Appearance: positive No acute distress and Alert Eyes Bilateral: positive Normal inspection ENT: positive ENT inspection nml Neck: positive Nml inspection Respiratory: positive Chest non-tender, No respiratory distress and Breath sounds nml Cardiovascular: positive Regular rate & rhythm Abdomen: positive No distention Back: positive Nml inspection Skin: positive Color nml Extremities: positive Other (Dressing is clean and dry. taken down by orthopedics today.) Neurologic/Psychiatric: positive Oriented x3 Lab Results 01/14/24 05:24 01/14/24 05:24 Other Labs: Lab Results x24hrs 01/14/24 01/14/24 Range/Units 05:24 05:24 WBC 18.0 H (4.8-10.8) x10^3/uL RBC 2.06 L (4.70-6.10) 10^6/uL Hgb 7.5 L (14.0-18.0) g/dL Hct 23.3 L (42.0-52.0) % MCV 113.1 H (80.0-94.0) fL MCH 36.4 H (27.0-31.0) pg MCHC 32.2 (32.0-36.0) g/dL RDW 23.2 H (12.0-15.0) % Plt Count 206 (130-450) 10^3/uL MPV 10.0 (7.4-11.4) fL Neut # (Auto) 9.8 H (1.5-6.6) 10^3/uL Lymph # (Auto) 2.7 (1.5-3.5) 10^3/uL [place] # (Auto) 3.4 H (0.0-1.0) 10^3/uL Eos # (Auto) 0.2 (0.0-0.7) 10^3/uL Baso # (Auto) 0.0 (0.0-0.1) 10^3/uL Absolute Nucleated RBC 0.06 x10^3/uL Band Neuts % (Manual) Not Reportable Abnorm Lymph % (Manual) Not Reportable Nucleated RBC % 0.3 /100WBC Neutrophils # (Manual) Not Reportable Lymphocytes # (Manual) Not Reportable Monocytes # (Manual) Not Reportable Eosinophils # (Manual) Not Reportable Basophils # (Manual) Not Reportable Differential Comment MANUAL=AUTO DIFF Manual Slide Review Indicated WBC Morphology NORMAL APPEARANCE (NORMAL) Platelet Estimate NORMAL (130-450,000) (NORMAL) Platelet Morphology NORMAL APPEARANCE (NORMAL) RBC Morph Micro Appear 2+ MACROCYTOSIS 2+ ANISOCYTOSIS (NORMAL) Sodium 134 L (135-145) mmol/L Potassium 3.9 (3.5-4.5) mmol/L Chloride 106 (101-111) mmol/L Carbon Dioxide 23 (21-32) mmol/L Anion Gap 5.0 L (6-13) BUN 33 H (6-20) mg/dL Creatinine 1.0 (0.6-1.3) mg/dL Estimated GFR (MDRD) 72 L (>89) Glucose 104 (74-104) mg/dL Calcium 8.5 (8.5-10.3) mg/dL Sepsis Event Note (H) Evaluation Current Stage of Sepsis: Ruled out Possible source of Sepsis: positive Bone/Joint Assessment/Plan Problem List (1) Septic joint of left wrist: Impression: His leukocytosis is increased from yesterday. Gram stain shows no organisms moderate white blood cells on the volar specimen Dorsal specimen shows no white blood cells no organisms. Fungal culture remains pending. 2 Laboratory Tests 01/10/24 01/11/24 01/12/24 05:32 05:30 05:46 WBC 40.3 H* 18.3 H 16.0 H 01/13/24 06:30 WBC 27.1 H Qualifiers: Septic arthritis organism: due to unspecified organism Qualified Code(s): M00.9 - Pyogenic arthritis, unspecified (2) Chest pain: Impression: Acute and severe on POD #1, progressive over the course of several hours. not helped with IV dilaudid. with associated hypotension. no associated hypoxia or tachycardia. history of PE. Pain was supicious for aortic dissection or PE. he had been off his anticoagulation for brief time periods perioperatively. Pain feels like his previous PMR pain. I ordered STAT CTA of the chest. it is negative for PE or dissection. I ordered STAT EKG. there is not evidence of R heart strain or ischemia I ordered STAT troponin. negative at 4.4 I immediately gave the patient 125mg of solumedrol IV. his pain was much improved within the hour. 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 He is on prednisone 20 mg daily. His ESR and CRP show an ESR of 95 which could be consistent with his ongoing infection his CRP is 4.5 which could also be consistent with his ongoing infection. Seems to be under control at this time. I anticipate discharging him home on prednisone with a slow taper. Qualifiers: Chest pain type: other chest pain Qualified Code(s): R07.89 - Other chest pain (3) Anemia: Impression: improved after blood transfusion. he is anticoagulated due to PE. hgb 7.5 today. recheck CBC in AM. Laboratory Tests 01/10/24 01/11/24 01/12/24 05:32 05:30 05:46 Hgb 7.5 L 6.9 L* 8.7 L Qualifiers: Anemia type: unspecified type Qualified Code(s): D64.9 - Anemia, unspecified (4) Leukocytosis: Impression: White blood cell count is very labile. 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 Laboratory Tests 01/10/24 01/11/24 01/12/24 05:32 05:30 05:46 WBC 40.3 H* 18.3 H 16.0 H 01/13/24 01/14/24 06:30 05:24 WBC 27.1 H 18.0 H Qualifiers: Leukocytosis type: bandemia Qualified Code(s): D72.825 - Bandemia (5) Pulmonary emboli: Impression: I have resumed his Eliquis. He is not having any pleuritic chest pain he is not having any hypoxia. He had a CT angio of the chest which was negative for acute PE.. Qualifiers: Acute cor pulmonale presence: without acute cor pulmonale Chronicity: c hronic Pulmonary embolism type: unspecified Qualified Code(s): I27.82 - Chronic pulmonary embolism (6) Hx of essential hypertension: Impression: He is on his home medications of losartan and metoprolol. Selected Entries 11/03/24 08:00 01/13/24 15:47 Pulse Rate [Brachial] 59 L 56 L Blood Pressure [Right Brachial artery] 135/62 H Blood Pressure [Right Radial artery] 146/60 H disposition: Patient's disposition is dependent upon his culture results. These remain pending. It is unclear when we will have results back. I discussed with the patient staying in the hospital for IV antibiotics and he absolutely does not want to do this. He would like to go home. He feels that his will be able to get training and give him antibiotics at home. PICC line has been placed today. He will likely need to be disposition home on empiric antibiotics. I have spent 38 minutes in the care of this patient today. This includes time [id number], review and ordering of diagnostic imaging and laboratory studies and consultation with other providers.I have discussed him with Dr. Manzo of orthopedics.. Monitoring the patient's signs symptoms, evaluation of medication effectiveness and patient's response to treatment.
[2024-01-15 05:53] LABS: BASOPHILS % (AUTO) 0.2 %; EOSINOPHILS % (AUTO) 0.8 %; HCT - HEMATOCRIT 21.8 % (42.0-52.0); HGB - HEMOGLOBIN 7.1 g/dL (14.0-18.0); LYMPHOCYTES % (AUTO) 13.4 %; MEAN CORPUSCULAR HEMOGLOBIN 36.8 pg (27.0-31.0); MEAN CORPUSCULAR HGB CONC 32.6 g/dL (32.0-36.0); MEAN PLATELET VOLUME 9.8 fL (7.4-11.4); MONOCYTES % (AUTO) 18.7 %; NEUTROPHILS % (AUTO) 53.9 %; PLT - PLATELET COUNT 216 10^3/uL (130-450); RED BLOOD COUNT 1.93 10^6/uL (4.70-6.10); RED CELL DISTRIBUTION WIDTH 22.5 % (12.0-15.0); WHITE BLOOD COUNT 18.3 x10^3/uL (4.8-10.8)
[2024-01-15 05:55] LABS: SLIDE REVIEW? Indicated
[2024-01-15 05:56] LABS: ABNORMAL LYMPHS % (MANUAL) 0 %
[2024-01-15 06:03] LABS: CREATININE 0.9 mg/dL (0.6-1.3)
[2024-01-15 06:24] LABS: BAND NEUTROPHILS % (MANUAL) 4 %; EOSINOPHILS # (MANUAL) 0.2 10^3/uL (0-0.7); LYMPHOCYTES # (MANUAL) 2.9 10^3/uL (1.5-3.5); LYMPHOCYTES % (MANUAL) 16 %; METAMYELOCYTES % (MANUAL) 4 %; MONOCYTES # (MANUAL) 3.1 10^3/uL (0.0-1.0); MYELOCYTES % (MANUAL) 3 %; NEUTROPHILS # (MANUAL) 10.8 10^3/uL (1.5-6.6)
[2024-01-15 06:26] LABS: DIFFERENTIAL COMMENT MANUAL DIFFERENTIAL; PLATELET ESTIMATE, MANUAL NORMAL (130-450,000) (NORMAL); PLATELET MORPHOLOGY NORMAL APPEARANCE (NORMAL); WBC MORPHOLOGY (MULTIPLE) NORMAL APPEARANCE (NORMAL)
--- NOTE | 2024-01-15 10:55 | PROVIDER PROGRESS NOTE ---
Subjective Prog Note Date Prog Note Date: 01/15/24 Prog Note Time: 12:00 Subjective Pt reports feeling: Improved Subjective: He has complaints about his left upper extremity. he says he cannot move it and he wants to see the ortho MD again. Current Medications Current Medications Current Medications: Current Medications Generic Name Dose Route Start Last Admin Trade Name Freq PRN Reason Stop Dose Admin Acetaminophen 650 mg 01/09/24 18:16 01/14/24 16:34 Acetaminophen 325 Mg Tablet PO 650 mg Q4HR PRN Administration Pain 1 to 4, or Fever Acetaminophen 1,000 mg 01/10/24 10:03 01/15/24 08:24 Acetaminophen 500 Mg Tablet PO 1,000 mg Q6HR PRN Administration Mild-Moderate Pain (Level 1-7) Albuterol 2.5 mg 01/10/24 10:15 Albuterol Neb 2.5 Mg/3 Ml INH QID PRN shortness of breath or wheezing Allopurinol 50 mg 01/10/24 10:00 01/15/24 10:31 Allopurinol 100 Mg Tablet PO 50 mg QD MIGUEL ÁNGEL Administration Apixaban 5 mg 01/10/24 21:00 01/15/24 08:20 Apixaban 5 Mg Tablet PO 5 mg BID MIGUEL ÁNGEL Administration Aspirin 81 mg 01/10/24 21:00 01/14/24 21:17 Aspirin Ec 81 Mg Tablet PO 81 mg HS MIGUEL ÁNGEL Administration Atorvastatin Calcium 10 mg 01/10/24 21:00 01/14/24 21:17 Atorvastatin 10 Mg Tablet PO 10 mg QPM MIGUEL ÁNGEL Administration Hydromorphone HCl 0.5 mg 01/10/24 11:46 01/15/24 08:27 Hydromorphone 0.5 Mg/0.5 Ml Syringe IVP 0.5 mg Q2H PRN Administration Severe Pain (Level 7-10) Vancomycin HCl 1 gm/ Sodium 250 mls @ 166.667 mls/hr 01/10/24 16:00 01/15/24 08:19 Chloride IV Infused Q12H MIGUEL ÁNGEL Infusion Cefepime HCl 2 gm/ Sodium 100 mls @ 200 mls/hr 01/12/24 02:00 01/15/24 10:32 Chloride IV 200 mls/hr Q8H MIGUEL ÁNGEL Administration Lorazepam 1 mg 01/13/24 11:05 01/13/24 14:17 Lorazepam 1 Mg Tablet PO 1 mg Q6H PRN Administration Anxiety Losartan Potassium 100 mg 01/11/24 09:00 01/15/24 08:20 Losartan 50 Mg Tablet PO 100 mg DAILY MIGUEL ÁNGEL Administration Metoprolol Tartrate 25 mg 01/10/24 21:00 01/14/24 21:17 Metoprolol Tartrate 25 Mg Tablet PO 25 mg HS MIGUEL ÁNGEL Administration [id number] Ethyl Esters 1 gm 01/11/24 09:00 01/15/24 08:21 [place]-3 Acid Ethyl Esters 1 Gm Capsule PO 1 gm DAILY MIGUEL ÁNGEL Administration Ondansetron HCl 4 mg 01/09/24 18:16 Ondansetron 4 Mg/2 Ml Vial IVP Q6HR PRN Nausea / Vomiting Oxycodone HCl 5 mg 01/09/24 19:00 01/15/24 08:24 Oxycodone 5 Mg Tablet PO 5 mg Q4HR PRN Administration Moderate Pain (Level 4-6) Prednisone 20 mg 01/13/24 08:00 01/15/24 08:20 Prednisone 20 Mg Tablet PO 20 mg DAILYWM MIGUEL ÁNGEL Administration Psyllium Hydrophilic Mucilloid 1 packet 01/11/24 09:00 01/15/24 08:21 Psyllium Packet PO Not Given DAILY MIGUEL ÁNGEL Sertraline HCl 25 mg 01/11/24 09:00 01/15/24 08:20 Sertraline 25 Mg Tablet PO 25 mg DAILY MIGUEL ÁNGEL Administration Sodium Chloride 10 ml 01/09/24 18:16 01/13/24 11:21 Sodium Chloride Flush 0.9% 10 Ml Syringe IVP 10 ml PRN PRN Administration NEEDED PER PROVIDER ORDERS Sodium Chloride 10 ml 01/10/24 01:00 01/15/24 08:27 Sodium Chloride Flush 0.9% 10 Ml Syringe IVP 10 ml 0100,0900,1700 MIGUEL ÁNGEL Administration Sodium Chloride 10 ml 01/14/24 08:57 Sodium Chloride Flush 0.9% 10 Ml Syringe IVP PRN PRN NEEDED PER PROVIDER ORDERS Sodium Chloride 20 ml 01/14/24 08:57 Sodium Chloride Flush 0.9% 10 Ml Syringe IVP PRN PRN After TPN or Blood Draw Trazodone HCl 50 mg 01/10/24 21:00 01/14/24 21:17 Trazodone 50 Mg Tablet PO 50 mg HS MIGUEL ÁNGEL Administration Objective Vital Signs/Intake & Output Reviewed Vital Signs: Yes Vital Signs: Vital Signs x48h Temp Pulse Resp BP Pulse Ox 01/15/24 07:54 36.6 C 65 16 156/70 H 96 Intake & Output: Intake & Output 01/13/24 01/14/24 01/15/24 01/16/24 04:59 05:59 05:59 05:59 Intake Total 1939 2960 / 2960 1497 / 1497 370 / 370 Balance 1939 2960 / 2960 1497 / 1497 370 / 370 Objective General Appearance: positive No acute distress and Alert Eyes Bilateral: positive Normal inspection ENT: positive ENT inspection nml Neck: positive Nml inspection Respiratory: positive Chest non-tender, No respiratory distress and Breath sounds nml Cardiovascular: positive Regular rate & rhythm Abdomen: positive No distention Back: positive Nml inspection Skin: positive Color nml Extremities: positive Other (Dressing is clean and dry. taken down by orthopedics today.) Neurologic/Psychiatric: positive Oriented x3 Comments/Other: I have moved the left elbow and the left shoulder through passive range of motion. There is no deficit in the passive range of motion of the left elbow or left shoulder. The patient will not move his left elbow or left shoulder. He is somewhat resistant when I move these joints and they are passive range of motion. There is no warmth or erythema of these joints. I do not appreciate any significant swelling of these joints I changed the dressing on the wrist today. The wounds look clean there is no purulent drainage. Lab Results 01/15/24 05:23 01/15/24 05:23 Other Labs: Lab Results x24hrs 01/15/24 01/15/24 Range/Units 05:23 05:23 WBC 18.3 H (4.8-10.8) x10^3/uL RBC 1.93 L (4.70-6.10) 10^6/uL Hgb 7.1 L (14.0-18.0) g/dL Hct 21.8 L (42.0-52.0) % MCV 113.0 H (80.0-94.0) fL MCH 36.8 H (27.0-31.0) pg MCHC 32.6 (32.0-36.0) g/dL RDW 22.5 H (12.0-15.0) % Plt Count 216 (130-450) 10^3/uL MPV 9.8 (7.4-11.4) fL Neut # (Auto) Not Reportable Lymph # (Auto) Not Reportable [place] # (Auto) Not Reportable Eos # (Auto) Not Reportable Baso # (Auto) Not Reportable Absolute Nucleated RBC Not Reportable Total Counted 100 Band Neuts % (Manual) 4 (0 - 10) % Abnorm Lymph % (Manual) 0 % Metamyelocytes % 4 H ( - 0) % Myelocytes % 3 H ( - 0) % Nucleated RBC % Not Reportable Neutrophils # (Manual) 10.8 H (1.5-6.6) 10^3/uL Lymphocytes # (Manual) 2.9 (1.5-3.5) 10^3/uL Monocytes # (Manual) 3.1 H (0.0-1.0) 10^3/uL Eosinophils # (Manual) 0.2 (0-0.7) 10^3/uL Basophils # (Manual) 0.0 (0-0.1) 10^3/uL Differential Comment MANUAL DIFFERENTIAL Manual Slide Review Indicated WBC Morphology NORMAL APPEARANCE (NORMAL) Platelet Estimate NORMAL (130-450,000) (NORMAL) Platelet Morphology NORMAL APPEARANCE (NORMAL) RBC Morph Micro Appear 4+ MACROCYTOSIS 4+ ANISOCYTOSIS (NORMAL) Sodium 135 (135-145) mmol/L Potassium 4.0 (3.5-4.5) mmol/L Chloride 108 (101-111) mmol/L Carbon Dioxide 23 (21-32) mmol/L Anion Gap 4.0 L (6-13) BUN 27 H (6-20) mg/dL Creatinine 0.9 (0.6-1.3) mg/dL Estimated GFR (MDRD) 82 L (>89) Glucose 91 (74-104) mg/dL Calcium 8.0 L (8.5-10.3) mg/dL Sepsis Event Note (H) Evaluation Current Stage of Sepsis: Ruled out Possible source of Sepsis: positive Bone/Joint Assessment/Plan Problem List (1) Septic joint of left wrist: Impression: His leukocytosis is increased from yesterday. Gram stain shows no organisms moderate white blood cells on the volar specimen Dorsal specimen shows no white blood cells no organisms. Fungal culture remains pending. 2 Laboratory Tests 01/12/24 01/13/24 01/14/24 05:46 06:30 05:24 WBC 16.0 H 27.1 H 18.0 H 01/15/24 05:23 WBC 18.3 H Qualifiers: Septic arthritis organism: due to unspecified organism Qualified Code(s): M00.9 - Pyogenic arthritis, unspecified (2) Chest pain: Impression: Acute and severe on POD #1, progressive over the course of several hours. not helped with IV dilaudid. with associated hypotension. no associated hypoxia or tachycardia. history of PE. Pain was supicious for aortic dissection or PE. he had been off his anticoagulation for brief time periods perioperatively. Pain feels like his previous PMR pain. I ordered STAT CTA of the chest. it is negative for PE or dissection. I ordered STAT EKG. there is not evidence of R heart strain or ischemia I ordered STAT troponin. negative at 4.4 I immediately gave the patient 125mg of solumedrol IV. his pain was much improved within the hour. 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 He is on prednisone 20 mg daily. His ESR and CRP show an ESR of 95 which could be consistent with his ongoing infection his CRP is 4.5 which could also be consistent with his ongoing infection. Seems to be under control at this time. I anticipate discharging him home on prednisone with a slow taper. Qualifiers: Chest pain type: other chest pain Qualified Code(s): R07.89 - Other chest pain (3) Anemia: Impression: improved after blood transfusion. he is anticoagulated due to PE. hgb 7.1 today. recheck CBC in AM. I have transfused him with one unit of RBCs today. I have sent iron studies. Laboratory Tests 01/10/24 01/11/24 01/12/24 05:32 05:30 05:46 Hgb 7.5 L 6.9 L* 8.7 L Qualifiers: Anemia type: unspecified type Qualified Code(s): D64.9 - Anemia, unspecified (4) Leukocytosis: Impression: White blood cell count is very labile. 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 Qualifiers: Leukocytosis type: bandemia Qualified Code(s): D72.825 - Bandemia (5) Pulmonary emboli: Impression: I have resumed his Eliquis. He is not having any pleuritic chest pain he is not having any hypoxia. He had a CT angio of the chest which was negative for acute PE.. Qualifiers: Acute cor pulmonale presence: without acute cor pulmonale Chronicity: c hronic Pulmonary embolism type: unspecified Qualified Code(s): I27.82 - Chronic pulmonary embolism (6) Hx of essential hypertension: Impression: He is on his home medications of losartan and metoprolol. Selected Entries 01/13/24 08:00 01/13/24 15:47 Pulse Rate [Brachial] 59 L 56 L Blood Pressure [Right Brachial artery] 135/62 H Blood Pressure [Right Radial artery] 146/60 H disposition: Patient's disposition is dependent upon his culture results. These remain pending. I discussed with the patient staying in the hospital for IV antibiotics and he absolutely does not want to do this. He would like to go home. He feels that his will be able to get training and give him antibiotics at home. PICC line has been placed today. He will likely need to be disposition home on empiric antibiotics. I have spent 42 minutes in the care of this patient today. This includes time [id number], review and ordering of diagnostic imaging and laboratory studies and consultation with other providers.I have discussed him with Dr. Manzo of orthopedics.. Monitoring the patient's signs symptoms, evaluation of medication effectiveness and patient's response to treatment.
[2024-01-15 14:53] LABS: % IRON SATURATION 33 % (20-50); IRON 85 ug/dL (50-212); TOTAL IRON BINDING CAPACITY 255 ug/dL (250-450); TRANSFERRIN 182 mg/dL (203-362)
[2024-01-15] MEDS: DAPTOmycin 500 MG VIAL IVP SCH (16:19)
[2024-01-16 09:15] LABS: BASOPHILS % (AUTO) 0.2 %; EOSINOPHILS % (AUTO) 1.3 %; HCT - HEMATOCRIT 27.5 % (42.0-52.0); HGB - HEMOGLOBIN 9.1 g/dL (14.0-18.0); MEAN CORPUSCULAR HEMOGLOBIN 36.1 pg (27.0-31.0); MEAN CORPUSCULAR HGB CONC 33.1 g/dL (32.0-36.0); MEAN CORPUSCULAR VOLUME 109.1 fL (80.0-94.0); MEAN PLATELET VOLUME 9.8 fL (7.4-11.4); MONOCYTES % (AUTO) 16.6 %; NEUTROPHILS % (AUTO) 50.1 %; PLT - PLATELET COUNT 227 10^3/uL (130-450); RED BLOOD COUNT 2.52 10^6/uL (4.70-6.10); RED CELL DISTRIBUTION WIDTH 24.4 % (12.0-15.0); WHITE BLOOD COUNT 18.8 x10^3/uL (4.8-10.8)
[2024-01-16 09:21] LABS: SLIDE REVIEW? Indicated
[2024-01-16 09:22] LABS: ABNORMAL LYMPHS % (MANUAL) 0 %
[2024-01-16 09:57] LABS: CALCIUM 8.8 mg/dL (8.5-10.3); CREATININE 1.1 mg/dL (0.6-1.3); POTASSIUM 3.6 mmol/L (3.5-4.5)
--- NOTE | 2024-01-16 10:09 | POST OP PROGRESS NOTE ---
Subjective General Admit Date: 01/09/24 Procedure Date: 01/10/24 Post Op Days: 6 Procedure Performed: I & D of left wrist, carpal tunnel release with bone biopsy of lunate Other Other Information/Narrative: Patient denies f/c/ns. states he still has pain at his left wrist but feels different and improved from prior to I & D. He states he has been trying to elevate it. He does say he is having difficulty moving his shoulder since the surgery - he does have problems with his shoulder and states that his left upper extremity feels heavy. TOday, he states he has been unable to move his shoulder since the surgery. He denies pain. Denies pain at the elbow. Exam LEft wrist; . He is able to demonstate a 60 deg arc of motion without joint irritability. SILT R/U/M. Fires epl/fpl/io. Rad pulse 2+ and brisk cap refill. L shoulder: NTTP: Fires delt. Passive ROM: 120 deg ABD 120 deg. He is unable to actively raise his left arm. 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 L elbow: 2 v : Minimal arthritic changes in the elbow. Ortho Surgical Progress Note Problem List Problem List: Left wrist septic arthritis and painless inability to move left shoulder. - antibiotics per primary team with PICC line. - F/u with me in 2 weeks for suture removal and will order an MRI of the L shoulder as an outpatient if he is still unable to raise his shoulder. Discharge Instructions: No lifting more than a coffee cup with left upper extremity. Wrist splint as needed. May remove dressing and shelli wrap to shower. Exam Exam LEft wrist; Incisions well approximated and quique drain in place. No surrounding erythema or warmth. TTP around incision. No pain in forearm or fingers. No palpable fluctance and no purulence expressed. He is able to demonstate a 60 deg arc of motion without joint irritability. SILT R/U/M. Fires epl/fpl/io. Rad pulse 2+ and brisk cap refill.
[2024-01-16 10:23] LABS: BAND NEUTROPHILS % (MANUAL) 5 %; EOSINOPHILS # (MANUAL) 0.4 10^3/uL (0-0.7); LYMPHOCYTES # (MANUAL) 3.2 10^3/uL (1.5-3.5); LYMPHOCYTES % (MANUAL) 17 %; METAMYELOCYTES % (MANUAL) 2 %; MONOCYTES # (MANUAL) 2.6 10^3/uL (0.0-1.0); NEUTROPHILS # (MANUAL) 12.2 10^3/uL (1.5-6.6); NUCLEATED RBC (MANUAL) 1 %
[2024-01-16 10:24] LABS: DIFFERENTIAL COMMENT MANUAL DIFFERENTIAL; PLATELET ESTIMATE, MANUAL NORMAL (130-450,000) (NORMAL); PLATELET MORPHOLOGY NORMAL APPEARANCE (NORMAL)
--- NOTE | 2024-01-16 14:50 | PROVIDER PROGRESS NOTE ---
Subjective Prog Note Date Prog Note Date: 01/16/24 Subjective Pt reports feeling: Improved Subjective: States he can move his wrist. Looking forward to going home Current Medications Current Medications Current Medications: Current Medications Generic Name Dose Route Start Last Admin Trade Name Nilson PRN Reason Stop Dose Admin Acetaminophen 1,000 mg 01/10/24 10:03 01/16/24 08:53 Acetaminophen 500 Mg Tablet PO 1,000 mg Q6HR PRN Administration Mild-Moderate Pain (Level 1-7) Albuterol 2.5 mg 01/10/24 10:15 Albuterol Neb 2.5 Mg/3 Ml INH QID PRN shortness of breath or wheezing Allopurinol 50 mg 01/10/24 10:00 01/16/24 10:50 Allopurinol 100 Mg Tablet PO 50 mg QD MIGUEL ÁNGEL Administration Apixaban 5 mg 01/10/24 21:00 01/16/24 08:54 Apixaban 5 Mg Tablet PO 5 mg BID MIGUEL ÁNGEL Administration Aspirin 81 mg 01/10/24 21:00 01/15/24 21:12 Aspirin Ec 81 Mg Tablet PO 81 mg HS MIGUEL ÁNGEL Administration Atorvastatin Calcium 10 mg 01/10/24 21:00 01/15/24 21:12 Atorvastatin 10 Mg Tablet PO 10 mg QPM MIGUEL ÁNGEL Administration Daptomycin 800 mg 01/16/24 13:22 Daptomycin 500 Mg Vial IVP 1500 MIGUEL ÁNGEL Hydromorphone HCl 0.5 mg 01/10/24 11:46 01/16/24 00:52 Hydromorphone 0.5 Mg/0.5 Ml Syringe IVP 0.5 mg Q2H PRN Administration Severe Pain (Level 7-10) Cefepime HCl 2 gm/ Sodium 100 mls @ 200 mls/hr 01/12/24 02:00 01/16/24 12:41 Chloride IV Infused Q8H MIGUEL ÁNGEL Infusion Lorazepam 1 mg 01/13/24 11:05 01/15/24 13:12 Lorazepam 1 Mg Tablet PO 1 mg Q6H PRN Administration Anxiety Losartan Potassium 100 mg 01/11/24 09:00 01/16/24 08:53 Losartan 50 Mg Tablet PO 100 mg DAILY MIGUEL ÁNGEL Administration Metoprolol Tartrate 25 mg 01/10/24 21:00 01/15/24 21:12 Metoprolol Tartrate 25 Mg Tablet PO 25 mg HS MIGUEL ÁNGEL Administration Pkrdy-1-Opoh Ethyl Esters 1 gm 01/11/24 09:00 01/16/24 08:53 Fidelity-3 Acid Ethyl Esters 1 Gm Capsule PO 1 gm DAILY MIGUEL ÁNGEL Administration Ondansetron HCl 4 mg 01/09/24 18:16 Ondansetron 4 Mg/2 Ml Vial IVP Q6HR PRN Nausea / Vomiting Oxycodone HCl 5 mg 01/09/24 19:00 01/15/24 14:37 Oxycodone 5 Mg Tablet PO 5 mg Q4HR PRN Administration Moderate Pain (Level 4-6) Prednisone 20 mg 01/13/24 08:00 01/16/24 08:54 Prednisone 20 Mg Tablet PO 20 mg DAILYWM MIGUEL ÁNGEL Administration Psyllium Hydrophilic Mucilloid 1 packet 01/11/24 09:00 01/16/24 08:54 Psyllium Packet PO Not Given DAILY MIGUEL ÁNGEL Sertraline HCl 25 mg 01/11/24 09:00 01/16/24 08:54 Sertraline 25 Mg Tablet PO 25 mg DAILY MIGUEL ÁNGEL Administration Sodium Chloride 10 ml 01/09/24 18:16 01/13/24 11:21 Sodium Chloride Flush 0.9% 10 Ml Syringe IVP 10 ml PRN PRN Administration NEEDED PER PROVIDER ORDERS Sodium Chloride 10 ml 01/10/24 01:00 01/16/24 08:54 Sodium Chloride Flush 0.9% 10 Ml Syringe IVP 10 ml 0100,0900,1700 MIGUEL ÁNGEL Administration Sodium Chloride 10 ml 01/14/24 08:57 Sodium Chloride Flush 0.9% 10 Ml Syringe IVP PRN PRN NEEDED PER PROVIDER ORDERS Sodium Chloride 20 ml 01/14/24 08:57 Sodium Chloride Flush 0.9% 10 Ml Syringe IVP PRN PRN After TPN or Blood Draw Trazodone HCl 50 mg 01/10/24 21:00 01/15/24 21:11 Trazodone 50 Mg Tablet PO 50 mg HS MIGUEL ÁNGEL Administration Objective Vital Signs/Intake & Output Reviewed Vital Signs: Yes Vital Signs: Vital Signs x48h Temp Pulse Resp BP Pulse Ox 01/16/24 08:00 36.8 C 84 16 107/72 92 Intake & Output: Intake & Output 01/14/24 01/15/24 01/16/24 01/17/24 05:59 05:59 05:59 05:59 Intake Total 2960 / 2960 1497 / 1497 1816 / 1816 610 / 610 Balance 2960 / 2960 1497 / 1497 1816 / 1816 610 / 610 Objective General Appearance: positive No acute distress and Alert Eyes Bilateral: positive Normal inspection ENT: positive ENT inspection nml Neck: positive Nml inspection Respiratory: positive Chest non-tender and No respiratory distress Cardiovascular: positive Regular rate & rhythm Abdomen: positive Non-tender Back: positive Nml inspection Skin: positive Color nml Extremities: positive Other (Dressing is clean and dry) Neurologic/Psychiatric: positive Oriented x3 Lab Results 01/16/24 09:00 01/16/24 09:00 Other Labs: Lab Results x24hrs 01/16/24 01/16/24 01/15/24 Range/Units 09:00 09:00 14:05 WBC 18.8 H (4.8-10.8) x10^3/uL RBC 2.52 L (4.70-6.10) 10^6/uL Hgb 9.1 L (14.0-18.0) g/dL Hct 27.5 L (42.0-52.0) % MCV 109.1 H (80.0-94.0) fL MCH 36.1 H (27.0-31.0) pg MCHC 33.1 (32.0-36.0) g/dL RDW 24.4 H (12.0-15.0) % Plt Count 227 (130-450) 10^3/uL MPV 9.8 (7.4-11.4) fL Neut # (Auto) Not Reportable Lymph # (Auto) Not Reportable [place] # (Auto) Not Reportable Eos # (Auto) Not Reportable Baso # (Auto) Not Reportable Absolute Nucleated RBC Not Reportable Total Counted 100 Band Neuts % (Manual) 5 (0 - 10) % Abnorm Lymph % (Manual) 0 % Metamyelocytes % 2 H ( - 0) % Nucleated RBC % Not Reportable Neutrophils # (Manual) 12.2 H (1.5-6.6) 10^3/uL Lymphocytes # (Manual) 3.2 (1.5-3.5) 10^3/uL Monocytes # (Manual) 2.6 H (0.0-1.0) 10^3/uL Eosinophils # (Manual) 0.4 (0-0.7) 10^3/uL Basophils # (Manual) 0.0 (0-0.1) 10^3/uL Nucleated RBCs 1 % Differential Comment MANUAL DIFFERENTIAL Manual Slide Review Indicated Platelet Estimate NORMAL (130-450,000) (NORMAL) Platelet Morphology NORMAL APPEARANCE (NORMAL) RBC Morph Micro Appear 2+ STOMATOCYTES 2+ ANISOCYTOSIS (NORMAL) Sodium 135 (135-145) mmol/L Potassium 3.6 (3.5-4.5) mmol/L Chloride 104 (101-111) mmol/L Carbon Dioxide 23 (21-32) mmol/L Anion Gap 8.0 (6-13) BUN 25 H (6-20) mg/dL Creatinine 1.1 (0.6-1.3) mg/dL Estimated GFR (MDRD) 65 L (>89) Glucose 178 H (74-104) mg/dL Calcium 8.8 (8.5-10.3) mg/dL Iron 85 (50-212) ug/dL TIBC 255 (250-450) ug/dL % Saturation 33 (20-50) % Transferrin 182 L (203-362) mg/dL Blood Type O NEGATIVE Antibody Screen NEGATIVE Crossmatch IS Only See Detail Sepsis Event Note (H) Evaluation Current Stage of Sepsis: Ruled out Possible source of Sepsis: positive Bone/Joint Assessment/Plan Problem List (1) Septic joint of left wrist: Impression: Wound, blood cultures including fungal no growth to date On cefepime, daptomycin Home infusion has been set up to start tomorrow PICC line in place Discussed with care management team as well as pharmacy. His home infusion service is available after 3 PM tomorrow. We will optimize his medication schedule to align with this Qualifiers: Septic arthritis organism: due to unspecified organism Qualified Code(s): M00.9 - Pyogenic arthritis, unspecified (2) Chest pain: Impression: Acute and severe on POD #1, progressive over the course of several hours. not helped with IV dilaudid. with associated hypotension. no associated hypoxia or tachycardia. history of PE. Pain was supicious for aortic dissection or PE. he had been off his anticoagulation for brief time periods perioperatively. Pain feels like his previous PMR pain. CTA chest negative for PE or dissection. EKG no evidence of ischemia. Troponin negative. This chest pain resolved after 1 dose of Solu-Medrol. He was placed on a slow prednisone taper which is controlling what is likely PMR pain Qualifiers: Chest pain type: other chest pain Qualified Code(s): R07.89 - Other chest pain (3) Anemia: Impression: Received 1 blood transfusion yesterday, Hgb 9.1 today. Anticoagulated, iron level normal CBC daily Qualifiers: Anemia type: unspecified type Qualified Code(s): D64.9 - Anemia, unspecified (4) Leukocytosis: Impression: White blood cell count is very labile. 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 Qualifiers: Leukocytosis type: bandemia Qualified Code(s): D72.825 - Bandemia (5) Pulmonary emboli: Impression: Eliquis has been restarted. He is not having any pleuritic chest pain he is not having any hypoxia. He had a CT angio of the chest which was negative for acute PE.. Qualifiers: Acute cor pulmonale presence: without acute cor pulmonale Chronicity: c hronic Pulmonary embolism type: unspecified Qualified Code(s): I27.82 - Chronic pulmonary embolism (6) Hx of essential hypertension: Impression: BP controlled on home dose losartan, metoprolol
[2024-01-16] MEDS: DAPTOmycin 500 MG VIAL IVP SCH (15:00)
[2024-01-17 06:11] LABS: BASOPHILS % (AUTO) 0.3 %; EOSINOPHILS % (AUTO) 1.3 %; HCT - HEMATOCRIT 25.8 % (42.0-52.0); HGB - HEMOGLOBIN 8.5 g/dL (14.0-18.0); LYMPHOCYTES % (AUTO) 13.3 %; MEAN CORPUSCULAR HEMOGLOBIN 35.9 pg (27.0-31.0); MEAN CORPUSCULAR HGB CONC 32.9 g/dL (32.0-36.0); MEAN CORPUSCULAR VOLUME 108.9 fL (80.0-94.0); MEAN PLATELET VOLUME 9.5 fL (7.4-11.4); MONOCYTES % (AUTO) 18.8 %; NEUTROPHILS % (AUTO) 52.4 %; PLT - PLATELET COUNT 207 10^3/uL (130-450); RED BLOOD COUNT 2.37 10^6/uL (4.70-6.10); RED CELL DISTRIBUTION WIDTH 23.8 % (12.0-15.0); WHITE BLOOD COUNT 22.6 x10^3/uL (4.8-10.8)
[2024-01-17 06:24] LABS: CALCIUM 8.8 mg/dL (8.5-10.3); CREATININE 1.1 mg/dL (0.6-1.3); POTASSIUM 4.2 mmol/L (3.5-4.5)
[2024-01-17 07:01] LABS: ABNORMAL LYMPHS % (MANUAL) 1 %; BAND NEUTROPHILS % (MANUAL) 4 %; EOSINOPHILS # (MANUAL) 0.2 10^3/uL (0-0.7); LYMPHOCYTES # (MANUAL) 3.4 10^3/uL (1.5-3.5); LYMPHOCYTES % (MANUAL) 14 %; METAMYELOCYTES % (MANUAL) 4 %; MONOCYTES # (MANUAL) 1.6 10^3/uL (0.0-1.0); MYELOCYTES % (MANUAL) 7 %; NEUTROPHILS # (MANUAL) 14.9 10^3/uL (1.5-6.6)
[2024-01-17 07:02] LABS: DIFFERENTIAL COMMENT MANUAL DIFFERENTIAL; PLATELET ESTIMATE, MANUAL NORMAL (130-450,000) (NORMAL); PLATELET MORPHOLOGY NORMAL APPEARANCE (NORMAL); WBC MORPHOLOGY (MULTIPLE) NORMAL APPEARANCE (NORMAL)
[2024-01-17] MEDS ORDERED: SODIUM CHLORIDE 0.9% MINIBAG 100 ML IV ONE (09:25)
--- NOTE | 2024-01-17 09:35 | XRAY Report ---
PROCEDURE: XR Elbow 1-2V LT INDICATIONS: left elbow pain TECHNIQUE: 2 views of the elbow were acquired. COMPARISON: None. FINDINGS: Bones: No osseous abnormality. Elbow joint: Suboptimally visualized. No gross evidence of effusion. Soft tissues: There is minor calcification over the anterior capsular soft tissues and over the expec lisa location of the lateral collateral ligament insertion on the lateral epicondyle. Diffuse soft tis ashleigh swelling noted IMPRESSION: Moderate diffuse soft tissue swelling likely edema or less likely inflammation. Calcification over the lateral collateral ligament insertion the lateral epicondyle which could indic ate chronic sprain. Please correlate with instability Reviewed by: Trent Escobar MD on 01/17/2024 9:34 AM PST Approved by: Trent Escobar MD on 01/17/2024 9:34 AM PST Station ID: [email or web address]
--- NOTE | 2024-01-17 09:41 | XRAY Report ---
PROCEDURE: XR Shoulder 2+V LT INDICATIONS: left shoulder pain TECHNIQUE: 3 views of the shoulder were acquired. COMPARISON: None. FINDINGS: Bones: There are 3 metallic fixation plantars overlying the lateral anatomic neck ostensibly for prio r rotator cuff repair. Joints: Acromioplasty changes noted. Severe glenohumeral degeneration noted. Soft tissues: Unremarkable. Visualized lungs are normal. IMPRESSION: Severe glenohumeral degenerative change. Acromioplasty changes Reviewed by: Trent Escobar MD on 01/17/2024 9:40 AM PST Approved by: Trent Escobar MD on 01/17/2024 9:40 AM PST Station ID: [email or web address]
[2024-01-17 12:17] VITALS: O2SAT 96
--- NOTE | 2024-01-17 12:30 | Discharge Summary ---
"Discharge Summary Admit Date: 01/09/24 Discharge Date: 01/17/24 Discharging Provider: Tobin Rowe NP Primary Care Provider: Deacon Juárez Code Status: Attempt Resuscitation DIAGNOSES Admission Diagnoses: Left wrist pain Leukocytosis Hypertension History of pulmonary embolism Discharge Diagnoses with Status of Each Condition: Septic joint of left wristactive Chest painresolved Anemiaresolved Leukocytosisactive History of PEchronic Hypertensionchronic HPI History of Present Illness: 78-year-old male PMH significant for hypertension, PE, PMR presented to the hospital with 10 days of pain in his left wrist. He underwent I&D of his left wrist on 01/10/2024, and was placed on IV antibiotics CONSULTS | PROCEDURES Consultations: Orthopedic surgery Procedures: I&D left wrist 01/10/2024 HOSPITAL COURSE Hospital Course: Patient was admitted to hospitalist, orthopedics consulted. I&D left wrist 01/10/2024. Ortho signed off, said that he needs at least 2 weeks of antibiotics. They recommended follow-up in 2 weeks. He experienced chest pain while admitted, which resolved after dose of steroids. He was continued on p.o. steroids, and will be discharged on a steroid taper ALLERGIES Allergies Allergy/AdvReac Type Severity Reaction Status Date / Time pseudoephedrine HCl * (From Allergy Severe Hives Verified 01/09/24 17:53 Sudafed) triprolidine HCl * (From Allergy Severe Hives Verified 01/09/24 17:53 Actifed) MEDICATIONS Ambulatory Orders Medication Instructions Recorded Confirmed albuterol sulfate 90 mcg/actuation 1 inh inhalation QID PRN shortness 12/21/23 01/09/24 aerosol inhaler (Proventil HFA) of breath or wheezing #6.7 grams CPAP/BiPAP 01/04/24 01/09/24 allopurinol 100 mg tablet 50 mg (1/2 x 100 mg) PO QDAY #45 01/04/24 01/09/24 tabs apixaban 5 mg tablet (Eliquis) 5 mg PO BID 01/04/24 01/09/24 aspirin 81 mg tablet,delayed 81 mg PO HS 01/04/24 01/09/24 release (Aspir-) calcium 300 mg-D3 20 mcg-magnesium 1 tab PO QDAY 01/04/24 01/09/24 25 mg-coppr 0.5 yl-nujw-nppm tablet hydrocodone 5 mg-acetaminophen 325 1 tab PO Q8H PRN pain #10 tabs 01/04/24 01/09/24 mg tablet losartan 100 mg tablet (Cozaar) 100 mg PO DAILY 01/04/24 01/09/24 metoprolol tartrate 25 mg tablet 25 mg PO HS 01/04/24 01/09/24 omega-3s 350 ld-jju-jcx-other 1 cap PO DAILY 01/04/24 01/09/24 [id number] oil 600 mg capsule (Fish Oil) oxymetazoline 0.05 % nasal mist 1 spray intranasal Q12H PRN nasal 01/04/24 01/09/24 (Afrin (oxymetazoline)) congestion psyllium husk (with sugar) 3.4 2 tbsp PO DAILY 01/04/24 01/09/24 gram/12 gram oral powder (Metamucil (with sugar)) rosuvastatin 5 mg tablet (Crestor) 5 mg PO HS 01/04/24 01/09/24 sertraline 25 mg tablet 25 mg PO DAILY 01/04/24 01/09/24 trazodone 50 mg tablet 50 mg PO HS #90 tabs 01/04/24 01/09/24 acetaminophen 650 mg 650 mg PO TID 30 days #120 tabs 01/17/24 01/09/24 tablet,extended release (Tylenol Arthritis Pain) cefepime 2 gram solution for 2 g IV Q8H 2 weeks 01/17/24 injection daptomycin 1,000 mg/100 mL in 0.9 800 mg (80 mL) IV Q24H 2 weeks 01/17/24 % sodium chlor intravenous piggyback oxycodone 5 mg tablet 5 mg PO Q4HR PRN Moderate Pain 01/17/24 (Level 4-6) 3 days #18 tabs prednisone 10 mg tablets in a dose 10 mg PO DIRECTED 14 days #14 ea 01/17/24 pack PHYSICAL EXAM AT DISCHARGE General Appearance: positive No acute distress and Alert Eyes Bilateral: positive Normal inspection and PERRL ENT: positive ENT inspection nml Neck: positive Nml inspection Respiratory: positive Chest non-tender and No respiratory distress Cardiovascular: positive Regular rate & rhythm Peripheral Pulses: positive 2+ Abdomen: positive Non-tender Skin: positive Color nml Extremities: positive Other (Some tenderness in his left wrist, can move his wrist) Neurologic/Psychiatric: positive Oriented x3 LABS 01/17/24 05:45 01/17/24 05:45 SEPSIS Current Stage of Sepsis: Ruled out Possible source of Sepsis: Bone/Joint QUALITY (Female Hip Fx Only) Was patient sent home on osteoporosis medication?: No FOLLOW UP Follow Up: With orthopedics, PCP TIME SPENT Time Spent in Discharge (Minutes): 35 Discharge Plan Discharge Patient Disposition: Home, Self Care Condition: Serious Prescriptions: New oxycodone 5 mg Tablet 5 mg PO Q4HR PRN (Reason: Moderate Pain (Level 4-6)) 3 Days Qty: 18 0RF prednisone 10 mg tablets,dose pack 10 mg PO DIRECTED 14 Days Qty: 14 0RF Rx Instructions: see taper instructions daptomycin in 0.9 % sod chlor 1,000 mg/100 mL piggyback 800 mg IV Q24H 14 Days Rx Instructions: administer over 30 mins cefepime 2 gram recon soln 2 g IV Q8H 14 Days Continued aspirin [Aspir-81] 81 mg tablet,delayed release (DR/EC) 81 mg PO HS Rx Instructions: take one tablet by mouth once a day losartan [Cozaar] 100 mg tablet 100 mg PO DAILY Rx Instructions: TAKE ONE TABLET DAILY Metamucil (with sugar) 3.4 gram/12 gram powder 2 tbsp PO DAILY Rx Instructions: TAKE TWO TABLESPOON ONCE DAILY metoprolol tartrate 25 mg tablet 25 mg PO HS Rx Instructions: TAKE ONE TABLET DAILY rosuvastatin [Crestor] 5 mg tablet 5 mg PO HS Rx Instructions: TAKE ONE TABLET EVERY EVENING (DOSE REDUCTION ON 04/18/21) Fish Oil 350-600 mg capsule 1 cap PO DAILY Rx Instructions: TAKE ONE CAPSULE BY MOUTH ONCE A DAY sertraline 25 mg tablet 25 mg PO DAILY Rx Instructions: TAKE ONE TABLET BY MOUTH EVERY MORNING albuterol sulfate [Proventil HFA] 90 mcg/actuation HFA aerosol inhaler 1 inh inhalation QID PRN (Reason: shortness of breath or wheezing) Qty: 6.7 0RF acetaminophen [Tylenol Arthritis Pain] 650 mg tablet extended release 650 mg PO TID 30 Days Qty: 120 0RF Rx Instructions: TAKE 2 TABLETS BY MOUTHE THREE TIMES A DAY NEEDED FOR PAIN Afrin (oxymetazoline) 0.05 % mist 1 spray intranasal Q12H PRN (Reason: nasal congestion) Rx Instructions: spray one spray as directed every night Ca carb-D3-mag mu-zyt-essk-Zn 300 mg-20 mcg- 25 mg-0.5 mg tablet 1 tab PO QDAY Rx Instructions: take one tablet once a day (DME) CPAP/BiPAP Kit See Rx Instructions .ROUTE Rx Instructions: USE EVERY NIGHT Eliquis 5 mg tablet 5 mg PO BID Rx Instructions: TAKE ONE TABLET BY MOUTH TWICE A DAY allopurinol 100 mg tablet 50 mg PO QDAY Qty: 45 3RF hydrocodone-acetaminophen 5-325 mg tablet 1 tab PO Q8H PRN (Reason: pain) Qty: 10 0RF trazodone 50 mg tablet 50 mg PO HS Qty: 90 3RF Rx Instructions: TAKE ONE TABLET BY MOUTH EVERY NIGHT Activity Restrictions: No Restrictions Diet: Regular Health Concerns: You are a 78-year-old male with history of PE and CML who came down with 10 days of left wrist pain. You were admitted, and underwentIncision and drainage of the left wrist with a bone biopsy on 01/10/2024. After this, you started experiencing chest pain similar to your prior experiences with PMR. This resolved after steroid dose. We held you here inpatient while we started you on IV antibiotics. Orthopedics recommends that you continue IV antibiotics for at least 2 weeks, and to follow-up with them in 2 weeks. I have written orders for these antibiotics, as well as steroids. At your follow-up, they can decide if you need further antibiotics. Plan of Treatment: IV antibiotics Steroid taper Follow-up with orthopedic surgery Print Language: Colombian Patient Instructions: Surgery Anesthesia After Stand Alone Forms: PCP List Follow-up Care: Deacon Juárez MD [Primary Care Provider] -"
== END 2024-01-17 12:30 | disposition home or self-care (01) | DRG 506 ==
LOC: ED 03:01 → MS2 17:42
PROVIDERS: ADMIT Student in an Organized Health Care Education/Training Program; ATTEND Student in an Organized Health Care Education/Training Program
DX: R03.1 Nonspecific low blood-pressure reading; M35.3 Polymyalgia rheumatica; M10.9 Gout, unspecified; M54.89 Other dorsalgia; M19.032 Primary osteoarthritis, left wrist; Z79.899 Other long term (current) drug therapy; I27.82 Chronic pulmonary embolism; F41.9 Anxiety disorder, unspecified; G47.33 Obstructive sleep apnea (adult) (pediatric); G31.84 Mild cognitive impairment of uncertain or unknown etiology; M00.9 Pyogenic arthritis, unspecified; R07.89 Other chest pain; G56.02 Carpal tunnel syndrome, left upper limb; M11.232 Other chondrocalcinosis, left wrist; Z85.6 Personal history of leukemia; Z79.01 Long term (current) use of anticoagulants; D64.9 Anemia, unspecified; I10 Essential (primary) hypertension

== ENCOUNTER 2024-02-12 11:33 | Inpatient (IN) ==
--- NOTE | 2024-02-12 12:05 | ED Physician Documentation ---
PD HPI WOUND RECHECK Stated complaint Stated Complaint: PHY REFERRAL INFECTION Chief complaint Chief Complaint: Ext Problem Histroy obtained from History obtained from: Patient and Caregiver (seen by Ortho in office toady, with apparent recurring infection of joint, sent to ED for labs and admission for surgical clean out and IV abx. ) History of Present Illness Location: Left Uppper Extremity (wrist) Associated symptoms: Redness, Swelling and Drainage; No Fever Similar symptoms before: Diagnosis (recent infection with surgical cleaning and IV abx inpt and outpt, finishing abx a week ago and drainage curring the past 2- 3 days. ) Recently seen: Clinic (today in Ortho office. ) Meds/Allgy Home Medications Ambulatory Orders Medication Instructions Recorded Confirmed CPAP/BiPAP 01/04/24 02/12/24 allopurinol 100 mg tablet 50 mg (1/2 x 100 mg) PO QDAY #45 01/04/24 02/12/24 tabs apixaban 5 mg tablet (Eliquis) 5 mg PO BID 01/04/24 02/12/24 aspirin 81 mg tablet,delayed 81 mg PO HS 01/04/24 02/12/24 release (Aspir-) losartan 100 mg tablet (Cozaar) 100 mg PO DAILY 01/04/24 02/12/24 metoprolol tartrate 25 mg tablet 25 mg PO HS 01/04/24 02/12/24 omega-3s 350 eq-sim-dsq-other 2 cap PO DAILY 01/04/24 02/12/24 iufmm3e-zgzd oil 600 mg capsule (Fish Oil) oxymetazoline 0.05 % nasal mist 1 spray intranasal QPM PRN nasal 01/04/24 02/12/24 (Afrin (oxymetazoline)) congestion psyllium husk (with sugar) 3.4 2 tbsp PO DAILY 01/04/24 02/12/24 gram/12 gram oral powder (Metamucil (with sugar)) rosuvastatin 5 mg tablet (Crestor) 5 mg PO HS 01/04/24 02/12/24 sertraline 25 mg tablet 25 mg PO DAILY 01/04/24 02/12/24 trazodone 50 mg tablet 50 mg PO HS #90 tabs 01/04/24 02/12/24 cefepime 2 gram solution for 2 g IV Q8H 2 weeks 01/17/24 02/12/24 injection daptomycin 1,000 mg/100 mL in 0.9 800 mg (80 mL) IV Q24H 2 weeks 01/17/24 02/12/24 % sodium chlor intravenous piggyback cyclobenzaprine 10 mg tablet 10 mg PO HS for back pain #30 tabs 01/25/24 02/12/24 cholecalciferol (vitamin D3) 50 50 mcg PO DAILY 02/12/24 02/12/24 mcg (2,000 unit) capsule hoyoszre-mcr-priyh acid 0.4 1 tab PO DAILY 02/12/24 02/12/24 mg-lycopene 300 mcg-lutein 250 mcg tablet (Centrum Silver) Allergies Allergies Allergy/AdvReac Type Severity Reaction Status Date / Time pseudoephedrine HCl * (From Allergy Severe Hives Verified 02/12/24 11:55 Sudafed) triprolidine HCl * (From Allergy Severe Hives Verified 02/12/24 11:55 Actifed) PFSH Medical History Medical History Symptomatic anemia PMR (polymyalgia rheumatica) Hx of essential hypertension MARICARMEN on CPAP Leukopenia Dyspnea on exertion Anemia due to antineoplastic chemotherapy Left foot pain Neutropenic fever Shortness of breath Splenomegaly Pulmonary embolus, left Pain and swelling of left wrist History of gout H/O testicular biopsy LEFT TESTICLE Chronic knee pain after total replacement of both knee joints Surgical History Surgical History S/P colonoscopy 03/2013, 06/2014, -- HX OF ADENOMATOUS POLYPS -- COLONOSCOPY 01/2023 HAD MULTIPLE ADENOMATOUS POLYPS WITH RECALL IN 2024 S/P left heart catheterization by cutdown 01/2011, MINIMAL CAD History of arthroplasty of right knee 11/2010 S/P carpal tunnel release S/P exploratory laparotomy EX LAP FOR METALLIC FB -- METALIC FRAGMENT FROM AXE HEAD S/P rotator cuff repair S/P nasal septoplasty S/P UVPP (uvulopalatopharyngoplasty) S/P tonsillectomy Family History Family History Father Prostate cancer Diabetes Mother Lung cancer High blood pressure Social History Social History Smoking Status: Never smoker Second hand tobacco smoke exposure: No Do you dip or chew tobacco?: No Do you vape?: No Living arrangement: At home Marital Status: Living Condition: With spouse/s.o. Support Person: Yes Relationship: Physical Activity: None and Walking How many days per week?: 5 Level: Independent Do you feel safe in your home environment?: Yes Suffered physical, verbal, emotional, or financial abuse?: No History of Abuse: No ETOH Use: None Substance Use: denies use Retired: Yes Service: Yes Dates of Service: [id number] Are you following a diet prescribed by a doctor: Yes Special Diet Details: no iron, red meat, green veggies POLST Patient has POLST: No POLST Status: Full Code Exam Constitutional normal general appearance, no apparent distress and average body habitus Extremities dressing on left wrist. I left intact since just came from office with decision for surgical debridement. Results Vitals Vitals: Vital Signs - 24 hr 02/11/24 22:10 02/11/24 22:55 02/12/24 11:48 Temperature 36.5 C Temperature Source Skin Pulse Rate 59 L Respiratory Rate 15 Blood Pressure 113/59 L O2 Saturation 97 O2 Source Room air Room air Pain Intensity 0 7 Oxygen O2 Source Room air Labs Labs: Laboratory Tests 02/12/24 02/12/24 02/12/24 12:23 12:23 12:23 WBC 16.3 H RBC 1.97 L Hgb 7.1 L Hct 21.9 L MCV 111.2 H MCH 36.0 H MCHC 32.4 RDW 23.9 H Plt Count 202 MPV 10.3 Neut # (Auto) Not Reportable Lymph # (Auto) Not Reportable Emmet # (Auto) Not Reportable Eos # (Auto) Not Reportable Baso # (Auto) Not Reportable Absolute Nucleated RBC Not Reportable Total Counted 100 Band Neuts % (Manual) 5 Abnorm Lymph % (Manual) 0 Metamyelocytes % 2 H Nucleated RBC % Not Reportable Neutrophils # (Manual) 12.4 H Lymphocytes # (Manual) 1.8 Monocytes # (Manual) 1.6 H Eosinophils # (Manual) 0.2 Basophils # (Manual) 0.0 Nucleated RBCs 1 Differential Comment MANUAL DIFFERENTIAL Manual Slide Review Indicated WBC Morphology 1+ SMUDGE CELLS Platelet Estimate NORMAL (130-450,000) Platelet Morphology NORMAL APPEARANCE RBC Morph Micro Appear 2+ HYPOCHROMASIA 2+ ANISOCYTOSIS 1+ MACROCYTOSIS ESR > 140 H Sodium 134 L Potassium 4.6 H Chloride 104 Carbon Dioxide 21 Anion Gap 9.0 BUN 34 H Creatinine 1.5 H Estimated GFR (MDRD) 45 L Glucose 123 H Calcium 9.1 Magnesium 1.6 L Total Bilirubin 0.7 AST 12 ALT 15 Alkaline Phosphatase 62 C-Reactive Protein 9.1 H Total Protein 7.2 Albumin 3.9 Globulin 3.3 Albumin/Globulin Ratio 1.2 Lipase 21 PD Medical Decision Making ED course Complexity details: reviewed results (ESR and CRP elevated. WBC at 16K but hist ory of CML. ) and d/w customer service sales consultant (Ortho called that pt coming to ED from office for labs and admission. Pt did come to ED after couple of hours. 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
[2024-02-12 12:37] LABS: BASOPHILS % (AUTO) 0.1 %; EOSINOPHILS % (AUTO) 1.4 %; HCT - HEMATOCRIT 21.9 % (42.0-52.0); HGB - HEMOGLOBIN 7.1 g/dL (14.0-18.0); LYMPHOCYTES % (AUTO) 12.6 %; MEAN CORPUSCULAR HGB CONC 32.4 g/dL (32.0-36.0); MEAN CORPUSCULAR VOLUME 111.2 fL (80.0-94.0); MEAN PLATELET VOLUME 10.3 fL (7.4-11.4); MONOCYTES % (AUTO) 17.2 %; NEUTROPHILS % (AUTO) 60.7 %; PLT - PLATELET COUNT 202 10^3/uL (130-450); RED BLOOD COUNT 1.97 10^6/uL (4.70-6.10); RED CELL DISTRIBUTION WIDTH 23.9 % (12.0-15.0); WHITE BLOOD COUNT 16.3 x10^3/uL (4.8-10.8)
[2024-02-12 12:40] LABS: SLIDE REVIEW? Indicated
[2024-02-12 13:06] LABS: ALBUMIN 3.9 g/dL (3.2-5.5); ALBUMIN/GLOBULIN RATIO 1.2 (1.0-2.2); BILIRUBIN,TOTAL 0.7 mg/dL (0.2-1.0); CALCIUM 9.1 mg/dL (8.5-10.3); CREATININE 1.5 mg/dL (0.6-1.3); CRP - C-REACTIVE PROTEIN 9.1 mg/dL (<0.5); MAGNESIUM 1.6 mg/dL (1.7-2.3); POTASSIUM 4.6 mmol/L (3.5-4.5); TOTAL PROTEIN 7.2 g/dL (6.4-8.9)
[2024-02-12 13:10] LABS: ABNORMAL LYMPHS % (MANUAL) 0 %
[2024-02-12 13:16] LABS: BAND NEUTROPHILS % (MANUAL) 5 %; EOSINOPHILS # (MANUAL) 0.2 10^3/uL (0-0.7); LYMPHOCYTES # (MANUAL) 1.8 10^3/uL (1.5-3.5); LYMPHOCYTES % (MANUAL) 11 %; METAMYELOCYTES % (MANUAL) 2 %; MONOCYTES # (MANUAL) 1.6 10^3/uL (0.0-1.0); NEUTROPHILS # (MANUAL) 12.4 10^3/uL (1.5-6.6); NUCLEATED RBC (MANUAL) 1 %
[2024-02-12 13:18] LABS: PLATELET ESTIMATE, MANUAL NORMAL (130-450,000) (NORMAL); PLATELET MORPHOLOGY NORMAL APPEARANCE (NORMAL)
[2024-02-12 13:19] LABS: DIFFERENTIAL COMMENT MANUAL DIFFERENTIAL; WBC MORPHOLOGY (MULTIPLE) 1+ SMUDGE CELLS (NORMAL)
--- NOTE | 2024-02-12 13:23 | HISTORY & PHYSICAL EXAMINATION ---
Chief Complaint Chief Complaint Chief Complaint: Right hand pain History of Present Illness History Obtained From Records Reviewed: Yes History obtained from: Patient, patient's and grandson at bedside Exam Limitations: None History of Present Illness HPI Comment/Other: Patient is a 78-year-old male with a history of CML who presents with worsening left wrist pain and swelling. Of note, patient was admitted from 01/08 to 01/16 for similar complaints. He had a left wrist bone biopsy on 01/09. He also had an I&D performed. He was discharged home on daptomycin and cefepime to be continued for 2 weeks, which he completed in the outpatient setting. He followed up with orthopedic surgeryon 02/03, he was doing well. The wound was healing without pustular drainage. No packing was placed in the wound, simple dressing was placed. Him and his stated that he started having increased swelling and pain over the last 2 to 3 days. This morning, he went to his orthopedic surgery office. Here it was noted he had worsening swelling, erythema, pustular drainage. He was advised to go to the emergency room, for an irrigation debridement to be done in the OR today, 02/11, with Dr. Kirkland. At this time, he still has some pain in his left hand, he describes it as sharp. It is not relieved with pain medications at home. He denies any fevers, chills. He has no chest pain at this time. Of note, patient did present yesterday to the emergency room for chest pain, chest tightness. CTA was done which was negative, and symptoms resolved after a dose of morphine and albuterol nebulizer treatment. Troponin was negative x 2. Meds/Allgy Home Medications Ambulatory Orders Medication Instructions Recorded Confirmed CPAP/BiPAP 01/04/24 02/12/24 allopurinol 100 mg tablet 50 mg (1/2 x 100 mg) PO QDAY #45 01/04/24 02/12/24 tabs apixaban 5 mg tablet (Eliquis) 5 mg PO BID 01/04/24 02/12/24 aspirin 81 mg tablet,delayed 81 mg PO HS 01/04/24 02/12/24 release (Aspir-) losartan 100 mg tablet (Cozaar) 100 mg PO DAILY 01/04/24 02/12/24 metoprolol tartrate 25 mg tablet 25 mg PO HS 01/04/24 02/12/24 omega-3s 350 il-lmq-cli-other 2 cap PO DAILY 01/04/24 02/12/24 mwdxk1v-jlnm oil 600 mg capsule (Fish Oil) oxymetazoline 0.05 % nasal mist 1 spray intranasal QPM PRN nasal 01/04/24 02/12/24 (Afrin (oxymetazoline)) congestion psyllium husk (with sugar) 3.4 2 tbsp PO DAILY 01/04/24 02/12/24 gram/12 gram oral powder (Metamucil (with sugar)) rosuvastatin 5 mg tablet (Crestor) 5 mg PO HS 01/04/24 02/12/24 sertraline 25 mg tablet 25 mg PO DAILY 01/04/24 02/12/24 trazodone 50 mg tablet 50 mg PO HS #90 tabs 01/04/24 02/12/24 cefepime 2 gram solution for 2 g IV Q8H 2 weeks 01/17/24 02/12/24 injection daptomycin 1,000 mg/100 mL in 0.9 800 mg (80 mL) IV Q24H 2 weeks 01/17/24 02/12/24 % sodium chlor intravenous piggyback cyclobenzaprine 10 mg tablet 10 mg PO HS for back pain #30 tabs 01/25/24 02/12/24 cholecalciferol (vitamin D3) 50 50 mcg PO DAILY 02/12/24 02/12/24 mcg (2,000 unit) capsule edzcwgqm-iaq-wcqok acid 0.4 1 tab PO DAILY 02/12/24 02/12/24 mg-lycopene 300 mcg-lutein 250 mcg tablet (Centrum Silver) Allergies Allergies Allergy/AdvReac Type Severity Reaction Status Date / Time pseudoephedrine HCl * (From Allergy Severe Hives Verified 02/12/24 11:55 Sudafed) triprolidine HCl * (From Allergy Severe Hives Verified 02/12/24 11:55 Actifed) [facility] Medical History Medical History Symptomatic anemia PMR (polymyalgia rheumatica) Hx of essential hypertension MARICARMEN on CPAP Leukopenia Dyspnea on exertion Anemia due to antineoplastic chemotherapy Left foot pain Neutropenic fever Shortness of breath Splenomegaly Pulmonary embolus, left Pain and swelling of left wrist History of gout H/O testicular biopsy LEFT TESTICLE Chronic knee pain after total replacement of both knee joints Surgical History Surgical History S/P colonoscopy 03/2013, 06/2014, -- HX OF ADENOMATOUS POLYPS -- COLONOSCOPY 01/2023 HAD MULTIPLE ADENOMATOUS POLYPS WITH RECALL IN 2024 S/P left heart catheterization by cutdown 01/2011, MINIMAL CAD History of arthroplasty of right knee 11/2010 S/P carpal tunnel release S/P exploratory laparotomy EX LAP FOR METALLIC FB -- METALIC FRAGMENT FROM AXE HEAD S/P rotator cuff repair S/P nasal septoplasty S/P UVPP (uvulopalatopharyngoplasty) S/P tonsillectomy Family History Family History Father Prostate cancer Diabetes Mother Lung cancer High blood pressure Social History Social History Smoking Status: Never smoker Second hand tobacco smoke exposure: No Do you dip or chew tobacco?: No Do you vape?: No Living arrangement: At home Marital Status: Living Condition: With spouse/s.o. Support Person: Yes Relationship: Physical Activity: None and Walking How many days per week?: 5 Level: Independent Do you feel safe in your home environment?: Yes Suffered physical, verbal, emotional, or financial abuse?: No History of Abuse: No ETOH Use: None Substance Use: denies use Retired: Yes Service: Yes Dates of Service: [id number] Are you following a diet prescribed by a doctor: Yes Special Diet Details: no iron, red meat, green veggies POLST Patient has POLST: No POLST Status: Full Code Review of Systems Constitutional Reports: Fatigue, Malaise, Weakness and Diaphoresis; Denies: Fever, Chills, Night sweats, Changes in appetite or eating habits, Poor appetite, Weight gain, Weight loss or Change in sleep pattern Eyes Denies: Pain, Irritation, Amaurosis, Blurry vision or Floaters Ears, nose, mouth, and throat Denies: Ear pain, Ear discharge, Hearing loss, Neck pain or Throat swelling Cardiovascular Reports: lightheadedness; Denies: Irregular heart rate, chest pain, palpitations, edema or shortness of breath with exertion Respiratory Denies: Shortness of breath, Cough or Sputum production Gastrointestinal Denies: Abdominal pain, Abdominal distention, Nausea, Vomiting or Poor appetite Genitourinary Denies: Painful urination, Flank pain, Incontinence, Urinary frequency or Urinary urgency Musculoskeletal Reports: Extremity pain (L hand pain); Denies: Back pain, Neck pain, Extremity swelling or Gout Integumentary/Breast Denies: Rash, Itching or Dryness Neurological Reports: General weakness, Lack of coordination and Dizziness; Denies: Headache Psychiatric Denies: Depression, Anxiety, Mood swings, Panic attacks or Change in sleep pattern Endocrine Reports: Fatigue; Denies: Excessive urination, Excessive thirst or Polyphagia Hematologic/Lymphatic Reports: Anemia and Easy bruising Allergic/Immunologic Denies: Hives or Throat swelling Prior Level of Functionality: Independent of ADLs, does not use assistive device to ambulate. Exam Constitutional normal general appearance HENMT normocephalic, head/scalp atraumatic, hearing grossly normal bilaterally, external ears normal and oropharynx normal Eyes EOMs intact bilaterally, conjunctivae normal and no scleral icterus Neck/C-Spine visual inspection normal and trachea midline Chest inspection of chest normal and palpation of chest normal Respiratory breath sounds equal bilaterally, normal respiratory effort, clear to auscultation bilaterally, no wheezes and no rales Cardiovascular normal heart rate noted, regular rhythm noted, no gallop and no rub Gastrointestinal abdomen normal to inspection, abdomen soft to palpation, nontender to palpation, nontender to percussion and nondistended Genitourinary no CVA tenderness Extremities normal to inspection, normal to palpation, tenderness noted (left wrist swollen; bandage in place, not replaced) and abnormal ROM noted (R shoulder limited ROM due to pain - has history of rotator cuff injury) Neurology no movement abnormality noted and no focal motor deficit noted Psychiatry mental status grossly normal, oriented x3, thought process normal and cooperative Skin skin color normal, no rash and no lesions Conclusion/Plan Problem List (1) Septic joint of left wrist: Plan: Purulence noted from left wrist at orthopedic surgery office. Plan for irrigation debridement today, 02/11, in OR. Hold off on antibiotics until this has been completed. Blood cultures, wound cultures ordered, pending. ESR, CRP elevated. Of note, patient is afebrile, normotensive at this time. Orthopedic surgery following, appreciate recommendations. Qualifiers: Septic arthritis organism: due to unspecified organism Qualified Code(s): M00.9 - Pyogenic arthritis, unspecified (2) Leukocytosis: Plan: Patient with history of CML. Patient is on active surveillance. He follows with Dr. Sepulveda. Last treatment was 05/12/2023 with Inqovi; further treatment was held. Baseline WBC count of around 16-20. Today, his leukocytosis is 16. Yesterday was 22. Continue to monitor. Qualifiers: Leukocytosis type: bandemia Qualified Code(s): D72.825 - Bandemia (3) Anemia: Plan: Patient with anemia attributed to CML, requiring multiple transfusions. Hemoglobin around baseline of 7-8. Continue to trend daily. No active bleeding noted. Qualifiers: Anemia type: bone marrow failure Bone marrow failure anemia type: u nspecified bone marrow failure Qualified Code(s): D61.9 - Aplastic anemia, unspecified (4) Acute kidney injury: Plan: Creatinine elevated 1.5, baseline around 1. Received IV fluids, continue maintenance fluids at this time. Likely prerenal due to decreased fluid intake. (5) Chronic myelomonocytic leukemia: Plan: Follows up with oncology, Dr. Sepulveda, in the outpatient setting. Last appointment was 01/22. Patient is in active surveillance. Last treatment was 05/12/2023, further treatment was held. Qualifiers: Leukemia Active/Remission status: without remission Qualified Code(s): C93.10 - Chronic myelomonocytic leukemia not having achieved remission (6) Pulmonary emboli: Plan: Continue Eliquis after procedures completed. CTA on 05/28/2023 did show small nonocclusive left lower pulmonary emboli. Qualifiers: Acute cor pulmonale presence: without acute cor pulmonale Chronicity: c hronic Pulmonary embolism type: unspecified Qualified Code(s): I27.82 - Chronic pulmonary embolism (7) Hx of essential hypertension: Plan: Patient with borderline low blood pressures at this time. Hold home losartan, metoprolol. (8) MARICARMEN on CPAP: Plan: Continue CPAP inpatient. (9) PMR (polymyalgia rheumatica): Plan: Continue pain management with Tylenol for mild pain, [place] for moderate pain, morphine for severe pain. Lab Results Lab results reviewed: Yes 02/12/24 12:23 02/12/24 12:23 Diagnostic Imaging Results Diagnostic Imaging Results: positive Final report reviewed EKG Results EKG Interpreted Independently: Yes Core Measures Anticipated LOS I expect patient to be DC'd or transferred within 96 hours.: Yes DVT/VTE - Prophylaxis VTE/DVT Device ordered at admit?: Yes VTE/DVT Prophylaxis med ordered at admit?: Yes Stroke - Rehab Assessment Rehab services assessment to be ordered?: No Not Ordered - Medical Reason: Not indicated AMI - Statin at Admit Aspirin Prescribed on Admit: No Not Ordered - Medical Reason: Not indicated
--- NOTE | 2024-02-12 13:36 | ANESTHESIA PROCEDURE NOTE ---
Pre-Anesthesia VS, & Labs Diagnosis Surgical Diagnosis:: Left wrist infection Procedure Procedure: I&D left wrist Vitals Vital Signs: Temp Pulse Resp BP Pulse Ox 36.5 C 59 L 15 113/59 L 97 02/12/24 11:48 02/12/24 11:48 02/12/24 11:48 02/12/24 11:48 02/12/24 11:48 Height (in): 6 ft 1 in Weight (kg): 93 kg Body Mass Index: 27.0 BMI Classification: Overweight NPO NPO: >8 hours Lab Results Current Lab Results: Laboratory Tests 02/12/24 12:23: RBC Morph Micro Appear 1+ MACROCYTOSIS, ESR > 140 H, Sodium 134 L, Potassium 4.6 H, Chloride 104, Carbon Dioxide 21, Anion Gap 9.0, BUN 34 H, C reatinine 1.5 H, Estimated GFR (MDRD) 45 L, Glucose 123 H, Calcium 9.1, M agnesium 1.6 L, Total Bilirubin 0.7, AST 12, ALT 15, Alkaline Phosphatase 62, C- Reactive Protein 9.1 H, Total Protein 7.2, Albumin 3.9, Globulin 3.3, Albumin/Globulin Ratio 1.2, Lipase 21 02/12/24 12:23: RBC Morph Micro Appear 2+ ANISOCYTOSIS 02/12/24 12:23: WBC 16.3 H, RBC 1.97 L, Hgb 7.1 L, Hct 21.9 L, MCV 111.2 H, MCH 36.0 H, MCHC 32.4, RDW 23.9 H, Plt Count 202, MPV 10.3, Neut # (Auto) Not Reportable, Lymph # (Auto) Not Reportable, [place] # (Auto) Not Reportable, Eos # (Auto) Not Reportable, Baso # (Auto) Not Reportable, Absolute Nucleated RBC Not Reportable, Total Counted 100, Band Neuts % (Manual) 5, Abnorm Lymph % (Manual) 0, Metamyelocytes % 2 H, Nucleated RBC % Not Reportable, Neutrophils # (Manual) 12.4 H, Lymphocytes # (Manual) 1.8, Monocytes # (Manual) 1.6 H, Eosinophils # (Manual) 0.2, Basophils # (Manual) 0.0, Nucleated RBCs 1, Differential Comment MANUAL DIFFERENTIAL, Manual Slide Review Indicated, WBC Morphology 1+ SMUDGE CELLS, Platelet Estimate NORMAL (130-450,000), Platelet Morphology NORMAL APPEARANCE, RBC Morph Micro Appear 2+ HYPOCHROMASIA Lab results reviewed: Yes 02/12/24 12:23 02/12/24 12:23 Meds/Allgy Home Medications Ambulatory Orders Medication Instructions Recorded Confirmed albuterol sulfate 90 mcg/actuation 1 inh inhalation QID PRN shortness 12/21/23 02/12/24 aerosol inhaler (Proventil HFA) of breath or wheezing #6.7 grams CPAP/BiPAP 01/04/24 02/12/24 allopurinol 100 mg tablet 50 mg (1/2 x 100 mg) PO QDAY #45 01/04/24 02/12/24 tabs apixaban 5 mg tablet (Eliquis) 5 mg PO BID 01/04/24 02/12/24 aspirin 81 mg tablet,delayed 81 mg PO HS 01/04/24 02/12/24 release (Aspir-) losartan 100 mg tablet (Cozaar) 100 mg PO DAILY 01/04/24 02/12/24 metoprolol tartrate 25 mg tablet 25 mg PO HS 01/04/24 02/12/24 omega-3s 350 fe-xof-khu-other 1 cap PO DAILY 01/04/24 02/12/24 evxyd4r-wcnw oil 600 mg capsule (Fish Oil) oxymetazoline 0.05 % nasal mist 1 spray intranasal Q12H PRN nasal 01/04/24 02/12/24 (Afrin (oxymetazoline)) congestion psyllium husk (with sugar) 3.4 2 tbsp PO DAILY 01/04/24 02/12/24 gram/12 gram oral powder (Metamucil (with sugar)) rosuvastatin 5 mg tablet (Crestor) 5 mg PO HS 01/04/24 02/12/24 sertraline 25 mg tablet 25 mg PO DAILY 01/04/24 02/12/24 trazodone 50 mg tablet 50 mg PO HS #90 tabs 01/04/24 02/12/24 acetaminophen 650 mg 650 mg PO TID 30 days #120 tabs 01/17/24 02/12/24 tablet,extended release (Tylenol Arthritis Pain) cefepime 2 gram solution for 2 g IV Q8H 2 weeks 01/17/24 02/12/24 injection daptomycin 1,000 mg/100 mL in 0.9 800 mg (80 mL) IV Q24H 2 weeks 01/17/24 02/12/24 % sodium chlor intravenous piggyback cyclobenzaprine 10 mg tablet 10 mg PO HS for back pain #30 tabs 01/25/24 02/12/24 oxycodone 5 mg tablet 5 mg PO Q4HR PRN Moderate Pain 01/31/24 02/12/24 (Level 4-6) 3 days #18 tabs Allergies Allergies Allergy/AdvReac Type Severity Reaction Status Date / Time pseudoephedrine HCl * (From Allergy Severe Hives Verified 02/12/24 11:55 Sudafed) triprolidine HCl * (From Allergy Severe Hives Verified 02/12/24 11:55 Actifed) [facility] Medical History Medical History Symptomatic anemia PMR (polymyalgia rheumatica) Hx of essential hypertension MARICARMEN on CPAP Leukopenia Dyspnea on exertion Anemia due to antineoplastic chemotherapy Left foot pain Neutropenic fever Shortness of breath Splenomegaly Pulmonary embolus, left Pain and swelling of left wrist History of gout H/O testicular biopsy LEFT TESTICLE Chronic knee pain after total replacement of both knee joints Surgical History Surgical History S/P colonoscopy 03/2013, 06/2014, -- HX OF ADENOMATOUS POLYPS -- COLONOSCOPY 01/2023 HAD MULTIPLE ADENOMATOUS POLYPS WITH RECALL IN 2024 S/P left heart catheterization by cutdown 01/2011, MINIMAL CAD History of arthroplasty of right knee 11/2010 S/P carpal tunnel release S/P exploratory laparotomy EX LAP FOR METALLIC FB -- METALIC FRAGMENT FROM AXE HEAD S/P rotator cuff repair S/P nasal septoplasty S/P UVPP (uvulopalatopharyngoplasty) S/P tonsillectomy Family History Family History Father Prostate cancer Diabetes Mother Lung cancer High blood pressure Social History Social History Smoking Status: Never smoker Second hand tobacco smoke exposure: No Do you dip or chew tobacco?: No Do you vape?: No Living arrangement: At home Marital Status: Living Condition: With spouse/s.o. Support Person: Yes Relationship: Physical Activity: None and Walking How many days per week?: 5 Level: Independent Do you feel safe in your home environment?: Yes Suffered physical, verbal, emotional, or financial abuse?: No History of Abuse: No ETOH Use: None Substance Use: denies use Retired: Yes Service: Yes Dates of Service: [id number] Are you following a diet prescribed by a doctor: Yes Special Diet Details: no iron, red meat, green veggies POLST Patient has POLST: No POLST Status: Full Code Anesthesia Exam (Expanded) Exam General: Alert, Oriented x3 and Cooperative Dental: Loose/Frag and Partials Upper Mouth and Teeth Image:  2 1. Loose front tooth Mouth Openin Fingerbreadth Neck Mobility: Normal Mallampati classification: III Thyromental Distance: 4-6 cm Mental/Cognitive Status: Alert/Oriented X3 and Normal for patient Plan Plan Anesthesia Type: General (Has right torn rotator cuff, painful shoulder) Consent for Procedure(s) Verified and Reviewed: Yes Code Status: Attempt Resuscitation ASA Classification ASA classification: 3-Severe systemic disease Is this case an emergency?: Yes
--- NOTE | 2024-02-12 13:46 | ANESTHESIA PROCEDURE NOTE ---
Pre-Anesthesia VS, & Labs Diagnosis Surgical Diagnosis:: left septic wrist Procedure Procedure: I&D left wrist Vitals Vital Signs: Temp Pulse Resp BP Pulse Ox 36.5 C 59 L 15 113/59 L 97 02/12/24 11:48 02/12/24 11:48 02/12/24 11:48 02/12/24 11:48 02/12/24 11:48 Height (in): 6 ft 1 in Weight (kg): 93 kg Body Mass Index: 27.0 BMI Classification: Overweight NPO NPO: >8 hours Lab Results Current Lab Results: Laboratory Tests 02/12/24 12:23: RBC Morph Micro Appear 1+ MACROCYTOSIS, ESR > 140 H, Sodium 134 L, Potassium 4.6 H, Chloride 104, Carbon Dioxide 21, Anion Gap 9.0, BUN 34 H, C reatinine 1.5 H, Estimated GFR (MDRD) 45 L, Glucose 123 H, Calcium 9.1, M agnesium 1.6 L, Total Bilirubin 0.7, AST 12, ALT 15, Alkaline Phosphatase 62, C- Reactive Protein 9.1 H, Total Protein 7.2, Albumin 3.9, Globulin 3.3, Albumin/Globulin Ratio 1.2, Lipase 21 02/12/24 12:23: RBC Morph Micro Appear 2+ ANISOCYTOSIS 02/12/24 12:23: WBC 16.3 H, RBC 1.97 L, Hgb 7.1 L, Hct 21.9 L, MCV 111.2 H, MCH 36.0 H, MCHC 32.4, RDW 23.9 H, Plt Count 202, MPV 10.3, Neut # (Auto) Not Reportable, Lymph # (Auto) Not Reportable, [place] # (Auto) Not Reportable, Eos # (Auto) Not Reportable, Baso # (Auto) Not Reportable, Absolute Nucleated RBC Not Reportable, Total Counted 100, Band Neuts % (Manual) 5, Abnorm Lymph % (Manual) 0, Metamyelocytes % 2 H, Nucleated RBC % Not Reportable, Neutrophils # (Manual) 12.4 H, Lymphocytes # (Manual) 1.8, Monocytes # (Manual) 1.6 H, Eosinophils # (Manual) 0.2, Basophils # (Manual) 0.0, Nucleated RBCs 1, Differential Comment MANUAL DIFFERENTIAL, Manual Slide Review Indicated, WBC Morphology 1+ SMUDGE CELLS, Platelet Estimate NORMAL (130-450,000), Platelet Morphology NORMAL APPEARANCE, RBC Morph Micro Appear 2+ HYPOCHROMASIA Lab results reviewed: Yes 02/12/24 12:23 02/12/24 12:23 Meds/Allgy Home Medications Ambulatory Orders Medication Instructions Recorded Confirmed albuterol sulfate 90 mcg/actuation 1 inh inhalation QID PRN shortness 12/21/23 02/12/24 aerosol inhaler (Proventil HFA) of breath or wheezing #6.7 grams CPAP/BiPAP 01/04/24 02/12/24 allopurinol 100 mg tablet 50 mg (1/2 x 100 mg) PO QDAY #45 01/04/24 02/12/24 tabs apixaban 5 mg tablet (Eliquis) 5 mg PO BID 01/04/24 02/12/24 aspirin 81 mg tablet,delayed 81 mg PO HS 01/04/24 02/12/24 release (Aspir-) losartan 100 mg tablet (Cozaar) 100 mg PO DAILY 01/04/24 02/12/24 metoprolol tartrate 25 mg tablet 25 mg PO HS 01/04/24 02/12/24 omega-3s 350 wm-lho-rma-other 1 cap PO DAILY 01/04/24 02/12/24 otpgr8z-yxkp oil 600 mg capsule (Fish Oil) oxymetazoline 0.05 % nasal mist 1 spray intranasal Q12H PRN nasal 01/04/24 02/12/24 (Afrin (oxymetazoline)) congestion psyllium husk (with sugar) 3.4 2 tbsp PO DAILY 01/04/24 02/12/24 gram/12 gram oral powder (Metamucil (with sugar)) rosuvastatin 5 mg tablet (Crestor) 5 mg PO HS 01/04/24 02/12/24 sertraline 25 mg tablet 25 mg PO DAILY 01/04/24 02/12/24 trazodone 50 mg tablet 50 mg PO HS #90 tabs 01/04/24 02/12/24 acetaminophen 650 mg 650 mg PO TID 30 days #120 tabs 01/17/24 02/12/24 tablet,extended release (Tylenol Arthritis Pain) cefepime 2 gram solution for 2 g IV Q8H 2 weeks 01/17/24 02/12/24 injection daptomycin 1,000 mg/100 mL in 0.9 800 mg (80 mL) IV Q24H 2 weeks 01/17/24 02/12/24 % sodium chlor intravenous piggyback cyclobenzaprine 10 mg tablet 10 mg PO HS for back pain #30 tabs 01/25/24 02/12/24 oxycodone 5 mg tablet 5 mg PO Q4HR PRN Moderate Pain 01/31/24 02/12/24 (Level 4-6) 3 days #18 tabs Allergies Allergies Allergy/AdvReac Type Severity Reaction Status Date / Time pseudoephedrine HCl * (From Allergy Severe Hives Verified 02/12/24 11:55 Sudafed) triprolidine HCl * (From Allergy Severe Hives Verified 02/12/24 11:55 Actifed) [facility] Medical History Medical History Symptomatic anemia PMR (polymyalgia rheumatica) Hx of essential hypertension MARICARMEN on CPAP Leukopenia Dyspnea on exertion Anemia due to antineoplastic chemotherapy Left foot pain Neutropenic fever Shortness of breath Splenomegaly Pulmonary embolus, left Pain and swelling of left wrist History of gout H/O testicular biopsy LEFT TESTICLE Chronic knee pain after total replacement of both knee joints Surgical History Surgical History S/P colonoscopy 03/2013, 06/2014, -- HX OF ADENOMATOUS POLYPS -- COLONOSCOPY 01/2023 HAD MULTIPLE ADENOMATOUS POLYPS WITH RECALL IN 2024 S/P left heart catheterization by cutdown 01/2011, MINIMAL CAD History of arthroplasty of right knee 11/2010 S/P carpal tunnel release S/P exploratory laparotomy EX LAP FOR METALLIC FB -- METALIC FRAGMENT FROM AXE HEAD S/P rotator cuff repair S/P nasal septoplasty S/P UVPP (uvulopalatopharyngoplasty) S/P tonsillectomy Family History Family History Father Prostate cancer Diabetes Mother Lung cancer High blood pressure Social History Social History Smoking Status: Never smoker Second hand tobacco smoke exposure: No Do you dip or chew tobacco?: No Do you vape?: No Living arrangement: At home Marital Status: Living Condition: With spouse/s.o. Support Person: Yes Relationship: Physical Activity: None and Walking How many days per week?: 5 Level: Independent Do you feel safe in your home environment?: Yes Suffered physical, verbal, emotional, or financial abuse?: No History of Abuse: No ETOH Use: None Substance Use: denies use Retired: Yes Service: Yes Dates of Service: [id number] Are you following a diet prescribed by a doctor: Yes Special Diet Details: no iron, red meat, green veggies POLST Patient has POLST: No POLST Status: Full Code Anesthesia Exam (Expanded) Exam General: Alert and Oriented x3 Dental: Loose/Frag, Partials Upper and Poor dentition Mouth and Teeth Image:  2 1. Loose front tooth Mouth Openin Fingerbreadth Neck Mobility: Normal Mallampati classification: III Thyromental Distance: 4-6 cm Mental/Cognitive Status: Alert/Oriented X3 and Normal for patient Plan Plan Anesthesia Type: General Consent for Procedure(s) Verified and Reviewed: Yes Code Status: Attempt Resuscitation ASA Classification ASA classification: 3-Severe systemic disease Is this case an emergency?: Yes
[2024-02-12] MEDS ORDERED: BUPIVACAINE 0.5% PF 10 ML VIAL ONE (14:21)
[2024-02-12] MEDS ORDERED: BUPIVACAINE 0.25% PF 10 ML VIAL ONE (14:21)
--- NOTE | 2024-02-12 14:52 | PHARMACY PROGRESS NOTE ---
Best Possible Medication History Admit Date and Time: 02/12/24 [id number] Home Medications Medication Instructions Recorded Confirmed Type CPAP/BiPAP 01/04/24 02/12/24 History allopurinol 100 mg tablet 50 mg (1/2 x 100 mg) PO QDAY #45 01/04/24 02/12/24 Rx tabs apixaban 5 mg tablet (Eliquis) 5 mg PO BID 01/04/24 02/12/24 History aspirin 81 mg tablet,delayed 81 mg PO HS 01/04/24 02/12/24 History release (Aspir-) losartan 100 mg tablet (Cozaar) 100 mg PO DAILY 01/04/24 02/12/24 History metoprolol tartrate 25 mg tablet 25 mg PO HS 01/04/24 02/12/24 History omega-3s 350 ju-hfb-wvf-other 2 cap PO DAILY 01/04/24 02/12/24 History kwdef7a-[id number] oil 600 mg capsule (Fish Oil) oxymetazoline 0.05 % nasal mist 1 spray intranasal QPM PRN nasal 01/04/24 02/12/24 History (Afrin (oxymetazoline)) congestion psyllium husk (with sugar) 3.4 2 tbsp PO DAILY 01/04/24 02/12/24 History gram/12 gram oral powder (Metamucil (with sugar)) rosuvastatin 5 mg tablet (Crestor) 5 mg PO HS 01/04/24 02/12/24 History sertraline 25 mg tablet 25 mg PO DAILY 01/04/24 02/12/24 History trazodone 50 mg tablet 50 mg PO HS #90 tabs 01/04/24 02/12/24 Rx cefepime 2 gram solution for 2 g IV Q8H 2 weeks 01/17/24 02/12/24 Rx injection daptomycin 1,000 mg/100 mL in 0.9 800 mg (80 mL) IV Q24H 2 weeks 01/17/24 02/12/24 Rx % sodium chlor intravenous piggyback cyclobenzaprine 10 mg tablet 10 mg PO HS for back pain #30 tabs 01/25/24 02/12/24 Rx cholecalciferol (vitamin D3) 50 50 mcg PO DAILY 02/12/24 02/12/24 History mcg (2,000 unit) capsule itgmfitj-two-unrtj acid 0.4 1 tab PO DAILY 02/12/24 02/12/24 History mg-lycopene 300 mcg-lutein 250 mcg tablet (Centrum Silver) Processed by: Pharmacy Medications reviewed in ED?: Yes Medication History completed: Yes Patient Interview: Completed Secondary Source(s): Written medication list [facility] Statement: As the person ultimately responsible for medication therapy, providers are able to order a medication from an existing home medication list in [facility] via the "Reconcile Routine" prior to Confirmation of that medication by wind farm support specialist. Such practice is discouraged except when the physician, in their clinical judgment, deems that a medical need exists for a medication without regard to previous use.
[2024-02-12] MEDS ORDERED: PSYLLIUM PACKET PO PRN (14:57)
[2024-02-12] MEDS ORDERED: LIDOCAINE-PF 2% 10 ML AMP SUBQ ONE (15:16)
[2024-02-12] MEDS ORDERED: fentaNYL 100 MCG/2 ML VIAL ONE (15:16)
[2024-02-12] MEDS ORDERED: PROPOFOL 200 MG/20 ML VIAL IVP ONE (15:16)
--- NOTE | 2024-02-12 15:56 | PREOP HISTORY & PHYSICAL ---
Surgical History & Physical Chief Complaint/HPI History of Present Illness: 78 year old male presents for follow up of septic left wrist joint. He underwent irrigation and debridement of septic left wrist and carpal tunnel and bone biopsy of the lunate with Dr Manzo at [facility] on 01/10/24. He has a past medical history of CML. He was doing well with improvement in pain and swelling at his last evaluation on 02/04/24. On 02/09/24 he noticed increased pain and swelling about the left wrist and hand. He denies fever in the past 4 days. He has chills normally which he attributes to CML. He also endorses increased fatigue, light headedness and decreased appetite. Pain about the left wrist has been intolerable and he has been taking ibuprofen. Last night he was evaluated in the emergency department for chest pain and shortness of breath. He received morphine in the emergency room which he states improved his left wrist pain. He did not notice any drainage about the left wrist at home as he did not remove the dressing. He also endorses diminished sensation about the 4th and 5th digits of the left hand. Given his active infection he was then instructed to follow-up with the emergency department for further labs and admission to the hospital team. Home Meds and Allergies Active Medications Generic Name Dose Route Start Last Admin Trade Name Freq PRN Reason Stop Dose Admin Acetaminophen 650 mg 02/12/24 14:37 Acetaminophen 325 Mg Tablet PO Q4HR PRN Pain 1 to 4, or Fever Hydrocodone Bitart/Acetaminophen 1 tab 02/12/24 14:37 Hydrocod/Acetam 5/325 Mg Tablet PO Q4HR PRN Pain 5 to 7 Aspirin 81 mg 02/13/24 21:00 Aspirin Ec 81 Mg Tablet PO HS MIGUEL ÁNGEL Atorvastatin Calcium 10 mg 02/12/24 21:00 Atorvastatin 10 Mg Tablet PO QPM MIGUEL ÁNGEL Morphine Sulfate 2 mg 02/12/24 14:37 Morphine 2 Mg/Ml Carpuject IVP Q2HR PRN Pain 8 to 10 Ondansetron HCl 4 mg 02/12/24 14:37 Ondansetron Odt 4 Mg Tablet TL Q6HR PRN Nausea / Vomiting Psyllium Hydrophilic Mucilloid 2 packet 02/12/24 14:57 Psyllium Packet PO DAILY PRN Constipation Sertraline HCl 25 mg 02/13/24 09:00 Sertraline 25 Mg Tablet PO DAILY [facility] Sodium Chloride 10 ml 02/12/24 14:37 Sodium Chloride Flush 0.9% 10 Ml Syringe IVP PRN PRN NEEDED PER PROVIDER ORDERS Sodium Chloride 10 ml 02/12/24 17:00 Sodium Chloride Flush 0.9% 10 Ml Syringe IVP 0100,0900,1700 MIGUEL ÁNGEL Trazodone HCl 50 mg 02/12/24 21:00 Trazodone 50 Mg Tablet PO HS MIGUEL ÁNGEL CPAP/BiPAP 01/04/24 allopurinol 100 mg tablet 50 mg (1/2 x 100 mg) PO QDAY #45 tabs 01/04/24 apixaban 5 mg tablet (Eliquis) 5 mg PO BID 01/04/24 aspirin 81 mg tablet,delayed release (Aspir-) 81 mg PO HS 01/04/24 losartan 100 mg tablet (Cozaar) 100 mg PO DAILY 01/04/24 metoprolol tartrate 25 mg tablet 25 mg PO HS 01/04/24 omega-3s 350 ot-kte-jfl-other jeqgt4q-lvxi oil 600 mg capsule (Fish Oil) 2 cap PO DAILY 01/04/24 oxymetazoline 0.05 % nasal mist (Afrin (oxymetazoline)) 1 spray intranasal QPM PRN nasal congestion 01/04/24 psyllium husk (with sugar) 3.4 gram/12 gram oral powder (Metamucil (with sugar)) 2 tbsp PO DAILY 01/04/24 rosuvastatin 5 mg tablet (Crestor) 5 mg PO HS 01/04/24 sertraline 25 mg tablet 25 mg PO DAILY 01/04/24 trazodone 50 mg tablet 50 mg PO HS #90 tabs 01/04/24 cefepime 2 gram solution for injection 2 g IV Q8H 2 weeks 01/17/24 daptomycin 1,000 mg/100 mL in 0.9 % sodium chlor intravenous piggyback 800 mg (80 mL) IV Q24H 2 weeks 01/17/24 cyclobenzaprine 10 mg tablet 10 mg PO HS for back pain #30 tabs 01/25/24 cholecalciferol (vitamin D3) 50 mcg (2,000 unit) capsule 50 mcg PO DAILY 02/12/24 fhhnywxd-phg-uzeyr acid 0.4 mg-lycopene 300 mcg-lutein 250 mcg tablet (Centrum Silver) 1 tab PO DAILY 02/12/24 Allergies Allergy/AdvReac Type Severity Reaction Status Date / Time pseudoephedrine HCl * (From Allergy Severe Hives Verified 02/12/24 11:55 Sudafed) triprolidine HCl * (From Allergy Severe Hives Verified 02/12/24 11:55 Actifed) Vital Signs O2 Saturation: 100 Patient Review Patient Review Pertinent Tests Reviewed [facility] Medical History Medical History Symptomatic anemia PMR (polymyalgia rheumatica) Hx of essential hypertension MARICARMEN on CPAP Leukopenia Dyspnea on exertion Anemia due to antineoplastic chemotherapy Left foot pain Neutropenic fever Shortness of breath Splenomegaly Pulmonary embolus, left Pain and swelling of left wrist History of gout H/O testicular biopsy LEFT TESTICLE Chronic knee pain after total replacement of both knee joints Surgical History Surgical History S/P colonoscopy 03/2013, 06/2014, -- HX OF ADENOMATOUS POLYPS -- COLONOSCOPY 01/2023 HAD MULTIPLE ADENOMATOUS POLYPS WITH RECALL IN 2024 S/P left heart catheterization by cutdown 01/2011, MINIMAL CAD History of arthroplasty of right knee 11/2010 S/P carpal tunnel release S/P exploratory laparotomy EX LAP FOR METALLIC FB -- METALIC FRAGMENT FROM AXE HEAD S/P rotator cuff repair S/P nasal septoplasty S/P UVPP (uvulopalatopharyngoplasty) S/P tonsillectomy Family History Family History Father Prostate cancer Diabetes Mother Lung cancer High blood pressure Social History Social History Smoking Status: Never smoker Second hand tobacco smoke exposure: No Do you dip or chew tobacco?: No Do you vape?: No Living arrangement: At home Marital Status: Living Condition: With spouse/s.o. Support Person: Yes Relationship: Physical Activity: None and Walking How many days per week?: 5 Level: Independent Do you feel safe in your home environment?: Yes Suffered physical, verbal, emotional, or financial abuse?: No History of Abuse: No ETOH Use: None Substance Use: denies use Retired: Yes Service: Yes Dates of Service: [id number] Are you following a diet prescribed by a doctor: Yes Special Diet Details: no iron, red meat, green veggies POLST Patient has POLST: No POLST Status: Full Code Exam Exam Well developed, well nourished, 78 year old male, no acute distress The left hand has a significant effusion about all 5 digits extending to the level of the wrist. There is erythema around the 1cm opening in the proximal aspect of the incision. There is pustular drainage from the opening in the skin. Tender to palpation about the thumb and wrist. Non tender about the 2nd, 3rd, 4th and 5th digits. Wrist flexion and extension are intact. Finger flexion is very limited. Finger extension is intact. Neurovascular intact to the left upper extremity Assessment & Plan Assessment & Plan Assessment & Plan: 78 year old male presents for follow up of septic left wrist joint. He underwent irrigation and debridement of septic left wrist and carpal tunnel and bone biopsy of the lunate with Dr Manzo at [facility] on 01/10/24. Given worsening swelling and erythema and pustular drainage, the patient was advised to seek care in the emergency department for additional workup and hospitalization for potential I&D. I examined the patient and agree with the plan for incision and drainage. He had active purulent drainage from his dorsal incision site. Plan would be to perform a I&D of the left wrist. The risk, benefits and alternatives of the procedure were discussed with the patient to include bleeding, infection, damage to surrounding structures, ongoing pain, ongoing stiffness, repeat surgical procedures and recurrence of his infection plus anesthesia risk such as heart attack, stroke and . The patient understood these risks and want to move forward with the procedure. Consent was completed at today's visit. - Hospital admit - Ortho consult - N.p.o. for I&D of the wrist on February 12, 2024 - The patient had the treatment plan explained, questions answered and seemed satisfied with the plan. There were no apparent barriers to communication. The documentation in this note may have been entered with the assistance of computer voice recognition and dictation software. Therefore, it may contain unintended errors in text, spelling, punctuation, or grammar. Jas Kirkland MD Orthopedic Surgeon
[2024-02-12] MEDS ORDERED: NALOXONE 0.4 MG/ML VIAL IVP PRN (15:57)
[2024-02-12] MEDS ORDERED: ONDANSETRON 4 MG/2 ML VIAL IVP PRN (15:57)
[2024-02-12] MEDS ORDERED: fentaNYL 100 MCG/2 ML VIAL IVP PRN (15:57)
[2024-02-12] MEDS ORDERED: MORPHINE 2 MG/ML CARPUJECT IVP PRN (15:57)
[2024-02-12] MEDS ORDERED: HYDROmorphone 0.5 MG/0.5 ML SYRINGE IVP PRN (15:57)
[2024-02-12] MEDS ORDERED: ATROPINE ABBOJECT 1 MG/10 ML SYRINGE IVP PRN (15:57)
[2024-02-12] MEDS ORDERED: PHENYLEPHRINE HCL 0.5 MG/5 ML AMPULE ONE (16:31)
[2024-02-12] MEDS ORDERED: ePHEDrine 50 MG/ML VIAL IVP ONE (16:31)
[2024-02-12] MEDS ORDERED: ONDANSETRON 4 MG/2 ML VIAL ONE (17:11)
[2024-02-12] MEDS ORDERED: HYDROmorphone 1 MG/ML CARPUJECT ONE (17:13)
[2024-02-12] MEDS: LACTATED RINGERS 1,000 ML IV SCH (17:23)
[2024-02-12] MEDS: CEFEPIME 1 GM in SODIUM CHLORIDE 0.9% MINIBAG 100 ML IV SCH (17:32)
--- NOTE | 2024-02-12 17:38 | OPERATIVE REPORT ---
Operative Report General Admit Date: 02/12/24 Procedure Data: Operation Date: 02/12/24 16:00 Proposed Procedures p I&D LEFT WRIST(Left) - Jas Kirkland MD Actual Procedures p I&D LEFT WRIST(Left) - Jas Kirkland MD Pre-Op Diagnosis: SEPTIC ARTHRITIS Anesthesia Type General Case Staff Anesthesia Provider: Jose Zuniga Assisting Provider: Sherice Santana Case Times Into Recovery: 02/12/24 17:24 Procedure Start: 02/12/24 16:35 Procedure End: 02/12/24 17:13 Time out: 02/12/24 16:34 Pre-Op Diagnosis: LEFT Wrist infection Post Op Diagnosis: LEFT Wrist Infection Procedure Note Estimated Blood Loss (ml): 10 Indications: Purulent drainage from the left wrist Findings: Purulence from the dorsum of the left wrist Complications: none Other Other Information/Narrative: Preoperative diagnosis: Left wrist infection Procedure performed: Left wrist I&D both volar and dorsal Postoperative diagnosis: Left wrist infection Oyster Sorter; Sherice PINEDA Anesthesia: General EBL: 10 ml Tourniquet: 0 minutes @ 250 mmHg Implants: NA Indication For Surgery: LEFT Wrist Infection. The risks, benefits, and alternatives were discussed. Risks include pain, bleeding, infection, damage to nearby structures and cartilage, lack of symptom relief, need for further surgery, DVT, PE, stroke, and . Written consent was obtained. Operative Findings: Purulent drainage from the dorsum of the left wrist Procedure in Detail: The patient was met in the pre-operative hold area. Consent was verified and operative extremity was signed. The patient then met with anesthesia and was brought back to the operating room. The patient was placed supine on the operating table. A general anesthetic was administered. The extremity was then prepped and draped in the usual sterile fashion. A timeout was performed per protocol. All were in agreement and we proceeded. The site of drainage was extended both distally and proximally with a scalpel. Purulence was expressed through this incision. Tissue samples were obtained and cultures were obtained and sent to pathology. There was a moderate amount of purulence that was expressed. The joint capsule was still open and it was easy to probe down to bone within the joint. We also turned our attention to the volar aspect of the wrist where a 2 cm incision was made through the original incision site. There was no purulence that was expressed through the volar aspect of the wrist. We then started irrigating with the volar wrist for 2 L of normal saline. Then we irrigated the dorsum of the wrist and the wrist joint with 7 L of normal saline. The incision sites were then closed with 3-0 nylon and dressed with Xeroform. The dorsal wound was then packed with half-inch iodoform gauze. The dorsal wound was also dressed with Xeroform. He was then bandaged with a volar resting splint. Postoperative Plan: Admit to medicine Strict Elevation Regular diet IV antibiotics Follow up on cultures Daily wound checks Jas Kirkland MD
[2024-02-12] MEDS: MORPHINE 2 MG/ML CARPUJECT IVP PRN (18:13)
[2024-02-12] MEDS: SODIUM CHLORIDE FLUSH 0.9% 10 ML SYRINGE IVP PRN (18:13)
[2024-02-12] MEDS: VANCOMYCIN INJ 1 GM in SODIUM CHLORIDE 0.9% 250 ML IV ONE (18:13)
[2024-02-12] MEDS: VANCOMYCIN INJ 1.5 GM in SODIUM CHLORIDE 0.9% 500 ML IV SCH (18:30)
[2024-02-12] MEDS: HYDROcod/ACETAM 5/325 MG TABLET PO PRN (19:18)
[2024-02-12] MEDS ORDERED: METOPROLOL TARTRATE 25 MG TABLET PO SCH (21:00)
[2024-02-12] MEDS: traZODone 50 MG TABLET PO SCH (21:37)
[2024-02-12] MEDS: ATORVASTATIN 10 MG TABLET PO SCH (21:37)
[2024-02-12] MEDS: DOCUSATE SODIUM 100 MG CAPSULE PO SCH (21:37)
[2024-02-13] MEDS ORDERED: VANCOMYCIN INJ 1.25 GM in SODIUM CHLORIDE 0.9% 500 ML IV SCH (00:01)
[2024-02-13] MEDS: NS W/20 MEQ KCL 1,000 ML IV SCH (01:11)
[2024-02-13] MEDS: SODIUM CHLORIDE FLUSH 0.9% 10 ML SYRINGE IVP SCH (04:40)
[2024-02-13 06:14] LABS: MEAN CORPUSCULAR HEMOGLOBIN 36.5 pg (27.0-31.0); MEAN CORPUSCULAR HGB CONC 33.1 g/dL (32.0-36.0); MEAN CORPUSCULAR VOLUME 110.1 fL (80.0-94.0); RED BLOOD COUNT 1.59 10^6/uL (4.70-6.10); RED CELL DISTRIBUTION WIDTH 23.9 % (12.0-15.0); WHITE BLOOD COUNT 8.8 x10^3/uL (4.8-10.8)
[2024-02-13 06:23] LABS: HCT - HEMATOCRIT 17.5 % (42.0-52.0); HGB - HEMOGLOBIN 5.8 g/dL (14.0-18.0)
[2024-02-13 06:30] LABS: CALCIUM 8.2 mg/dL (8.5-10.3); CREATININE 1.4 mg/dL (0.6-1.3); POTASSIUM 4.7 mmol/L (3.5-4.5)
[2024-02-13] MEDS: APIXABAN 5 MG TABLET PO SCH (08:48)
[2024-02-13] MEDS: SERTRALINE 25 MG TABLET PO SCH (08:49)
[2024-02-13] MEDS ORDERED: LOSARTAN 50 MG TABLET PO SCH (09:00)
--- NOTE | 2024-02-13 11:41 | PROVIDER PROGRESS NOTE ---
Subjective Subjective Subjective: Patient states that anytime he moves his left fingers, he feels a sharp pain across his knuckles. He has no fevers or chills. He does state that the pain medications are working and do temporarily relieve his pain. His last bowel movement was 2 days ago. He is taking Metamucil regularly. He understands that he may need another prolonged course of antibiotics. Current Medications Current Medications Current Medications: Current Medications Generic Name Dose Route Start Last Admin Trade Name Freq PRN Reason Stop Dose Admin Acetaminophen 650 mg 02/12/24 14:37 Acetaminophen 325 Mg Tablet PO Q4HR PRN Pain 1 to 4, or Fever Hydrocodone Bitart/Acetaminophen 1 tab 02/12/24 14:37 02/12/24 19:18 Hydrocod/Acetam 5/325 Mg Tablet PO 1 tab Q4HR PRN Administration Pain 5 to 7 Apixaban 5 mg 02/13/24 09:00 02/13/24 08:48 Apixaban 5 Mg Tablet PO 5 mg BID MIGUEL ÁNGEL Administration Aspirin 81 mg 02/13/24 21:00 Aspirin Ec 81 Mg Tablet PO HS MIGUEL ÁNGEL Atorvastatin Calcium 10 mg 02/12/24 21:00 02/12/24 21:37 Atorvastatin 10 Mg Tablet PO 10 mg QPM MIGUEL ÁNGEL Administration Docusate Sodium 100 mg 02/12/24 21:00 02/13/24 08:48 Docusate Sodium 100 Mg Capsule PO 100 mg BID MIGUEL ÁNGEL Administration Cefepime HCl 1 gm/ Sodium 100 mls @ 200 mls/hr 02/12/24 17:00 02/13/24 06:34 Chloride IV Infused TID MIGUEL ÁNGEL Infusion Potassium Chloride/Sodium Chloride 1,000 mls @ 75 mls/hr 02/12/24 18:00 02/13/24 09:15 Normal Saline 0.9% W/20 Meq Kcl IV 0 mls/hr .[id number] MIGUEL ÁNGEL Infusion Vancomycin HCl 1.5 gm/ Sodium 500 mls @ 250 mls/hr 02/13/24 17:00 Chloride IV Q24H MIGUEL ÁNGEL Morphine Sulfate 2 mg 02/12/24 14:37 02/12/24 21:37 Morphine 2 Mg/Ml Carpuject IVP 2 mg Q2HR PRN Administration Pain 8 to 10 Ondansetron HCl 4 mg 02/12/24 14:37 Ondansetron Odt 4 Mg Tablet TL Q6HR PRN Nausea / Vomiting Psyllium Hydrophilic Mucilloid 2 packet 02/12/24 14:57 Psyllium Packet PO DAILY PRN Constipation Sertraline HCl 25 mg 02/13/24 09:00 02/13/24 08:49 Sertraline 25 Mg Tablet PO 25 mg DAILY MIGUEL ÁNGEL Administration Sodium Chloride 10 ml 02/12/24 14:37 02/12/24 21:36 Sodium Chloride Flush 0.9% 10 Ml Syringe IVP 10 ml PRN PRN Administration NEEDED PER PROVIDER ORDERS Sodium Chloride 10 ml 02/12/24 17:00 02/13/24 09:27 Sodium Chloride Flush 0.9% 10 Ml Syringe IVP 10 ml 0100,0900,1700 MIGUEL ÁNGEL Administration Trazodone HCl 50 mg 02/12/24 21:00 02/12/24 21:37 Trazodone 50 Mg Tablet PO 50 mg HS MIGUEL ÁNGEL Administration Objective Vital Signs/Intake & Output Reviewed Vital Signs: Yes Vital Signs: Vital Signs x48h Temp Pulse Pulse Resp BP BP Pulse Ox 02/13/24 09:30 98.2 F 73 20 118/53 L 96 02/13/24 09:18 98.1 F 76 20 115/54 L 96 02/13/24 09:00 97.9 F 72 20 123/57 L 97 02/13/24 08:57 98.1 F 76 20 115/54 L 96 02/13/24 05:05 97.9 F 69 16 122/56 L 97 Intake & Output: Intake & Output 02/11/24 02/12/24 02/13/24 02/14/24 05:59 05:59 05:59 05:59 Intake Total 1860 / 1860 1345 / 1345 Balance 1860 / 1860 1345 / 1345 Weight (kg) 90 kg Objective General Appearance: positive No acute distress and Alert Eyes Bilateral: positive Normal inspection ENT: positive ENT inspection nml Neck: positive Nml inspection Respiratory: positive Chest non-tender and No respiratory distress Cardiovascular: positive Regular rate & rhythm Abdomen: positive Non-tender Back: positive Nml inspection Skin: positive Color nml Extremities: positive Other (Dressing is clean and dry on L hand; DAO wrap noted, not removed) Neurologic/Psychiatric: positive Oriented x3 Lab Results 02/13/24 05:56 02/13/24 05:56 Other Labs: Lab Results x24hrs 02/13/24 02/13/24 02/13/24 Range/Units 07:45 05:58 05:56 WBC 8.8 (4.8-10.8) x10^3/uL RBC 1.59 L (4.70-6.10) 10^6/uL Hgb 5.8 L* (14.0-18.0) g/dL Hct 17.5 L* (42.0-52.0) % MCV 110.1 H (80.0-94.0) fL MCH 36.5 H (27.0-31.0) pg MCHC 33.1 (32.0-36.0) g/dL RDW 23.9 H (12.0-15.0) % Plt Count 168 (130-450) 10^3/uL MPV 10.0 (7.4-11.4) fL Neut # (Auto) Lymph # (Auto) Weston # (Auto) Eos # (Auto) Baso # (Auto) Absolute Nucleated RBC Total Counted Band Neuts % (Manual) (0 - 10) % Abnorm Lymph % (Manual) % Metamyelocytes % ( - 0) % Nucleated RBC % Neutrophils # (Manual) (1.5-6.6) 10^3/uL Lymphocytes # (Manual) (1.5-3.5) 10^3/uL Monocytes # (Manual) (0.0-1.0) 10^3/uL Eosinophils # (Manual) (0-0.7) 10^3/uL Basophils # (Manual) (0-0.1) 10^3/uL Nucleated RBCs % Differential Comment Manual Slide Review WBC Morphology (NORMAL) Platelet Estimate (NORMAL) Platelet Morphology (NORMAL) RBC Morph Micro Appear (NORMAL) ESR (0-20) mm/Hr Sodium 136 (135-145) mmol/L Potassium 4.7 H (3.5-4.5) mmol/L Chloride 108 (101-111) mmol/L Carbon Dioxide 23 (21-32) mmol/L Anion Gap 5.0 L (6-13) BUN 27 H (6-20) mg/dL Creatinine 1.4 H (0.6-1.3) mg/dL Estimated GFR (MDRD) 49 L (>89) Glucose 109 H (74-104) mg/dL Calcium 8.2 L (8.5-10.3) mg/dL Magnesium (1.7-2.3) mg/dL Total Bilirubin (0.2-1.0) mg/dL AST (10-42) IU/L ALT (10-60) IU/L Alkaline Phosphatase (42-121) IU/L Total Creatine Kinase 36 (30-223) IU/L C-Reactive Protein 6.4 H (<0.5) mg/dL Total Protein (6.4-8.9) g/dL Albumin (3.2-5.5) g/dL Globulin (2.1-4.2) g/dL Albumin/Globulin Ratio (1.0-2.2) Lipase (11-82) U/L Blood Type O NEGATIVE Antibody Screen NEGATIVE Crossmatch IS Only See Detail 02/12/24 02/12/24 02/12/24 Range/Units 12:23 12:23 12:23 WBC 16.3 H (4.8-10.8) x10^3/uL RBC 1.97 L (4.70-6.10) 10^6/uL Hgb 7.1 L (14.0-18.0) g/dL Hct 21.9 L (42.0-52.0) % MCV 111.2 H (80.0-94.0) fL MCH 36.0 H (27.0-31.0) pg MCHC 32.4 (32.0-36.0) g/dL RDW 23.9 H (12.0-15.0) % Plt Count 202 (130-450) 10^3/uL MPV 10.3 (7.4-11.4) fL Neut # (Auto) Not Reportable Lymph # (Auto) Not Reportable Weston # (Auto) Not Reportable Eos # (Auto) Not Reportable Baso # (Auto) Not Reportable Absolute Nucleated RBC Not Reportable Total Counted 100 Band Neuts % (Manual) 5 (0 - 10) % Abnorm Lymph % (Manual) 0 % Metamyelocytes % 2 H ( - 0) % Nucleated RBC % Not Reportable Neutrophils # (Manual) 12.4 H (1.5-6.6) 10^3/uL Lymphocytes # (Manual) 1.8 (1.5-3.5) 10^3/uL Monocytes # (Manual) 1.6 H (0.0-1.0) 10^3/uL Eosinophils # (Manual) 0.2 (0-0.7) 10^3/uL Basophils # (Manual) 0.0 (0-0.1) 10^3/uL Nucleated RBCs 1 % Differential Comment MANUAL DIFFERENTIAL Manual Slide Review Indicated WBC Morphology 1+ SMUDGE CELLS (NORMAL) Platelet Estimate NORMAL (130-450,000) (NORMAL) Platelet Morphology NORMAL APPEARANCE (NORMAL) RBC Morph Micro Appear 1+ MACROCYTOSIS 2+ ANISOCYTOSIS 2+ HYPOCHROMASIA (NORMAL) ESR > 140 H (0-20) mm/Hr Sodium 134 L (135-145) mmol/L Potassium 4.6 H (3.5-4.5) mmol/L Chloride 104 (101-111) mmol/L Carbon Dioxide 21 (21-32) mmol/L Anion Gap 9.0 (6-13) BUN 34 H (6-20) mg/dL Creatinine 1.5 H (0.6-1.3) mg/dL Estimated GFR (MDRD) 45 L (>89) Glucose 123 H (74-104) mg/dL Calcium 9.1 (8.5-10.3) mg/dL Magnesium 1.6 L (1.7-2.3) mg/dL Total Bilirubin 0.7 (0.2-1.0) mg/dL AST 12 (10-42) IU/L ALT 15 (10-60) IU/L Alkaline Phosphatase 62 (42-121) IU/L Total Creatine Kinase (30-223) IU/L C-Reactive Protein 9.1 H (<0.5) mg/dL Total Protein 7.2 (6.4-8.9) g/dL Albumin 3.9 (3.2-5.5) g/dL Globulin 3.3 (2.1-4.2) g/dL Albumin/Globulin Ratio 1.2 (1.0-2.2) Lipase 21 (11-82) U/L Blood Type Antibody Screen Crossmatch IS Only Diagnostic Imaging Diagnostic Imaging Results: positive Final report reviewed Sepsis Event Note (H) Evaluation Current Stage of Sepsis: Ruled out Possible source of Sepsis: positive Bone/Joint Assessment/Plan Problem List (1) Septic joint of left wrist: Impression: Purulence noted from left wrist at orthopedic surgery office. Completed irrigation debridement, 02/11, in OR. Continue cefepime and vancomycin. Initial Gram stain is still negative. However, initial synovial fluid cell count is likely consistent with septic arthritis (moderate white blood cells), and as such, we will continue antibiotics at this time. Final blood cultures, wound cultures ordered, pending. If no organisms are seen, patient will likely require an additional 14-day course of daptomycin and cefepime, PICC line placement, followed by an additional 14-day course of oral Bactrim. Will discuss with orthopedic surgery. ESR, CRP elevated. Of note, patient is afebrile, normotensive at this time. Orthopedic surgery following, appreciate recommendations. Qualifiers: Septic arthritis organism: due to unspecified organism Qualified Code(s): M00.9 - Pyogenic arthritis, unspecified (2) Leukocytosis: Impression: Resolved. Patient with history of CML. Patient is on active surveillance. He follows with Dr. Sepulveda. Last treatment was 05/12/2023 with Inqovi; further treatment was held. Baseline WBC count of around 16-20. Today, his leukocytosis is 8. Improved from 22. Continue to monitor. Qualifiers: Leukocytosis type: bandemia Qualified Code(s): D72.825 - Bandemia (3) Anemia: Impression: Patient with anemia attributed to CML, requiring multiple transfusions. Acute blood loss anemia with surgery yesterday, and Eliquis use. One unit of PRBCs ordered, irradiated and leukoreduced. Hemoglobin around baseline of 7-8. Continue to trend daily. No active bleeding noted. Qualifiers: Anemia type: bone marrow failure Bone marrow failure anemia type: u nspecified bone marrow failure Qualified Code(s): D61.9 - Aplastic anemia, unspecified (4) Acute kidney injury: Impression: Creatinine elevated 1.4, baseline around 1. Received IV fluids, eating and drinking well. Likely prerenal due to decreased fluid intake, continue to trend. (5) Chronic myelomonocytic leukemia: Impression: Follows up with oncology, Dr. Sepulveda, in the outpatient setting. Last appointment was 01/22. Patient is in active surveillance. Last treatment was 05/12/2023, further treatment was held. Qualifiers: Leukemia Active/Remission status: without remission Qualified Code(s): C93.10 - Chronic myelomonocytic leukemia not having achieved remission (6) Pulmonary emboli: Impression: Continue Eliquis after procedures completed. CTA on 05/28/2023 did show small nonocclusive left lower pulmonary emboli. Qualifiers: Acute cor pulmonale presence: without acute cor pulmonale Chronicity: c hronic Pulmonary embolism type: unspecified Qualified Code(s): I27.82 - Chronic pulmonary embolism (7) Hx of essential hypertension: Impression: Patient with borderline low blood pressures at this time. Hold home losartan, metoprolol. (8) MARICARMEN on CPAP: Impression: Continue CPAP inpatient. (9) PMR (polymyalgia rheumatica): Impression: Continue pain management with Tylenol for mild pain, Dennis for moderate pain, morphine for severe pain.
[2024-02-13] MEDS: DAPTOmycin 500 MG VIAL IVP SCH (16:38)
[2024-02-13] MEDS: ACETAMINOPHEN 325 MG TABLET PO PRN (16:40)
[2024-02-13 16:57] LABS: HCT - HEMATOCRIT 23.1 % (42.0-52.0); HGB - HEMOGLOBIN 7.6 g/dL (14.0-18.0)
[2024-02-13] MEDS ORDERED: VANCOMYCIN INJ 1.5 GM in SODIUM CHLORIDE 0.9% 500 ML IV SCH (17:00)
--- NOTE | 2024-02-13 17:34 | POST OP PROGRESS NOTE ---
Subjective General Admit Date: 02/12/24 Procedure Date: 01/10/24 Post Op Days: 34 Procedure Performed: I & D L wrist. Other Other Information/Narrative: 78 year old male presents for follow up of septic left wrist joint. He underwent irrigation and debridement of septic left wrist and carpal tunnel with bone biopsy of the lunate with at [facility] on 01/10/24. He has a past medical history of CML. He was doing well with improvement in pain and swelling at his last evaluation on 02/04/24. There was no pustular drainage during that evaluation and the wound was not packed. His IV antibiotics were discontinued and his PICC line was removed. On 02/09/24 he noticed increased pain and swelling about the left wrist and hand. He denies fever in the past 4 days. He has chills normally which he a ttributes to [facility]. He also endorses increased fatigue, light headedness and decreased appetite. He was taken to the OR On 02/12/24 when he presented to the Ortho clinic with purulent drainage coming from his left wrist. He had increased pain and difficulty with his ROM. He had a formal I & D in the OR and today he says his wrist is sore but feels much better than it did feel. He is currently splinted and on IV antibiotics. PE: wd/wn/nad L wrist: Splint in place. SILT r/u/m. Fires epl/fpl/io. brisk cap refill. Cultures: No growth to date. a/p: Left wrist septic arthritis - Splint for comfort - Will take down splint and dressing tomorrow to evaluate wound - NPO after midnight tonight in the event that he needs a repeat I & D - IV antibiotics per internal medicine team - DVT prophylaxis - ambulation and SCDs in bed. Ortho Surgical Progress Note Problem List Discharge Instructions: * Always ambulate with front wheeled walker until instructed otherwise by your surgeon. Please refer to the booklet provided at [facility] for instructions for ambulation. You can weight-bear as tolerated on the affected extremity. * Avoid crossing your legs when sitting in low chairs to reduce chance of hip dislocation * Follow the pre-operatively agreed upon pain regimen described in the [facility] booklet. As a reminder, the discussed medications include using acetaminophen, ibuprofen, oxycodone and tramadol. * Ice area to decrease pain and swelling * Take Aspirin 81 mg twice daily for 6 weeks for blood clot prevention * Leave dressing in place until follow up in office. You can shower with the dressing in place if it is kept dry and neat * Please call the office if you experience fever, chills, chest pain, shortness of breath, nausea, vomiting, drainage or bleeding * You are scheduled for follow-up with the orthopedic clinic in 5 days * Appreciate input from hospitalist team for management of chronic medical conditions
[2024-02-13] MEDS: ASPIRIN EC 81 MG TABLET PO SCH (21:11)
[2024-02-14] MEDS: ONDANSETRON ODT 4 MG TABLET TL PRN (00:09)
[2024-02-14 06:18] LABS: MEAN CORPUSCULAR HEMOGLOBIN 35.1 pg (27.0-31.0); MEAN CORPUSCULAR HGB CONC 32.4 g/dL (32.0-36.0); MEAN CORPUSCULAR VOLUME 108.2 fL (80.0-94.0); MEAN PLATELET VOLUME 10.2 fL (7.4-11.4); RED BLOOD COUNT 1.94 10^6/uL (4.70-6.10); RED CELL DISTRIBUTION WIDTH 23.2 % (12.0-15.0); WHITE BLOOD COUNT 10.8 x10^3/uL (4.8-10.8)
[2024-02-14 06:35] LABS: HGB - HEMOGLOBIN 6.8 g/dL (14.0-18.0)
[2024-02-14 06:38] LABS: CALCIUM 8.3 mg/dL (8.5-10.3); CREATININE 1.2 mg/dL (0.6-1.3); CRP - C-REACTIVE PROTEIN 4.6 mg/dL (<0.5); POTASSIUM 4.5 mmol/L (3.5-4.5)
--- NOTE | 2024-02-14 09:39 | POST OP PROGRESS NOTE ---
Subjective General Admit Date: 02/12/24 Procedure Date: 01/10/24 Post Op Days: 35 Procedure Performed: I & D L wrist. Other Other Information/Narrative: Admit Date: 02/12/24 Procedure Date: 01/10/24 & 02/11/24 Post Op Days: 34/3 Procedure Performed: I & D L wrist. Other Other Information/Narrative: 78 year old male presents for follow up of septic left wrist joint. He underwent irrigation and debridement of septic left wrist and carpal tunnel with bone biopsy of the lunate with at [facility] on 01/10/24. He has a past medical history of CML. He was doing well with improvement in pain and swelling at his last evaluation on 02/04/24. There was no pustular drainage during that evaluation and the wound was not packed. His IV antibiotics were discontinued and his PICC line was removed. On 02/09/24 he noticed increased pain and swelling about the left wrist and hand. He denies fever in the past 4 days. He has chills normally which he attributes to CML. He also endorses increased fatigue, light headedness and decreased appetite. He was taken to the OR On 02/12/24 when he presented to the Ortho clinic with purulent drainage coming from his left wrist. He had increased pain and difficulty with his ROM. He had a formal I & D in the OR and today he says his wrist is sore but feels much better than it did feel. He is currently splinted and on IV antibiotics. PE: wd/wn/nad L wrist: Splint in place. Fingers are swollen. No joint irritability with movement of fingers. Splint removed: Dressing and packing removed - no purulence expressed, surrounding erythema, SILT r/u/m. Fires epl/fpl/io. brisk cap refill. Cultures: No growth to date. a/p: Left wrist septic arthritis - Splint for comfort - Packing will be repacked every 2-3 days. - IV antibiotics per internal medicine team - DVT prophylaxis - ambulation and SCDs in bed. Ortho Surgical Progress Note Problem List Discharge Instructions: * Always ambulate with front wheeled walker until instructed otherwise by your surgeon. Please refer to the booklet provided at [facility] for instructions for ambulation. You can weight-bear as tolerated on the affected extremity. * Avoid crossing your legs when sitting in low chairs to reduce chance of hip dislocation * Follow the pre-operatively agreed upon pain regimen described in the [facility] booklet. As a reminder, the discussed medications include using acetaminophen, ibuprofen, oxycodone and tramadol. * Ice area to decrease pain and swelling * Take Aspirin 81 mg twice daily for 6 weeks for blood clot prevention * Leave dressing in place until follow up in office. You can shower with the dressing in place if it is kept dry and neat * Please call the office if you experience fever, chills, chest pain, shortness of breath, nausea, vomiting, drainage or bleeding * You are scheduled for follow-up with the orthopedic clinic in 5 days * Appreciate input from hospitalist team for management of chronic medical conditions
--- NOTE | 2024-02-14 11:55 | PROVIDER PROGRESS NOTE ---
Subjective Subjective Subjective: Patient states that anytime he moves his left fingers, he feels a sharp pain across his knuckles. He has no fevers or chills. He does state that the pain medications are working and do temporarily relieve his pain. He would like to wait until there is insurance authorization for his IV antibiotics prior to the PICC line being placed. He understands that he will need an extended course of antibiotics. Current Medications Current Medications Current Medications: Current Medications Generic Name Dose Route Start Last Admin Trade Name Freq PRN Reason Stop Dose Admin Acetaminophen 650 mg 02/12/24 14:37 02/14/24 09:20 Acetaminophen 325 Mg Tablet PO 650 mg Q4HR PRN Administration Pain 1 to 4, or Fever Hydrocodone Bitart/Acetaminophen 1 tab 02/12/24 14:37 02/13/24 21:11 Hydrocod/Acetam 5/325 Mg Tablet PO 1 tab Q4HR PRN Administration Pain 5 to 7 Apixaban 5 mg 02/13/24 09:00 02/14/24 09:20 Apixaban 5 Mg Tablet PO 5 mg BID MIGUEL ÁNGEL Administration Aspirin 81 mg 02/13/24 21:00 02/13/24 21:11 Aspirin Ec 81 Mg Tablet PO Not Given HS MIGUEL ÁNGEL Atorvastatin Calcium 10 mg 02/12/24 21:00 02/13/24 21:11 Atorvastatin 10 Mg Tablet PO 10 mg QPM MIGUEL ÁNGEL Administration Daptomycin 800 mg 02/13/24 16:00 02/13/24 16:38 Daptomycin 500 Mg Vial IVP 800 mg DAILY@1600 MIGUEL ÁNGEL Administration Docusate Sodium 100 mg 02/12/24 21:00 02/14/24 09:21 Docusate Sodium 100 Mg Capsule PO 100 mg BID MIGUEL ÁNGEL Administration Cefepime HCl 1 gm/ Sodium 100 mls @ 200 mls/hr 02/12/24 17:00 02/14/24 07:59 Chloride IV Infused TID MIGUEL ÁNGEL Infusion Morphine Sulfate 2 mg 02/12/24 14:37 02/14/24 00:05 Morphine 2 Mg/Ml Carpuject IVP 2 mg Q2HR PRN Administration Pain 8 to 10 Ondansetron HCl 4 mg 02/12/24 14:37 02/14/24 00:09 Ondansetron Odt 4 Mg Tablet TL 4 mg Q6HR PRN Administration Nausea / Vomiting Psyllium Hydrophilic Mucilloid 2 packet 02/12/24 14:57 Psyllium Packet PO DAILY PRN Constipation Sertraline HCl 25 mg 02/13/24 09:00 02/14/24 09:20 Sertraline 25 Mg Tablet PO 25 mg DAILY MIGUEL ÁNGEL Administration Sodium Chloride 10 ml 02/12/24 14:37 02/12/24 21:36 Sodium Chloride Flush 0.9% 10 Ml Syringe IVP 10 ml PRN PRN Administration NEEDED PER PROVIDER ORDERS Sodium Chloride 10 ml 02/12/24 17:00 02/14/24 09:20 Sodium Chloride Flush 0.9% 10 Ml Syringe IVP 10 ml 0100,0900,1700 MIGUEL ÁNGEL Administration Trazodone HCl 50 mg 02/12/24 21:00 02/13/24 21:11 Trazodone 50 Mg Tablet PO 50 mg HS MIGUEL ÁNGEL Administration Objective Vital Signs/Intake & Output Reviewed Vital Signs: Yes Vital Signs: Vital Signs x48h Temp Pulse Pulse Resp BP Pulse Ox 02/14/24 08:10 98.4 F 66 16 129/57 L 95 02/14/24 05:18 98.1 F 60 18 116/52 L 95 Intake & Output: Intake & Output 02/12/24 02/13/24 02/14/24 02/15/24 05:59 05:59 05:59 05:59 Intake Total 1860 / 1860 2980 / 2980 220 / 220 Balance 1860 / 1860 2980 / 2980 220 / 220 Weight (kg) 90 kg Objective General Appearance: positive No acute distress and Alert Eyes Bilateral: positive Normal inspection ENT: positive ENT inspection nml Neck: positive Nml inspection Respiratory: positive Chest non-tender and No respiratory distress Cardiovascular: positive Regular rate & rhythm Abdomen: positive Non-tender Back: positive Nml inspection Skin: positive Color nml Extremities: positive Other (Dressing is clean and dry on L hand; DAO wrap noted, not removed) Neurologic/Psychiatric: positive Oriented x3 Lab Results 02/14/24 05:51 02/14/24 05:51 Other Labs: Lab Results x24hrs 02/14/24 02/13/24 Range/Units 05:51 16:53 WBC 10.8 (4.8-10.8) x10^3/uL RBC 1.94 L (4.70-6.10) 10^6/uL Hgb 6.8 L* 7.6 L (14.0-18.0) g/dL Hct 21.0 L 23.1 L (42.0-52.0) % MCV 108.2 H (80.0-94.0) fL MCH 35.1 H (27.0-31.0) pg MCHC 32.4 (32.0-36.0) g/dL RDW 23.2 H (12.0-15.0) % Plt Count 195 (130-450) 10^3/uL MPV 10.2 (7.4-11.4) fL Sodium 135 (135-145) mmol/L Potassium 4.5 (3.5-4.5) mmol/L Chloride 106 (101-111) mmol/L Carbon Dioxide 23 (21-32) mmol/L Anion Gap 6.0 (6-13) BUN 18 (6-20) mg/dL Creatinine 1.2 (0.6-1.3) mg/dL Estimated GFR (MDRD) 59 L (>89) Glucose 105 H (74-104) mg/dL Calcium 8.3 L (8.5-10.3) mg/dL C-Reactive Protein 4.6 H (<0.5) mg/dL Diagnostic Imaging Diagnostic Imaging Results: positive Final report reviewed Sepsis Event Note (H) Evaluation Current Stage of Sepsis: Ruled out Possible source of Sepsis: positive Bone/Joint Assessment/Plan Problem List (1) Septic joint of left wrist: Impression: Purulence noted from left wrist at orthopedic surgery office. Completed irrigation debridement, 02/11, in OR. Continue cefepime and vancomycin. Initial Gram stain is still negative. However, initial synovial fluid cell count is likely consistent with septic arthritis (moderate white blood cells), and as such, we will continue antibiotics at this time. Final blood cultures, wound cultures ordered, pending. If no organisms are seen, patient will likely require an additional 14-day course of daptomycin and cefepime, PICC line placement, followed by an additional 14-day course of oral Bactrim. Spoke with Social work about initiating process to set this up. ESR, CRP elevated. Of note, patient is afebrile, normotensive at this time. Orthopedic surgery following, appreciate recommendations. Will recheck tomorrow A.M. Qualifiers: Septic arthritis organism: due to unspecified organism Qualified Code(s): M00.9 - Pyogenic arthritis, unspecified (2) Leukocytosis: Impression: Resolved. Patient with history of CML. Patient is on active surveillance. He follows with Dr. Sepulveda. Last treatment was 05/12/2023 with Inqovi; further treatment was held. Baseline WBC count of around 16-20. Today, his leukocytosis is improved. Continue to monitor. Qualifiers: Leukocytosis type: bandemia Qualified Code(s): D72.825 - Bandemia (3) Anemia: Impression: Patient with anemia attributed to CML, requiring multiple transfusions. Acute blood loss anemia with surgery yesterday, and Eliquis use. One unit of PRBCs ordered, irradiated and leukoreduced. Hemoglobin now around baseline of 7-8. Continue to trend daily. No active bleeding noted. Qualifiers: Anemia type: bone marrow failure Bone marrow failure anemia type: u nspecified bone marrow failure Qualified Code(s): D61.9 - Aplastic anemia, unspecified (4) Acute kidney injury: Impression: Resolved. Creatinine was elevated 1.4, baseline around 1. Received IV fluids, eating and drinking well. Likely prerenal due to decreased fluid intake, continue to trend. (5) Chronic myelomonocytic leukemia: Impression: Follows up with oncology, Dr. Sepulveda, in the outpatient setting. Last appointment was 01/22. Patient is in active surveillance. Last treatment was 05/12/2023, further treatment was held. Qualifiers: Leukemia Active/Remission status: without remission Qualified Code(s): C93.10 - Chronic myelomonocytic leukemia not having achieved remission (6) Pulmonary emboli: Impression: Continue Eliquis after procedures completed. CTA on 05/28/2023 did show small nonocclusive left lower pulmonary emboli. Qualifiers: Acute cor pulmonale presence: without acute cor pulmonale Chronicity: c hronic Pulmonary embolism type: unspecified Qualified Code(s): I27.82 - Chronic pulmonary embolism (7) Hx of essential hypertension: Impression: Patient with borderline low blood pressures at this time. Hold home losartan, metoprolol. (8) MARICARMEN on CPAP: Impression: Continue CPAP inpatient. (9) PMR (polymyalgia rheumatica): Impression: Continue pain management with Tylenol for mild pain, [place] for moderate pain, morphine for severe pain.
[2024-02-14] MEDS: CHOLECALCIFEROL 25 MCG TABLET PO SCH (17:07)
[2024-02-14] MEDS: MULTIVITAMIN TABLET PO SCH (17:07)
[2024-02-15 06:03] LABS: HCT - HEMATOCRIT 21.2 % (42.0-52.0); MEAN CORPUSCULAR HGB CONC 32.5 g/dL (32.0-36.0); MEAN CORPUSCULAR VOLUME 107.6 fL (80.0-94.0); MEAN PLATELET VOLUME 10.3 fL (7.4-11.4); RED BLOOD COUNT 1.97 10^6/uL (4.70-6.10); RED CELL DISTRIBUTION WIDTH 22.5 % (12.0-15.0); WHITE BLOOD COUNT 12.3 x10^3/uL (4.8-10.8)
[2024-02-15 06:11] LABS: HGB - HEMOGLOBIN 6.9 g/dL (14.0-18.0)
[2024-02-15 06:20] LABS: CALCIUM 8.6 mg/dL (8.5-10.3); CREATININE 1.2 mg/dL (0.6-1.3); CRP - C-REACTIVE PROTEIN 3.3 mg/dL (<0.5); POTASSIUM 4.5 mmol/L (3.5-4.5)
--- NOTE | 2024-02-15 09:16 | PROVIDER PROGRESS NOTE ---
Subjective Subjective Subjective: Patient states that anytime he moves his left fingers, he feels a sharp pain across his knuckles. He has no fevers or chills. He does state that the pain medications are working and do temporarily relieve his pain. He would like to wait until there is insurance authorization for his IV antibiotics prior to the PICC line being placed. He understands that he will need an extended course of antibiotics. Current Medications Current Medications Current Medications: Current Medications Generic Name Dose Route Start Last Admin Trade Name Frebarbara PRN Reason Stop Dose Admin Acetaminophen 650 mg 02/12/24 14:37 02/15/24 08:47 Acetaminophen 325 Mg Tablet PO 650 mg Q4HR PRN Administration Pain 1 to 4, or Fever Hydrocodone Bitart/Acetaminophen 1 tab 02/12/24 14:37 02/14/24 20:56 Hydrocod/Acetam 5/325 Mg Tablet PO 1 tab Q4HR PRN Administration Pain 5 to 7 Apixaban 5 mg 02/13/24 09:00 02/15/24 08:47 Apixaban 5 Mg Tablet PO 5 mg BID MIGUEL ÁNGEL Administration Aspirin 81 mg 02/13/24 21:00 02/14/24 20:56 Aspirin Ec 81 Mg Tablet PO 81 mg HS MIGUEL ÁNGEL Administration Atorvastatin Calcium 10 mg 02/12/24 21:00 02/14/24 20:56 Atorvastatin 10 Mg Tablet PO 10 mg QPM MIGUEL ÁNGEL Administration Cholecalciferol 50 mcg 02/14/24 17:00 02/15/24 08:47 Cholecalciferol 25 Mcg Tablet PO 50 mcg DAILY MIGUEL ÁNGEL Administration Daptomycin 800 mg 02/13/24 16:00 02/14/24 17:04 Daptomycin 500 Mg Vial IVP 800 mg DAILY@1600 MIGUEL ÁNGEL Administration Docusate Sodium 100 mg 02/12/24 21:00 02/15/24 08:47 Docusate Sodium 100 Mg Capsule PO 100 mg BID MIGUEL ÁNGEL Administration Cefepime HCl 1 gm/ Sodium 100 mls @ 200 mls/hr 02/12/24 17:00 02/15/24 07:10 Chloride IV Infused TID MIGUEL ÁNGEL Infusion Morphine Sulfate 2 mg 02/12/24 14:37 02/14/24 00:05 Morphine 2 Mg/Ml Carpuject IVP 2 mg Q2HR PRN Administration Pain 8 to 10 Multivitamins 1 tab 02/14/24 17:00 02/15/24 08:47 Multivitamin Tablet PO 1 tab DAILYWM MIGUEL ÁNGEL Administration Ondansetron HCl 4 mg 02/12/24 14:37 02/14/24 00:09 Ondansetron Odt 4 Mg Tablet TL 4 mg Q6HR PRN Administration Nausea / Vomiting Psyllium Hydrophilic Mucilloid 2 packet 02/12/24 14:57 Psyllium Packet PO DAILY PRN Constipation Sertraline HCl 25 mg 02/13/24 09:00 02/15/24 08:47 Sertraline 25 Mg Tablet PO 25 mg DAILY MIGUEL ÁNGEL Administration Sodium Chloride 10 ml 02/12/24 14:37 02/12/24 21:36 Sodium Chloride Flush 0.9% 10 Ml Syringe IVP 10 ml PRN PRN Administration NEEDED PER PROVIDER ORDERS Sodium Chloride 10 ml 02/12/24 17:00 02/15/24 08:47 Sodium Chloride Flush 0.9% 10 Ml Syringe IVP 10 ml 0100,0900,1700 MIGUEL ÁNGEL Administration Trazodone HCl 50 mg 02/12/24 21:00 02/14/24 20:56 Trazodone 50 Mg Tablet PO 50 mg HS MIGUEL ÁNGEL Administration Objective Vital Signs/Intake & Output Reviewed Vital Signs: Yes Vital Signs: Vital Signs x48h Temp Pulse Resp BP Pulse Ox 02/15/24 08:15 98.1 F 78 18 129/54 L 96 Intake & Output: Intake & Output 02/13/24 02/14/24 02/15/24 02/16/24 05:59 05:59 05:59 05:59 Intake Total 1860 / 1860 2980 / 2980 1320 / 1320 340 / 340 Balance 1860 / 1860 2980 / 2980 1320 / 1320 340 / 340 Weight (kg) 90 kg Objective General Appearance: positive No acute distress and Alert Eyes Bilateral: positive Normal inspection ENT: positive ENT inspection nml Neck: positive Nml inspection Respiratory: positive Chest non-tender and No respiratory distress Cardiovascular: positive Regular rate & rhythm Abdomen: positive Non-tender Back: positive Nml inspection Skin: positive Color nml Extremities: positive Other (Dressing is clean and dry on L hand; DAO wrap noted, not removed) Neurologic/Psychiatric: positive Oriented x3 Lab Results 02/15/24 05:37 02/15/24 05:37 Other Labs: Lab Results x24hrs 02/15/24 Range/Units 05:37 WBC 12.3 H (4.8-10.8) x10^3/uL RBC 1.97 L (4.70-6.10) 10^6/uL Hgb 6.9 L* (14.0-18.0) g/dL Hct 21.2 L (42.0-52.0) % MCV 107.6 H (80.0-94.0) fL MCH 35.0 H (27.0-31.0) pg MCHC 32.5 (32.0-36.0) g/dL RDW 22.5 H (12.0-15.0) % Plt Count 224 (130-450) 10^3/uL MPV 10.3 (7.4-11.4) fL Sodium 135 (135-145) mmol/L Potassium 4.5 (3.5-4.5) mmol/L Chloride 104 (101-111) mmol/L Carbon Dioxide 25 (21-32) mmol/L Anion Gap 6.0 (6-13) BUN 19 (6-20) mg/dL Creatinine 1.2 (0.6-1.3) mg/dL Estimated GFR (MDRD) 59 L (>89) Glucose 109 H (74-104) mg/dL Calcium 8.6 (8.5-10.3) mg/dL C-Reactive Protein 3.3 H (<0.5) mg/dL Diagnostic Imaging Diagnostic Imaging Results: positive Final report reviewed Sepsis Event Note (H) Evaluation Current Stage of Sepsis: Ruled out Possible source of Sepsis: positive Bone/Joint Assessment/Plan Problem List (1) Septic joint of left wrist: Impression: Purulence noted from left wrist at orthopedic surgery office. Completed irrigation debridement, 02/11, in OR. Continue cefepime and vancomycin. Initial Gram stain is still negative. However, initial synovial fluid cell count is likely consistent with septic arthritis (moderate white blood cells), and as such, we will continue antibiotics at this time. Final blood cultures, wound cultures ordered, pending. If no organisms are seen, patient will likely require an additional 14-day course of daptomycin and cefepime, PICC line placement, followed by an additional 14-day course of oral Bactrim. Spoke with Social work about initiating process to set this up. ESR, CRP elevated. Of note, patient is afebrile, normotensive at this time. Orthopedic surgery following, appreciate recommendations. Will recheck tomorrow A.M. Qualifiers: Septic arthritis organism: due to unspecified organism Qualified Code(s): M00.9 - Pyogenic arthritis, unspecified (2) Leukocytosis: Impression: Resolved. Patient with history of CML. Patient is on active surveillance. He follows with Dr. Sepulveda. Last treatment was 05/12/2023 with Inqovi; further treatment was held. Baseline WBC count of around 16-20. Today, his leukocytosis is improved. Continue to monitor. Qualifiers: Leukocytosis type: bandemia Qualified Code(s): D72.825 - Bandemia (3) Anemia: Impression: Patient with anemia attributed to CML, requiring multiple transfusions. Acute blood loss anemia with surgery yesterday, and Eliquis use. One unit of PRBCs ordered, irradiated and leukoreduced. Hemoglobin now around baseline of 7-8. Continue to trend daily. No active bleeding noted. Qualifiers: Anemia type: bone marrow failure Bone marrow failure anemia type: u nspecified bone marrow failure Qualified Code(s): D61.9 - Aplastic anemia, unspecified (4) Acute kidney injury: Impression: Resolved. Creatinine was elevated 1.4, baseline around 1. Received IV fluids, eating and drinking well. Likely prerenal due to decreased fluid intake, continue to trend. (5) Chronic myelomonocytic leukemia: Impression: Follows up with oncology, Dr. Sepulveda, in the outpatient setting. Last appointment was 01/22. Patient is in active surveillance. Last treatment was 05/12/2023, further treatment was held. Qualifiers: Leukemia Active/Remission status: without remission Qualified Code(s): C93.10 - Chronic myelomonocytic leukemia not having achieved remission (6) Pulmonary emboli: Impression: Continue Eliquis after procedures completed. CTA on 05/28/2023 did show small nonocclusive left lower pulmonary emboli. Qualifiers: Acute cor pulmonale presence: without acute cor pulmonale Chronicity: c hronic Pulmonary embolism type: unspecified Qualified Code(s): I27.82 - Chronic pulmonary embolism (7) Hx of essential hypertension: Impression: Patient with borderline low blood pressures at this time. Hold home losartan, metoprolol. (8) MARICARMEN on CPAP: Impression: Continue CPAP inpatient. (9) PMR (polymyalgia rheumatica): Impression: Continue pain management with Tylenol for mild pain, [place] for moderate pain, morphine for severe pain.
--- NOTE | 2024-02-15 09:45 | POST OP PROGRESS NOTE ---
Subjective General Admit Date: 02/12/24 Procedure Date: 01/10/24 Post Op Days: 36 Procedure Performed: I & D L wrist. Other Other Information/Narrative: Admit Date: 02/12/24 Procedure Date: 01/10/24 & 02/11/24 Post Op Days: 36/4 Procedure Performed: I & D L wrist. Other Other Information/Narrative: 78 year old male s/p irrigation and debridement of septic left wrist and carpal tunnel with bone biopsy of the lunate with at [facility] on 01/10/24. He has a past medical history of CML. He was doing well with improvement in pain and swelling at his last evaluation on 02/04/24. There was no pustular drainage during that evaluation and the wound was not packed. His IV antibiotics were discontinued and his PICC line was removed. On 02/09/24 he noticed increased pain and swelling about the left wrist and hand. He denies fever in the past 4 days. He has chills normally which he attributes to CML. He also endorses increased fatigue, light headedness and decreased appetite. He was taken to the OR On 02/12/24 when he presented to the Ortho clinic with purulent drainage coming from his left wrist. He had increased pain and difficulty with his ROM. He had a formal I & D in the OR. Today he says his wrist is sore but feels much better than it did feel. He is currently splinted and on IV antibiotics. PE: wd/wn/nad L wrist: Splint in place. Fingers are swollen. No joint irritability with movement of wrist or fingers. Dressing and packing removed - no purulence expressed, surrounding erythema, SILT r/u/m. Fires epl/fpl/io. brisk cap refill. Cultures: No growth to date. a/p: Left wrist septic arthritis - Splint for comfort - Packing will be repacked every 2-3 days. - IV antibiotics per internal medicine team - DVT prophylaxis - ambulation and SCDs in bed. - Okay to discharge from orthopedic standpoint. Ortho Surgical Progress Note Problem List Discharge Instructions: * Always ambulate with front wheeled walker until instructed otherwise by your surgeon. Please refer to the booklet provided at [facility] [place] for instructions for ambulation. You can weight-bear as tolerated on the affected extremity. * Avoid crossing your legs when sitting in low chairs to reduce chance of hip dislocation * Follow the pre-operatively agreed upon pain regimen described in the [facility] booklet. As a reminder, the discussed medications include using aceta minophen, ibuprofen, oxycodone and tramadol. * Ice area to decrease pain and swelling * Take Aspirin 81 mg twice daily for 6 weeks for blood clot prevention * Leave dressing in place until follow up in office. You can shower with the dressing in place if it is kept dry and neat * Please call the office if you experience fever, chills, chest pain, shortness of breath, nausea, vomiting, drainage or bleeding * You are scheduled for follow-up with the orthopedic clinic in 5 days * Appreciate input from hospitalist team for management of chronic medical conditions
--- NOTE | 2024-02-15 10:26 | Discharge Summary ---
"Discharge Summary Admit Date: 02/12/24 Discharge Date: 02/15/24 Discharging Provider: Dr. Conor Fraire Code Status: Attempt Resuscitation DIAGNOSES Admission Diagnoses: Septic joint of left wrist Leukocytosis Anemia Acute kidney injury Chronic myelomonocytic leukemia Pulmonary emboli History of hypertension MARICARMEN on CPAP Polymyalgia rheumatica Discharge Diagnoses with Status of Each Condition: Soft joint of left wristpurulence noted from left wrist at orthopedic surgery office, completed debridement 02/11. Gram stains are still negative. However, with obvious pus, as well as moderate leukocyte count of the cultures, will treat as septic arthritis. Will complete 2 more weeks of IV antibiotics, followed by 14 additional days of Bactrim and ciprofloxacin (we do not have an organism so will cover broadly). Will require IV antibiotics and 02/26 to complete 14-day IV course, and then will require Bactrim for an additional 14 days. Was advised to continue lactobacillus/probiotics. Home infusion set up, home nursing set up, PCP managing antibiotic management in the outpatient setting. Will follow-up with orthopedic surgery on Sunday, office will call him to continue to follow-up. Leukocytosisaround baseline with his active CML. Anemiarequired 1 unit of blood postsurgery. Hemoglobin now at baseline. Acute kidney injuryresolved, was likely prerenal in setting of decreased p.o. intake. CMLcontinue follow-up with oncology, Dr. Sepulveda, in the outpatient setting. Pulmonary embolicontinue Eliquis on discharge. Hypertensioncontinue to hold home losartan and metoprolol, was not restarted during this stay, and his blood pressure has been well controlled. PMRcontinue pain management. Will send home with some [place] for a few days. HPI History of Present Illness: Patient is a 78-year-old male with a history of CML who presents with worsening left wrist pain and swelling. Of note, patient was admitted from 01/08 to 01/16 for similar complaints. He had a left wrist bone biopsy on 01/09. He also had an I&D performed. He was discharged home on daptomycin and cefepime to be continued for 2 weeks, which he completed in the outpatient setting. He followed up with orthopedic surgeryon 02/03, he was doing well. The wound was healing without pustular drainage. No packing was placed in the wound, simple dressing was placed. Him and his stated that he started having increased swelling and pain over the last 2 to 3 days. This morning, he went to his orthopedic surgery office. Here it was noted he had worsening swelling, erythema, pustular drainage. He was advised to go to the emergency room, for an irrigation debridement to be done in the OR today, 02/11, with Dr. Kirkland. At this time, he still has some pain in his left hand, he describes it as sharp. It is not relieved with pain medications at home. He denies any fevers, chills. He has no chest pain at this time. Of note, patient did present yesterday to the emergency room for chest pain, chest tightness. CTA was done which was negative, and symptoms resolved after a dose of morphine and albuterol nebulizer treatment. Troponin was negative x 2. CONSULTS | PROCEDURES Consultations: Orthopedic surgery, social work, LEGISLATIVE CORRESPONDENT Procedures: I&D of left wrist HOSPITAL COURSE Hospital Course: Patient is a 78-year-old male with a history of CML who presented with left wrist pain and swelling. Of note, he was admitted from 01/08 to 01/16 for similar symptoms. He had a bone biopsy done on 01/09, as well as an I&D performed. At that time, bone biopsy was negative for any osteomyelitis. He was discharged home on 2 weeks of IV antibiotics. At a follow-up appointment with his orthopedic surgeon, there was some purulent drainage noted. As such, he was advised to return to the emergency room. He had an incision and drainage done in the OR on 02/11. He has been afebrile the whole time. His leukocytosis has been decreasing or stable. Today, upon further inspection, there is no purulent drainage noted. Gram stain is still negative. However, does show moderate leukocytes within the synovial fluid. Will treat as septic arthritis. Patient will need 14 days of IV antibiotics total, and as such, his last day of IV antibiotics will be 02/26. He will receive a PICC line today for administration in the outpatient setting. Infusion has been set up with daily daptomycin and cefepime. After this 2-week course of IV antibiotics, he will need 2 weeks of oral antibiotics with Bactrim. Patient was advised to continue probiotic use, lactobacillus with his extensive antibiotic use. He will have to follow-up closely with orthopedic surgery for dressing changes. The office will call him today to set up his first appointment on Sunday, and we will continue to follow as he progresses. The above was also explained to his , who demonstrated understanding. He was advised to hold his antihypertensives as he has been normotensive here without them. He was advised to continue to follow-up with his primary care physician, who will be checking periodic CPK levels with his daptomycin use. He was also advised to follow-up with his oncologist, Dr. Sepulveda, for close monitoring of his cell counts. Overall, his pain has been relatively well controlled. Will send home with a few days of [place] as needed. ALLERGIES Allergies Allergy/AdvReac Type Severity Reaction Status Date / Time pseudoephedrine HCl * (From Allergy Severe Hives Verified 02/12/24 11:55 Sudafed) triprolidine HCl * (From Allergy Severe Hives Verified 02/12/24 11:55 Actifed) MEDICATIONS Ambulatory Orders Medication Instructions Recorded Confirmed CPAP/BiPAP 01/04/24 02/12/24 apixaban 5 mg tablet (Eliquis) 5 mg PO BID 01/04/24 02/12/24 aspirin 81 mg tablet,delayed 81 mg PO HS 01/04/24 02/12/24 release (Aspir-) losartan 100 mg tablet (Cozaar) 100 mg PO DAILY 01/04/24 02/12/24 metoprolol tartrate 25 mg tablet 25 mg PO HS 01/04/24 02/12/24 oxymetazoline 0.05 % nasal mist 1 spray intranasal QPM PRN nasal 01/04/24 02/12/24 (Afrin (oxymetazoline)) congestion psyllium husk (with sugar) 3.4 2 tbsp PO DAILY 01/04/24 02/12/24 gram/12 gram oral powder (Metamucil (with sugar)) sertraline 25 mg tablet 25 mg PO DAILY 01/04/24 02/12/24 trazodone 50 mg tablet 50 mg PO HS #90 tabs 01/04/24 02/12/24 cefepime 2 gram solution for 2 g IV Q8H 2 weeks 01/17/24 02/12/24 injection daptomycin 1,000 mg/100 mL in 0.9 800 mg (80 mL) IV Q24H 2 weeks 01/17/24 02/12/24 % sodium chlor intravenous piggyback cholecalciferol (vitamin D3) 50 50 mcg PO DAILY 02/12/24 02/12/24 mcg (2,000 unit) capsule qonzwcts-nde-domlb acid 0.4 1 tab PO DAILY 02/12/24 02/12/24 mg-lycopene 300 mcg-lutein 250 mcg tablet (Centrum Silver) cholecalciferol (vitamin D3) 25 50 mcg (2 x 25 mcg (1,000 unit)) 02/15/24 mcg (1,000 unit) tablet PO DAILY 30 days #60 tabs ciprofloxacin 500 mg/5 mL oral 500 mg (5 mL) PO BID 14 days #140 02/15/24 suspension mL docusate sodium 100 mg capsule 100 mg PO BID 30 days #60 caps 02/15/24 hydrocodone 5 mg-acetaminophen 325 1 tab PO Q4HR PRN Pain 5 to 7 3 02/15/24 mg tablet days #18 tabs rosuvastatin 5 mg tablet See Rx Instructions .Route 02/15/24 .COMPLEX #90 tabs sulfamethoxazole 800 1 tab PO BID 14 days #28 tabs 02/15/24 mg-trimethoprim 160 mg tablet (Bactrim DS) PHYSICAL EXAM AT DISCHARGE General Appearance: positive No acute distress and Alert; negative Anxious Eyes Bilateral: positive Normal inspection, PERRL and EOMI ENT: positive ENT inspection nml, Pharynx nml and No signs of dehydration Neck: positive Nml inspection, Thyroid nml, No JVD and Trachea midline Respiratory: positive Chest non-tender, No respiratory distress and Breath sounds nml; negative Wheezes, Rales or Rhonchi Cardiovascular: positive Regular rate & rhythm, No murmur and No gallop; negative Extrasystoles, Tachycardia or Bradycardia Peripheral Pulses: positive 2+ Abdomen: positive Non-tender, No organomegaly, Nml bowel sounds, No distention and Tenderness Back: positive Nml inspection; negative CVA tenderness (R) or CVA tenderness (L) Skin: positive Color nml, No rash, Warm and Dry Extremities: negative Non-tender (Left wrist with tendernes, swelling; improving; in bandage, not unwrapped) Neurologic/Psychiatric: positive Oriented x3, Motor nml and Mood/affect nml LABS 02/15/24 05:37 02/15/24 05:37 DIAGNOSTIC IMAGING Diagnostic Imaging Results: Final report reviewed SEPSIS Current Stage of Sepsis: Ruled out Possible source of Sepsis: Bone/Joint QUALITY (Female Hip Fx Only) Was patient sent home on osteoporosis medication?: No FOLLOW UP Follow Up: Follow up with orthopedic surgery, primary care physician, oncologist. TIME SPENT Time Spent in Discharge (Minutes): 40 Discharge Plan Discharge Patient Disposition: Home, Self Care Condition: Stable Prescriptions: New cholecalciferol (vitamin D3) 25 mcg (1,000 unit) Tablet 50 mcg PO DAILY 30 Days Qty: 60 0RF docusate sodium 100 mg Capsule 100 mg PO BID 30 Days Qty: 60 0RF hydrocodone-acetaminophen 5-325 mg Tablet 1 tab PO Q4HR PRN (Reason: Pain 5 to 7) 3 Days Qty: 18 0RF sulfamethoxazole-trimethoprim [Bactrim DS] 800-160 mg tablet 1 tab PO BID 14 Days Qty: 28 0RF Rx Instructions: PLEASE START TAKING AFTER COMPLETION OF IV ANTIBIOTICS - 02/26 to 03/12. ciprofloxacin 500 mg/5 mL suspension,microcapsule recon 500 mg PO BID 14 Days Qty: 140 0RF Rx Instructions: PLEASE START TAKING AFTER COMPLETION OF IV ANTIBIOTICS - 02/26 to 03/12. Continued aspirin [Aspir-81] 81 mg tablet,delayed release (DR/EC) 81 mg PO HS Rx Instructions: take one tablet by mouth once a day Metamucil (with sugar) 3.4 gram/12 gram powder 2 tbsp PO DAILY Rx Instructions: TAKE TWO TABLESPOON ONCE DAILY sertraline 25 mg tablet 25 mg PO DAILY Rx Instructions: TAKE ONE TABLET BY MOUTH EVERY MORNING daptomycin in 0.9 % sod chlor 1,000 mg/100 mL piggyback 800 mg IV Q24H 14 Days Rx Instructions: administer over 30 mins cefepime 2 gram recon soln 2 g IV Q8H 14 Days Centrum Silver 0.4 mg-300 mcg- 250 mcg tablet 1 tab PO DAILY cholecalciferol (vitamin D3) 50 mcg (2,000 unit) capsule 50 mcg PO DAILY Afrin (oxymetazoline) 0.05 % mist 1 spray intranasal QPM PRN (Reason: nasal congestion) Rx Instructions: spray one spray as directed every night (DME) CPAP/BiPAP Kit See Rx Instructions .Route Rx Instructions: USE EVERY NIGHT Eliquis 5 mg tablet 5 mg PO BID Rx Instructions: TAKE ONE TABLET BY MOUTH TWICE A DAY trazodone 50 mg tablet 50 mg PO HS Qty: 90 3RF Rx Instructions: TAKE ONE TABLET BY MOUTH EVERY NIGHT Held losartan [Cozaar] 100 mg tablet 100 mg PO DAILY Hold Instructions: Resume on 02/29/24. Please follow up with PCP to see if your blood pressure is elevated in outpatient setting - while you have been here it has been normal/low and we have held this - please continue to hold until you see your PCP. Rx Instructions: TAKE ONE TABLET DAILY metoprolol tartrate 25 mg tablet 25 mg PO HS Hold Instructions: Resume on 02/29/24. Please follow up with PCP to see if your blood pressure is elevated in outpatient setting - while you have been here it has been normal/low and we have held this - please continue to hold until you see your PCP. Rx Instructions: TAKE ONE TABLET DAILY Discontinued Fish Oil 350-600 mg capsule 2 cap PO DAILY Rx Instructions: TAKE ONE CAPSULE BY MOUTH ONCE A DAY cyclobenzaprine 10 mg tablet 10 mg PO HS Qty: 30 1RF allopurinol 100 mg tablet 50 mg PO QDAY Qty: 45 3RF No Action rosuvastatin 5 mg tablet See Rx Instructions .ROUTE .COMPLEX Qty: 90 3RF Dose Instruction: TAKE 1 TABLET EVERY EVENING (DOSE REDUCTION ON 04/18/21) Rx Instructions: TAKE 1 TABLET EVERY EVENING (DOSE REDUCTION ON 04/18/21) Activity Restrictions: Activity as Tolerated Diet: Regular Health Concerns: You came in because your orthopedic surgery office had noticed that your wrist looked infected again. You had a procedure done to clean out that joint. We started you back on IV antibiotics. You will be on IV antibiotics for 2 weeks, from now until February 26.. After this, you will be on 2 more weeks of oral antibiotics from February 26 until March 12. Please do not start the oral antibiotics, the Bactrim until your IV antibiotics have been completed. Please continue to follow-up with your orthopedic surgeon regularly. You should hear from their office to set up an appointment for you for Sunday. Please continue to hold your blood pressure medications. Your blood pressure was low to normal while you have been in the hospital, and as such, you were not given your losartan and metoprolol. Please hold it until you see your primary care doctor again, and wait for his approval to restart these meds. Please also continue to follow-up with your primary care doctor, as well as your oncologist. We are glad you are feeling better, thank you for allowing us to take care of you. Care Plan Goals: 1. Continue IV antibiotics for now until February 26. 2. Continue oral antibiotics from February 26 to March 12. 3. Hold your blood pressure medications until you follow-up with your primary care physician and he tells her to restart them. 4. Take probiotics at home, if possible, as you will be on an extended course of antibiotics. 5. Follow-up with orthopedic surgery; your first appointment should be on Sunday. They will tell you when they want to see you after that. 6. Follow-up with your primary care doctor. 7. Follow-up with your carburetor expert/oncologist. 8. Maintain good nutrition status, try to eat and drink as much as you can. 9. Please return if you notice worsening pain, swelling, drainage from the site. Print Language: Bahamian Patient Instructions: Surgery Anesthesia After Stand Alone Forms: PCP List Follow-up Care: Sheirce Santana PA-C [Provider Admit Priv/Credential] - Deacon Juárez MD [Primary Care Provider] -"
--- NOTE | 2024-02-15 15:56 | ANESTHESIA PROCEDURE NOTE ---
Anesth Central Line Template Central Line Procedure Date: 02/15/24 Central Line Preparation: Consent Obtained, Time out completed, Ultrasound used and Sterile prep and drape Central line location: Right Basilic Central line type: PICC Double Lumen Central line catheter tip site resides: Superior vena cava (SVC) Central line aftercare: Secured, Placement confirmed, No complications and Pt tolerated well Other Info/Details: Consent obtained. Right upper arm prepped with chlorahexadine. Full sterile drape, gown gloves utilized. Right upper arm localized with 4ml of 1% lidocaine. Right basilic vein visualized under ultrasound and accessed with 20G needle. Wire advanced with ease and peel away sheath inserted. A 5fr PICC line was trimmed to 42cm and advanced until shown to turn down towards the heart using teleflex tip tracker. 0cm exposed and both ports aspirate heme and flush with ease. Xray shows tip in the distal SVC. Line secured. All wires removed and ac counted for.
--- NOTE | 2024-02-15 15:57 | XRAY Report ---
PROCEDURE: XR Chest for Line Placement INDICATIONS: picc line placement TECHNIQUE: One view of the chest was acquired. COMPARISON: None. FINDINGS: Lungs and pleura: No pleural effusions or pneumothorax. No consolidation. Mediastinum: Mediastinal contours appear normal. Heart size is normal. Bones and chest wall: No suspicious bony lesions. Overlying soft tissues appear unremarkable. Hea led left posterior rib fractures. Right upper extremity approach PICC tip projects over the low SVC. IMPRESSION: Right upper extremity approach PICC tip projects over the low SVC. Reviewed by: Nacho Mckeon MD on 02/15/2024 3:56 PM PST Approved by: Nacho Mckeon MD on 02/15/2024 3:56 PM PST Station ID: [id number]
[2024-02-15 16:32] VITALS: O2SAT 97
== END 2024-02-15 17:19 | disposition home or self-care (01) | DRG 549 ==
LOC: ED 11:33 → MS2 13:43
PROVIDERS: ADMIT Emergency Medicine; ATTEND Internal Medicine
DX: N17.9 Acute kidney failure, unspecified; M00.9 Pyogenic arthritis, unspecified; Z79.01 Long term (current) use of anticoagulants; C93.10 Chronic myelomonocytic leukemia not having achieved remission; M35.3 Polymyalgia rheumatica; D61.9 Aplastic anemia, unspecified; G47.33 Obstructive sleep apnea (adult) (pediatric); I10 Essential (primary) hypertension; I27.82 Chronic pulmonary embolism